=== PATIENT | female | born 1940 | race Caucasian/White ===

== ENCOUNTER 2016-06-19 04:32 | Emergency (ER) | payer MEDICARE, MEDICAID ==
[2016-06-19 06:13] LABS: ABSOLUTE BASOPHILS # (AUTO) 0.1 10^3/uL (0.0-0.2); ABSOLUTE EOSINOPHILS # (AUTO) 0.2 10^3/uL (0.0-0.6); ABSOLUTE LYMPHOCYTES (AUTO) 2.2 10^3/uL (0.5-4.7); ABSOLUTE MONOCYTES (AUTO) 0.8 10^3/uL (0.1-1.4); ABSOLUTE NEUT (AUTO) 6.2 10^3/uL (1.7-8.2); BASOPHILS % (AUTO) 0.7 % (0-2); EOSINOPHILS % (AUTO) 2.4 % (0-6); HEMATOCRIT 34.4 % (36.0-47.0); HEMOGLOBIN 11.1 g/dL (12.0-15.5); HGB HCT DIFFERENCE -1.1; LYMPHOCYTES % (AUTO) 23.2 % (13-45); MEAN CORPUSCULAR HEMOGLOBIN 31.1 pg (27.0-33.4); MEAN CORPUSCULAR HGB CONC 32.4 g/dL (32.0-36.0); MEAN CORPUSCULAR VOLUME 96 fl (80-97); MONOCYTES % (AUTO) 8.1 % (3-13); RED BLOOD COUNT 3.57 10^6/uL (3.72-5.28); SEGMENTED NEUTROPHILS % (AUTO) 65.6 % (42-78); WHITE BLOOD COUNT 9.5 10^3/uL (4.0-10.5)
[2016-06-19 06:21] LABS: PROTHROMBIN TIME 14.5 SEC (11.4-15.4)
[2016-06-19 06:22] LABS: PARTIAL THROMBOPLASTIN TIME 35.4 SEC (23.5-35.8)
[2016-06-19] MEDS ORDERED: LIDOCAINE 2%/EPINEPHRINE INJ 20 ML VIAL INJ ONE (06:59)
--- NOTE | 2016-06-19 07:28 | ER Document Report ---
ED General - General Chief Complaint: Post Surgical Bleeding Stated Complaint: POST SURGICAL PROBLEM TRAVEL OUTSIDE OF THE [place] IN LAST 30 DAYS: No - HPI Patient complains to provider of: gums bleeding post dental extraction Notes: Patient coming in after having 4 teeth removed of her upper gum day prior to arrival. Patient was on Ahlquist and did have her Ahlquist held since Friday. Patient states since that time continues to use. Patient states she was having some bleeding after the surgery. Patient cannot tell me the name of the dentist that performed the dental extraction. Upon entering the room patient does have gauze in her mouth here is this does show some blood. Otherwise airways intact no obvious distress patient's hemoglobin stable. - Related Data Allergies/Adverse Reactions: iodine Allergy (Severe, Verified 03/12/16 09:33) itching, facial swelling, difficulty breathing doxycycline [Doxycycline] Allergy (Verified 03/12/16 09:33) dizzy Iodinated Contrast Media - Oral and [IV Dye, Iodine Containing] Allergy ( Verified 03/12/16 09:33) prednisone [Prednisone] Allergy (Verified 03/12/16 09:33) Sulfa (Sulfonamide Antibiotics) Allergy (Verified 03/12/16 09:33) dizzy amlodipine besylate [From Norvasc] Adverse Reaction (Unknown, Verified 03/12/16 09:33) anxious, jittery feeling Past Medical History - Social History Smoking Status: Former Smoker Chew tobacco use (# tins/day): No Frequency of alcohol use: None Drug Abuse: None Family History: Reviewed & Not Pertinent Patient has suicidal ideation: No Patient has homicidal ideation: No - Past Medical History Cardiac Medical History: Reports: Hx Congestive Heart Failure, Hx DVT, Hx Heart Attack, Hx Hypertension - R/T ESRD, Hx Pulmonary Embolism, Hx Heart Murmur Denies: Hx Coronary Artery Disease Pulmonary Medical History: Reports: Hx Pneumonia Denies: Hx Asthma, Hx Bronchitis, Hx COPD, Hx Tuberculosis Neurological Medical History: Denies: Hx Cerebrovascular Accident, Hx Seizures Renal/ Medical History: Reports: Hx End Stage Renal Disease, Hx Hemodialysis, Hx Kidney Stones. Denies: Hx Peritoneal Dialysis GI Medical History: Reports: Hx Ulcer Musculoskeltal Medical History: Reports Hx Arthritis Psychiatric Medical History: Reports: Hx Depression Past Surgical History: Reports: Hx Abdominal Surgery - gastric bypass, Hx Cardiac Surgery - Pacer, bypass, Hx Cholecystectomy, Hx Gastric Bypass Surgery, Hx Orthopedic Surgery, Hx Tonsillectomy, Hx Tubal Ligation. Denies: Hx Hysterectomy - Immunizations Hx Diphtheria, Pertussis, Tetanus Vaccination: Yes - PT UNSURE WHEN Hx Pneumococcal Vaccination: 01/31/14 Review of Systems - Review of Systems Constitutional: No symptoms reported EENT: Other - Gum bleeding Cardiovascular: No symptoms reported Respiratory: No symptoms reported Gastrointestinal: No symptoms reported Genitourinary: No symptoms reported Female Genitourinary: No symptoms reported Musculoskeletal: No symptoms reported Skin: No symptoms reported Hematologic/Lymphatic: No symptoms reported Neurological/Psychological: No symptoms reported Physical Exam - Vital signs Vitals: Resp 16 06/19/16 04:47 Interpretation: Normal - General General appearance: Appears well, Alert - HEENT Head: Normocephalic, Atraumatic Eyes: Normal Pupils: PERRL Notes: Patient with extractions approximate tooth 3 12 [address] there is no rapid bleeding. Sutures are placed. - Respiratory Respiratory status: No respiratory distress Chest status: Nontender Breath sounds: Normal Chest palpation: Normal - Cardiovascular Rhythm: Regular Heart sounds: Normal auscultation Murmur: No - Abdominal Inspection: Normal Distension: No distension Bowel sounds: Normal Tenderness: Nontender Organomegaly: No organomegaly - Back Back: Normal, Nontender - Extremities General upper extremity: Normal inspection, Nontender, Normal color, Normal ROM , Normal temperature General lower extremity: Normal inspection, Nontender, Normal color, Normal ROM , Normal temperature, Normal weight bearing. No: Giovanni's sign - Neurological Neuro grossly intact: Yes Cognition: Normal Orientation: AAOx4 Milind Coma Scale Eye Opening: Spontaneous Milind Coma Scale Verbal: Oriented Milind Coma Scale Motor: Obeys Commands Milind Coma Scale Total: 15 Speech: Normal Motor strength normal: LUE, RUE, LLE, RLE Sensory: Normal - Psychological Associated symptoms: Normal affect, Normal mood - Skin Skin Temperature: Warm Skin Moisture: Dry Skin Color: Normal Course - Re-evaluation Re-evalutation: 06/19/16 07:27 Lab work shows thymocyte opinion was to be stable for the patient. Patient's hemoglobin is stable. Will attempt to place some Surgicel with lidocaine with epi at the sites will consult with the dentist the performed extractions. 06/19/16 08:26 Lidocaine with epinephrine was instilled in the surgical wounds and packed with Gelfoam. After packing patient was made to bite down on gauze. This did not temporize the bleeding. I did contact the patient's oral surgeon Dr. rodriguez. Discussed with medical receptionist medical assistant who is already notified of the patient are notified the doctor states that their request to have the patient transferred to their office. 06/19/16 14:44 - Vital Signs Vital signs: Temp Pulse Resp BP Pulse Ox 98.3 F 60 18 147/57 H 94 06/19/16 04:54 06/19/16 08:40 06/19/16 08:40 06/19/16 08:40 06/19/16 08:40 - Laboratory Result Diagrams: 06/19/16 05:35 Laboratory results interpreted by me: 06/19/16 05:35 RBC 3.57 L Hgb 11.1 L Hct 34.4 L RDW 15.0 H Plt Count 110 L Discharge - Discharge Clinical Impression: bleeding post dental extraction Condition: Good Disposition: HOME-SNF (ED ONLY) Additional Instructions: Go directly to Dr. Rodriguez's office for further evaluation of your bleeding. Referrals: ASHOK CORTES MD [Primary Care Provider] - Follow up as needed
[2016-06-19 08:41] VITALS: BP 147/57
== END 2016-06-19 09:25 ==
LOC: ER 04:32
DX: K91.840 Postprocedural hemorrhage of a digestive system organ or structure following a digestive system procedure (principal); Y83.6 Removal of other organ (partial) (total) as the cause of abnormal reaction of the patient, or of later complication, without mention of misadventure at the time of the procedure; I25.2 Old myocardial infarction; I12.0 Hypertensive chronic kidney disease with stage 5 chronic kidney disease or end stage renal disease; N18.6 End stage renal disease; Z99.2 Dependence on renal dialysis; Z88.3 Allergy status to other anti-infective agents; Z88.1 Allergy status to other antibiotic agents; Z91.041 Radiographic dye allergy status; Z88.8 Allergy status to other drugs, medicaments and biological substances; Z88.2 Allergy status to sulfonamides; Z87.891 Personal history of nicotine dependence; Z86.718 Personal history of other venous thrombosis and embolism; Z86.711 Personal history of pulmonary embolism; Z98.84 Bariatric surgery status; Z95.0 Presence of cardiac pacemaker
CPT/HCPCS: 99284; 36415; 85025; 85610; 85730; J3490

== ENCOUNTER 2016-07-04 09:22 | Day surgery (SDC) | payer MEDICARE, MEDICAID ==
[~2016-07-04 09:22] MED LIST: CEFAZOLIN 1 GM/D5W RTU 1 GM/50 ML RTUPB IV PRN; CEFAZOLIN SODIUM 1 GM in DEXTROSE 5%-WATER 50 ML IV PRN
[2016-07-04 10:24] LABS: HEMATOCRIT 27.8 % (36.0-47.0); HEMOGLOBIN 8.9 g/dL (12.0-15.5); HGB HCT DIFFERENCE -1.1; MEAN CORPUSCULAR HEMOGLOBIN 31.1 pg (27.0-33.4); MEAN CORPUSCULAR HGB CONC 32.2 g/dL (32.0-36.0); MEAN CORPUSCULAR VOLUME 97 fl (80-97); RED BLOOD COUNT 2.88 10^6/uL (3.72-5.28); RED CELL DISTRIBUTION WIDTH 16.2 % (11.5-14.0); WHITE BLOOD COUNT 10.1 10^3/uL (4.0-10.5)
[2016-07-04 10:26] LABS: ANION GAP 15 (5-19); BLOOD UREA NITROGEN 37 mg/dL (7-20); CALCIUM 8.9 mg/dL (8.4-10.2); CARBON DIOXIDE 27 mmol/L (22-30); CHLORIDE 99 mmol/L (98-107); CREATININE RESULT 5.49 mg/dL (0.52-1.25); GLUCOSE 116 mg/dL (75-110); POTASSIUM 4.4 mmol/L (3.6-5.0); SODIUM 140.6 mmol/L (137-145)
[2016-07-04] MEDS ORDERED: FENTANYL CITRATE INJ/PF 100 MCG/2 ML AMPUL ONE (11:07)
[2016-07-04] MEDS ORDERED: MIDAZOLAM 2 MG/2 ML INJ ONE (11:07)
[2016-07-04] MEDS ORDERED: HEPARIN SOD (PORCINE) 5,000 UNIT/ML 1 ML SYRINGE ONE (11:07)
[2016-07-04] MEDS ORDERED: LIDOCAINE 0.5% INJ-PF (5 MG/ML) 50 ML SDV ONE (11:15)
--- NOTE | 2016-07-04 11:25 | EKG REPORT ---
SEVERITY:- ABNORMAL ECG - ATRIAL-SENSED VENTRICULAR-PACED RHYTHM : Confirmed by: Tennlile Dinh 04-Jul-2016 11:24:56
[2016-07-04 13:47] VITALS: BP 127/61
--- NOTE | 2016-07-15 13:27 | PDOC DISCHARGE SUMMARY ---
Discharge Summary (SDC) - Discharge Final Diagnosis: #1 malfunctioning arteriovenous fistula. #2 end-stage renal disease on hemodialysis. #3 multiple comorbidities. Forms: ASU Anesthesia D/C Instruction, Discharge POC-Surgical Service Referrals: DON HELM MD [ACTIVE STAFF] - Respiratory Treatments at Home: Deep Breathing/Coughing Discharge Activity: Activity As Tolerated, Balance Activity w/Rest, No Lifting Over 10 Pounds, Slowly Increase Activity, Walk Frequently Activities Provided by Home Health Agency: [facility] Adaptive Devices on Discharge: Wheelchair Report the Following to Your Physician Immediately: Shortness of Breath, Nausea , Vomiting, Increase in Pain, Fever over 101 Degrees, Unusual Bleeding, Redness , Swelling, Warmth, Increased Soreness, Drainage-Foul Smelling
--- NOTE | 2016-07-15 13:32 | Brief Operative Note ---
BRIEF OPERATIVE REPORT DATE OF SURGERY: 07/09/16 TIME OF SURGERY: 10:00 PREOPERATIVE DIAGNOSIS: #1 malfunctioning arteriovenous fistula. #2 end-stage renal disease on hemodialysis. #3 multiple comorbidities. POSTOPERATIVE DIAGNOSIS: #1 malfunctioning arteriovenous fistula. #2 end-stage renal disease on hemodialysis. #3 multiple comorbidities. SURGEON: DON HELM 1ST GARDEN IMPLEMENT MECHANIC: none FINDINGS: Upper well-founded left arm cephalic to brachial fistula, quite firm initially suggestive of proximal stenosis. Sure enough there is a tight stenosis at the cephalic to subclavian junction easily about 80% of the adjacent lumen. This was completely resolved by angioplasty. COMPLICATIONS: None ESTIMATED BLOOD LOSS: 5 mL. TISSUE REMOVED OR ALTERED: Not applicable TECHNICAL PROCEDURE: PROCEDURE: After verifying the procedure and having obtained informed consent, the. patient's left arm was prepared with Chlorhexidine and draped out with. sterile linen. Local anesthesia infiltrated. Percutaneous access into. the fistula ,[ antegrade], obtained about [2 cm] from the arteriovenous anastomosis using a. micro puncture needle followed by micro puncture wire and then a. micro puncture catheter. Angiogram demonstrated the aforementioned. findings. Angioplasty was elected. A 0.035 [place] wire was inserted, and. over this, a 7 Macanese short introducer was placed, this was followed by a [8] angioplasty balloon . Angioplasty was. At the subclavian cephalic junction. Inflating up to 18 atmospheres for a minute at a time.]. Completion angiogram demonstrated [satisfactory result]. The instrumentation was now withdrawn e. Dressings applied, procedure concluded. Exposure time: Radiation: Contrast: DICTATING PHYSICIAN: DON HELM M.D. cc: DON HELM M.D. ([id number]). >>
--- NOTE | 2016-07-15 13:33 | Operative Report ---
Operative Report DATE OF SURGERY: 07/09/16 PREOPERATIVE DIAGNOSIS: #1 malfunctioning arteriovenous fistula. #2 end-stage renal disease on hemodialysis. #3 multiple comorbidities. POSTOPERATIVE DIAGNOSIS: #1 malfunctioning arteriovenous fistula. #2 end-stage renal disease on hemodialysis. #3 multiple comorbidities. OPERATION: PROCEDURE: After verifying the procedure and having obtained informed consent, the. patient's left arm was prepared with Chlorhexidine and draped out with. sterile linen. Local anesthesia infiltrated. Percutaneous access into. the fistula ,[ antegrade], obtained about [2 cm] from the arteriovenous anastomosis using a. micro puncture needle followed by micro puncture wire and then a. micro puncture catheter. Angiogram demonstrated the aforementioned. findings. Angioplasty was elected. A 0.035 [place] wire was inserted, and. over this, a 7 Chinese short introducer was placed, this was followed by a [8] angioplasty balloon . Angioplasty was. At the subclavian cephalic junction. Inflating up to 18 atmospheres for a minute at a time.]. Completion angiogram demonstrated [satisfactory result]. The instrumentation was now withdrawn e. Dressings applied, procedure concluded. Exposure time: Radiation: Contrast: DICTATING PHYSICIAN: DON HELM M.D. cc: DON HELM M.D. ([id number]). >> SURGEON: DON HELM 1ST ELL TUTOR: none TISSUE REMOVED OR ALTERED: Not applicable ESTIMATED BLOOD LOSS: 5 mL. INTRAOPERATIVE FINDINGS: Upper well-founded left arm cephalic to brachial fistula, quite firm initially suggestive of proximal stenosis. Sure enough there is a tight stenosis at the cephalic to subclavian junction easily about 80 % of the adjacent lumen. This was completely resolved by angioplasty. PROCEDURE: PROCEDURE: After verifying the procedure and having obtained informed consent, the patient's left arm was prepared with Chlorhexidine and draped out with sterile linen. Local anesthesia infiltrated. Percutaneous access into the fistula ,[ antegrade], obtained about [2 cm] from the arteriovenous anastomosis using a micro puncture needle followed by micro puncture wire and then a micro puncture catheter. Angiogram demonstrated the aforementioned findings. Angioplasty was elected. A 0.035 [place] wire was inserted, and over this, a 7 Chinese short introducer was placed, this was followed by a [8] angioplasty balloon . Angioplasty was At the subclavian to cephalic junction. Inflating up to 18 atmospheres for 2 minutes.]. Completion angiogram demonstrated [satisfactory result]. The instrumentation was now withdrawn e. Dressings applied, procedure concluded. DICTATING PHYSICIAN: DON HELM M.D. cc: DON HELM M.D. ([id number]) >>
== END 2016-07-04 13:52 | disposition home or self-care (01) ==
LOC: CCL 09:22
PROVIDERS: ATTEND Surgery
PROC: 057F3DZ Dilation of Left Cephalic Vein with Intraluminal Device, Percutaneous Approach (ICD-10-PCS; principal; 2016-07-04)
DX: T82.858A Stenosis of other vascular prosthetic devices, implants and grafts, initial encounter (principal); Y83.2 Surgical operation with anastomosis, bypass or graft as the cause of abnormal reaction of the patient, or of later complication, without mention of misadventure at the time of the procedure; Z99.2 Dependence on renal dialysis; I51.9 Heart disease, unspecified; E83.51 Hypocalcemia; E03.9 Hypothyroidism, unspecified; I50.22 Chronic systolic (congestive) heart failure; E87.6 Hypokalemia; I47.2 Ventricular tachycardia; Z86.718 Personal history of other venous thrombosis and embolism; Z79.899 Other long term (current) drug therapy; Z79.82 Long term (current) use of aspirin
CPT/HCPCS: 36415; 85027; 80048; 36902; 71010; 93005; 93010; C1752; C1887; Q9967; C1769; J2250; J1644 ×2; J0690; J3010; J3490

== ENCOUNTER 2016-09-10 09:42 | Day surgery (SDC) | payer MEDICARE, MEDICAID ==
[2016-09-10 10:25] LABS: ABSOLUTE LYMPHOCYTES (AUTO) 1.7 10^3/uL (0.5-4.7); ABSOLUTE MONOCYTES (AUTO) 0.3 10^3/uL (0.1-1.4); BASOPHILS % (AUTO) 0.4 % (0-2); HEMATOCRIT 36.9 % (36.0-47.0); HEMOGLOBIN 11.9 g/dL (12.0-15.5); HGB HCT DIFFERENCE -1.2; LYMPHOCYTES % (AUTO) 15.6 % (13-45); MEAN CORPUSCULAR HEMOGLOBIN 30.7 pg (27.0-33.4); MEAN CORPUSCULAR HGB CONC 32.4 g/dL (32.0-36.0); MEAN CORPUSCULAR VOLUME 95 fl (80-97); MONOCYTES % (AUTO) 2.4 % (3-13); RED BLOOD COUNT 3.88 10^6/uL (3.72-5.28); RED CELL DISTRIBUTION WIDTH 14.8 % (11.5-14.0); SEGMENTED NEUTROPHILS % (AUTO) 81.6 % (42-78); WHITE BLOOD COUNT 11.1 10^3/uL (4.0-10.5)
[2016-09-10 10:44] LABS: ANION GAP 16 (5-19); BLOOD UREA NITROGEN 25 mg/dL (7-20); CALCIUM 9.2 mg/dL (8.4-10.2); CARBON DIOXIDE 25 mmol/L (22-30); CHLORIDE 102 mmol/L (98-107); CREATININE RESULT 6.03 mg/dL (0.52-1.25); GLUCOSE 127 mg/dL (75-110); POTASSIUM 5.2 mmol/L (3.6-5.0); SODIUM 142.8 mmol/L (137-145)
[2016-09-10] MEDS ORDERED: LIDOCAINE 0.5% INJ-PF (5 MG/ML) 50 ML SDV ONE (11:54)
[2016-09-10] MEDS ORDERED: MIDAZOLAM 2 MG/2 ML INJ ONE (11:55)
[2016-09-10] MEDS ORDERED: HEPARIN SOD (PORCINE) 5,000 UNIT/ML 1 ML SYRINGE ONE (11:55)
[2016-09-10] MEDS ORDERED: FENTANYL CITRATE INJ/PF 100 MCG/2 ML AMPUL ONE (11:55)
--- NOTE | 2016-09-10 14:47 | PDOC DISCHARGE SUMMARY ---
Discharge Summary (SDC) - Discharge Final Diagnosis: #1 Malfunctioning arteriovenous fistula, left brachiocephalic. #2 end-stage renal disease on hemodialysis. #3 chronic heart failure. Number for pacemaker defibrillator in place. #5 atrial fibrillation. #6 history of deep venous thrombosis. #7 hypothyroidism. Date of Surgery: 09/10/16 Discharge Date: 09/10/16 Condition: Poor Forms: ASU Anesthesia D/C Instruction, Discharge POC-Surgical Service Treatment or Instructions: #1 discharge patient home after achieving ASU criteria. #2 continue medications per medication reconciliation sheet. Nodes well, prednisone, Pepcid and Benadryl are discontinued from the MAR. These are to be reviewed in the residential and primary physician for appropriate long-term use. Discussed with the residential sales representative printing supplies today #3 follow-up in office by appointment in about 1 month, call for appointment. #4 dressing to be left on until dialysis. #5 continue scheduled hemodialysis. #6 may shower starting in 48 hours. Important to keep dressings clean and dry Referrals: DON HELM MD [ACTIVE STAFF] - Discharge Diet: Other (Comments) - Renal Respiratory Treatments at Home: Deep Breathing/Coughing Discharge Activity: Activity As Tolerated Report the Following to Your Physician Immediately: Shortness of Breath, Unusual Bleeding
--- NOTE | 2016-09-10 14:54 | Operative Report ---
Operative Report DATE OF SURGERY: 09/10/16 PREOPERATIVE DIAGNOSIS: #1 Malfunctioning arteriovenous fistula, left brachiocephalic. #2 end-stage renal disease on hemodialysis. #3 chronic heart failure. #[address] #5 atrial fibrillation. #6 history of deep venous thrombosis. #7 hypothyroidism. POSTOPERATIVE DIAGNOSIS: #1 Malfunctioning arteriovenous fistula, left brachiocephalic. #2 end-stage renal disease on hemodialysis. #3 chronic heart failure. Number for pacemaker defibrillator in place. #5 atrial fibrillation. #6 history of deep venous thrombosis. #7 hypothyroidism. OPERATION: #1 needle access into fistula. #2 angioplasty in arteriovenous fistula. #3 angioplasty in central veins. #4 angiogram and interpretation. SURGEON: DON HUNTER FUELS ENGINEER: none ANESTHESIA: Moderate Sedation TISSUE REMOVED OR ALTERED: Not applicable. COMPLICATIONS: None ESTIMATED BLOOD LOSS: 5 mL. INTRAOPERATIVE FINDINGS: Of an initially very firm fistula suggestive of cephalad stenosis. Stenosis noted at the cephalic vein to axillary vein interface about 70% stenosis. Residual about 5%. In addition a second vein draining into the subclavian vein more medially was initially not visualized. It was reopened and shows no residual stenosis after angioplasty. Apart from that the entire circuit looks good and robust including the superior vena cava into the heart. Despite the presence of defibrillator leads. This patient has a relatively bill fistula as given the presence of the defibrillator seems well indicated for continued surveillance an appropriate intervention. PROCEDURE: PROCEDURE: After verifying the procedure and having obtained informed consent, the patient's left arm was prepared with Chlorhexidine and draped out with sterile linen. Local anesthesia infiltrated. Percutaneous access into the fistula ,[ antegrade], obtained about [2 cm] from the arteriovenous anastomosis using a micro puncture needle followed by micro puncture wire and then a micro puncture catheter. Angiogram demonstrated the aforementioned findings. Angioplasty was elected. A 0.035 [place] wire was inserted, and over this, a 7 [place] short introducer was placed, this was followed by a [90] angioplasty balloon . Angioplasty was Done at the cephalic axillary junction. Handing hand inflating up to an estimated 20 amanda for 1 minute at the time.] Completion angiogram demonstrated improvement. The Glidewire was now inserted into the medial branch into the subclavian vein and dilatation was accomplished under hand injection for an estimated 20 amanda for 1 minute. A 9 mm angioplasty balloon was used. A 10 mm angioplasty balloon was now inserted and hand inflation up to an estimated estimated 12 amanda done both segments.. Completion angiogram demonstrated [satisfactory result]. In addition the fistula was appropriately softer suggesting that the functional cephalad stenosis had been overcome. The instrumentation was now withdrawn over hand pressure for 10 minutes. Dressings applied, procedure concluded. DICTATING PHYSICIAN: DON HELM M.D. cc: DON HELM M.D. ([id number]) >>
[2016-09-10 15:20] VITALS: BP 123/56
== END 2016-09-10 15:21 | disposition home or self-care (01) ==
LOC: CCL 09:42
PROVIDERS: ATTEND Surgery
PROC: 057F3DZ Dilation of Left Cephalic Vein with Intraluminal Device, Percutaneous Approach (ICD-10-PCS; principal; 2016-09-10)
DX: T82.858A Stenosis of other vascular prosthetic devices, implants and grafts, initial encounter (principal); Y83.2 Surgical operation with anastomosis, bypass or graft as the cause of abnormal reaction of the patient, or of later complication, without mention of misadventure at the time of the procedure; N18.6 End stage renal disease; Z99.2 Dependence on renal dialysis; E03.9 Hypothyroidism, unspecified; E83.51 Hypocalcemia; I50.22 Chronic systolic (congestive) heart failure; I48.91 Unspecified atrial fibrillation; Z88.2 Allergy status to sulfonamides; Z88.8 Allergy status to other drugs, medicaments and biological substances; Z79.01 Long term (current) use of anticoagulants; Z79.82 Long term (current) use of aspirin; Z95.810 Presence of automatic (implantable) cardiac defibrillator
CPT/HCPCS: 36415; 85025; 80048; 36907; 36902; C1725; C1752; C1894; Q9967; C1769; J2250; J1644 ×2; J3010; J3490

== ENCOUNTER 2016-09-11 13:59 | Observation (INO) | payer MEDICARE, MEDICAID ==
[2016-09-11] MEDS ORDERED: ASPIRIN 81 MG TABLET, CHEWABLE PO ONE (14:01)
--- NOTE | 2016-09-11 14:33 | ER Document Report ---
ED Cardiac - General Time seen by provider: 16:13 Mode of Arrival: Medic Information source: Patient TRAVEL OUTSIDE OF THE [place] IN LAST 30 DAYS: No - HPI Patient complains to provider of: Chest pain Was the onset of pain: Sudden Is the pain a: New problem Quality of pain: Pressure Chest pain radiation location: Left arm, Left shoulder Similar symptoms previously: No Recently seen / treated by doctor: No <ADOLPH DIAZ - Last Filed: 09/11/16 18:27> <OSIRIS MEDEIROS - Last Filed: 09/11/16 22:03> - General Stated Complaint: CHEST DISCOMFORT Notes: Patient is a 76 year old female presenting to the ED for chest pain. Patient states she was at dialysis when she started having chest pain along with pain in her left arm, left shoulder, and epigastric region. Patient states she had her fistula stretched by Dr. Joya yesterday. Patient has never had any problems with this procedure in the past. Patient states she started having the pain during dialysis. Patient denies any loss of consciousness during dialysis and also denies any pain at the time of the exam. Patient was given ASA and nitroglycerin x2 via EMS. Patient states she is allergic to contrast dye and has some itchiness and swelling associated to the dye. Patient states she has been pre-medicated in the past by Dr. Joya for contrast . (ADOLPH DIAZ ) - Related Data Allergies/Adverse Reactions: iodine Allergy (Severe, Verified 09/10/16 10:41) itching, facial swelling, difficulty breathing doxycycline [Doxycycline] Allergy (Verified 09/10/16 10:41) dizzy Iodinated Contrast Media - Oral and [IV Dye, Iodine Containing] Allergy ( Verified 09/10/16 10:41) prednisone [Prednisone] Allergy (Verified 09/10/16 10:41) Sulfa (Sulfonamide Antibiotics) Allergy (Verified 09/10/16 10:41) dizzy amlodipine besylate [From Norvasc] Adverse Reaction (Unknown, Verified 09/10/16 10:41) anxious, jittery feeling Home Medications: Current Home Medications Acetaminophen [Tylenol 325 mg Tablet] 650 mg PO Q4HP PRN 09/11/16 [History] Acidophilus/Bifido Longum [Lactobacillus Capsule] 1 tab PO BID 09/11/16 [History ] Amiodarone HCl [Cordarone 200 mg Tablet] 200 mg PO DAILY 09/11/16 [History] Apixaban [Eliquis 2.5 mg Tablet] 2.5 mg PO BID 09/11/16 [History] Aspirin [Aspirin EC] 81 mg PO DAILY 09/11/16 [History] Atorvastatin Calcium [Lipitor 40 mg Tablet] 40 mg PO QHS 09/11/16 [History] Cyanocobalamin (Vitamin B-12) [Vitamin B-12 500 mcg Tablet] 500 mcg PO DAILY 05/18 [History] Diphenoxylate HCl/Atropine [Lomotil 2.5-0.025 mg Tablet] 2 tab PO QID 09/11/16 [ History] Eyelid Cleanser Combination #5 [Ocusoft Lid Scrub] 1 applic OU BID 09/11/16 [ History] Famotidine [Pepcid 20 mg Tablet] 20 mg PO Q12 09/11/16 [History] Ferric Citrate [Auryxia] 1 tab PO TID 09/11/16 [History] Hydrocortisone [Cortef 10 mg Tablet] 5 mg PO QHS 09/11/16 [History] Hydrocortisone [Cortef 10 mg Tablet] 10 mg PO QAM 09/11/16 [History] Levothyroxine Sodium [Synthroid 0.15 mg Tablet] 150 mcg PO QAM 09/11/16 [History ] Lidocaine HCl [Aspercreme] 1 applic TOP DAILY 09/11/16 [History] Lidocaine/Prilocaine [Emla Cream] 1 applic TOP MOWEFR 09/11/16 [History] Loperamide HCl [Imodium A-D] 4 mg PO QID 09/11/16 [History] Loratadine [Claritin 10 mg Tablet] 10 mg PO QHS 09/11/16 [History] Magnesium Oxide [Mag-Ox 400 mg Tablet] 1 tab PO BID 09/11/16 [History] Metoprolol Tartrate [Lopressor 25 mg Tablet] 12.5 mg PO BID 09/11/16 [History] Mometasone Furoate [Nasonex] 2 puff NASL DAILY 09/11/16 [History] Olopatadine HCl [Patanol] 1 drop OU QAM 09/11/16 [History] Ondansetron HCl [Zofran 4 mg Tablet] 4 mg PO Q4HP PRN 09/11/16 [History] Oxycodone HCl/Acetaminophen [Percocet 5-325 mg Tablet] 1 tab PO Q6HP PRN [History] Paroxetine HCl [Paxil] 10 mg PO DAILY 09/11/16 [History] Polyvinyl Alcohol [Liquitears] 1 drop OU QID 09/11/16 [History] Sodium Bicarbonate [Sodium Bicarbonate 650 mg Tablet] 650 mg PO BID 09/11/16 [ History] Sodium Fluoride/Potassium Nit [Prevident 5000 Sensitive Paste] 1 applic PO BID 09/11/16 [History] Sodium Polystyrene Sulfonate [Kayexalate 15 gm/60 ml Susp 60 ml] 60 ml PO DAILYP PRN 09/11/16 [History] Past Medical History - General Information source: Patient, [facility] Records - Social History Smoking Status: Unknown if Ever Smoked Family History: None Patient has suicidal ideation: No Patient has homicidal ideation: No - Past Medical History Cardiac Medical History: Reports: Hx Congestive Heart Failure, Hx DVT, Hx Heart Attack, Hx Hypertension - R/T ESRD, Hx Pulmonary Embolism, Hx Heart Murmur Pulmonary Medical History: Reports: Hx Pneumonia Renal/ Medical History: Reports: Hx End Stage Renal Disease, Hx Hemodialysis, Hx Kidney Stones GI Medical History: Reports: Hx Ulcer Musculoskeltal Medical History: Reports Hx Arthritis Psychiatric Medical History: Reports: Hx Depression Past Surgical History: Reports: Hx Abdominal Surgery - gastric bypass, Hx Cardiac Surgery - Pacer, bypass, Hx Cholecystectomy, Hx Gastric Bypass Surgery, Hx Orthopedic Surgery, Hx Tonsillectomy, Hx Tubal Ligation - Immunizations Hx Diphtheria, Pertussis, Tetanus Vaccination: Yes Hx Pneumococcal Vaccination: 01/31/14 <ADOLPH DIAZ - Last Filed: 09/11/16 18:27> Review of Systems - Review of Systems Constitutional: No symptoms reported EENT: No symptoms reported Cardiovascular: See HPI, Chest pain Respiratory: No symptoms reported Gastrointestinal: No symptoms reported Genitourinary: No symptoms reported Female Genitourinary: No symptoms reported Musculoskeletal: See HPI Skin: No symptoms reported Hematologic/Lymphatic: No symptoms reported Neurological/Psychological: No symptoms reported -: Yes All other systems reviewed and negative <ADOLPH DIAZ - Last Filed: 09/11/16 18:27> Physical Exam - Extremities General upper extremity: Other - fistula to the left upper extremity - Skin Skin Color: Ecchymosis - left arm and shoulder <EMILYADOLPH - Last Filed: 09/11/16 18:27> Course - Laboratory Result Diagrams: 09/11/16 14:32 09/11/16 14:32 - Consults Dr. Joya Time consulted: 16:20 Dr. Marie Time consulted: 17:42 <ADOLPH DIAZ - Last Filed: 09/11/16 18:27> - Laboratory Result Diagrams: 09/11/16 14:32 09/11/16 14:32 - Diagnostic Test Radiology reviewed: Image reviewed, Reports reviewed <OSIRIS MEDEIROS - Last Filed: 09/11/16 22:03> - Re-evaluation Re-evalutation: 09/11/16 Patient is 76 field female who comes in with left-sided chest pain and arm pain upper abdominal pain that started after dialysis. Patient feels well this time. Patient is a history of [place]. Discussed with Dr. Joya who does not recommend Doppler. Does recommend CTA of her chest abdomen pelvis although he does not think that this is anything to do with her fistula. Discussed with patient. She'll be premedicated for dye. She has no history of anaphylactic reaction. Given Benadryl. Tolerated CTA. No acute findings related to dissection or PE. Patient will be admitted to the hospital service for further evaluation of her symptoms. Agrees with this plan. Stable time of admission. ( OSIRIS MEDEIROS) - Vital Signs Vital signs: Temp Pulse Resp BP Pulse Ox 97.8 F 61 15 126/55 H 95 09/11/16 14:01 09/11/16 14:01 09/11/16 19:00 09/11/16 18:30 09/11/16 18:30 - Laboratory Laboratory results interpreted by me: 09/11/16 09/11/16 14:32 14:32 Hgb 11.7 L Hct 35.8 L RDW 14.8 H BUN 24 H Creatinine 4.39 H Est GFR ( Amer) 12 L Est GFR (Non-Af Amer) 10 L Calcium 8.3 L Alkaline Phosphatase 237 H - Consults Dr. Joya Reason for consultation: 09/11/16 16:[address] Joya to consult about patient; he recommends to not do a Doppler study but instead do a CTA of the chest with contrast. (ADOLPH DIAZ) Dr. Marie Reason for consultation: 09/11/16 17:[address] Marie in the ED about patient; she will admit the patient for observation. (ADOLPH DIAZ) Critical Care Note - Critical Care Note Total time excluding time spent on procedures (mins): 35 - evaluation and management of chest pain patient, multiple re-evaluations, coordination with specialist, Ruben and of admission, counseling of patient <OSIRIS MEDEIROS - Last Filed: 09/11/16 22:03> Discharge <ADOLPH DIAZ - Last Filed: 09/11/16 18:27> - Discharge Admitting Provider: Rosey Marie Unit Admitted: Telemetry <OSIRIS MEDEIROS - Last Filed: 09/11/16 22:03> - Discharge Clinical Impression: Chest pain Qualifiers: Chest pain type: precordial pain Qualified Code(s): R07.2 - Precordial pain Condition: Stable Disposition: ADMITTED OBSERVATION Scribe Attestation: 09/11/16 22:03 I personally performed the services described in the documentation, reviewed and edited the documentation which was dictated to the scribe in my presence, and it accurately records my words and actions. (OSIRIS MEDEIROS) Scribe Documentation - Scribe Written by Remington:Jonny Diaz 09/11/16 16:45 acting as scribe for :: Norma <ADOLPH DIAZ - Last Filed: 09/11/16 18:27>
[2016-09-11 14:49] LABS: ABSOLUTE EOSINOPHILS # (AUTO) 0.1 10^3/uL (0.0-0.6); ABSOLUTE MONOCYTES (AUTO) 0.4 10^3/uL (0.1-1.4); ABSOLUTE NEUT (AUTO) 6.8 10^3/uL (1.7-8.2); BASOPHILS % (AUTO) 0.3 % (0-2); EOSINOPHILS % (AUTO) 0.6 % (0-6); HEMATOCRIT 35.8 % (36.0-47.0); HEMOGLOBIN 11.7 g/dL (12.0-15.5); HGB HCT DIFFERENCE -0.7; LYMPHOCYTES % (AUTO) 21.7 % (13-45); MEAN CORPUSCULAR HEMOGLOBIN 31.2 pg (27.0-33.4); MEAN CORPUSCULAR HGB CONC 32.6 g/dL (32.0-36.0); MEAN CORPUSCULAR VOLUME 96 fl (80-97); MONOCYTES % (AUTO) 4.8 % (3-13); RED BLOOD COUNT 3.73 10^6/uL (3.72-5.28); RED CELL DISTRIBUTION WIDTH 14.8 % (11.5-14.0); SEGMENTED NEUTROPHILS % (AUTO) 72.6 % (42-78); WHITE BLOOD COUNT 9.3 10^3/uL (4.0-10.5)
[2016-09-11 15:17] LABS: ALANINE AMINOTRANSFERASE 37 U/L (9-52); ALBUMIN 3.8 g/dL (3.5-5.0); ALKALINE PHOSPHATASE 237 U/L (38-126); ANION GAP 14 (5-19); ASPARTATE AMINO TRANSFERASE 27 U/L (14-36); BILIRUBIN,DIRECT 0.4 mg/dL (0.0-0.4); BILIRUBIN,TOTAL 0.6 mg/dL (0.2-1.3); BLOOD UREA NITROGEN 24 mg/dL (7-20); CALCIUM 8.3 mg/dL (8.4-10.2); CARBON DIOXIDE 29 mmol/L (22-30); CHLORIDE 98 mmol/L (98-107); CREATINE KINASE 50 U/L (30-135); CREATININE RESULT 4.39 mg/dL (0.52-1.25); GLUCOSE 82 mg/dL (75-110); POTASSIUM 4.1 mmol/L (3.6-5.0); SODIUM 140.6 mmol/L (137-145); TOTAL PROTEIN 6.4 g/dL (6.3-8.2)
[2016-09-11 15:27] LABS: CREATINE KINASE MB 2.14 ng/mL (<4.55); TROPONIN I 0.029 ng/mL
[2016-09-11] MEDS ORDERED: DIPHENHYDRAMINE HCL 50 MG/ML VIAL IV ONE (16:36)
[2016-09-11] MEDS ORDERED: FAMOTIDINE INJ/PF 20 MG/2 ML SDV IV ONE (16:38)
[2016-09-11] MEDS ORDERED: ONDANSETRON HCL INJ/PF 4 MG/2 ML SDV IV PRN (18:54)
[2016-09-11] MEDS ORDERED: MORPHINE SULFATE 10 MG/ML INJ IV PRN (18:54)
[2016-09-11] MEDS ORDERED: NITROGLYCERIN 0.4 MG/TAB 25 TAB/BOTTLE SL PRN (18:54)
[2016-09-11] MEDS ORDERED: OXYCODONE-ACETAMINOPHEN 5-325 MG TABLET PO PRN (19:03)
[2016-09-11] MEDS ORDERED: INSULIN LISPRO 100 UNIT/ML 3 ML VIAL SUBCUT PRN (19:15)
[2016-09-11] MEDS ORDERED: DEXTROSE 40% GEL 15 GM TUBE PO PRN ×2 (19:15)
[2016-09-11] MEDS ORDERED: GLUCAGON,HUMAN RECOMB 1 MG INJ IM PRN (19:15)
[2016-09-11] MEDS ORDERED: DEXTROSE 50%-WATER 25 GM/50 ML DISP.SYRIN IV PRN ×2 (19:15)
--- NOTE | 2016-09-11 19:24 | PDOC H&P ---
History of Present Illness Admission Date/PCP: 09/11/16 18:45 CAMI MARQUES MD History of Present Illness: VARINDER TORRES is a 76 year old female who presents to the emergency department with complaints of chest pain while on dialysis. Patient reports that she had substernal and epigastric chest pain that felt as though her heaviness/achiness that radiated through to her neck and left arm. Patient denies any associated diaphoresis, nausea, vomiting. Patient denies any associated cough, fevers, chills, sick contacts. She does admit to chronic rhinorrhea secondary to seasonal allergies. Patient reports should similar chest pain after having her fistula manipulated by vascular surgery. CTA of the chest abdomen and pelvis was performed in the emergency department which revealed no acute thrombosis. She is referred to hospital service for evaluation of her chest pain. Past Medical History Cardiac Medical History: Reports: Congestive Heart Failure, DVT, Myocardial Infarction, Hypertension - R/T ESRD, Pulmonary Embolism, Heart Murmur Denies: Coronary Artery Disease Pulmonary Medical History: Reports: Pneumonia Denies: Asthma, Bronchitis, Chronic Obstructive Pulmonary Disease (COPD), Tuberculosis Neurological Medical History: Denies: Seizures Renal/ Medical History: Reports: End Stage Renal Disease Musculoskeltal Medical History: Reports: Arthritis Psychiatric Medical History: Reports: Depression Hematology: Reports: Anemia Past Surgical History Past Surgical History: Reports: Cholecystectomy, Gastric Bypass Surgery, Orthopedic Surgery, Tonsillectomy, Tubal Ligation Denies: Hysterectomy Social History Smoking Status: Former Smoker Frequency of Alcohol Use: None Hx Recreational Drug Use: No Hx Prescription Drug Abuse: No - Advance Directive Resuscitation Status: Full Code Surrogate healthcare decision maker:: Daughter, Eloisa Saenz Family History Family History: CAD, Hypertension Parental Family History Reviewed: Yes Children Family History Reviewed: Yes Sibling(s) Family History Reviewed.: Yes Medication/Allergy Allergies/Adverse Reactions: iodine Allergy (Severe, Verified 09/10/16 10:41) itching, facial swelling, difficulty breathing doxycycline [Doxycycline] Allergy (Verified 09/10/16 10:41) dizzy Iodinated Contrast Media - Oral and [IV Dye, Iodine Containing] Allergy ( Verified 09/10/16 10:41) prednisone [Prednisone] Allergy (Verified 09/10/16 10:41) Sulfa (Sulfonamide Antibiotics) Allergy (Verified 09/10/16 10:41) dizzy amlodipine besylate [From [facility]] Adverse Reaction (Unknown, Verified 09/10/16 10:41) anxious, jittery feeling Review of Systems Constitutional: ABSENT: chills, fever(s), headache(s), weight gain, weight loss Eyes: ABSENT: visual disturbances Ears: ABSENT: hearing changes Cardiovascular: PRESENT: as per HPI, chest pain. ABSENT: dyspnea on exertion, edema, orthropnea, palpitations Respiratory: ABSENT: cough, dyspnea, hemoptysis Gastrointestinal: ABSENT: abdominal pain, constipation, diarrhea, hematemesis, hematochezia, nausea, vomiting Genitourinary: ABSENT: dysuria, hematuria Musculoskeletal: ABSENT: joint swelling Integumentary: ABSENT: rash, wounds Neurological: ABSENT: abnormal gait, abnormal speech, confusion, dizziness, focal weakness, syncope Psychiatric: ABSENT: anxiety, depression, homidical ideation, suicidal ideation Endocrine: ABSENT: cold intolerance, heat intolerance, polydipsia, polyuria Hematologic/Lymphatic: ABSENT: easy bleeding, easy bruising Physical Exam Vital Signs: Temp Pulse Resp BP Pulse Ox 97.8 F 61 14 128/93 H 97 09/11/16 14:01 09/11/16 14:01 09/11/16 14:01 09/11/16 14:01 09/11/16 14:01 General appearance: PRESENT: no acute distress, well-developed, well-nourished Head exam: PRESENT: atraumatic, normocephalic Eye exam: PRESENT: conjunctival injection - Left eye, conjunctiva pink, EOMI, PERRLA, other - Left eye. On drainage. ABSENT: scleral icterus Ear exam: PRESENT: normal external ear exam Mouth exam: PRESENT: moist, tongue midline Neck exam: ABSENT: JVD, lymphadenopathy, thyromegaly, tracheal deviation Respiratory exam: PRESENT: clear to auscultation kannan, symmetrical, unlabored. ABSENT: crackles, rales, rhonchi, tachypnea, wheezes Cardiovascular exam: PRESENT: RRR, systolic murmur. ABSENT: diastolic murmur, rubs Pulses: PRESENT: normal dorsalis pedis pul Vascular exam: PRESENT: normal capillary refill GI/Abdominal exam: PRESENT: normal bowel sounds, soft. ABSENT: distended, firm , guarding, mass, Reeves's sign, organolmegaly, rebound, rigid, tenderness Rectal exam: PRESENT: deferred Extremities exam: PRESENT: full ROM. ABSENT: calf tenderness, clubbing, pedal edema Neurological exam: PRESENT: alert, awake, oriented to person, oriented to place , oriented to time, oriented to situation, CN II-XII grossly intact. ABSENT: motor sensory deficit Psychiatric exam: PRESENT: appropriate affect, normal mood. ABSENT: homicidal ideation, suicidal ideation Skin exam: PRESENT: dry, intact, warm, other - Ecchymosis and edema of her left arm. ABSENT: cyanosis, rash Results Laboratory Results: 09/11/16 18:53 Troponin I Cancelled Impressions: Chest X-Ray 09/11/16 14:01 IMPRESSION: No acute findings Chest/Abdomen CTA 09/11/16 16:21 IMPRESSION: Small right basilar atelectasis; cannot exclude an early right lower lobar pneumonia. Moderate cardiac enlargement. Otherwise no acute or suspicious CTA findings of the chest, abdomen, or pelvis. Abdomen/Pelvis CTA 09/11/16 16:25 IMPRESSION: Small right basilar atelectasis; cannot exclude an early right lower lobar pneumonia. Moderate cardiac enlargement. Otherwise no acute or suspicious CTA findings of the chest, abdomen, or pelvis. Assessment & Plan - Diagnosis (1) Chest pain Qualifiers: Chest pain type: precordial pain Qualified Code(s): R07.2 - Precordial pain Is this a current diagnosis for this admission?: YesPlan: Please patient on observation per chest pain protocol. Patient will receive aspirin, nitroglycerin, metoprolol, and morphine and oxygen. Will consider cartilage consulted for restraints K she in light of her ongoing need for dialysis. Will discuss with both cardiology and nephrology tomorrow. Serial cardiac enzymes. (2) Hypertensive CKD, ESRD on dialysis Is this a current diagnosis for this admission?: YesPlan: Patient normally on dialysis. Will consult Dr. Coleman her rubber tester for dialysis tomorrow in light of receiving dye today. (3) Coronary atherosclerosis Qualifiers: Coronary Disease-Associated Artery/Lesion type: [place] artery [place] vs. transplanted heart: [place] heart Associated angina: with stable angina Qualified Code(s): I25.118 - Atherosclerotic heart disease of [place] coronary artery with other forms of angina pectoris Is this a current diagnosis for this admission?: YesPlan: See above (4) Hypothyroidism Qualifiers: Hypothyroidism type: unspecified Qualified Code(s): E03.9 - Hypothyroidism, unspecified Is this a current diagnosis for this admission?: YesPlan: Continue Synthroid - Time Time Spent: 50 to 70 Minutes Medications reviewed and adjusted accordingly: Yes Anticipated discharge: SNF Within: within 24 hours - Inpatient Certification Based on my medical assessment, after consideration of the patient's comorbidities, presenting symptoms, or acuity I expect that the services needed warrant INPATIENT care.: No I certify that my determination is in accordance with my understanding of Medicare's requirements for reasonable and necessary INPATIENT services [42 CFR 412.3e].: No Post Hospital Care: D/C Superintendent Service Documentation
[2016-09-11] MEDS ORDERED: ERYTHROMYCIN 0.5% OPH OINTMENT 3.5 GM TUBE OS ONE (19:30)
[2016-09-11 19:35] LABS: CREATINE KINASE MB 2.05 ng/mL (<4.55); TROPONIN I 0.026 ng/mL
[2016-09-11] MEDS ORDERED: ATORVASTATIN CALCIUM 20 MG TABLET PO SCH (22:00)
[2016-09-12] MEDS: ERYTHROMYCIN 0.5% OPH OINTMENT 3.5 GM TUBE OS SCH ×3 (00:05→14:05)
[2016-09-12] MEDS: METOPROLOL TARTRATE 25 MG TABLET PO SCH ×2 (00:18→09:58)
[2016-09-12] MEDS: FAMOTIDINE 20 MG TABLET PO SCH ×2 (00:21→09:58)
[2016-09-12] MEDS: FLUTICASONE NASAL SPRAY 50 MCG/SPRY 120 SPRAY/16 GM NASL SCH ×2 (00:23→10:00)
[2016-09-12 01:32] LABS: CREATINE KINASE MB 2.12 ng/mL (<4.55); TROPONIN I 0.027 ng/mL
[2016-09-12 07:42] LABS: ANION GAP 13 (5-19); BLOOD UREA NITROGEN 32 mg/dL (7-20); CARBON DIOXIDE 25 mmol/L (22-30); CHLORIDE 100 mmol/L (98-107); CHOLESTEROL 93.81 mg/dL (0-200); CREATINE KINASE 40 U/L (30-135); Direct HDL 67 mg/dL (>40); GLUCOSE 78 mg/dL (75-110); SODIUM 138.1 mmol/L (137-145); TRIGLYCERIDES 87 mg/dL (<150)
[2016-09-12 07:47] LABS: CREATINE KINASE MB 1.72 ng/mL (<4.55); TROPONIN I 0.043 ng/mL
[2016-09-12] MEDS ORDERED: ACETAMINOPHEN 325 MG TABLET PO PRN (07:53)
[2016-09-12 07:56] LABS: DIRECT LDL < 30 mg/dL (<100)
[2016-09-12] MEDS ORDERED: EYELID CLEANSER COMBINATION OU SCH ×2 (08:00→10:00)
[2016-09-12] MEDS ORDERED: LEVOTHYROXINE SODIUM 0.15 MG TABLET PO SCH (08:00)
[2016-09-12] MEDS ORDERED: FERRIC CITRATE PO SCH ×2 (08:00→10:00)
[2016-09-12] MEDS ORDERED: HYDROCORTISONE 10 MG TABLET PO SCH ×2 (08:00→22:00)
[2016-09-12] MEDS ORDERED: DIPHENOXYLATE HCL/ATROP SULF 2.5-0.025 MG TABLET PO PRN (08:30)
[2016-09-12] MEDS ORDERED: HYDROCORTISONE 10 MG TABLET PO ONE (08:30)
[2016-09-12] MEDS ORDERED: (PENDING PHARMACY ID) (Cyanocobalamin (Vitamin B-12) [Vitamin B-12 500 Mcg Tablet] 500 MCG PO SCH (10:00)
[2016-09-12] MEDS ORDERED: BIFIDO LONGUM PO SCH (10:00)
[2016-09-12] MEDS ORDERED: APIXABAN 2.5 MG TABLET PO SCH (10:00)
[2016-09-12] MEDS ORDERED: DOCUSATE SODIUM 100 MG CAPSULE PO SCH (10:00)
[2016-09-12] MEDS ORDERED: OLOPATADINE HCL 0.1% OPH SOLN 5 ML OU SCH (10:00)
[2016-09-12] MEDS ORDERED: SODIUM BICARBONATE 650 MG TABLET PO SCH (10:00)
[2016-09-12] MEDS ORDERED: MAGNESIUM OXIDE 400 MG TABLET PO SCH ×2 (10:00)
[2016-09-12] MEDS ORDERED: CYANOCOBALAMIN (VITAMIN B-12) 1,000 MCG TABLET PO SCH (10:00)
[2016-09-12] MEDS ORDERED: ACIDOPHILUS PO SCH (10:00)
[2016-09-12] MEDS ORDERED: PAROXETINE HCL 20 MG TABLET PO SCH (10:00)
[2016-09-12] MEDS ORDERED: LACTOBACILLUS ACIDOPHILUS 250 MG TAB PO SCH (10:00)
[2016-09-12] MEDS ORDERED: AMIODARONE HCL 200 MG TABLET PO SCH (10:00)
[2016-09-12] MEDS ORDERED: ASPIRIN 81 MG TABLET, ENT COATED PO SCH (10:00)
[2016-09-12] MEDS: POLYVINYL ALCOHOL 1.4% OPH SOLN 15 ML OU SCH ×2 (10:03→14:01)
--- NOTE | 2016-09-12 15:01 | PDOC DISCHARGE SUMMARY ---
General - Admit/Disc Date/PCP Admission Date/Primary Care Provider: 09/11/16 18:54 CAMI MARQUES MD Discharge Date: 09/12/16 - Discharge Diagnosis (1) Chest pain Is this a current diagnosis for this admission?: Yes (2) Hypertensive CKD, ESRD on dialysis Is this a current diagnosis for this admission?: Yes (3) Coronary atherosclerosis Is this a current diagnosis for this admission?: Yes (4) Hypothyroidism Is this a current diagnosis for this admission?: Yes - Additional Information Resuscitation Status: Full Code Discharge Diet: Cardiac, Other (Comments) - dialysis Discharge Activity: Activity As Tolerated Home Medications: Acetaminophen [Tylenol 325 mg Tablet] 650 mg PO Q4HP PRN 09/11/16 Acidophilus/Bifido Longum [Lactobacillus Capsule] 1 tab PO BID 09/11/16 Amiodarone HCl [Cordarone 200 mg Tablet] 200 mg PO DAILY 09/11/16 Apixaban [Eliquis 2.5 mg Tablet] 2.5 mg PO BID 09/11/16 Aspirin [Aspirin EC] 81 mg PO DAILY 09/11/16 Atorvastatin Calcium [Lipitor 40 mg Tablet] 40 mg PO QHS 09/11/16 Cyanocobalamin (Vitamin B-12) [Vitamin B-12 500 mcg Tablet] 500 mcg PO DAILY 05/18 Diphenoxylate HCl/Atropine [Lomotil 2.5-0.025 mg Tablet] 2 tab PO QID 09/11/16 Eyelid Cleanser Combination #5 [Ocusoft Lid Scrub] 1 applic OU BID 09/11/16 Famotidine [Pepcid 20 mg Tablet] 20 mg PO Q12 09/11/16 Ferric Citrate [Auryxia] 1 tab PO TID 09/11/16 Hydrocortisone [Cortef 10 mg Tablet] 5 mg PO QHS 09/11/16 Hydrocortisone [Cortef 10 mg Tablet] 10 mg PO QAM 09/11/16 Levothyroxine Sodium [Synthroid 0.15 mg Tablet] 150 mcg PO QAM 09/11/16 Lidocaine HCl [Aspercreme] 1 applic TOP DAILY 09/11/16 Lidocaine/Prilocaine [Emla Cream] 1 applic TOP MOWEFR 09/11/16 Loperamide HCl [Imodium A-D] 4 mg PO QID 09/11/16 Loratadine [Claritin 10 mg Tablet] 10 mg PO QHS 09/11/16 Magnesium Oxide [Mag-Ox 400 mg Tablet] 1 tab PO BID 09/11/16 Metoprolol Tartrate [Lopressor 25 mg Tablet] 12.5 mg PO BID 09/11/16 Olopatadine HCl [Patanol] 1 drop OU QAM 09/11/16 Ondansetron HCl [Zofran 4 mg Tablet] 4 mg PO Q4HP PRN 09/11/16 Oxycodone HCl/Acetaminophen [Percocet 5-325 mg Tablet] 1 tab PO Q6HP PRN Paroxetine HCl [Paxil] 10 mg PO DAILY 09/11/16 Polyvinyl Alcohol [Liquitears] 1 drop OU QID 09/11/16 Sodium Bicarbonate [Sodium Bicarbonate 650 mg Tablet] 650 mg PO BID 09/11/16 Sodium Fluoride/Potassium Nit [Prevident 5000 Sensitive Paste] 1 applic PO BID 09/11/16 Sodium Polystyrene Sulfonate [Kayexalate 15 gm/60 ml Susp 60 ml] 60 ml PO DAILYP PRN 09/11/16 Fluticasone Propionate [Flonase Nasal Sprague 50 Mcg/Sprague 16 gm] 2 spray NASL Q12 #0 spray.pump 09/12/16 History of Present Illness History of Present Illness: VARINDER TORRES is a 76 year old female who presents to the emergency department with complaints of chest pain while on dialysis. Patient reports that she had substernal and epigastric chest pain that felt as though her heaviness/achiness that radiated through to her neck and left arm. Patient denies any associated diaphoresis, nausea, vomiting. Patient denies any associated cough, fevers, chills, sick contacts. She does admit to chronic rhinorrhea secondary to seasonal allergies. Patient reports should similar chest pain after having her fistula manipulated by vascular surgery. CTA of the chest abdomen and pelvis was performed in the emergency department which revealed no acute thrombosis. She is referred to hospital service for evaluation of her chest pain. Hospital Course Hospital Course: Patient was observed per chest pain protocol and had negative cardiac enzymes. Patient seen by cardiology and report they will have patient follow up as an outpatient for a stress test. Remainder of stay unremarkable. Patient stable for discharge home. Patient to have dialysis per normal schedule tomorrow. Physical Exam Vital Signs: Temp Pulse Resp BP Pulse Ox 98.1 F 64 18 121/43 L 97 09/12/16 11:31 09/12/16 11:31 09/12/16 05:38 09/12/16 11:31 09/12/16 08:03 Intake & Output 09/11/16 09/12/16 09/13/16 06:59 06:59 06:59 Intake Total 10 Output Total 0 Balance 10 Weight 71.2 kg Exam: General: Awake alert and answers questions appropriately, no acute respiratory distress HEENT: AT/NC, PERRL, EOMI, oropharynx is moist, pink, no scleral icterus, no conjunctival injection Neck: No JVD, trachea midline Chest: CTAB CV: Regular rate and rhythm, normal S1 and S2, no rub or gallop Abdomen: Soft, nontender to palpation, nondistended, active bowel sounds; no rebound, rigidity, or guarding Extremities: No cyanosis, clubbing or edema Neuro: Cranial nerves II through XII are grossly intact without focal deficits Psych: Normal mood and affect Results Laboratory Results: 09/12/16 07:01 09/12/16 07:01 Sodium 138.1 Potassium 5.0 Chloride 100 Carbon Dioxide 25 Anion Gap 13 BUN 32 H Creatinine 5.70 H Est GFR ( Amer) 9 L Est GFR (Non-Af Amer) 7 L Glucose 78 Calcium 8.0 L Triglycerides 87 Cholesterol 93.81 LDL Cholesterol Direct < 30 VLDL Cholesterol 17.0 HDL Cholesterol 67 09/12/16 09/12/16 09/12/16 00:58 07:01 07:01 Creatine Kinase 40 CK-MB (CK-2) 2.12 1.72 Troponin I 0.027 0.043 Impressions: Chest X-Ray 09/11/16 14:01 IMPRESSION: No acute findings Chest/Abdomen CTA 09/11/16 16:21 IMPRESSION: Small right basilar atelectasis; cannot exclude an early right lower lobar pneumonia. Moderate cardiac enlargement. Otherwise no acute or suspicious CTA findings of the chest, abdomen, or pelvis. Abdomen/Pelvis CTA 09/11/16 16:25 IMPRESSION: Small right basilar atelectasis; cannot exclude an early right lower lobar pneumonia. Moderate cardiac enlargement. Otherwise no acute or suspicious CTA findings of the chest, abdomen, or pelvis. Qualifiers PATEINT BEING DISCHARGED WITH ANY OF THE FOLLOWING DIAGNOSIS?: No Plan Time Spent: Greater than 30 Minutes
[2016-09-12 16:55] VITALS: BP 128/72
[2016-09-13] MEDS ORDERED: HYDROCORTISONE 10 MG TABLET PO SCH (08:00)
== END 2016-09-12 17:00 ==
LOC: ER 13:59 → UNDOADMOB 18:45 → EH 18:45 → 5 23:48
PROVIDERS: ADMIT Family Medicine; ATTEND Family Medicine
DX: R07.2 Precordial pain (principal); I12.0 Hypertensive chronic kidney disease with stage 5 chronic kidney disease or end stage renal disease; N18.6 End stage renal disease; Z99.2 Dependence on renal dialysis; I25.118 Atherosclerotic heart disease of native coronary artery with other forms of angina pectoris; J98.11 Atelectasis; E03.9 Hypothyroidism, unspecified; J30.2 Other seasonal allergic rhinitis; R60.9 Edema, unspecified; R58 Hemorrhage, not elsewhere classified; R10.13 Epigastric pain; M79.602 Pain in left arm; M25.512 Pain in left shoulder; I50.9 Heart failure, unspecified; I25.2 Old myocardial infarction; Z79.82 Long term (current) use of aspirin; Z79.02 Long term (current) use of antithrombotics/antiplatelets; Z79.899 Other long term (current) drug therapy; Z87.01 Personal history of pneumonia (recurrent); Z86.711 Personal history of pulmonary embolism; Z95.0 Presence of cardiac pacemaker; Z90.49 Acquired absence of other specified parts of digestive tract; Z98.84 Bariatric surgery status; Z87.891 Personal history of nicotine dependence; Z82.49 Family history of ischemic heart disease and other diseases of the circulatory system; Z86.718 Personal history of other venous thrombosis and embolism; Z91.041 Radiographic dye allergy status
CPT/HCPCS: 99285; 36415 ×2; 82553 ×2; 82962; 82550 ×2; 85025; 80048; 80053; 84484 ×2; 80061; 71010; 71275; 74174; G0378 ×2; A9270 ×13; J3490 ×3; J1200; S0028

== ENCOUNTER → 2016-10-01 | Outpatient (CLI) | payer MEDICARE, MEDICAID | LOC: SP 07:54 | PROVIDERS: ATTEND Specialist | DX: R07.9 Chest pain, unspecified (principal) | CPT/HCPCS: 93306 ==

== ENCOUNTER → 2016-10-22 | Outpatient (CLI) | payer MEDICARE, MEDICAID ==
[~2016-10-22] MED LIST changes: -CEFAZOLIN 1 GM/D5W RTU 1 GM/50 ML RTUPB IV PRN; -CEFAZOLIN SODIUM 1 GM in DEXTROSE 5%-WATER 50 ML IV PRN; +REGADENOSON INJ 0.4 MG/5 ML DISP.SYRIN IV ONE
--- NOTE | 2016-10-25 12:38 | RADIOLOGY REPORT ---
STRESS TEST REPORT PATIENT NAME: VARINDER TORRES ROOM#: DATE OF SERVICE: 10/22/2016 AGE: 76Y ORDER#: [id number] REFERRING MD: FRIDA NICOLE M.D. INDICATION: For assessment of chest pains in patient with a previous history of [place]. PROCEDURE PERFORMED REST/STRESS SINGLE ISOTOPE CARDIOLITE SPECT IMAGING WITH IV LEXISCAN STRESS AND GATED SPECT IMAGING CLINICAL HISTORY This is a 76-year-old female with known coronary artery disease has cardiac risk factors of hypercholesterolemia and hypertension. Current symptomatology includes chest pains. PROCEDURE The patient received IV Lexiscan 0.4 mg infused over 10 seconds. The resting heart rate was 56 bpm and increased to 83 bpm at end infusion. The resting BP was 123/59 and increased to 142/63 at end infusion. Patient had symptoms of pressure in the chest and some shortness of breath. The resting 12 lead EKG showed ventricular pacing nondiagnostic. At end infusion, ventricular paced EKG was seen. Myocardial perfusion imaging was performed at rest 60 minutes following injection of 10.38 mCi Cardiolite. Ten seconds into the IV Lexiscan injection, the patient was injected with 30.2 mCi Cardiolite and flushed. Gated post stress tomographic imaging was performed 60 minutes after stress. FINDINGS The overall quality of the study is poor. The left ventricular cavity is noted to be normal in size on both the rest and stress studies. There is no evidence of abnormal transient ischemic dilatation of the left ventricle. SPECT images showed small severe reversible ischemia in the apical inferior wall and also small moderate reversible ischemia in the basal inferior wall. There was no fixed perfusion defect. Gated SPECT imaging showed reduced motion and contraction of the entire inferior wall. The left ventricular ejection fraction was calculated to be 61%. IMPRESSION: MYOCARDIAL PERFUSION IMAGING IS ABNORMAL. THERE IS A SMALL AREA OF SEVERE REVERSIBLE ISCHEMIA IN THE APICAL INFERIOR WALL AND THERE IS A SMALL AREA OF MODERATE REVERSIBLE ISCHEMIA IN THE BASAL INFERIOR WALL WITH NORMAL LEFT VENTRICULAR SYSTOLIC FUNCTION AND REDUCED MOTION AND CONTRACTION IN THE ENTIRE INFERIOR WALL. NO PRIOR STUDIES FOR COMPARISON. INTERPRETING PHYSICIAN: AARON CHEUNG M.D. /: CHONG TT: [id number] ID: [id number] /: [id number] TD: [id number] JOB: [id number] cc:Jr PICHARDO M.D. > PEEWEED
== END ==
LOC: RAD 06:48
PROVIDERS: ATTEND Specialist
DX: R07.9 Chest pain, unspecified (principal)
CPT/HCPCS: 93017; 78452; A9500; J2785; Q9969

== ENCOUNTER → 2016-12-05 | Outpatient (CLI) | payer MEDICARE, MEDICAID ==
--- NOTE | 2016-12-05 15:22 | RADIOLOGY REPORT (SQ) ---
EXAM DESCRIPTION: U/S RETROPERITON (RENAL/AORTA) COMPLETED DATE/TIME: 12/05/2016 12:50 pm REASON FOR STUDY: HYPERTENSIVE CRISIS, UNSPECIFIED I16.9 HYPERTENSIVE CRISIS, UNSPECIFIED COMPARISON: CT angio abdomen and pelvis 09/11/2016 TECHNIQUE: Dynamic and static grayscale images acquired of the kidneys and bladder and recorded on P ACS. Additional selected color Doppler and spectral images recorded. LIMITATIONS: None. FINDINGS: RIGHT KIDNEY: Very small and diffusely echogenic, 6 cm in greatest length. Dense calcific ation at the medullary pyramids seen on CT 09/11/2016 is not apparent by ultrasound. No gross right h ydronephrosis. LEFT KIDNEY: Very small and diffusely echogenic, 6 cm in length. Dense calcification of the medulla ry pyramids seen on CT 09/11/2016 is not apparent by ultrasound. No gross left hydronephrosis. BLADDER: Not visualized. OTHER FINDINGS: No other significant finding. IMPRESSION: Small echogenic kidneys bilaterally. No gross hydronephrosis TECHNICAL DOCUMENTATION: JOB ID: [id number] [employer]- All Rights Reserved
== END ==
LOC: RAD 09:57
PROVIDERS: ATTEND Internal Medicine Nephrology
DX: I16.9 Hypertensive crisis, unspecified (principal); N27.1 Small kidney, bilateral
CPT/HCPCS: 76770

== ENCOUNTER 2016-12-31 11:14 | Day surgery (SDC) | payer MEDICARE, MEDICAID ==
[2016-12-31 12:15] LABS: HEMATOCRIT 36.3 % (36.0-47.0); HEMOGLOBIN 12.1 g/dL (12.0-15.5); MEAN CORPUSCULAR HEMOGLOBIN 32.8 pg (27.0-33.4); MEAN CORPUSCULAR HGB CONC 33.4 g/dL (32.0-36.0); MEAN CORPUSCULAR VOLUME 98 fl (80-97); RED CELL DISTRIBUTION WIDTH 15.6 % (11.5-14.0); WHITE BLOOD COUNT 8.1 10^3/uL (4.0-10.5)
[2016-12-31 12:32] LABS: ANION GAP 14 (5-19); BLOOD UREA NITROGEN 34 mg/dL (7-20); CALCIUM 9.1 mg/dL (8.4-10.2); CARBON DIOXIDE 25 mmol/L (22-30); CHLORIDE 101 mmol/L (98-107); GLUCOSE 115 mg/dL (75-110); POTASSIUM 5.5 mmol/L (3.6-5.0); SODIUM 140.4 mmol/L (137-145)
[2016-12-31] MEDS ORDERED: MIDAZOLAM 2 MG/2 ML INJ ONE (12:42)
[2016-12-31] MEDS ORDERED: FENTANYL CITRATE INJ/PF 100 MCG/2 ML AMPUL ONE (12:42)
[2016-12-31] MEDS ORDERED: HEPARIN SOD (PORCINE) 5,000 UNIT/ML 1 ML SYRINGE ONE (12:43)
[2016-12-31] MEDS ORDERED: LIDOCAINE 0.5% INJ-PF (5 MG/ML) 50 ML SDV ONE (12:43)
--- NOTE | 2016-12-31 13:54 | PDOC DISCHARGE SUMMARY ---
Discharge Summary (SDC) - Discharge Final Diagnosis: #1 malfunctioning arteriovenous fistula.. 2. End-stage renal disease on hemodialysis. 3. Hypertension. Date of Surgery: 12/31/16 Discharge Date: 12/31/16 Condition: Fair Treatment or Instructions: Discharge home [after recovery per ASU criteria]. Diet , [renal],as tolerated, when fully awake advance as tolerated. Activities within moderation encouraged. Follow up in my office by appointment in about [1 month hemodialysis Call for appointment. Leave wounds [covered], [keep clean and dry, until office visit in 1 week]. .meds per med rec. May shower [in 48 hrs], [try to keep operated area as dry as possible]. Discharge Diet: Other (Comments) - renal Respiratory Treatments at Home: Deep Breathing/Coughing Discharge Activity: Activity As Tolerated Report the Following to Your Physician Immediately: Shortness of Breath, Unusual Bleeding
--- NOTE | 2016-12-31 13:59 | Operative Report ---
Operative Report DATE OF SURGERY: 12/31/16 PREOPERATIVE DIAGNOSIS: 1. Malfunctioning AV fistula left brachiocephalic. 2. End-stage renal disease on hemodialysis. 3. Hypertension. POSTOPERATIVE DIAGNOSIS: 1. Malfunctioning AV fistula left brachiocephalic. Post angioplasty. 2. End-stage renal disease on hemodialysis. 3. Hypertension. OPERATION: 1. Needle access into arteriovenous fistula. 2. Angioplasty in central vein, left subclavian. 3. Angiogram and interpretation. SURGEON: DON HUNTER SOLAR MANAGER: none - None ANESTHESIA: Moderate Sedation TISSUE REMOVED OR ALTERED: . Not applicable. COMPLICATIONS: None ESTIMATED BLOOD LOSS: 2 mL. INTRAOPERATIVE FINDINGS: [place] firm left arm AV fistula. Culprit lesion subclavian, cephalic junction estimated to be 70% stenosis based on the signs of the waist. Waist completely eliminated on completion angiogram and the fistula was appropriately softer postprocedure. PROCEDURE: PROCEDURE: After verifying the procedure and having obtained informed consent, the patient's left arm was prepared with Chlorhexidine and draped out with sterile linen. Local anesthesia infiltrated. Percutaneous access into the fistula ,[ antegrade], obtained about [6 cm] from the arteriovenous anastomosis using a 18-gauge needle. A 0.035 [place] wire was inserted, and over this, a 7 [place] short introducer was placed. Angiogram demonstrated the above findings. This was followed by a 9-mm] angioplasty balloon . Angioplasty was done using a 3 mils syringe for 2 minutes..]. Completion angiogram demonstrated [satisfactory result]. The instrumentation was now withdrawn over and pressure for 5 minutes. Dressings applied, procedure concluded. Exposure time: 2.1 minutes Radiation: 7.9 mcg/cm Contrast: 25 mL of Isovue-300, low osmolality. DICTATING PHYSICIAN: DON HELM M.D. cc: DON HELM M.D. ([id number]) >>
--- NOTE | 2016-12-31 14:35 | RADIOLOGY REPORT (SQ) ---
EXAM DESCRIPTION: FISTULAGRAM W/PLASTY COMPLETED DATE/TIME: 12/31/2016 2:14 pm REASON FOR STUDY: T82.858A N18.6 END STAGE RENAL DISEASE T82.858A STENOSIS OF OTHER VASCULAR PROST H DEV/GRFT, INIT D64.9 ANEMIA, UNSPECIFIED COMPARISON: 09/10/2016. FLUOROSCOPY TIME: 2.1 minutes. 9 images saved to PACS. TECHNIQUE: Intra-operative images acquired during surgical procedure to evaluate progress. NUMBER OF IMAGES: 9 images. LIMITATIONS: None. FINDINGS: Imaging in fluoroscopy during left upper extremity dialysis access evaluation and plasty b y Dr. Joya . Please refer to the operative report for further details. IMPRESSION: INTRA PROCEDURAL IMAGING ABOVE . COMMENT: Quality ID [id number]: Final reports for procedures using fluoroscopy that document radiation exp osure indices, or exposure time and number of fluorographic images (if radiation exposure indices are not available) Please consult full operative report of the attending physician for description of the procedure. TECHNICAL DOCUMENTATION: JOB ID: [id number] [employer]- All Rights Reserved
[2016-12-31 14:43] VITALS: BP 153/66
== END 2016-12-31 14:34 | disposition home or self-care (01) ==
LOC: SC 11:14
PROVIDERS: ATTEND Surgery
PROC: 057F3DZ Dilation of Left Cephalic Vein with Intraluminal Device, Percutaneous Approach (ICD-10-PCS; principal; 2016-12-31)
DX: T82.858A Stenosis of other vascular prosthetic devices, implants and grafts, initial encounter (principal); Y83.2 Surgical operation with anastomosis, bypass or graft as the cause of abnormal reaction of the patient, or of later complication, without mention of misadventure at the time of the procedure; I10 Essential (primary) hypertension; N18.6 End stage renal disease; Z99.2 Dependence on renal dialysis; D64.9 Anemia, unspecified; I48.91 Unspecified atrial fibrillation; E03.9 Hypothyroidism, unspecified; I51.9 Heart disease, unspecified; Z86.718 Personal history of other venous thrombosis and embolism; Z79.82 Long term (current) use of aspirin; Z88.2 Allergy status to sulfonamides; Z88.1 Allergy status to other antibiotic agents; Z88.8 Allergy status to other drugs, medicaments and biological substances
CPT/HCPCS: 36415; 85027; 80048; 36902; C1894; Q9967; C1769; J2250; J1644 ×2; J3010; J3490

== ENCOUNTER 2017-03-18 10:17 | Day surgery (SDC) | payer MEDICARE, MEDICAID ==
[2017-03-18 11:15] LABS: HEMATOCRIT 34.7 % (36.0-47.0); HEMOGLOBIN 11.8 g/dL (12.0-15.5); HGB HCT DIFFERENCE 0.7; MEAN CORPUSCULAR HEMOGLOBIN 32.7 pg (27.0-33.4); MEAN CORPUSCULAR HGB CONC 33.8 g/dL (32.0-36.0); MEAN CORPUSCULAR VOLUME 97 fl (80-97); RED BLOOD COUNT 3.59 10^6/uL (3.72-5.28); WHITE BLOOD COUNT 10.3 10^3/uL (4.0-10.5)
[2017-03-18 11:27] LABS: ANION GAP 17 (5-19); BLOOD UREA NITROGEN 26 mg/dL (7-20); CALCIUM 9.5 mg/dL (8.4-10.2); CARBON DIOXIDE 25 mmol/L (22-30); CHLORIDE 103 mmol/L (98-107); CREATININE RESULT 6.01 mg/dL (0.52-1.25); GLUCOSE 121 mg/dL (75-110); POTASSIUM 4.8 mmol/L (3.6-5.0); SODIUM 144.9 mmol/L (137-145)
[2017-03-18] MEDS ORDERED: FENTANYL CITRATE INJ/PF 100 MCG/2 ML AMPUL ONE (13:39)
[2017-03-18] MEDS ORDERED: MIDAZOLAM 2 MG/2 ML INJ ONE (13:39)
[2017-03-18] MEDS ORDERED: LIDOCAINE 0.5% INJ-PF (5 MG/ML) 50 ML SDV ONE (13:39)
[2017-03-18] MEDS ORDERED: HEPARIN SOD (PORCINE) 5,000 UNIT/ML 1 ML SYRINGE ONE (13:39)
[2017-03-18] MEDS ORDERED: OXYCODONE-ACETAMINOPHEN 5-325 MG TABLET ONE (13:54)
[2017-03-18] MEDS ORDERED: DIAZEPAM 5 MG TABLET ONE (13:54)
--- NOTE | 2017-03-18 14:50 | PDOC DISCHARGE SUMMARY ---
Discharge Summary (SDC) - Discharge Final Diagnosis: #1 malfunctioning arterial venous fistula. 2 end-stage renal disease on hemodialysis. Coronary artery disease. 4. Cardiac defibrillator in place #5 hypertension. Date of Surgery: 03/18/17 Discharge Date: 03/18/17 Condition: Fair Forms: [facility] Discharge Plan Treatment or Instructions: Discharge home [after recovery per ASU criteria]. Diet , [renal],as tolerated, when fully awake advance as tolerated. Activities within moderation encouraged. Follow up in my office by appointment in about 1 month. Call for appointment. Leave wounds [covered], [keep clean and dry, until hemodialysis meds per med rec ]. Meds per med rec May shower [in 48 hrs], [try to keep operated area as dry as possible]. Referrals: DON HELM MD [ACTIVE STAFF] - Discharge Diet: Other (Comments) - Renal Respiratory Treatments at Home: Deep Breathing/Coughing Discharge Activity: Activity As Tolerated Report the Following to Your Physician Immediately: Unusual Bleeding
--- NOTE | 2017-03-18 14:56 | Operative Report ---
Operative Report DATE OF SURGERY: 03/18/17 PREOPERATIVE DIAGNOSIS: #1 malfunctioning arterial venous fistula. 2 end-stage renal disease on hemodialysis. Coronary artery disease. 4. Cardiac defibrillator in place. #5 hypertension. POSTOPERATIVE DIAGNOSIS: #1 malfunctioning arterial venous fistula. Post angioplasty balloon. 2 end-stage renal disease on hemodialysis. Coronary artery disease. 4. Cardiac defibrillator in place. #5 hypertension. OPERATION: 1. Needle access into fistula. 2. Balloon angioplasty arterial venous fistula, cephalic subclavian junction. 3. Balloon angioplasty with drug -eluting balloon. 4. Angiogram and interpretation. SURGEON: DON [place] ADMINISTRATOR: None ANESTHESIA: Moderate Sedation TISSUE REMOVED OR ALTERED: Not applicable. COMPLICATIONS: None none ESTIMATED BLOOD LOSS: 2 mL. INTRAOPERATIVE FINDINGS: Findings of a large circuits with a single area of stenosis about 90% of the adjacent lumen. Situated at the cephalic subclavian junction and short, about 2 mm in length. Addressed with angioplasty of the 9 mm and with a drug-eluting balloon of 9 mm. Residual 10-20% stenosis. The fistula is much appropriately softer postprocedure suggesting improved hemodynamic function. PROCEDURE: PROCEDURE: After verifying the procedure and having obtained informed consent, the patient's left arm was prepared with Chlorhexidine and draped out with sterile linen. Local anesthesia infiltrated. Percutaneous access into the fistula , 8, obtained about [2 cm] from the arteriovenous anastomosis using a micro puncture needle followed by micro puncture wire and then a micro puncture catheter. Angiogram demonstrated the aforementioned findings. Angioplasty was elected. A 0.035 [place] wire was inserted, and over this, a 7 [place] short introducer was placed, this was followed by a [8-mm ] angioplasty balloon . Angioplasty was done at the cephalic subclavian junction using a 3 mils syringe with easy eradication of the waist. Completion angiogram showed improvement. A 9 mm angioplasty balloon, high-pressure was now introduced over the same area and inflation done up to 18 amanda for a full 2 minutes. It was deflated and completion angiogram suggested less than 10% residual stenosis. A drug-eluting balloon 9 mm was now introduced over the area of stenosis according to maintenance trainer's instructions. It was inflated to 11 amanda and inflation sustained, no waist, for a full 3 minutes. Postprocedure angiogram showed about 20% residual stenosis. This was accepted.. Inflating up to 18 atmospheres for a minute at a time.]. The instrumentation was now withdrawn over Pressure for 10 Minutes. Dressings applied, procedure concluded. Exposure time: 2.1 minutes Radiation: 6.95 mg/cm Contrast: 20 mils of Isovue-300, low osmolality. DICTATING PHYSICIAN: DON HELM M.D. cc: DON HELM M.D. ([id number]) >>
[2017-03-18 15:46] VITALS: BP 114/78
--- NOTE | 2017-03-18 15:59 | RADIOLOGY REPORT (SQ) ---
EXAM DESCRIPTION: FISTULAGRAM W/PLASTY COMPLETED DATE/TIME: 03/18/2017 3:35 pm REASON FOR STUDY: T82.858A T82.858A STENOSIS OF OTHER VASCULAR PROSTH DEV/GRFT, INIT COMPARISON: 12/31/2016 FLUOROSCOPY TIME: 2.1 minutes 13 series of images saved to PACS. TECHNIQUE: Intra-operative images acquired during surgical procedure to evaluate progress. NUMBER OF IMAGES: Cine fluoroscopic images. LIMITATIONS: None. FINDINGS: Imaging and fluoroscopy during left upper extremity dialysis access evaluation and plasty by Dr. Joya . Please refer to the operative report for further details. IMPRESSION: INTRA PROCEDURAL IMAGING ABOVE . COMMENT: Quality ID [id number]: Final reports for procedures using fluoroscopy that document radiation exp osure indices, or exposure time and number of fluorographic images (if radiation exposure indices are not available) Please consult full operative report of the attending physician for description of the procedure. TECHNICAL DOCUMENTATION: JOB ID: [id number] [employer]- All Rights Reserved
== END 2017-03-18 15:36 | disposition home or self-care (01) ==
LOC: SC 10:17
PROVIDERS: ATTEND Surgery
DX: T82.858A Stenosis of other vascular prosthetic devices, implants and grafts, initial encounter (principal); I13.2 Hypertensive heart and chronic kidney disease with heart failure and with stage 5 chronic kidney disease, or end stage renal disease; Y83.2 Surgical operation with anastomosis, bypass or graft as the cause of abnormal reaction of the patient, or of later complication, without mention of misadventure at the time of the procedure; N18.6 End stage renal disease; Z99.2 Dependence on renal dialysis; Z88.1 Allergy status to other antibiotic agents; Z88.2 Allergy status to sulfonamides; L98.9 Disorder of the skin and subcutaneous tissue, unspecified; Z95.810 Presence of automatic (implantable) cardiac defibrillator; Z86.718 Personal history of other venous thrombosis and embolism; I50.22 Chronic systolic (congestive) heart failure; I47.2 Ventricular tachycardia; D50.9 Iron deficiency anemia, unspecified; E03.9 Hypothyroidism, unspecified; E87.6 Hypokalemia; E83.51 Hypocalcemia; Z79.899 Other long term (current) drug therapy; Z79.82 Long term (current) use of aspirin
CPT/HCPCS: 36415; 85027; 80048; 36902; C1725; C1887; Q9967; C1769; J2250; J1644 ×2; A9270 ×2; J3010; J3490; 2623

== ENCOUNTER 2017-06-25 17:00 | Emergency (ER) | payer MEDICARE, MEDICAID ==
--- NOTE | 2017-06-25 17:45 | ER Document Report ---
ED Medical Screen (RME) - General Chief Complaint: Vaginal Bleeding Stated Complaint: VAGINAL BLEEDING Time Seen by Provider: 06/25/17 17:40 Mode of Arrival: Wheelchair Information source: Patient Notes: 77 yo dialysis (M-W-F) pt. female that lives at [facility] (due to septic shock) came to ER via EMS due to vaginal bleeding since this morning. Noticed it in her pull up, full of breight red blood. Still has uterus. No rectal bleeding. No diarrhea. No abdominal or pelvic pain. Takes Eliquis. PCP: Dr. Boggs. Blood drawn at [facility] today. DID NOT GO TO DIALYSIS TODAY. Feels weak today, when she stands blood goes into pullup and into the toilet. This has occurred before but not this heavy (since she started Eliquis). TRAVEL OUTSIDE OF THE [place] IN LAST 30 DAYS: No - Related Data Allergies/Adverse Reactions: iodine Allergy (Severe, Verified 06/25/17 17:02) itching, facial swelling, difficulty breathing doxycycline [Doxycycline] Allergy (Verified 06/25/17 17:02) dizzy Iodinated Contrast- Oral and IV Dye [IV Dye, Iodine Containing] Allergy ( Verified 06/25/17 17:02) Sulfa (Sulfonamide Antibiotics) Allergy (Verified 06/25/17 17:02) dizzy amlodipine besylate [From Norvasc] Adverse Reaction (Unknown, Verified 06/25/17 17:02) anxious, jittery feeling Past Medical History - Past Medical History Cardiac Medical History: Reports: Hx Congestive Heart Failure, Hx DVT, Hx Heart Attack, Hx Hypertension - R/T ESRD, Hx Pulmonary Embolism, Hx Heart Murmur Denies: Hx Coronary Artery Disease Pulmonary Medical History: Reports: Hx COPD, Hx Pneumonia - as kid Denies: Hx Asthma, Hx Bronchitis, Hx Tuberculosis Neurological Medical History: Denies: Hx Cerebrovascular Accident, Hx Seizures Renal/ Medical History: Reports: Hx End Stage Renal Disease, Hx Hemodialysis, Hx Kidney Stones. Denies: Hx Peritoneal Dialysis GI Medical History: Reports: Hx Ulcer Musculoskeltal Medical History: Reports Hx Arthritis Psychiatric Medical History: Reports: Hx Depression Past Surgical History: Reports: Hx Abdominal Surgery - gastric bypass, Hx Cardiac Surgery - Pacer, bypass, Hx Cholecystectomy, Hx Gastric Bypass Surgery, Hx Orthopedic Surgery, Hx Tonsillectomy, Hx Tubal Ligation. Denies: Hx Hysterectomy - Immunizations Hx Diphtheria, Pertussis, Tetanus Vaccination: No History of Influenza Vaccine for 03/2017 - 07/2017 Season: Yes Influenza Administration Date for 03/2017 - 07/2017 Season: 03/14/17 Physical Exam - Vital signs Vitals: Temp Pulse Resp BP Pulse Ox 98.7 F 67 17 133/54 H 92 06/25/17 17:10 06/25/17 17:10 06/25/17 17:10 06/25/17 17:10 06/25/17 17:10 Course - Vital Signs Vital signs: Temp Pulse Resp BP Pulse Ox 98.7 F 67 17 133/54 H 92 06/25/17 17:10 06/25/17 17:10 06/25/17 17:10 06/25/17 17:10 06/25/17 17:10
[2017-06-25 19:02] LABS: ABSOLUTE EOSINOPHILS # (AUTO) 0.3 10^3/uL (0.0-0.6); ABSOLUTE LYMPHOCYTES (AUTO) 2.1 10^3/uL (0.5-4.7); ABSOLUTE MONOCYTES (AUTO) 1.1 10^3/uL (0.1-1.4); ABSOLUTE NEUT (AUTO) 4.3 10^3/uL (1.7-8.2); BASOPHILS % (AUTO) 0.4 % (0-2); EOSINOPHILS % (AUTO) 4.3 % (0-6); HEMATOCRIT 37.8 % (36.0-47.0); HEMOGLOBIN 12.2 g/dL (12.0-15.5); LYMPHOCYTES % (AUTO) 27.1 % (13-45); MEAN CORPUSCULAR HEMOGLOBIN 31.9 pg (27.0-33.4); MEAN CORPUSCULAR HGB CONC 32.3 g/dL (32.0-36.0); MEAN CORPUSCULAR VOLUME 99 fl (80-97); MONOCYTES % (AUTO) 13.6 % (3-13); PLATELET COUNT 119 10^3/uL (150-450); RED BLOOD COUNT 3.82 10^6/uL (3.72-5.28); RED CELL DISTRIBUTION WIDTH 15.3 % (11.5-14.0); SEGMENTED NEUTROPHILS % (AUTO) 54.6 % (42-78); TOTAL CELLS COUNTED % (AUTO) 100 %; WHITE BLOOD COUNT 7.8 10^3/uL (4.0-10.5)
[2017-06-25 19:03] LABS: INTERNATIONAL RATION (INR) 1.06; PROTHROMBIN TIME 14.6 SEC (11.4-15.4)
[2017-06-25 19:04] LABS: PARTIAL THROMBOPLASTIN TIME 34.7 SEC (23.5-35.8)
[2017-06-25 19:06] LABS: ALANINE AMINOTRANSFERASE 51 U/L (9-52); ALBUMIN 3.7 g/dL (3.5-5.0); ALKALINE PHOSPHATASE 216 U/L (38-126); ANION GAP 12 (5-19); ASPARTATE AMINO TRANSFERASE 47 U/L (14-36); BILIRUBIN,DIRECT 0.6 mg/dL (0.0-0.4); BILIRUBIN,TOTAL 0.7 mg/dL (0.2-1.3); BLOOD UREA NITROGEN 39 mg/dL (7-20); CALCIUM 9.2 mg/dL (8.4-10.2); CARBON DIOXIDE 23 mmol/L (22-30); CHLORIDE 104 mmol/L (98-107); GLUCOSE 79 mg/dL (75-110); SODIUM 138.5 mmol/L (137-145); TOTAL PROTEIN 6.4 g/dL (6.3-8.2)
[2017-06-25] MEDS ORDERED: SODIUM POLYSTYRENE SULFONATE 15 GM/60 ML PO ONE (20:13)
--- NOTE | 2017-06-25 21:46 | RADIOLOGY REPORT (SQ) ---
EXAM DESCRIPTION: CHEST SINGLE VIEW COMPLETED DATE/TIME: 06/25/2017 9:33 pm REASON FOR STUDY: crackles right base COMPARISON: 09/12/2016 EXAM PARAMETERS: NUMBER OF VIEWS: One view. TECHNIQUE: Single frontal radiographic view of the chest acquired. RADIATION DOSE: NA LIMITATIONS: None. FINDINGS: LUNGS AND PLEURA: No acute opacities, masses or pneumothorax. No pleural effusion. MEDIASTINUM AND HILAR STRUCTURES: Stable. HEART AND VASCULAR STRUCTURES: Stable. BONES: No acute findings. HARDWARE: Right-sided cardiac defibrillator. OTHER: No other significant finding. IMPRESSION: NO ACUTE RADIOGRAPHIC FINDING IN THE CHEST. TECHNICAL DOCUMENTATION: JOB ID: [id number] [id number] 2010 [employer]- All Rights Reserved
--- NOTE | 2017-06-25 22:11 | ER Document Report ---
ED GI/ - General Chief Complaint: Vaginal Bleeding Stated Complaint: VAGINAL BLEEDING Time Seen by Provider: 06/25/17 17:40 Mode of Arrival: Wheelchair Notes: 77-year-old female patient to the emergency department complaining of vaginal bleeding. Denies any pain. Noticed bleeding started yesterday. Patient has been on Eliquis. On dialysis. Has not missed dialysis. States she feels weak but otherwise denies any complaints. Denies any abdominal pain, fever, chills, sweats. TRAVEL OUTSIDE OF THE [place] IN LAST 30 DAYS: No - HPI Patient complains to provider of: Vaginal bleeding Onset: Yesterday Timing/Duration: Gradual Quality of pain: No pain Severity at maximum: Mild Severity in ED: Mild Pain Level: 0 - Related Data Allergies/Adverse Reactions: iodine Allergy (Severe, Verified 06/25/17 17:02) itching, facial swelling, difficulty breathing doxycycline [Doxycycline] Allergy (Verified 06/25/17 17:02) dizzy Iodinated Contrast- Oral and IV Dye [IV Dye, Iodine Containing] Allergy ( Verified 06/25/17 17:02) Sulfa (Sulfonamide Antibiotics) Allergy (Verified 06/25/17 17:02) dizzy amlodipine besylate [From Norvasc] Adverse Reaction (Unknown, Verified 06/25/17 17:02) anxious, jittery feeling Past Medical History - General Information source: Patient - Social History Smoking Status: Never Smoker Chew tobacco use (# tins/day): No Frequency of alcohol use: None Drug Abuse: None Lives with: Alone Family History: CAD, Hypertension Patient has suicidal ideation: No Patient has homicidal ideation: No - Past Medical History Cardiac Medical History: Reports: Hx Congestive Heart Failure, Hx DVT, Hx Heart Attack, Hx Hypertension - R/T ESRD, Hx Pulmonary Embolism, Hx Heart Murmur Denies: Hx Coronary Artery Disease Pulmonary Medical History: Reports: Hx COPD, Hx Pneumonia - as kid Denies: Hx Asthma, Hx Bronchitis, Hx Tuberculosis Neurological Medical History: Denies: Hx Cerebrovascular Accident, Hx Seizures Renal/ Medical History: Reports: Hx End Stage Renal Disease, Hx Hemodialysis, Hx Kidney Stones. Denies: Hx Peritoneal Dialysis GI Medical History: Reports: Hx Ulcer Musculoskeltal Medical History: Reports Hx Arthritis Psychiatric Medical History: Reports: Hx Depression Past Surgical History: Reports: Hx Abdominal Surgery - gastric bypass, Hx Cardiac Surgery - Pacer, bypass, Hx Cholecystectomy, Hx Gastric Bypass Surgery, Hx Orthopedic Surgery, Hx Tonsillectomy, Hx Tubal Ligation. Denies: Hx Hysterectomy - Immunizations Hx Diphtheria, Pertussis, Tetanus Vaccination: No Hx Pneumococcal Vaccination: 01/31/14 Review of Systems - Review of Systems Constitutional: Weakness. denies: Fever, Malaise, Weight gain, Weight loss EENT: No symptoms reported Cardiovascular: No symptoms reported Respiratory: No symptoms reported Gastrointestinal: No symptoms reported Genitourinary: No symptoms reported Female Genitourinary: Vaginal bleeding. denies: Vaginal discharge, Vaginal odor Musculoskeletal: No symptoms reported Skin: No symptoms reported Hematologic/Lymphatic: No symptoms reported Neurological/Psychological: No symptoms reported Physical Exam - Vital signs Vitals: Temp Pulse Resp BP Pulse Ox 98.7 F 67 17 133/54 H 92 06/25/17 17:10 06/25/17 17:10 06/25/17 17:10 06/25/17 17:10 06/25/17 17:10 Interpretation: Normal - General General appearance: Appears well, Alert - HEENT Head: Normocephalic, Atraumatic Eyes: Normal Pupils: PERRL - Respiratory Respiratory status: No respiratory distress Chest status: Nontender Breath sounds: Rales, Other - Crackles noted at the right base Chest palpation: Normal - Cardiovascular Rhythm: Regular Heart sounds: Normal auscultation Murmur: No - Abdominal Inspection: Normal Distension: No distension Bowel sounds: Normal Tenderness: Nontender Organomegaly: No organomegaly - Genitourinary External exam: Normal Speculum exam: Other - Speculum exam performed. There is a small amount of bleeding at the cervix. - Back Back: Normal, Nontender - Extremities General upper extremity: Normal inspection, Nontender, Normal color, Normal ROM , Normal temperature General lower extremity: Normal inspection, Nontender, Normal color, Normal ROM , Normal temperature, Normal weight bearing. No: Giovanni's sign - Neurological Neuro grossly intact: Yes Cognition: Normal Orientation: AAOx4 [place] Coma Scale Eye Opening: Spontaneous Milind Coma Scale Verbal: Oriented Milind Coma Scale Motor: Obeys Commands [place] Coma Scale Total: 15 Speech: Normal Motor strength normal: LUE, RUE, LLE, RLE Sensory: Normal - Psychological Associated symptoms: Normal affect, Normal mood - Skin Skin Temperature: Warm Skin Moisture: Dry Skin Color: Normal Course - Re-evaluation Re-evalutation: 06/25/17 22:10 Is a well-appearing female with history of renal failure. On dialysis. Slightly elevated potassium at 6. Denies any major symptoms. Physical exam reveals some mild vaginal bleeding. Patient has passed a few clots. Will get pelvic ultrasound and consult with RECORDS MANAGEMENT ENGINEER 06/25/17 22:[address] Silva over the phone. She recommended starting her on 20 mg of progesterone daily. More than likely this is due to the fact that she was on Eliquis. That has been stopped. Will get the ultrasound now to expedite the workup. If everything looks okay we will be able to 1 likely discharge her. With regards to the slightly elevated potassium patient is scheduled for dialysis tomorrow. Kayexalate has been given. Patient takes medication at home to help lower that as well. Chest x-ray was unremarkable. EKG unremarkable. 06/25/17 22:33 We will attempt to talk to patient's medical receptionist with regards to the elevated potassium. Did miss dialysis today and is not scheduled until Friday. Patient will likely need to be dialyzed tomorrow. 06/25/17 23:[address] Coleman with nephrology. He will get patient dialyzed tomorrow. Recommends proceeding with the Kayexalate and calcium. Does not recommend insulin and glucose at this time. 06/25/17 23:59 Reviewed the images of the ultrasound. It does appear the patient has some abnormality of the endometrial lining which could represent a fibroid. Will need close follow-up with MANAGING CONSULTANT CLINICAL PROFESSOR for biopsy. This was explained to the patient. No active bleeding at this time. Patient feels fine. Temporizing measures were given for her potassium. As mentioned above case was discussed with the patient's medical receptionist. He will dialyze the patient in less than 12 hours. - Vital Signs Vital signs: Temp Pulse Resp BP Pulse Ox 98.7 F 67 19 158/65 H 95 06/25/17 17:10 06/25/17 17:10 06/25/17 22:01 06/25/17 22:01 06/25/17 22:01 - Laboratory Result Diagrams: 06/25/17 18:22 06/25/17 18:22 Laboratory results interpreted by me: 06/25/17 06/25/17 18:22 18:22 MCV 99 H RDW 15.3 H Plt Count 119 L Monocytes % 13.6 H Potassium 6.0 H* BUN 39 H Creatinine 7.49 H Est GFR ( Amer) 6 L Est GFR (Non-Af Amer) 5 L Direct Bilirubin 0.6 H AST 47 H Alkaline Phosphatase 216 H - EKG Interpretation by Me Additional EKG results interpreted by me: 06/25/17 22:28 This is a paced ventricular rhythm with a rate of 64. No significant ST segment elevation or depression. No significant change from prior. Discharge - Discharge Clinical Impression: Dysfunctional uterine bleeding, Hyperkalemia Disposition: HOME, SELF-CARE Instructions: Dysfunctional Uterine Bleeding ([facility]) Additional Instructions: It is very important that you get follow-up with your MANAGING CONSULTANT CLINICAL PROFESSOR as soon as possible to have this vaginal bleeding further evaluated. At this time the certified ophthalmic medical technician recommend starting you on progesterone. You may start this tomorrow. You may require a endometrial biopsy. Your potassium was slightly elevated. We have consulted with your medical receptionist to will try to schedule you for dialysis sometime in the next 12 hours. Medicines have been given to help lower your potassium. Please expect diarrhea. If you begin to feel worse or have other symptoms it is very important that you return. Referrals: ALEX HAGEN MD [Primary Care Provider] - Follow up in 3-5 days RADHA SILVA MD [ACTIVE STAFF] - 06/26/17 Ava COLEMAN MD [ACTIVE STAFF] - 06/26/17 6:00 am
[2017-06-25] MEDS ORDERED: NORMAL SALINE 500 ML IV ONE (22:33)
[2017-06-25] MEDS ORDERED: CALCIUM GLUCONATE 1000 MG/10 ML INJ IV ONE (23:03)
--- NOTE | 2017-06-26 00:34 | RADIOLOGY REPORT (SQ) ---
EXAM DESCRIPTION: U/S NON-OB PELVIS TV W/O DOP CLINICAL HISTORY: 77 years Female, vaginal bleeding COMPARISON: 12/06/2013 TECHNIQUE: Complete pelvic ultrasound with transabdominal entrance vaginal imaging. FINDINGS: The uterus measures 5.4 x 2.4 x 2.0 cm. 1.5 cm hypoechoic area in the anterior uterine myometrium may represent a burned out fibroid. Dystrophic calcifications noted throughout the uterus and cervix. Endometrial thickness of 0.4 cm. Cervical length of 1.6 cm. The ovaries are not identified. No free pelvic fluid. IMPRESSION: 1. There is a 1.5 cm hypoechoic structure in the anterior myometrium with peripheral calcifications. This may represent a uterine fibroid. 2. Normal endometrial thickness.
[2017-06-26 01:14] VITALS: BP 155/62
--- NOTE | 2017-06-26 11:58 | EKG REPORT ---
SEVERITY:- ABNORMAL ECG - VENTRICULAR-PACED COMPLEXES : Confirmed by: Tennille Dinh 26-Jun-2017 11:58:34
== END 2017-06-26 01:16 | disposition home or self-care (01) ==
LOC: ER 17:00
DX: N93.8 Other specified abnormal uterine and vaginal bleeding (principal); I12.0 Hypertensive chronic kidney disease with stage 5 chronic kidney disease or end stage renal disease; N18.6 End stage renal disease; Z99.2 Dependence on renal dialysis; E87.5 Hyperkalemia; R53.1 Weakness; J44.9 Chronic obstructive pulmonary disease, unspecified; Z79.01 Long term (current) use of anticoagulants; Z88.1 Allergy status to other antibiotic agents; Z91.041 Radiographic dye allergy status; Z88.2 Allergy status to sulfonamides; Z98.84 Bariatric surgery status
CPT/HCPCS: 93005; 36415; 85025; 85610; 85730; 80053; 71045; 76830; 93010; J0610; J7040; 96361; 96365; 99285

== ENCOUNTER → 2017-08-05 | Day surgery (SDC) | payer MEDICARE, MEDICAID ==
[~2017-08-05] MED LIST changes: +DIAZEPAM 5 MG TABLET PO PRN; +FENTANYL CITRATE INJ/PF 100 MCG/2 ML AMPUL ONE; +HEPARIN SOD (PORCINE) 5,000 UNIT/ML 1 ML SYRINGE ONE; +LIDOCAINE 0.5% INJ-PF (5 MG/ML) 50 ML SDV ONE; +MIDAZOLAM 2 MG/2 ML INJ ONE; -REGADENOSON INJ 0.4 MG/5 ML DISP.SYRIN IV ONE
[2017-08-05 09:00] LABS: HEMATOCRIT 35.9 % (36.0-47.0); HEMOGLOBIN 11.9 g/dL (12.0-15.5); MEAN CORPUSCULAR HEMOGLOBIN 32.3 pg (27.0-33.4); MEAN CORPUSCULAR VOLUME 98 fl (80-97); PLATELET COUNT 128 10^3/uL (150-450); RED BLOOD COUNT 3.67 10^6/uL (3.72-5.28); RED CELL DISTRIBUTION WIDTH 14.9 % (11.5-14.0); WHITE BLOOD COUNT 8.2 10^3/uL (4.0-10.5)
[2017-08-05 09:14] LABS: ANION GAP 17 (5-19); BLOOD UREA NITROGEN 31 mg/dL (7-20); CALCIUM 9.3 mg/dL (8.4-10.2); CARBON DIOXIDE 24 mmol/L (22-30); CHLORIDE 100 mmol/L (98-107); GLUCOSE 125 mg/dL (75-110); POTASSIUM 4.1 mmol/L (3.6-5.0)
--- NOTE | 2017-08-05 13:29 | PDOC DISCHARGE SUMMARY ---
General - Admit/Disc Date/PCP Admission Date/Primary Care Provider: CAMI MARQUES MD Discharge Date: 08/05/17 - Additional Information Home Medications: Amiodarone HCl [Cordarone 200 mg Tablet] 200 mg PO DAILY 09/11/16 Apixaban [Eliquis 2.5 mg Tablet] 2.5 mg PO BID 09/11/16 Aspirin [Aspirin EC] 81 mg PO DAILY 09/11/16 Atorvastatin Calcium [Lipitor 40 mg Tablet] 40 mg PO QHS 09/11/16 Cyanocobalamin (Vitamin B-12) [Vitamin B-12 500 mcg Tablet] 500 mcg PO DAILY 05/18 Eyelid Cleanser Combination 5 [Ocusoft Lid Scrub] 1 applic OU BID 09/11/16 Famotidine [Pepcid 20 mg Tablet] 20 mg PO Q12 09/11/16 Ferric Citrate [Auryxia] 1 tab PO TID 09/11/16 Hydrocortisone [Cortef 10 mg Tablet] 5 mg PO QHS 09/11/16 Hydrocortisone [Cortef 10 mg Tablet] 10 mg PO QAM 09/11/16 Levothyroxine Sodium [Synthroid 0.15 mg Tablet] 150 mcg PO QAM 09/11/16 Loperamide HCl [Imodium A-D] 4 mg PO QID 09/11/16 Loratadine [Claritin 10 mg Tablet] 10 mg PO QHS 09/11/16 Magnesium Oxide [Mag-Ox 400 mg Tablet] 1 tab PO BID 09/11/16 Metoprolol Tartrate [Lopressor 25 mg Tablet] 12.5 mg PO BID 09/11/16 Olopatadine HCl [Patanol] 1 drop OU QAM 09/11/16 Paroxetine HCl [Paxil] 10 mg PO DAILY 09/11/16 Sodium Bicarbonate [Sodium Bicarbonate 650 mg Tablet] 650 mg PO BID 09/11/16 Diphenoxylate HCl/Atrop Sulf [Lomotil 2.5 mg Tablet] 1 tab PO QID 12/30/16 Fluticasone Propionate [Flonase Nasal [place] 50 Mcg/[place] 16 gm] 2 sprays NASL Q12 12/30/16 L. Rhamnosus GG/Inulin [Culturelle Capsule] 1 each PO DAILY 12/30/16 Diphenhydramine HCl [Benadryl 50 mg Capsule] 1 cap PO ASDIR PRN 12/31/16 Famotidine [Pepcid 20 mg Tablet] 1 tab PO PRN PRN 12/31/16 Chlorhexidine Gluconate [Peridex 0.12% Oral Rinse 60 ml] 1 dose PO BID 03/17/17 Diphenoxylate HCl/Atrop Sulf [Lomotil 2.5 mg Tablet] 2 tab PO QID 03/17/17 Hydrocodone/Acetaminophen [[place] 5-325 mg Tablet] 1 tab PO Q6HP PRN 03/17/17 Isosorbide Mononitrate [Imdur 30 mg Tablet.er] 30 mg PO DAILY 03/17/17 Olopatadine HCl [Pataday] 1 drop OP ASDIR 03/17/17 Ondansetron [Zofran Odt 4 mg Tablet] 1 - 2 tab PO Q4HP PRN 03/17/17 Polyvinyl Alcohol [Liquid Tears] 1 drop OP QID 03/17/17 Progesterone,Micronized [Prometrium 100 mg Capsule] 100 mg PO DAILY 3 Days #3 capsule 06/26/17 Prednisone 60 mg PO 08/05/17 History of Present Illness History of Present Illness: VARINDER TORRES is a 77 year old female Physical Exam Vital Signs: Temp Pulse Resp BP Pulse Ox 98.3 F 67 16 132/72 H 97 08/05/17 08:56 08/05/17 08:56 08/05/17 08:56 08/05/17 08:56 08/05/17 08:56 Intake & Output 08/04/17 08/05/17 08/06/17 06:59 06:59 06:59 Weight 69.4 kg 69.4 kg Additional comments: Constitutional: Well-developed well-nourished lady. No apparent acute distress. Eyes: Mucous membranes pink and moist, pupils equal and reactive to light. Conjunctiva normal. Cornea normal. Wears spectacles ENT: Hearing grossly normal. External pinna normal to inspection. Teeth intact. Tongue normal to inspection. Respiratory: Normal respiratory effort. Psychiatric: Judgment, memory, insight seem normal. Mood is pleasant and appropriate. Extremities: Upper extremities show normal range of movement. Pulses present noted to the radial arteries. Capillary refill normal. No cyanosis noted. No muscle wasting noted. Left arm brachiocephalic fistula initially firm no quite appropriately softer after intervention. Results Laboratory Results: 08/05/17 08:46 08/05/17 08:46 08/05/17 08/05/17 08:46 08:46 WBC 8.2 RBC 3.67 L Hgb 11.9 L Hct 35.9 L MCV 98 H MCH 32.3 MCHC 33.0 RDW 14.9 H Plt Count 128 L Sodium 141.0 Potassium 4.1 Chloride 100 Carbon Dioxide 24 Anion Gap 17 BUN 31 H Creatinine 6.70 H Est GFR ( Amer) 7 L Est GFR (Non-Af Amer) 6 L Glucose 125 H Calcium 9.3 Qualifiers - * PATEINT BEING DISCHARGED WITH ANY OF THE FOLLOWING DIAGNOSIS?: No VTE patient discharged on overlapping Therapy?: No Plan Discharge Plan: Discharge patient home.
--- NOTE | 2017-08-05 13:35 | Operative Report ---
Operative Report DATE OF SURGERY: 08/05/17 PREOPERATIVE DIAGNOSIS: 1. Malfunctioning AV fistula left brachiocephalic. 2. End-stage renal disease on hemodialysis. 3. Chronic anticoagulation. 4. Hypertension. POSTOPERATIVE DIAGNOSIS: 1. Malfunctioning AV fistula left brachiocephalic. 2. End-stage renal disease on hemodialysis. 3. Chronic anticoagulation. OPERATION: 1. Needle access into fistula. 2. Central angioplasty at the subclavian junction. 3. Angioplasty with drug-eluting stent at the subclavian junction. 4. Angiogram and interpretation. SURGEON: DON HUNTER CERTIFIED BREASTFEEDING EDUCATOR: None ANESTHESIA: Moderate Sedation TISSUE REMOVED OR ALTERED: Not applicable. COMPLICATIONS: None. ESTIMATED BLOOD LOSS: 2 mL. INTRAOPERATIVE FINDINGS: Of a well founded somewhat hyper pulsatile AV fistula left arm, brachiocephalic. Angiogram demonstrated a tight stenosis about 90% of the adjacent lumen of the subclavian cephalic junction. This was corrected with a residual about 20% stenosis. Much improved function. This fistula has done well for the last 5 months since use of a drug-eluting balloon. A larger balloon possibly 10 mm may be indicated at the next intervention, hopefully that at least 5-6 months. If not more. She will be followed closely closely for this bill fistula. PROCEDURE: PROCEDURE: After verifying the procedure and having obtained informed consent, the patient's left arm was prepared with Chlorhexidine and draped out with sterile linen. Local anesthesia infiltrated. Percutaneous access into the fistula ,[ antegrade], obtained about [8 cm] from the arteriovenous anastomosis using a 18-gauge needle. A 0.035 Moose wire was inserted, and over this, a 7 [place]une[place] short introducer was placed, this was followed by a [9-mm ] angioplasty balloon . Angioplasty was Done at the cephalic subclavian junction . Inflating up to 60 atmospheres for a minute at a time.]. With residual stenosis was redilated with a 9 mm balloon. This showed a much improved situation with about 20% residual stenosis. A drug-eluting balloon was now deployed across this area 9 mm and inflated for 3 minutes. Completion angiogram demonstrated [acceptable result]. The instrumentation was now withdrawn over hand-held pressure for 10 minutes. Dressings applied, procedure concluded. Exposure time: 0.1 minutes Radiation: 6.74 mL avila Contrast: 5 mm of Isovue-300, low osmolality. DICTATING PHYSICIAN: DON HELM M.D. cc: DON HELM M.D. ([id number]) >>
[2017-08-05 14:18] VITALS: BP 165/91
--- NOTE | 2017-08-05 15:44 | RADIOLOGY REPORT (SQ) ---
EXAM DESCRIPTION: FISTULAGRAM W/PLASTY; ANGIOPLASTY BRACHIOCEPHALIC COMPLETED DATE/TIME: 08/05/2017 3:23 pm; 08/05/2017 3:13 pm REASON FOR STUDY: T82.858A T82.858A STENOSIS OF OTHER VASCULAR PROSTH DEV/GRFT, INIT COMPARISON: None. FLUOROSCOPY TIME: 2.1 minutes Multiple fluoroscopic images saved to PACS. TECHNIQUE: Intra-operative images acquired during surgical procedure to evaluate progress. NUMBER OF IMAGES: Cine fluoroscopic images. LIMITATIONS: None. FINDINGS: Selected images from arteriography and angioplasty left upper extremity. IMPRESSION: IMAGE(S) OBTAINED DURING PROCEDURE. COMMENT: Quality ID 145: Final reports for procedures using fluoroscopy that document radiation exp osure indices, or exposure time and number of fluorographic images (if radiation exposure indices are not available) Please consult full operative report of the attending physician for description of the procedure. TECHNICAL DOCUMENTATION: JOB ID: [id number] [employer]- All Rights Reserved Reading location - IP/workstation name: [email or web address]
--- NOTE | 2017-08-05 15:44 | RADIOLOGY REPORT (SQ) ---
EXAM DESCRIPTION: FISTULAGRAM W/PLASTY; ANGIOPLASTY BRACHIOCEPHALIC COMPLETED DATE/TIME: 08/05/2017 3:23 pm; 08/05/2017 3:13 pm REASON FOR STUDY: T82.858A T82.858A STENOSIS OF OTHER VASCULAR PROSTH DEV/GRFT, INIT COMPARISON: None. FLUOROSCOPY TIME: 2.1 minutes Multiple fluoroscopic images saved to PACS. TECHNIQUE: Intra-operative images acquired during surgical procedure to evaluate progress. NUMBER OF IMAGES: Cine fluoroscopic images. LIMITATIONS: None. FINDINGS: Selected images from arteriography and angioplasty left upper extremity. IMPRESSION: IMAGE(S) OBTAINED DURING PROCEDURE. COMMENT: Quality ID 145: Final reports for procedures using fluoroscopy that document radiation exp osure indices, or exposure time and number of fluorographic images (if radiation exposure indices are not available) Please consult full operative report of the attending physician for description of the procedure. TECHNICAL DOCUMENTATION: JOB ID: [id number] [employer]- All Rights Reserved Reading location - IP/workstation name: [email or web address]
== END ==
LOC: CCL 08:12
PROVIDERS: ATTEND Surgery
PROC: 057F3DZ Dilation of Left Cephalic Vein with Intraluminal Device, Percutaneous Approach (ICD-10-PCS; principal; 2017-08-05)
DX: T82.858A Stenosis of other vascular prosthetic devices, implants and grafts, initial encounter (principal); Y83.2 Surgical operation with anastomosis, bypass or graft as the cause of abnormal reaction of the patient, or of later complication, without mention of misadventure at the time of the procedure; I12.0 Hypertensive chronic kidney disease with stage 5 chronic kidney disease or end stage renal disease; N18.6 End stage renal disease; Z99.2 Dependence on renal dialysis; I50.22 Chronic systolic (congestive) heart failure; E87.6 Hypokalemia; E83.51 Hypocalcemia; D50.9 Iron deficiency anemia, unspecified; I48.91 Unspecified atrial fibrillation; E03.9 Hypothyroidism, unspecified; Z79.899 Other long term (current) drug therapy; Z79.82 Long term (current) use of aspirin; Z88.2 Allergy status to sulfonamides; Z88.8 Allergy status to other drugs, medicaments and biological substances; Z86.718 Personal history of other venous thrombosis and embolism; Z95.810 Presence of automatic (implantable) cardiac defibrillator; Z79.01 Long term (current) use of anticoagulants
CPT/HCPCS: 36415; 85027; 80048; 36907; 36902; C1752; Q9967; C1769; J1644 ×2; A9270; J3490; J2250; J3010

== ENCOUNTER 2017-10-07 23:12 | Emergency (ER) | payer MEDICARE, MEDICAID ==
--- NOTE | 2017-10-07 23:26 | ER Document Report ---
ED Fall - General Mode of Arrival: Medic Information source: Patient TRAVEL OUTSIDE OF THE [place] IN LAST 30 DAYS: No <RENÉE KELLEY - Last Filed: 10/07/17 23:57> <DONRICO - Last Filed: 10/08/17 01:04> - General Stated Complaint: FALL/HEAD INJURY Time Seen by Provider: 10/07/17 23:17 Notes: 77 y.o female presents to the ED via EMS s/p fall and injury to the head. She states that she was bending over, reaching for a towel on the floor when she fell. Pt also has several injuries with hematomas to her bilateral upper extremities. Pt is on Eliquis for a hx of blood clots. Pt is on dialysis, She receives treatment on Mondays, Wednesdays and Fridays. Pt's last treatment was Friday10/06/17. (RENÉE KELLEY) - Related data Allergies/Adverse Reactions: iodine Allergy (Severe, Verified 06/25/17 17:02) itching, facial swelling, difficulty breathing doxycycline [Doxycycline] Allergy (Verified 06/25/17 17:02) dizzy Iodinated Contrast- Oral and IV Dye [IV Dye, Iodine Containing] Allergy ( Verified 06/25/17 17:02) Sulfa (Sulfonamide Antibiotics) Allergy (Verified 06/25/17 17:02) dizzy amlodipine besylate [From Norvasc] Adverse Reaction (Unknown, Verified 06/25/17 17:02) anxious, jittery feeling Past Medical History - General Information source: Patient - Social History Smoking Status: Unknown if Ever Smoked Chew tobacco use (# tins/day): No Frequency of alcohol use: None Drug Abuse: None Lives with: Long Term Family History: CAD, Hypertension - Past Medical History Cardiac Medical History: Reports: Hx Congestive Heart Failure, Hx DVT, Hx Heart Attack, Hx Hypertension - R/T ESRD, Hx Pulmonary Embolism, Hx Heart Murmur Pulmonary Medical History: Reports: Hx COPD, Hx Pneumonia - as kid Renal/ Medical History: Reports: Hx End Stage Renal Disease, Hx Hemodialysis, Hx Kidney Stones. Denies: Hx Peritoneal Dialysis GI Medical History: Reports: Hx Ulcer Musculoskeltal Medical History: Reports Hx Arthritis Psychiatric Medical History: Reports: Hx Depression Past Surgical History: Reports: Hx Abdominal Surgery - gastric bypass, Hx Cardiac Surgery - Pacer, bypass, Hx Cholecystectomy, Hx Gastric Bypass Surgery, Hx Orthopedic Surgery, Hx Tonsillectomy, Hx Tubal Ligation. Denies: Hx Hysterectomy - Immunizations Hx Diphtheria, Pertussis, Tetanus Vaccination: No Hx Pneumococcal Vaccination: 01/31/14 <RENÉE KELLEY - Last Filed: 10/07/17 23:57> Review of Systems - Review of Systems Constitutional: No symptoms reported EENT: No symptoms reported Cardiovascular: No symptoms reported Respiratory: No symptoms reported Gastrointestinal: No symptoms reported Genitourinary: No symptoms reported Female Genitourinary: No symptoms reported Musculoskeletal: See HPI, Other - injury to bilateral upper extremities Skin: See HPI, Other - Hematomas to bilateral upper extremities and head. Hematologic/Lymphatic: No symptoms reported Neurological/Psychological: See HPI, Other - Fall with hit to head while on Eliquis -: Yes All other systems reviewed and negative <RENÉE KELLEY - Last Filed: 10/07/17 23:57> Physical Exam <RENÉE KELLEY - Last Filed: 10/07/17 23:57> <RICO OCHOA - Last Filed: 10/08/17 01:04> - Vital signs Vitals: Temp Pulse Resp BP Pulse Ox 98.0 F 65 18 165/61 H 95 10/07/17 23:31 10/07/17 23:31 10/07/17 23:31 10/07/17 23:31 10/07/17 23:31 - Notes Notes: Physical Exam: General: Alert, appears well. HEENT: Hematoma and swelling LT upper occipital scalp. PERRL. Extraocular movements intact. Oropharynx clear. Neck: Supple. Non-tender. Respiratory: No respiratory distress. Clear and equal breath sounds bilaterally. Cardiovascular: Regular rate and rhythm. Grade 3 holosystolic murmur. Abdominal: Normal Inspection. Non-tender. No distension. Normal Bowel Sounds. Back: Non-tender. No deformity or step off. Extremities: RT lateral upper arm with large hematoma. LT ulnar proximal forearm with small hematoma. Fistula graft for dialysis to LT arm. Lower extremities: Normal inspection. No edema. Normal ROM. Neurological: Normal cognition. AAOx4. Normal speech. (RENÉE KELLEY) Course - Diagnostic Test Radiology reviewed: Image reviewed - Right knee x-ray shows prosthesis intact with no sign of fracture or loosening., Reports reviewed - CT scans of the head and neck do not show acute findings. <RICO OCHOA - Last Filed: 10/08/17 01:04> - Vital Signs Vital signs: Temp Pulse Resp BP Pulse Ox 98.0 F 65 18 165/61 H 95 10/07/17 23:31 10/07/17 23:31 10/07/17 23:31 10/07/17 23:31 10/07/17 23:31 Discharge <RENÉE KELLEY - Last Filed: 10/07/17 23:57> <RICO OCHOA - Last Filed: 10/08/17 01:04> - Discharge Clinical Impression: Dialysis patient Fall Qualifiers: Encounter type: initial encounter Qualified Code(s): W19.XXXA - Unspecified fall, initial encounter Contusion of occipital region of scalp Qualifiers: Encounter type: initial encounter Qualified Code(s): S00.03XA - Contusion of scalp, initial encounter Traumatic hematoma of right upper arm Qualifiers: Encounter type: initial encounter Qualified Code(s): S40.021A - Contusion of right upper arm, initial encounter Contusion of left forearm Qualifiers: Encounter type: initial encounter Qualified Code(s): S50.12XA - Contusion of left forearm, initial encounter Contusion of right knee Qualifiers: Encounter type: initial encounter Qualified Code(s): S80.01XA - Contusion of right knee, initial encounter Condition: Stable Disposition: HOME, SELF-CARE Additional Instructions: Your scans, x-rays, and physical exam show only contusions and hematomas without any significant injuries. Use ice packs on the hematomas to reduce swelling. Follow-up with your doctor tomorrow after dialysis to recheck the bruising. RETURN TO THE EMERGENCY ROOM IF ANY NEW OR WORSENING SYMPTOMS. Scribe Attestation: 10/08/17 01:04 I personally performed the services described in the documentation, reviewed and edited the documentation which was dictated to the scribe in my presence, and it accurately records my words and actions. (RICO OCHOA) Scribe Documentation - Scribe Written by Remington:: Remington Khan 10/07/17 [id number] acting as scribe for :: Don <RENÉE KELLEY - Last Filed: 10/07/17 23:57>
[2017-10-07 23:34] VITALS: BP 165/61
--- NOTE | 2017-10-08 00:29 | RADIOLOGY REPORT (SQ) ---
EXAM DESCRIPTION: CT head without contrast CLINICAL HISTORY: 77 years Female, Fall, hit head, on Eliquis COMPARISON: 01.16.12 TECHNIQUE: No contrast. Coronal and sagittal reformat. This exam was performed according to our departmental dose-optimization program, which includes automated exposure control, adjustment of the mA and/or kV according to patient size and/or use of iterative reconstruction technique. FINDINGS: No hemorrhage or infarct. No mass, mass effect, or midline shift. Atherosclerosis, mild white matter microangiopathy, likely 0.6 cm left frontal meningioma not definitively characterized. Brain and extra-axial structures appear otherwise intact. IMPRESSION: No acute findings.
--- NOTE | 2017-10-08 00:52 | RADIOLOGY REPORT (SQ) ---
EXAM DESCRIPTION: CT cervical spine without contrast CLINICAL HISTORY: 77 years Female, Fall, hit head COMPARISON: None. TECHNIQUE: No contrast. Coronal and sagittal reformat. This exam was performed according to our departmental dose-optimization program, which includes automated exposure control, adjustment of the mA and/or kV according to patient size and/or use of iterative reconstruction technique. FINDINGS: Moderate disc desiccation between the C4 and C7 levels, moderate dextroconvexity, and mild spondylosis. Right cardiac stimulator leads, atherosclerosis, and no evidence of fracture. Unenhanced nuchal soft tissues, inferior cranium, and upper thorax appear otherwise grossly intact. Impression: No acute findings.
--- NOTE | 2017-10-08 01:09 | RADIOLOGY REPORT (SQ) ---
EXAM DESCRIPTION: CR, right knee four views CLINICAL HISTORY: 77 years Female, Fell on knee, pain and swelling COMPARISON: None. Findings: Right total knee arthroplasty, bone demineralization, atherosclerosis.. Bones, joints, and soft tissues of the right knee appear otherwise intact. No effusion. IMPRESSION: No acute findings.
== END 2017-10-08 03:00 | disposition home or self-care (01) ==
LOC: ER 23:12
DX: S00.03XA Contusion of scalp, initial encounter (principal); S40.021A Contusion of right upper arm, initial encounter; S50.12XA Contusion of left forearm, initial encounter; S80.01XA Contusion of right knee, initial encounter; W18.30XA Fall on same level, unspecified, initial encounter; I50.9 Heart failure, unspecified; I13.2 Hypertensive heart and chronic kidney disease with heart failure and with stage 5 chronic kidney disease, or end stage renal disease; N18.6 End stage renal disease; J44.9 Chronic obstructive pulmonary disease, unspecified; I25.2 Old myocardial infarction; Z79.02 Long term (current) use of antithrombotics/antiplatelets; Z86.718 Personal history of other venous thrombosis and embolism; Z99.2 Dependence on renal dialysis; Z88.2 Allergy status to sulfonamides; Z87.442 Personal history of urinary calculi; Z98.84 Bariatric surgery status; Z95.0 Presence of cardiac pacemaker; Z90.49 Acquired absence of other specified parts of digestive tract
CPT/HCPCS: 70450; 72125; 99284

== ENCOUNTER 2017-11-17 10:14 | Emergency (ER) | payer MEDICARE, MEDICAID ==
--- NOTE | 2017-11-17 11:51 | ER Document Report ---
ED General - General Chief Complaint: Arm Pain Stated Complaint: NECK/ARM PAIN Mode of Arrival: Medic Information source: Patient TRAVEL OUTSIDE OF THE [place] IN LAST 30 DAYS: No - HPI Notes: 77-year-old female with a significant past medical history who takes Eliquis presents to the ED with complaints of neck pain that started last night. She was seen in the ED 5 weeks ago after falling and hitting her head, scans of her head, neck were negative for any acute fracture or dislocation or stroke. Patient states the right side of her neck hurts the most. Patient states she was laying in bed all day watching TV, she noticed the pain last night when she did get up. Patient states she mostly laid in one position majority of the day. Denies any trauma. Denies any difficulty swallowing, trismus or drooling. Patient does have a hematoma to her right upper arm when she fell, hematoma has been there for the last 5 weeks is slowly getting better. Denies fevers, chills, chest pain,palpitations, shortness of breath, dyspnea, nausea , vomiting, diarrhea, abdominal pain, hematuria,blurred vision, double vision, loss of vision, speech changes, LH, dizziness, syncope, headaches, wheezing, ST , URI, weakness, bowel or bladder dysfunction, saddle anesthesia, numbness or tingling in bilateral upper or lower extremities equally, muscle paralysis, weakness in bilateral upper or lower extremities equally or rash. Denies IV drug use. - Related Data Allergies/Adverse Reactions: iodine Allergy (Severe, Verified 11/17/17 10:18) itching, facial swelling, difficulty breathing doxycycline [Doxycycline] Allergy (Verified 11/17/17 10:18) dizzy Iodinated Contrast- Oral and IV Dye [IV Dye, Iodine Containing] Allergy ( Verified 11/17/17 10:18) Sulfa (Sulfonamide Antibiotics) Allergy (Verified 11/17/17 10:18) dizzy amlodipine besylate [From Norvasc] Adverse Reaction (Unknown, Verified 11/17/17 10:18) anxious, jittery feeling Past Medical History - General Information source: Patient - Social History Smoking Status: Never Smoker Frequency of alcohol use: None Drug Abuse: None Family History: CAD, Hypertension Patient has suicidal ideation: No Patient has homicidal ideation: No - Past Medical History Cardiac Medical History: Reports: Hx Congestive Heart Failure, Hx DVT, Hx Heart Attack, Hx Hypertension - R/T ESRD, Hx Pulmonary Embolism, Hx Heart Murmur Denies: Hx Coronary Artery Disease Pulmonary Medical History: Reports: Hx COPD, Hx Pneumonia - as kid Denies: Hx Asthma, Hx Bronchitis, Hx Tuberculosis Neurological Medical History: Denies: Hx Cerebrovascular Accident, Hx Seizures Renal/ Medical History: Reports: Hx End Stage Renal Disease, Hx Hemodialysis, Hx Kidney Stones. Denies: Hx Peritoneal Dialysis GI Medical History: Reports: Hx Ulcer Musculoskeltal Medical History: Reports Hx Arthritis Psychiatric Medical History: Reports: Hx Depression Past Surgical History: Reports: Hx Abdominal Surgery - gastric bypass, Hx Cardiac Surgery - Pacer, bypass, Hx Cholecystectomy, Hx Gastric Bypass Surgery, Hx Orthopedic Surgery, Hx Tonsillectomy, Hx Tubal Ligation. Denies: Hx Hysterectomy - Immunizations Hx Diphtheria, Pertussis, Tetanus Vaccination: No Hx Pneumococcal Vaccination: 01/31/14 Review of Systems - Review of Systems Constitutional: No symptoms reported EENT: No symptoms reported Cardiovascular: No symptoms reported Respiratory: No symptoms reported Gastrointestinal: No symptoms reported Genitourinary: No symptoms reported Female Genitourinary: No symptoms reported Musculoskeletal: See HPI Skin: No symptoms reported Hematologic/Lymphatic: No symptoms reported Neurological/Psychological: No symptoms reported Physical Exam - Vital signs Vitals: Temp Pulse Resp BP Pulse Ox 98.0 F 72 18 151/80 H 96 11/17/17 10:25 11/17/17 10:25 11/17/17 10:25 11/17/17 10:25 11/17/17 10:25 - Notes Notes: PHYSICAL EXAMINATION: GENERAL:chronically ill, well-nourished and in no acute distress. HEAD: Atraumatic, normocephalic. EYES: Pupils equal round and reactive to light, extraocular movements intact, sclera anicteric, conjunctiva are normal. ENT: nares patent, oropharynx clear without exudates. Moist mucous membranes. NECK: Normal range of motion, supple without lymphadenopathy. full APROM of cervical spine, no cervical spinal tenderness on palpation, noted right sternoclastoid muscle tenderness on palpation, able to pinpoint muscular pain. Negative spurlings test. Shanker Out + 2 bilaterally and equally. Dtr +2 bilaterally and equally in BUE. Perrla, full eomi. Face symmetrical. No rashes observed. Point tenderness to right paraspinal muscles near C6. No lymphadenopathy. Full APROM with shoulders. TM intact bilaterally. No meningismus. No noted lymphadenopathy. LUNGS: Breath sounds clear to auscultation bilaterally and equal. No wheezes rales or rhonchi. HEART: Regular rate and rhythm without murmurs ABDOMEN: Soft, nontender, normoactive bowel sounds. No guarding, no rebound. No masses appreciated. EXTREMITIES: Normal range of motion, no pitting or edema. No cyanosis. NEUROLOGICAL: No focal neurological deficits. Moves all extremities spontaneously and on command. PSYCH: Normal mood, normal affect. SKIN: Warm, Dry, normal turgor, no rashes or lesions noted. Course - Re-evaluation Re-evalutation: 11/17/17 19:22 77-year-old who is afebrile, vitals stable and in no distress female who presents to the ED with complaints of neck pain after laying around in bed yesterday. Patient was seen in the ED 5 weeks ago for cervical neck pain and head trauma after falling forward while being on blood thinners. CT negative head and CT negative spine for acute fracture dislocation or stroke. Patient was concerned and Reglan a hairline fracture there. Discussed the patient will order cervical spine x-rays to rule out a compression fracture. Discussed the patient this is likely due to a muscle spasm from laying in bed all day yesterday watching TV patient denies any trauma since she was here for her fall 5 weeks ago, however he can action fracture may be missed, cervical spine xrays negative for any acute fractures. Low suspicion for central cord syndrome, epidural mass lesion, severe spinal stenosis, arterial dissection, meningitis, acute coronary syndrome, retropharyngeal abscess, thus I consider this discharge disposition reasonable. I have reevaluated this patient multiple times and no significant life threatening changes are noted. The patient and I have discussed the diagnosis and risks, and we agree with discharging home to follow-up on an outpatient basis with the understanding that symptoms and presentations can change. We also discussed returning to the Emergency Department immediately if new or worsening symptoms occur. We have discussed the symptoms which are most concerning (e.g., saddle anesthesia, urinary or bowel incontinence or retention, changing or worsening pain) that necessitate immediate return. - Vital Signs Vital signs: Temp Pulse Resp BP Pulse Ox 99.1 F 62 18 147/98 H 93 11/17/17 17:00 11/17/17 17:00 11/17/17 10:25 11/17/17 17:00 11/17/17 17:00 Discharge - Discharge Clinical Impression: Acute neck pain, Muscle spasm Condition: Poor Disposition: HOME, SELF-CARE Instructions: Muscle Relaxers ([facility]), Muscle Strain ([facility]), Neck Injury ( Cervical Strain) ([facility]) Prescriptions: Cyclobenzaprine HCl [Flexeril 5 mg Tablet] 5 mg PO TID PRN #10 tablet PRN Reason: Referrals: DALIA DENNY MD [Primary Care Provider] - Follow up tomorrow THAO ARREAGA DO [ACTIVE STAFF] - Follow up in 3-5 days
[2017-11-17] MEDS ORDERED: HYDROCODONE/ACETAMINOPHEN 5-325 MG TABLET PO ONE (12:24)
--- NOTE | 2017-11-17 13:14 | RADIOLOGY REPORT (SQ) ---
EXAM DESCRIPTION: CERV SP 4 OR 5 VIEWS COMPLETED DATE/TIME: 11/17/2017 12:42 pm REASON FOR STUDY: neck pain that started last night COMPARISON: 10/05/2017 NUMBER OF VIEWS: Five views including obliques. TECHNIQUE: AP, lateral, obliques and odontoid radiographic images acquired of the cervical spine. LIMITATIONS: Cervicothoracic junction obscured by shoulders. FINDINGS: MINERALIZATION: Normal. SEGMENTATION: Normal. ALIGNMENT: Normal. VERTEBRAE: Maintained height. No fracture or worrisome bone lesion. DISCS: Multilevel disc space narrowing with osteophytes. POSTERIOR ELEMENTS: Pedicles and facets are intact. No posterior arch defects. Facet arthropathy is present. FORAMINA: Narrowed at the levels of maximal disc and facet disease. HARDWARE: None in the spine. PARASPINAL SOFT TISSUES: Normal. OTHER: No other significant finding. IMPRESSION: SPONDYLOSIS WITHOUT BONE LESION OR FRACTURE. TECHNICAL DOCUMENTATION: JOB ID: [id number] [employer]- All Rights Reserved Reading location - IP/workstation name: [email or web address]
[2017-11-17 17:09] VITALS: BP 147/98
== END 2017-11-17 17:09 | disposition home or self-care (01) ==
LOC: ER 10:14
DX: M54.2 Cervicalgia (principal); M62.838 Other muscle spasm; S40.021D Contusion of right upper arm, subsequent encounter; W19.XXXD Unspecified fall, subsequent encounter; J44.9 Chronic obstructive pulmonary disease, unspecified; I10 Essential (primary) hypertension; I25.2 Old myocardial infarction; Z79.01 Long term (current) use of anticoagulants; Z88.1 Allergy status to other antibiotic agents; Z88.2 Allergy status to sulfonamides; Z98.84 Bariatric surgery status
CPT/HCPCS: 99284; 72050; A9270

== ENCOUNTER 2017-11-18 11:29 | Inpatient (IN) | payer MEDICARE, MEDICAID ==
[2017-11-18] MEDS ORDERED: DEXTROSE 50%-WATER 25 GM/50 ML DISP.SYRIN IV ONE ×2 (12:00→12:32)
--- NOTE | 2017-11-18 12:42 | ER Document Report ---
ED General - General Chief Complaint: General Weakness Stated Complaint: WEAKNESS Time Seen by Provider: 11/18/17 12:26 Mode of Arrival: Stretcher Information source: Patient, Transfer Record Notes: This is a pleasant 77-year-old female with a complicated medical history including COPD, CHF, end-stage renal disease who was sent in from [facility] because of "sick, weak, low blood sugar". Patient was noted to have a fingerstick of 51 on EMS arrival and was treated with oral sugar which increased her sugar to 111. In the emergency room her Accu-Chek was 61 and she was given D50. The patient was noted to have some hypoxia on EMS arrival (in the 80s). The patient denies any significant shortness of breath. She was supposed to be dialyzed yesterday. TRAVEL OUTSIDE OF THE [place] IN LAST 30 DAYS: No - HPI Onset: Last week Onset/Duration: Gradual Quality of pain: No pain Severity: None Pain Level: Denies Associated symptoms: Nausea. denies: Chest pain, Fever, Shortness of breath Exacerbated by: Denies Relieved by: Denies Similar symptoms previously: Yes Recently seen / treated by doctor: Yes - Related Data Allergies/Adverse Reactions: iodine Allergy (Severe, Verified 11/17/17 10:18) itching, facial swelling, difficulty breathing doxycycline [Doxycycline] Allergy (Verified 11/17/17 10:18) dizzy Iodinated Contrast- Oral and IV Dye [IV Dye, Iodine Containing] Allergy ( Verified 11/17/17 10:18) Sulfa (Sulfonamide Antibiotics) Allergy (Verified 11/17/17 10:18) dizzy amlodipine besylate [From Norvasc] Adverse Reaction (Unknown, Verified 11/17/17 10:18) anxious, jittery feeling Past Medical History - General Information source: Patient - Social History Smoking Status: Former Smoker Cigarette use (# per day): No Chew tobacco use (# tins/day): No Frequency of alcohol use: None Drug Abuse: None Lives with: [facility] Family History: CAD, Hypertension Patient has suicidal ideation: No Patient has homicidal ideation: No - Past Medical History Cardiac Medical History: Reports: Hx Congestive Heart Failure, Hx DVT, Hx Heart Attack, Hx Hypertension - R/T ESRD, Hx Pulmonary Embolism, Hx Heart Murmur Denies: Hx Coronary Artery Disease Pulmonary Medical History: Reports: Hx COPD, Hx Pneumonia - as kid Denies: Hx Asthma, Hx Bronchitis, Hx Tuberculosis Neurological Medical History: Denies: Hx Cerebrovascular Accident, Hx Seizures Renal/ Medical History: Reports: Hx End Stage Renal Disease, Hx Hemodialysis, Hx Kidney Stones. Denies: Hx Peritoneal Dialysis GI Medical History: Reports: Hx Ulcer Musculoskeltal Medical History: Reports Hx Arthritis Psychiatric Medical History: Reports: Hx Depression Past Surgical History: Reports: Hx Abdominal Surgery - gastric bypass, Hx Cardiac Surgery - Pacer, bypass, Hx Cholecystectomy, Hx Gastric Bypass Surgery, Hx Orthopedic Surgery, Hx Tonsillectomy, Hx Tubal Ligation. Denies: Hx Hysterectomy - Immunizations Hx Diphtheria, Pertussis, Tetanus Vaccination: No Hx Pneumococcal Vaccination: 01/31/14 Review of Systems - Review of Systems Constitutional: denies: Chills, Fever EENT: No symptoms reported Cardiovascular: See HPI Respiratory: See HPI Gastrointestinal: See HPI Genitourinary: No symptoms reported Female Genitourinary: No symptoms reported Musculoskeletal: No symptoms reported Skin: No symptoms reported Hematologic/Lymphatic: No symptoms reported Neurological/Psychological: No symptoms reported Physical Exam - Vital signs Vitals: Pulse Ox 92 11/18/17 11:30 Notes: Physical exam: GENERAL: This is a frail 77-year-old female, she is alert and oriented and conversant. She does not appear to be in any acute distress. Her blood pressure is currently 105/39 with an O2 sat of 94% on 2 L, pulse of 73 and respiratory rate of 20. HEAD: Atraumatic, normocephalic. She denies any headache. EYES: Pupils equal round and reactive to light, extraocular movements intact, sclera anicteric, conjunctiva are normal. ENT: TMs normal, nares patent, oropharynx clear without exudates. Moist mucous membranes. NECK: Normal range of motion, supple without obvious mass or JVD. LUNGS: Crackles bilaterally HEART: Regular rate and rhythm without murmurs, rubs or gallops. ABDOMEN: Soft, normoactive bowel sounds. No tenderness to palpation. No guarding, no rebound. No masses appreciated. EXTREMITIES: Normal range of motion, no pitting or edema. No clubbing or cyanosis. NEUROLOGICAL: Cranial nerves II through XII grossly intact. Normal speech, moving all extremities. PSYCH: Normal mood, normal affect. SKIN: She does have a hematoma over the right deltoid which she said she got from a fall 5 weeks ago. She is on Coumadin. Course - Re-evaluation Re-evalutation: 11/18/17 18:02 This is a 77-year-old female with a history of COPD, CHF, end-stage renal disease (on hemodialysis) who presents to the emergency room with not feeling well, having missed dialysis. She did have transient hypoglycemia which corrected fairly quickly. She was noticed to have dropping O2 sats and pulmonary edema on chest x-ray. She was here in the emergency room yesterday for evaluation. Given all the above, we are bringing her into the hospital for dialysis and continued observation. - Vital Signs Vital signs: Temp Pulse Resp BP Pulse Ox 98.5 F 72 14 108/65 98 11/18/17 11:34 11/18/17 11:34 11/18/17 17:32 11/18/17 17:33 11/18/17 17:33 - Laboratory Result Diagrams: 11/18/17 12:54 11/18/17 12:54 Laboratory results interpreted by me: 11/18/17 11/18/17 11/18/17 11:45 12:48 12:54 WBC 12.0 H RDW 16.3 H Seg Neutrophils % 82.4 H Lymphocytes % 7.6 L Absolute Neutrophils 9.9 H PT Chloride BUN Creatinine Est GFR ( Amer) Est GFR (Non-Af Amer) Glucose POC Glucose 60 L 119 H Calcium Direct Bilirubin Alkaline Phosphatase Creatine Kinase CK-MB (CK-2) Total Protein Albumin 11/18/17 11/18/17 11/18/17 12:54 12:54 12:54 WBC RDW Seg Neutrophils % Lymphocytes % Absolute Neutrophils PT 37.7 H Chloride 97 L BUN 52 H Creatinine 8.58 H Est GFR ( Amer) 5 L Est GFR (Non-Af Amer) 5 L Glucose 127 H POC Glucose Calcium 7.8 L Direct Bilirubin 0.9 H Alkaline Phosphatase 145 H Creatine Kinase 171 H CK-MB (CK-2) 7.60 H Total Protein 5.2 L Albumin 2.8 L - Diagnostic Test Radiology reviewed: Image reviewed, Reports reviewed - Consistent with pulmonary edema - EKG Interpretation by Me Rhythm: Other - Paced rhythm with 100% capture Critical Care Note - Critical Care Note Total time excluding time spent on procedures (mins): 50 Discharge - Discharge Clinical Impression: CHF, fluid overload Condition: Stable Disposition: ADMITTED OBSERVATION Admitting Provider: Hospitalist Unit Admitted: NARA Talamantes
[2017-11-18 13:06] LABS: ABSOLUTE EOSINOPHILS # (AUTO) 0.1 10^3/uL (0.0-0.6); ABSOLUTE LYMPHOCYTES (AUTO) 0.9 10^3/uL (0.5-4.7); ABSOLUTE NEUT (AUTO) 9.9 10^3/uL (1.7-8.2); BASOPHILS % (AUTO) 0.4 % (0-2); HEMATOCRIT 38.5 % (36.0-47.0); HEMOGLOBIN 12.4 g/dL (12.0-15.5); LYMPHOCYTES % (AUTO) 7.6 % (13-45); MEAN CORPUSCULAR HEMOGLOBIN 30.1 pg (27.0-33.4); MEAN CORPUSCULAR HGB CONC 32.3 g/dL (32.0-36.0); MEAN CORPUSCULAR VOLUME 93 fl (80-97); MONOCYTES % (AUTO) 8.6 % (3-13); PLATELET COUNT 165 10^3/uL (150-450); RED BLOOD COUNT 4.13 10^6/uL (3.72-5.28); RED CELL DISTRIBUTION WIDTH 16.3 % (11.5-14.0); SEGMENTED NEUTROPHILS % (AUTO) 82.4 % (42-78); TOTAL CELLS COUNTED % (AUTO) 100 %
[2017-11-18] MEDS ORDERED: IPRATROPIUM/ALBUTEROL 0.5-2.5 MG/3 ML AMPUL NEB ONE ×2 (13:06→15:55)
[2017-11-18 13:12] LABS: INTERNATIONAL RATION (INR) 3.62; PROTHROMBIN TIME 37.7 SEC (11.4-15.4)
[2017-11-18 13:35] LABS: ALANINE AMINOTRANSFERASE 21 U/L (9-52); ALBUMIN 2.8 g/dL (3.5-5.0); ALKALINE PHOSPHATASE 145 U/L (38-126); ANION GAP 15 (5-19); ASPARTATE AMINO TRANSFERASE 30 U/L (14-36); BILIRUBIN,DIRECT 0.9 mg/dL (0.0-0.4); BILIRUBIN,TOTAL 1.1 mg/dL (0.2-1.3); BLOOD UREA NITROGEN 52 mg/dL (7-20); CALCIUM 7.8 mg/dL (8.4-10.2); CARBON DIOXIDE 25 mmol/L (22-30); CHLORIDE 97 mmol/L (98-107); CREATINE KINASE 171 U/L (30-135); GLUCOSE 127 mg/dL (75-110); POTASSIUM 4.2 mmol/L (3.6-5.0); SODIUM 137.4 mmol/L (137-145); TOTAL PROTEIN 5.2 g/dL (6.3-8.2)
[2017-11-18 13:46] LABS: CREATINE KINASE MB 7.6 ng/mL (<4.55)
--- NOTE | 2017-11-18 13:47 | RADIOLOGY REPORT (SQ) ---
EXAM DESCRIPTION: CHEST SINGLE VIEW COMPLETED DATE/TIME: 11/18/2017 1:11 pm REASON FOR STUDY: sob COMPARISON: 06/25/2017, 07/15/[address] chest 06/30/2012 EXAM PARAMETERS: NUMBER OF VIEWS: One view. TECHNIQUE: Single frontal radiographic view of the chest acquired. RADIATION DOSE: NA LIMITATIONS: None. FINDINGS: LUNGS AND PLEURA: Patchy bilateral airspace disease, edema versus pneumonia. No pleural effusions. No pneumothorax. Chronic elevation right hemidiaphragm MEDIASTINUM AND HILAR STRUCTURES: No masses. Contour normal. HEART AND VASCULAR STRUCTURES: Stable cardiomegaly and right-sided dual lead pacemaker BONES: No acute findings. HARDWARE: None in the chest. OTHER: No other significant finding. IMPRESSION: Patchy bilateral airspace disease worrisome for pulmonary edema TECHNICAL DOCUMENTATION: JOB ID: [id number] [employer]- All Rights Reserved Reading location - IP/workstation name: [email or web address]
[2017-11-18 13:48] LABS: TROPONIN I 0.97 ng/mL
[2017-11-18] MEDS ORDERED: DEXTROSE 40% GEL 15 GM TUBE PO PRN ×2 (15:59)
[2017-11-18] MEDS ORDERED: DEXTROSE 50%-WATER 25 GM/50 ML DISP.SYRIN IV PRN ×2 (15:59)
[2017-11-18] MEDS ORDERED: GLUCAGON,HUMAN RECOMB 1 MG INJ IM PRN (15:59)
[2017-11-18] MEDS ORDERED: PROMETHAZINE HCL INJ 25 MG/1 ML VIAL IV PRN (16:13)
[2017-11-18] MEDS ORDERED: MAG HYDROX/AL HYDROX/SIMETH SUSP 30 ML UDCUP PO PRN (16:13)
[2017-11-18] MEDS ORDERED: ALBUTEROL SULFATE 0.083% NEB 2.5 MG/3 ML AMPUL NEB PRN (16:13)
[2017-11-18] MEDS ORDERED: ACETAMINOPHEN 325 MG TABLET PO PRN (16:13)
[2017-11-18] MEDS ORDERED: ONDANSETRON 4 MG TAB.RAPDIS PO PRN (16:13)
[2017-11-18] MEDS: IPRATROPIUM/ALBUTEROL 0.5-2.5 MG/3 ML AMPUL NEB SCH (17:29)
--- NOTE | 2017-11-18 20:14 | PDOC H&P ---
History of Present Illness Admission Date/PCP: 11/18/17 15:51 DALIA DENNY MD Patient complains of: Generalized weakness History of Present Illness: VARINDER TORRES is a 77 year old female with past medical history significant for COPD, CHF, end-stage renal disease on M, W, F dialysis, hypothyroidism, hypertension, and CAD who was sent to the emergency department today with complaint of weakness and low blood sugar. Fingerstick by EMS found glucose of 51 which was treated with oral sugar. Repeat Accu-Chek 61, she is provided D50. EMS also found the patient was hypoxic with a room air saturation in the 80s. Of note, the patient did miss her dialysis appointment yesterday secondary to not feeling well. Evaluation in the emergency department revealed a ventricular paced rhythm, pulmonary edema on chest x-ray, mild leukocytosis (WBCs 12), normal potassium, and elevated creatinine and BUN from baseline (8.58 and 52 respectively). The patient's transient hypoglycemia was corrected with oral glucose and D50 and has remained acceptable since that time. The emergency department provider made arrangements with Dr. Coleman for hemodialysis today. She is referred to the hospitalist service for observational admission for fluid volume overload, hypoxia, pulmonary edema related to missed dialysis appointment. Past Medical History Cardiac Medical History: Reports: Congestive Heart Failure, Coronary Artery Disease, DVT, Myocardial Infarction, Hypertension, Pulmonary Embolism, Heart Murmur Pulmonary Medical History: Reports: Chronic Obstructive Pulmonary Disease (COPD) , Pneumonia Denies: Asthma, Bronchitis, Tuberculosis EENT Medical History: Reports: None Neurological Medical History: Denies: Seizures Endocrine Medical History: Reports: None Renal/ Medical History: Reports: End Stage Renal Disease - On dialysis Malignancy Medical History: Reports: None GI Medical History: Reports: Gastroesophageal Reflux Disease Musculoskeltal Medical History: Reports: Arthritis Psychiatric Medical History: Reports: Depression Hematology: Reports: Anemia Infectious Medical History: Reports: None Past Surgical History Past Surgical History: Reports: Cholecystectomy, Gastric Bypass Surgery, Orthopedic Surgery, Tonsillectomy, Tubal Ligation Denies: Hysterectomy Social History Information Source: Patient, Emergency Med Personnel, Outside Facility Records Lives with: Detention Smoking Status: Former Smoker Frequency of Alcohol Use: None Hx Recreational Drug Use: No Drugs: None Hx Prescription Drug Abuse: No - Advance Directive Resuscitation Status: Do Not Resuscitate Surrogate healthcare decision maker:: Patient is unable to specify at this time Family History Family History: CAD, Hypertension Family History: Family history limited secondary to patient's altered mental status Parental Family History Reviewed: No Children Family History Reviewed: No Sibling(s) Family History Reviewed.: No Medication/Allergy Home Medications: Acetaminophen [Tylenol 325 mg Tablet] 650 mg PO Q4HP PRN 11/18/17 Amiodarone HCl [Cordarone 200 mg Tablet] 200 mg PO DAILY 11/18/17 Apixaban [Eliquis 2.5 mg Tablet] 2.5 mg PO BID 11/18/17 Aspirin [Aspirin 81 mg Chewable Tablet] 81 mg PO DAILY 11/18/17 Atorvastatin Calcium [Lipitor 40 mg Tablet] 40 mg PO QHS 11/18/17 Chlorhexidine Gluconate [Peridex 0.12% Oral Rinse 473 ml] 15 ml MM BID 11/18/17 Cyanocobalamin (Vitamin B-12) [Vitamin B-12] 500 mcg PO DAILY 11/18/17 Diphenoxylate HCl/Atrop Sulf [Lomotil 2.5 mg Tablet] 5 mg PO ACHS 11/18/17 Eyelid Cleanser Combination 5 [Ocusoft Lid Scrub] 1 each TP BID 11/18/17 Famotidine [Pepcid 20 mg Tablet] 20 mg PO Q12 11/18/17 Ferric Citrate [Auryxia] 210 mg PO TID 11/18/17 Fluticasone Propionate [Flonase Nasal [place] 50 Mcg/[place] 16 gm] 1 spray NASL Q12 11/18/17 Hydrocortisone [Cortef 10 Mg Tablet] 5 mg PO QHS 11/18/17 Hydrocortisone [Cortef 10 Mg Tablet] 10 mg PO DAILY 11/18/17 Isosorbide Mononitrate [Imdur 30 mg Tablet.er] 30 mg PO DAILY 11/18/17 L. Rhamnosus GG/Inulin [Culturelle Probiotics Capsule] 1 cap PO DAILY 11/18/17 Levothyroxine Sodium [Synthroid 0.15 mg Tablet] 0.15 mg PO Q6AM 11/18/17 Loperamide HCl [Imodium A-D] 4 mg PO QID 11/18/17 Loratadine [Claritin 10 mg Tablet] 10 mg PO QHS 11/18/17 Magnesium Oxide [Mag-Ox 400 mg Tablet] 400 mg PO BID 11/18/17 Metoprolol Tartrate [Lopressor 25 mg Tablet] 12.5 mg PO Q12 11/18/17 Nitroglycerin [Nitrostat 0.4 mg (1/150 Gr) Tabs 25/Bottle] 1 tab SL Q5MP PRN Olopatadine HCl [Pataday] 1 drop OU DAILY@0900 11/18/17 Oxycodone HCl/Acetaminophen [Percocet 5-325 mg Tablet] 1 tab PO Q6HP PRN Paroxetine HCl [Paxil] 10 mg PO DAILY 11/18/17 Polyvinyl Alcohol [Liquitears] 1 drop OU QID 11/18/17 Sodium Bicarbonate [Sodium Bicarbonate 650 mg Tablet] 650 mg PO BID 11/18/17 Allergies/Adverse Reactions: iodine Allergy (Severe, Verified 11/17/17 10:18) itching, facial swelling, difficulty breathing doxycycline [Doxycycline] Allergy (Verified 11/17/17 10:18) dizzy Iodinated Contrast- Oral and IV Dye [IV Dye, Iodine Containing] Allergy ( Verified 11/17/17 10:18) Sulfa (Sulfonamide Antibiotics) Allergy (Verified 11/17/17 10:18) dizzy amlodipine besylate [From Norvasc] Adverse Reaction (Unknown, Verified 11/17/17 10:18) anxious, jittery feeling Review of Systems ROS unobtainable: Due to mental status, Other Constitutional: PRESENT: fatigue, weakness. ABSENT: chills, fever(s), headache( s), weight gain, weight loss Eyes: ABSENT: visual disturbances Ears: ABSENT: hearing changes Cardiovascular: PRESENT: orthropnea. ABSENT: chest pain, dyspnea on exertion, edema, palpitations Respiratory: PRESENT: dyspnea. ABSENT: cough, hemoptysis Gastrointestinal: ABSENT: abdominal pain, constipation, diarrhea, hematemesis, hematochezia, nausea, vomiting Genitourinary: ABSENT: dysuria, hematuria Musculoskeletal: ABSENT: joint swelling Integumentary: ABSENT: rash, wounds Neurological: PRESENT: weakness. ABSENT: abnormal gait, abnormal speech, confusion, dizziness, focal weakness, syncope Psychiatric: ABSENT: anxiety, depression, homidical ideation, suicidal ideation Endocrine: ABSENT: cold intolerance, heat intolerance, polydipsia, polyuria Hematologic/Lymphatic: ABSENT: easy bleeding, easy bruising Physical Exam Vital Signs: Temp Pulse Resp BP Pulse Ox 98.5 F 70 16 111/93 H 95 11/18/17 11:34 11/18/17 17:29 11/18/17 19:31 11/18/17 19:31 11/18/17 19:31 General appearance: PRESENT: mild distress, well-developed, well-nourished, other - Overweight Head exam: PRESENT: atraumatic, normocephalic Eye exam: PRESENT: conjunctival injection - Bilateral conjunctival injection with purulent drainage, conjunctiva pink, EOMI, PERRLA. ABSENT: scleral icterus Mouth exam: PRESENT: moist, tongue midline Neck exam: ABSENT: carotid bruit, JVD, lymphadenopathy, thyromegaly Respiratory exam: PRESENT: decreased breath sounds - Throughout, prolonged expiratory phas, rhonchi - Course, tachypnea, other - Oxygen saturations mid 60s on 2 L per nasal cannula, improved to mid 70s on simple mask 6 L/min, acceptable on BiPAP. ABSENT: rales Cardiovascular exam: PRESENT: RRR. ABSENT: diastolic murmur, rubs, systolic murmur Pulses: PRESENT: normal dorsalis pedis pul Vascular exam: PRESENT: normal capillary refill GI/Abdominal exam: PRESENT: normal bowel sounds, soft. ABSENT: distended, guarding, mass, organolmegaly, rebound, tenderness Rectal exam: PRESENT: deferred Extremities exam: ABSENT: calf tenderness, clubbing, pedal edema Neurological exam: PRESENT: alert, awake, oriented to person, oriented to place , oriented to time, oriented to situation, CN II-XII grossly intact, other - Patient is A&O 4, however, with intermittent garbled speech and word salad. This resolved rapidly with use of BiPAP.. ABSENT: motor sensory deficit Psychiatric exam: PRESENT: appropriate affect, normal mood. ABSENT: homicidal ideation, suicidal ideation Skin exam: PRESENT: dry, intact, warm. ABSENT: cyanosis, rash Results Laboratory Results: 11/18/17 16:41 Lactic Acid 1.3 Impressions: Chest X-Ray 11/18/17 12:39 IMPRESSION: Patchy bilateral airspace disease worrisome for pulmonary edema Assessment & Plan - Diagnosis (1) Pulmonary edema Qualifiers: Chronicity: acute Qualified Code(s): J81.0 - Acute pulmonary edema Is this a current diagnosis for this admission?: Yes Plan: Patient reported to the emergency department with complaint of generalized weakness. She did miss dialysis appointment yesterday secondary to not feeling well. Upon entering the room, the patient was noted to be confused with garbled speech. Oxygen saturation was found to be mid 60s on 2 L via nasal cannula. This improved slightly with simple mask at 6 L/min. Patient placed on BiPAP and now maintaining oxygen saturations greater than 94% with rapid resolution of altered mental status. Pulmonary edema is likely secondary to missed dialysis appointment. Chest x-ray reveals pulmonary edema. The patient is admitted to [facility] on continuous cardiac telemetry. She is placed on supplemental oxygen and BiPAP as needed to maintain oxygen saturations greater than 80%. Nephrology is at bedside; will provide emergent dialysis this afternoon and follow-up for additional dialysis tomorrow. Scheduled and as needed nebulizer treatments are available. We will repeat chest x-ray in morning. The patient makes minimal urine; will hold on attempts to diurese at this time. Should pulmonary edema not improve with dialysis, consider updating echocardiogram. No indication for steroids or antibiotics at this time. (2) Altered mental status Is this a current diagnosis for this admission?: Yes Plan: Secondary to profound hypoxia. The patient's mental status rapidly improved following placement of BiPAP. No evidence of focal deficits. Lactic acid 1.3 Total bili 1.1 Low suspicion for infectious process, for completeness did obtain blood cultures. We will reevaluate chest x-ray in the morning to assess for underlying pneumonia. Patient makes minimal urine output, if she does void will check UA. Low suspicion for TIA/CVA; however, if she continues to exhibit confusion we will need to obtain a head CT. We will trend her fever and CBC. (3) Acute respiratory failure with hypoxia Is this a current diagnosis for this admission?: Yes Plan: Secondary to acute pulmonary edema. Will assess ABG. remaining plan as above. (4) Hypoglycemia Is this a current diagnosis for this admission?: Yes Plan: Unclear etiology; EMS reported glucose of 51 treated with oral glucose. Repeat Accu-Chek 60 in the emergency department. This was again treated with oral glucose and D50. Has been acceptable since. . The patient is not prescribed anti-hyperglycemics. We will rule out infectious processes as above. We will monitor Accu-Cheks every [address] hours[address] Hypoglycemia protocol in place. If the patient continues to have hypoglycemic episodes, will need to obtain abdominal CT to evaluate for pancreatic mass/insulinoma. (5) Hypothyroidism Qualifiers: Hypothyroidism type: unspecified Qualified Code(s): E03.9 - Hypothyroidism , unspecified Is this a current diagnosis for this admission?: Yes (6) ESRD (end stage renal disease) on dialysis Is this a current diagnosis for this admission?: Yes Plan: Dr. Coleman was contacted by emergency department provider; will provide emergent dialysis while still in the ED this afternoon. Appreciate their assistance in managing this patient. - Time Time Spent: Greater than 70 Minutes Medications reviewed and adjusted accordingly: Yes Anticipated discharge: SN[facility] - Director [employer] Resident
--- NOTE | 2017-11-18 21:37 | PDOC CONSULTATION ---
Consultation Consult Date: 11/18/17 Consult reason:: ESRD and CHF History of Present Illness Admission Date/PCP: 11/18/17 15:51 DALIA DENNY MD History of Present Illness: VARINDER TORRES is a 77 year old female who has history of CHF and ESRD. She had not been to dialysis since 11/14. She missed friday's dialysis due to being in the ER for weakness. She was scheduled for dialysis this morning but missed due to ride issues. At that time she decided that she would just wait until Friday. She comes into the ER today with SOB and confusion. She was found to have a blood sugar in the 50s that required receiving to two amps of D50. At the time of seeing her in the ER she was extremely hypoxic and was not able to form full sentences. A chest x-ray showed bilateral pulmonary edema. At the time of examination she did not show any signs of focal deficits. She was transferred to the room in the ER that was set up for dialysis. While awaiting dialysis she was placed on bypap and was no longer hypoxic. She also became less confused and was able to form full sentences. She denied chest pain, fevers or chills. She also denied n/v/d/c. Patient seen on on dialysis. She is undergoing dialysis without any issues. Orders were reviewed with the treating dialysis nurse. Vital signs are stable. Labs and medications were reviewed with patient and nurse. Past Medical History Cardiac Medical History: Reports: Coronary Artery Disease, DVT, Heart Murmur, Myocardial Infarction, Pulmonary Embolism Pulmonary Medical History: Reports: Chronic Obstructive Pulmonary Disease (COPD) , Pneumonia Denies: Asthma, Bronchitis, Tuberculosis EENT Medical History: Reports: None Neurological Medical History: Denies: Seizures Endocrine Medical History: Reports: None Renal/ Medical History: Reports: End Stage Renal Disease - On dialysis Malignancy Medical History: Reports: None GI Medical History: Reports: Gastroesophageal Reflux Disease Musculoskeltal Medical History: Reports: Arthritis Psychiatric Medical History: Reports: Depression Infectious Medical History: Reports: None Past Surgical History Past Surgical History: Reports: Cholecystectomy, Gastric Bypass Surgery, Orthopedic Surgery, Tonsillectomy, Tubal Ligation Denies: Hysterectomy Social History Lives with: Jail Smoking Status: Former Smoker Frequency of Alcohol Use: None Hx Recreational Drug Use: No Drugs: None Hx Prescription Drug Abuse: No - Advance Directive Resuscitation Status: Do Not Resuscitate Family History Parental Family History Reviewed: No Children Family History Reviewed: NA Sibling(s) Family History Reviewed.: NA Medication/Allergy Home Medications: Acetaminophen [Tylenol 325 mg Tablet] 650 mg PO Q4HP PRN 11/18/17 Amiodarone HCl [Cordarone 200 mg Tablet] 200 mg PO DAILY 11/18/17 Apixaban [Eliquis 2.5 mg Tablet] 2.5 mg PO BID 11/18/17 Aspirin [Aspirin 81 mg Chewable Tablet] 81 mg PO DAILY 11/18/17 Atorvastatin Calcium [Lipitor 40 mg Tablet] 40 mg PO QHS 11/18/17 Chlorhexidine Gluconate [Peridex 0.12% Oral Rinse 473 ml] 15 ml MM BID 11/18/17 Cyanocobalamin (Vitamin B-12) [Vitamin B-12] 500 mcg PO DAILY 11/18/17 Diphenoxylate HCl/Atrop Sulf [Lomotil 2.5 mg Tablet] 5 mg PO ACHS 11/18/17 Eyelid Cleanser Combination 5 [Ocusoft Lid Scrub] 1 each TP BID 11/18/17 Famotidine [Pepcid 20 mg Tablet] 20 mg PO Q12 11/18/17 Ferric Citrate [Auryxia] 210 mg PO TID 11/18/17 Fluticasone Propionate [Flonase Nasal [place] 50 Mcg/[place] 16 gm] 1 spray NASL Q12 11/18/17 Hydrocortisone [Cortef 10 Mg Tablet] 5 mg PO QHS 11/18/17 Hydrocortisone [Cortef 10 Mg Tablet] 10 mg PO DAILY 11/18/17 Isosorbide Mononitrate [Imdur 30 mg Tablet.er] 30 mg PO DAILY 11/18/17 L. Rhamnosus GG/Inulin [Culturelle Probiotics Capsule] 1 cap PO DAILY 11/18/17 Levothyroxine Sodium [Synthroid 0.15 mg Tablet] 0.15 mg PO Q6AM 11/18/17 Loperamide HCl [Imodium A-D] 4 mg PO QID 11/18/17 Loratadine [Claritin 10 mg Tablet] 10 mg PO QHS 11/18/17 Magnesium Oxide [Mag-Ox 400 mg Tablet] 400 mg PO BID 11/18/17 Metoprolol Tartrate [Lopressor 25 mg Tablet] 12.5 mg PO Q12 11/18/17 Nitroglycerin [Nitrostat 0.4 mg (1/150 Gr) Tabs 25/Bottle] 1 tab SL Q5MP PRN Olopatadine HCl [Pataday] 1 drop OU DAILY@0900 11/18/17 Oxycodone HCl/Acetaminophen [Percocet 5-325 mg Tablet] 1 tab PO Q6HP PRN Paroxetine HCl [Paxil] 10 mg PO DAILY 11/18/17 Polyvinyl Alcohol [Liquitears] 1 drop OU QID 11/18/17 Sodium Bicarbonate [Sodium Bicarbonate 650 mg Tablet] 650 mg PO BID 11/18/17 Allergies/Adverse Reactions: iodine Allergy (Severe, Verified 11/17/17 10:18) itching, facial swelling, difficulty breathing doxycycline [Doxycycline] Allergy (Verified 11/17/17 10:18) dizzy Iodinated Contrast- Oral and IV Dye [IV Dye, Iodine Containing] Allergy ( Verified 11/17/17 10:18) Sulfa (Sulfonamide Antibiotics) Allergy (Verified 11/17/17 10:18) dizzy amlodipine besylate [From Norvasc] Adverse Reaction (Unknown, Verified 11/17/17 10:18) anxious, jittery feeling Review of Systems Constitutional: PRESENT: fatigue, weakness. ABSENT: anorexia, chills, fever(s) Eyes: ABSENT: visual disturbances Nose, Mouth, and Throat: ABSENT: headache(s) Cardiovascular: PRESENT: dyspnea on exertion, edema, orthropnea. ABSENT: chest pain, palpitations Respiratory: PRESENT: cough, dyspnea, sputum Gastrointestinal: ABSENT: abdominal pain, constipation, diarrhea, nausea, vomiting Genitourinary: ABSENT: difficulty urinating, dysuria Musculoskeletal: ABSENT: joint swelling, muscle weakness Neurological: PRESENT: abnormal speech, weakness. ABSENT: abnormal movements, confusion, dizziness, focal weakness Hematologic/Lymphatic: PRESENT: easy bleeding, easy bruising Physical Exam Vital Signs: Temp Pulse Resp BP Pulse Ox 98.5 F 70 16 111/93 H 95 11/18/17 11:34 11/18/17 17:29 11/18/17 19:31 11/18/17 19:31 11/18/17 19:31 General appearance: PRESENT: disheveled, obese, severe distress, well-developed , well-nourished Mouth exam: PRESENT: moist, neck supple Neck exam: PRESENT: full ROM, JVD. ABSENT: tracheal deviation Respiratory exam: PRESENT: accessory muscle use, crackles, rales. ABSENT: clear to auscultation kannan Cardiovascular exam: PRESENT: RRR, +S1, +S2 GI/Abdominal exam: PRESENT: soft. ABSENT: ascites, distended, firm, guarding, tenderness Extremities exam: ABSENT: pedal edema, tenderness, +1 edema, +2 edema Musculoskeletal exam: ABSENT: normal inspection, tenderness Neurological exam: PRESENT: alert, oriented to person, oriented to place, oriented to time, oriented to situation, aphasic Psychiatric exam: PRESENT: appropriate affect, normal mood Skin exam: PRESENT: cyanosis, dry, intact, other - -cold. ABSENT: warm Results Laboratory Results: 11/18/17 16:41 Lactic Acid 1.3 Impressions: Chest X-Ray 11/18/17 12:39 IMPRESSION: Patchy bilateral airspace disease worrisome for pulmonary edema Assessment & Plan - Diagnosis (1) Acute respiratory failure with hypoxia Is this a current diagnosis for this admission?: Yes Plan: currently needing bypap, will remove fluid today on dialysis and more early tomorrow morning. Removing 3L today. Recommend fluid restriction. (2) Altered mental status Is this a current diagnosis for this admission?: Yes Plan: improved after oxygenation with Bypap. (3) ESRD (end stage renal disease) on dialysis Is this a current diagnosis for this admission?: Yes Plan: Patient seen on dialysis. She is undergoing dialysis without any issues. Vital signs are stable. Plan to remove at least 3 L of fluid. Orders were reviewed and discussed with the treating dialysis nurse. Will plan for more dialysis tomorrow. (4) Pulmonary edema Qualifiers: Chronicity: acute Qualified Code(s): J81.0 - Acute pulmonary edema Is this a current diagnosis for this admission?: Yes Plan: removing fluid during dialysis today and tomorrow (5) Hypothyroidism Qualifiers: Hypothyroidism type: unspecified Qualified Code(s): E03.9 - Hypothyroidism , unspecified Is this a current diagnosis for this admission?: Yes (6) Benign essential hypertension Plan: currently controlled (7) Hypoglycemia Is this a current diagnosis for this admission?: Yes Plan: needs further work up and abdominal CT
--- NOTE | 2017-11-18 22:46 | EKG REPORT ---
SEVERITY:- ABNORMAL ECG - ATRIAL-SENSED VENTRICULAR-PACED RHYTHM : Confirmed by: Tennille Dinh 18-Nov-2017 22:45:27
[2017-11-18] MEDS: FAMOTIDINE 20 MG TABLET PO SCH (23:26)
[2017-11-18] MEDS: HEPARIN SOD (PORCINE) 5,000 UNIT/ML 1 ML SYRINGE SUBCUT SCH (23:27)
[2017-11-19] MEDS: IPRATROPIUM/ALBUTEROL 0.5-2.5 MG/3 ML AMPUL NEB SCH ×2 (00:28→07:59)
[2017-11-19] MEDS: HEPARIN SOD (PORCINE) 5,000 UNIT/ML 1 ML SYRINGE SUBCUT SCH (05:28)
[2017-11-19 06:08] LABS: HEMATOCRIT 35.6 % (36.0-47.0); HEMOGLOBIN 11.8 g/dL (12.0-15.5); MEAN CORPUSCULAR HEMOGLOBIN 30.3 pg (27.0-33.4); MEAN CORPUSCULAR VOLUME 92 fl (80-97); PLATELET COUNT 172 10^3/uL (150-450); RED BLOOD COUNT 3.88 10^6/uL (3.72-5.28); RED CELL DISTRIBUTION WIDTH 16.4 % (11.5-14.0); WHITE BLOOD COUNT 10.8 10^3/uL (4.0-10.5)
[2017-11-19 06:32] LABS: ANION GAP 14 (5-19); BLOOD UREA NITROGEN 35 mg/dL (7-20); CALCIUM 8.3 mg/dL (8.4-10.2); CARBON DIOXIDE 30 mmol/L (22-30); CHLORIDE 96 mmol/L (98-107); GLUCOSE 78 mg/dL (75-110); POTASSIUM 3.3 mmol/L (3.6-5.0); SODIUM 140.4 mmol/L (137-145)
[2017-11-19 06:58] LABS: ARTERIAL BLOOD BASE EXCESS 5.5 mmol/L; ARTERIAL BLOOD H2CO3 1.36 mmol/L (1.05-1.35); ARTERIAL BLOOD HCO3 30.4 mmol/L (20-26); ARTERIAL BLOOD O2 SATURATION 96.5 % (94-98); ARTERIAL BLOOD PCO2 45.3 mmHg (35-45); ARTERIAL BLOOD PH 7.44 (7.35-7.45); ARTERIAL BLOOD PO2 82.7 mmHg (80-100); ARTERIAL BLOOD TOTAL CO2 31.7 mmol/L (21-25)
[2017-11-19 06:59] LABS: ARTERIAL BLOOD FIO2 3.5L
--- NOTE | 2017-11-19 11:43 | RADIOLOGY REPORT (SQ) ---
EXAM DESCRIPTION: CHEST SINGLE VIEW COMPLETED DATE/TIME: 11/19/2017 9:03 am REASON FOR STUDY: dyspneqa, pulmonary edema COMPARISON: 11/18/2017 EXAM PARAMETERS: NUMBER OF VIEWS: One view. TECHNIQUE: Single frontal radiographic view of the chest acquired. RADIATION DOSE: NA LIMITATIONS: None. FINDINGS: LUNGS AND PLEURA: The previously described patchy bilateral airspace disease appears minim ally improved with decreasing confluence. Residual changes are identified. MEDIASTINUM AND HILAR STRUCTURES: No masses. Contour normal. HEART AND VASCULAR STRUCTURES: Cardiac silhouette remains enlarged and is unchanged in configuration. BONES: No acute findings. HARDWARE: AICD device is unchanged in position. OTHER: Some elevation of the right hemidiaphragm is again seen. IMPRESSION: Interval improvement as noted above. TECHNICAL DOCUMENTATION: JOB ID: [id number] [employer]- All Rights Reserved Reading location - IP/workstation name: [email or web address]
[2017-11-19] MEDS: DOCUSATE SODIUM 100 MG CAPSULE PO SCH (11:59)
[2017-11-19] MEDS: FAMOTIDINE 20 MG TABLET PO SCH ×2 (11:59→21:43)
[2017-11-19 12:36] LABS: ARTERIAL BLOOD BASE EXCESS 6.5 mmol/L; ARTERIAL BLOOD FIO2 3.5L; ARTERIAL BLOOD HCO3 31.5 mmol/L (20-26); ARTERIAL BLOOD O2 SATURATION 97.4 % (94-98); ARTERIAL BLOOD PCO2 46.5 mmHg (35-45); ARTERIAL BLOOD PH 7.45 (7.35-7.45); ARTERIAL BLOOD PO2 94.4 mmHg (80-100); ARTERIAL BLOOD TOTAL CO2 32.9 mmol/L (21-25)
--- NOTE | 2017-11-19 13:06 | RADIOLOGY REPORT (SQ) ---
EXAM DESCRIPTION: CT HEAD WITHOUT COMPLETED DATE/TIME: 11/19/2017 12:07 pm REASON FOR STUDY: AMS, agitation R41.82 ALTERED MENTAL STATUS, UNSPECIFIED I50.9 HEART FAILURE, UN SPECIFIED J81.0 ACUTE PULMONARY EDEMA COMPARISON: 10/07/2017 TECHNIQUE: Axial images acquired through the brain without intravenous contrast. Images reviewed wi th bone, brain and subdural windows. Additional sagittal and coronal reconstructions were generated. Images stored on PACS. All CT scanners at this facility use dose modulation, iterative reconstruction, and/or weight based d osing when appropriate to reduce radiation dose to as low as reasonably achievable (ALARA). [facility]: Dose Right [facility]: CareDose [facility]: Dose Right [facility]: Teradose 4D [facility]: [employer] RADIATION DOSE: CT Rad equipment meets quality standard of care and radiation dose reduction techniq ues were employed. CTDIvol: 48.6 mGy. DLP: 904 mGy-cm. mGy. LIMITATIONS: None. FINDINGS: VENTRICLES: Prominent. CEREBRUM: No masses. No hemorrhage. No midline shift. Areas of low density in the white matter mos t likely due to chronic micro-vascular ischemic change. The previously described small possible 6 mm left frontal meningioma is again identified. No evidence for acute infarction. CEREBELLUM: No masses. No hemorrhage. No alteration of density. No evidence for acute infarction. EXTRAAXIAL SPACES: Mild age-related involutional change. No fluid collections. No masses. ORBITS AND GLOBE: No intra- or extraconal masses. Normal contour of globe without masses. CALVARIUM: No fracture. PARANASAL SINUSES: Air-fluid levels are identified in the left sphenoid sinus and a couple of the eth moid air cells. SOFT TISSUES: No mass or hematoma. OTHER: No other significant finding. IMPRESSION: MILD CHRONIC CHANGES OF ATROPHY AND MICROVASCULAR ISCHEMIA. NO ACUTE PROCESS. Other fi ndings as noted above EVIDENCE OF ACUTE STROKE: NO. TECHNICAL DOCUMENTATION: JOB ID: [id number] Quality ID # [id number]: Final reports with documentation of one or more dose reduction techniques (e.g., Au tomated exposure control, adjustment of the mA and/or kV according to patient size, use of iterative reconstruction technique) 2010 [employer] All Rights Reserved Reading location - IP/workstation name: [email or web address]
--- NOTE | 2017-11-19 13:35 | RADIOLOGY REPORT (SQ) ---
EXAM DESCRIPTION: CT ABD/PELVIS NO ORAL OR IV COMPLETED DATE/TIME: 11/19/2017 12:07 pm REASON FOR STUDY: Eval for Insulinoma R41.82 ALTERED MENTAL STATUS, UNSPECIFIED I50.9 HEART FAILUR E, UNSPECIFIED J81.0 ACUTE PULMONARY EDEMA COMPARISON: CT ANGIO OF ABDOMEN AND PELVIS 09/11/2016 CT ABDOMEN PELVIS 12/12/2013, 08/17/2013 TECHNIQUE: CT scan of the abdomen and pelvis performed without intravenous or oral contrast. Images reviewed with lung, soft tissue, and bone windows. Reconstructed coronal and sagittal MPR images revi ewed. All images stored on PACS. All CT scanners at this facility use dose modulation, iterative reconstruction, and/or weight based d osing when appropriate to reduce radiation dose to as low as reasonably achievable (ALARA). [facility]: Dose Right [facility]: CareDose [facility]: Dose Right [facility]: Teradose 4D [facility]: Smart Evermind RADIATION DOSE: CT Rad equipment meets quality standard of care and radiation dose reduction techniq ues were employed. CTDIvol: 10.0 mGy. DLP: 561 mGy-cm.mGy. LIMITATIONS: No IV contrast FINDINGS: LOWER CHEST: Moderate cardiomegaly. Pacemaker. Bilateral lower lobe airspace disease is present likely atelectasis. Pneumonia could not be excluded. NON-CONTRASTED LIVER, SPLEEN, ADRENALS: Evaluation limited by lack of IV contrast. No identified sign ificant masses. PANCREAS: No masses. No peripancreatic inflammatory changes. GALLBLADDER: Surgically absent. KIDNEYS AND URETERS: Both north fork kidneys are 6 cm in size with marked cortical thinning. There are m ultiple 1 to 2 cm stones in both kidneys, 830 Hounsfield units in density. No ureteral stones. No r enal cysts or gross renal masses. AORTA AND RETROPERITONEUM: No aneurysm. No retroperitoneal masses or adenopathy. IVC filter. There is asymmetric enlargement of the left iliacus muscle, with increased density worrisome for intramuscu lar hematoma. Fluid fluid levels are present on axial image 55 through 57, and measures 6 x 6 x 4 cm in size. BOWEL AND PERITONEAL CAVITY: No obvious masses or inflammatory changes. No free fluid. Surgical clip s along the right colon post partial right colectomy. APPENDIX: Surgically absent PELVIS, BLADDER, AND ABDOMINAL WALL:No ventral hernia. Left upper quadrant 2 cm hematoma with a air bubble axial image 34, question Lovenox injections. Normal size female pelvic organs. No free pelvi c fluid. Urinary bladder unremarkable BONES: No significant findings. OTHER: Results discussed with Gill Luther IMPRESSION: Small iliacus muscle retroperitoneal hemorrhage Small left anterior abdominal wall hematoma at Lovenox injection site Small nonfunctioning heavily calcified kidneys bilaterally Non contrasted images of the pancreas are unremarkable COMMENT: Quality ID # [id number]: Final reports with documentation of one or more dose reduction techniques (e.g., Automated exposure control, adjustment of the mA and/or kV according to patient size, use of iterative reconstruction technique) TECHNICAL DOCUMENTATION: JOB ID: [id number] [employer]- All Rights Reserved Reading location - IP/workstation name: [email or web address]
[2017-11-19] MEDS ORDERED: DILTIAZEM HCL/D5W 125 MG/125 ML RTUINJ IV PRN (14:00)
[2017-11-19] MEDS ORDERED: NORMAL SALINE 250 ML IV PRN (14:06)
[2017-11-19] MEDS ORDERED: POTASSI CL 20 MEQ/50 ML RIDER 20 MEQ/50 ML RTUPB IV ONE (14:09)
[2017-11-19 14:24] LABS: TROPONIN I 1.54 ng/mL
[2017-11-19] MEDS: POLYVINYL ALCOHOL 1.4% OPH SOLN 15 ML OU SCH ×3 (14:57→21:48)
[2017-11-19 14:59] LABS: HEMATOCRIT 35.5 % (36.0-47.0); HEMOGLOBIN 11.8 g/dL (12.0-15.5); MEAN CORPUSCULAR HEMOGLOBIN 30.3 pg (27.0-33.4); MEAN CORPUSCULAR HGB CONC 33.1 g/dL (32.0-36.0); MEAN CORPUSCULAR VOLUME 91 fl (80-97); PLATELET COUNT 177 10^3/uL (150-450); RED BLOOD COUNT 3.88 10^6/uL (3.72-5.28); WHITE BLOOD COUNT 10.1 10^3/uL (4.0-10.5)
[2017-11-19] MEDS ORDERED: POTASSIUM CHLORIDE 20 MEQ/15 ML UDCUP PO ONE (15:00)
[2017-11-19] MEDS ORDERED: PHYTONADIONE 5 MG TABLET PO ONE (15:00)
[2017-11-19] MEDS ORDERED: DEXTROSE 5%-NORMAL SALINE 1,000 ML IV PRN (15:25)
[2017-11-19 15:29] LABS: INTERNATIONAL RATION (INR) 2.87; PROTHROMBIN TIME 31.4 SEC (11.4-15.4)
[2017-11-19 15:31] LABS: PARTIAL THROMBOPLASTIN TIME 108.4 SEC (23.5-35.8)
--- NOTE | 2017-11-19 16:55 | PDOC CONSULTATION ---
Consultation Consult Date: 11/19/17 History of Present Illness Admission Date/PCP: 11/18/17 16:13 VANDANA MARQUES MD Patient complains of: Retroperitoneal hematoma History of Present Illness: VARINDER TORRES is a 77 year old female seen at the request of the hospitalist service. The patient has multiple medical problems, and was found to have a retroperitoneal hematoma, likely spontaneous. Patient has an elevated INR. Currently, she is on BiPAP and confused. A review of systems cannot be obtained from the patient due to her current mental status. All history was obtained from the chart and family members. Past Medical History Cardiac Medical History: Reports: Congestive Heart Failure, Coronary Artery Disease, DVT, Myocardial Infarction, Hypertension, Pulmonary Embolism, Heart Murmur Pulmonary Medical History: Reports: Chronic Obstructive Pulmonary Disease (COPD) , Pneumonia Denies: Asthma, Bronchitis, Tuberculosis EENT Medical History: Reports: None Neurological Medical History: Denies: Seizures Endocrine Medical History: Reports: None Renal/ Medical History: Reports: End Stage Renal Disease - On dialysis Malignancy Medical History: Reports: None GI Medical History: Reports: Gastroesophageal Reflux Disease Musculoskeltal Medical History: Reports: Arthritis Psychiatric Medical History: Reports: Depression Hematology: Reports: Anemia Infectious Medical History: Reports: None Past Surgical History Past Surgical History: Reports: Cholecystectomy, Gastric Bypass Surgery, Orthopedic Surgery, Tonsillectomy, Tubal Ligation Denies: Hysterectomy Social History Lives with: Custodial Smoking Status: Former Smoker Frequency of Alcohol Use: None Hx Recreational Drug Use: No Drugs: None Hx Prescription Drug Abuse: No - Advance Directive Resuscitation Status: Do Not Resuscitate Family History Family History: CAD, Hypertension Parental Family History Reviewed: Yes Children Family History Reviewed: Yes Sibling(s) Family History Reviewed.: Yes Medication/Allergy Home Medications: Acetaminophen [Tylenol 325 mg Tablet] 650 mg PO Q4HP PRN 11/18/17 Amiodarone HCl [Cordarone 200 mg Tablet] 200 mg PO DAILY 11/18/17 Apixaban [Eliquis 2.5 mg Tablet] 2.5 mg PO BID 11/18/17 Aspirin [Aspirin 81 mg Chewable Tablet] 81 mg PO DAILY 11/18/17 Atorvastatin Calcium [Lipitor 40 mg Tablet] 40 mg PO QHS 11/18/17 Chlorhexidine Gluconate [Peridex 0.12% Oral Rinse 473 ml] 15 ml MM BID 11/18/17 Cyanocobalamin (Vitamin B-12) [Vitamin B-12] 500 mcg PO DAILY 11/18/17 Diphenoxylate HCl/Atrop Sulf [Lomotil 2.5 mg Tablet] 5 mg PO ACHS 11/18/17 Eyelid Cleanser Combination 5 [Ocusoft Lid Scrub] 1 each TP BID 11/18/17 Famotidine [Pepcid 20 mg Tablet] 20 mg PO Q12 11/18/17 Ferric Citrate [Auryxia] 210 mg PO TID 11/18/17 Fluticasone Propionate [Flonase Nasal Sharon 50 Mcg/Sharon 16 gm] 1 spray NASL Q12 11/18/17 Hydrocortisone [Cortef 10 Mg Tablet] 5 mg PO QHS 11/18/17 Hydrocortisone [Cortef 10 Mg Tablet] 10 mg PO DAILY 11/18/17 Isosorbide Mononitrate [Imdur 30 mg Tablet.er] 30 mg PO DAILY 11/18/17 L. Rhamnosus GG/Inulin [Culturelle Probiotics Capsule] 1 cap PO DAILY 11/18/17 Levothyroxine Sodium [Synthroid 0.15 mg Tablet] 0.15 mg PO Q6AM 11/18/17 Loperamide HCl [Imodium A-D] 4 mg PO QID 11/18/17 Loratadine [Claritin 10 mg Tablet] 10 mg PO QHS 11/18/17 Magnesium Oxide [Mag-Ox 400 mg Tablet] 400 mg PO BID 11/18/17 Metoprolol Tartrate [Lopressor 25 mg Tablet] 12.5 mg PO Q12 11/18/17 Nitroglycerin [Nitrostat 0.4 mg (1/150 Gr) Tabs 25/Bottle] 1 tab SL Q5MP PRN Olopatadine HCl [Pataday] 1 drop OU DAILY@0900 11/18/17 Oxycodone HCl/Acetaminophen [Percocet 5-325 mg Tablet] 1 tab PO Q6HP PRN Paroxetine HCl [Paxil] 10 mg PO DAILY 11/18/17 Polyvinyl Alcohol [Liquitears] 1 drop OU QID 11/18/17 Sodium Bicarbonate [Sodium Bicarbonate 650 mg Tablet] 650 mg PO BID 11/18/17 Allergies/Adverse Reactions: iodine Allergy (Severe, Verified 11/17/17 10:18) itching, facial swelling, difficulty breathing doxycycline [Doxycycline] Allergy (Verified 11/17/17 10:18) dizzy Iodinated Contrast- Oral and IV Dye [IV Dye, Iodine Containing] Allergy ( Verified 11/17/17 10:18) Sulfa (Sulfonamide Antibiotics) Allergy (Verified 11/17/17 10:18) dizzy amlodipine besylate [From Norvas] Adverse Reaction (Unknown, Verified 11/17/17 10:18) anxious, jittery feeling Review of Systems ROS unobtainable: Due to mental status Physical Exam Vital Signs: Temp Pulse Resp BP Pulse Ox 99.2 F 87 20 142/69 H 100 11/19/17 16:09 11/19/17 16:09 11/19/17 16:09 11/19/17 16:09 11/19/17 16:09 Intake & Output 11/18/17 11/19/17 11/20/17 06:59 06:59 06:59 Intake Total 155 Output Total 0 Balance 155 Weight 69.8 kg General appearance: PRESENT: severe distress - Respiratory Head exam: PRESENT: atraumatic, normocephalic Eye exam: PRESENT: EOMI. ABSENT: scleral icterus Mouth exam: PRESENT: moist, neck supple Neck exam: ABSENT: tenderness, thyromegaly, tracheal deviation Respiratory exam: PRESENT: accessory muscle use, crackles, rales, rhonchi, tachypnea. ABSENT: unlabored Cardiovascular exam: PRESENT: tachycardia - Mild Pulses: PRESENT: normal radial pulses Vascular exam: PRESENT: pallor GI/Abdominal exam: PRESENT: soft. ABSENT: distended, tenderness Rectal exam: PRESENT: deferred Extremities exam: PRESENT: pedal edema Musculoskeletal exam: ABSENT: tenderness Neurological exam: PRESENT: altered. ABSENT: oriented to person, oriented to place, oriented to time, oriented to situation Psychiatric exam: PRESENT: agitated, anxious Skin exam: ABSENT: cyanosis, erythema, jaundice Results Laboratory Results: 11/19/17 14:45 11/19/17 05:27 11/18/17 11/19/17 11/19/17 16:41 05:27 05:27 WBC 10.8 H RBC 3.88 Hgb 11.8 L Hct 35.6 L MCV 92 MCH 30.3 MCHC 33.0 RDW 16.4 H Plt Count 172 Carbonic Acid HCO3/H2CO3 Ratio ABG pH ABG pCO2 ABG pO2 ABG HCO3 ABG O2 Saturation ABG Base Excess FiO2 Sodium 140.4 Potassium 3.3 L Chloride 96 L Carbon Dioxide 30 Anion Gap 14 BUN 35 H Creatinine 6.21 H Est GFR ( Amer) 8 L Est GFR (Non-Af Amer) 7 L Glucose 78 C-Peptide Lactic Acid 1.3 Calcium 8.3 L Blood Type 11/19/17 11/19/17 11/19/17 06:35 11:35 13:20 WBC RBC Hgb Hct MCV MCH MCHC RDW Plt Count Carbonic Acid 1.36 H 1.40 H HCO3/H2CO3 Ratio 22:1 22:1 ABG pH 7.44 7.45 ABG pCO2 45.3 H 46.5 H ABG pO2 82.7 94.4 ABG HCO3 30.4 H 31.5 H ABG O2 Saturation 96.5 97.4 ABG Base Excess 5.5 6.5 FiO2 3.5L 3.5L Sodium Potassium Chloride Carbon Dioxide Anion Gap BUN Creatinine Est GFR ( Amer) Est GFR (Non-Af Amer) Glucose C-Peptide 2.89 Lactic Acid Calcium Blood Type 11/19/17 11/19/17 14:45 14:45 WBC 10.1 RBC 3.88 Hgb 11.8 L Hct 35.5 L MCV 91 MCH 30.3 MCHC 33.1 RDW 16.0 H Plt Count 177 Carbonic Acid HCO3/H2CO3 Ratio ABG pH ABG pCO2 ABG pO2 ABG HCO3 ABG O2 Saturation ABG Base Excess FiO2 Sodium Potassium Chloride Carbon Dioxide Anion Gap BUN Creatinine Est GFR ( Amer) Est GFR (Non-Af Amer) Glucose C-Peptide Lactic Acid Calcium Blood Type O POSITIVE 11/19/17 13:20 Troponin I 1.540 NT-Pro-B Natriuret Pep 89232 H Impressions: Abdomen/Pelvis CT 11/19/17 00:00 IMPRESSION: Small iliacus muscle retroperitoneal hemorrhage Small left anterior abdominal wall hematoma at Lovenox injection site Small nonfunctioning heavily calcified kidneys bilaterally Non contrasted images of the pancreas are unremarkable Head CT 11/19/17 00:00 IMPRESSION: MILD CHRONIC CHANGES OF ATROPHY AND MICROVASCULAR ISCHEMIA. NO ACUTE PROCESS. Other findings as noted above EVIDENCE OF ACUTE STROKE: NO. Chest X-Ray 11/19/17 06:00 IMPRESSION: Interval improvement as noted above. Assessment & Plan - Diagnosis (1) Retroperitoneal hematoma Is this a current diagnosis for this admission?: Yes - Plan Summary Plan Summary: This is a 77-year-old female with multiple medical problems, respiratory failure , and a newly diagnosed retroperitoneal hematoma. Her INR is approximately 3. Her hematoma is likely spontaneous. In light of this, I have recommended immediate reversal of her anticoagulation. NovoSeven is the most efficacious reversal agent available. I recommend against surgical intervention. Opening the retroperitoneum and disturbing the hematoma could lead to further bleeding and potentially . Supportive therapy with anticoagulant reversal is the standard of care in this situation. I will see the patient again on an as- needed basis. Please renotify with any questions or concerns.
[2017-11-19] MEDS: SODIUM BICARBONATE 650 MG TABLET PO SCH (17:08)
[2017-11-19] MEDS: METHYLPREDNISOLONE INJ 40 MG/1 ML SDV IV SCH (17:08)
[2017-11-19] MEDS: MAGNESIUM OXIDE 400 MG TABLET PO SCH (17:15)
--- NOTE | 2017-11-19 17:29 | PDOC PROGRESS REPORT ---
Subjective Progress Note for:: 11/19/17 Reason For Visit: This is a 77 yo Lady with ESRD on HD, Hypothyroidism , Atrial fibrillation on Amiodarone and h/o Gastric Bypass for Obesity was admitted with spontaneous hypoglycemia with symptoms and respiratory failure.She had missed her dialysis on the previous day.She admits to a cough with minimal expectoration without fever or chills, hemoptysis. She is currently undergoing Dialysis without any issues.She is c/o some pain of her right arm without any swelling or rashes. No abdominal pains.She denies any headaches, history to indicate seizures. She wants to know why her sugars are low.She is not a diabetic.She is a prison resident.On review of notes from the hospital he said I do not see any labs were done to the working up of hypoglycemia when she was in the ER.She was put on BiPAP and her hypoxia got corrected. She was then scheduled for dialysis yesterday and did well to that. Currently undergoing Dialysis without any issues.Labs and medications were reviewed with patient and treating nursing assistants teacher. Physical Exam Vital Signs: Temp Pulse Resp BP Pulse Ox 98.9 F 78 23 H 112/39 L 97 11/19/17 07:53 11/19/17 08:00 11/19/17 08:10 11/19/17 07:53 11/19/17 08:10 Intake & Output 11/18/17 11/19/17 11/20/17 06:59 06:59 06:59 Intake Total 155 Output Total 0 Balance 155 Weight 69.8 kg General appearance: PRESENT: no acute distress Respiratory exam: PRESENT: clear to auscultation kannan. ABSENT: crackles, rhonchi Cardiovascular exam: PRESENT: RRR, +S1, +S2 GI/Abdominal exam: PRESENT: soft. ABSENT: ascites, distended, firm, guarding, organomegaly, tenderness Extremities exam: ABSENT: pedal edema Neurological exam: PRESENT: awake, oriented to person, oriented to place Psychiatric exam: PRESENT: anxious Skin exam: ABSENT: erythema, mottled, rash, vesicles Results Laboratory Results: 11/19/17 05:27 11/19/17 05:27 11/18/17 11/19/17 11/19/17 16:41 05:27 05:27 WBC 10.8 H RBC 3.88 Hgb 11.8 L Hct 35.6 L MCV 92 MCH 30.3 MCHC 33.0 RDW 16.4 H Plt Count 172 Carbonic Acid HCO3/H2CO3 Ratio ABG pH ABG pCO2 ABG pO2 ABG HCO3 ABG O2 Saturation ABG Base Excess FiO2 Sodium 140.4 Potassium 3.3 L Chloride 96 L Carbon Dioxide 30 Anion Gap 14 BUN 35 H Creatinine 6.21 H Est GFR ( Amer) 8 L Est GFR (Non-Af Amer) 7 L Glucose 78 Lactic Acid 1.3 Calcium 8.3 L 11/19/17 06:35 WBC RBC Hgb Hct MCV MCH MCHC RDW Plt Count Carbonic Acid 1.36 H HCO3/H2CO3 Ratio 22:1 ABG pH 7.44 ABG pCO2 45.3 H ABG pO2 82.7 ABG HCO3 30.4 H ABG O2 Saturation 96.5 ABG Base Excess 5.5 FiO2 3.5L Sodium Potassium Chloride Carbon Dioxide Anion Gap BUN Creatinine Est GFR ( Amer) Est GFR (Non-Af Amer) Glucose Lactic Acid Calcium Impressions: Chest X-Ray 11/19/17 06:00 IMPRESSION: Interval improvement as noted above. Assessment & Plan - Diagnosis (1) Hypoglycemia Is this a current diagnosis for this admission?: Yes Plan: This obviously needs to be worked up.One needs to work her up for fasting versus postprandial hypoglycemia.Looks more likely fasting. Would order insulin levels, C-peptide, proinsulin, beta hydroxybutyrate, and sulfonylurea levels. Following that I would order a CT scan to look for pancreatic lesion for insulinoma as well as in the possibility for liver cirrhosis. Rare cause could be hypoglycemia from amiodarone and she is also had gastric bypass surgery which therefore might bring in the possibility of dumping syndrome. Discussed this with BRANCH EXAMINER/Hospitalist. (2) Acute respiratory failure with hypoxia Is this a current diagnosis for this admission?: Yes Plan: Differentials includes congestive heart failure, pneumonitis from amiodarone. (3) ESRD (end stage renal disease) on dialysis Is this a current diagnosis for this admission?: Yes Plan: Patient seen on dialysis. Is being supervised to ensure safe and smooth procedure.Vital signs are stable. Orders were reviewed with the treating dialysis nurse. Plan to remove between 2 and 3 L as tolerated. (4) Pulmonary edema Qualifiers: Chronicity: acute Qualified Code(s): J81.0 - Acute pulmonary edema Is this a current diagnosis for this admission?: Yes Plan: Mild. Should respond to dialysis. Monitor. (5) Hypothyroidism Qualifiers: Hypothyroidism type: unspecified Qualified Code(s): E03.9 - Hypothyroidism , unspecified Is this a current diagnosis for this admission?: Yes Plan: On replacements. (6) Left arm pain Plan: As per hospitalist.
--- NOTE | 2017-11-19 18:36 | XCELERA REPORT ---
[address] [address] Transthoracic Echocardiogram Report Name: VARINDER TORRES Age: 77 yrs Gender: Female : 1940 Patient Status: Inpatient Patient Location: [address] [place] [address] Study Date: 11/19/2017 02:23 PM Procedure: A complete two-dimensional transthoracic echocardiogram was performed (2D, M-mode, spectral and color flow Doppler). The study was technically difficult with many images being suboptimal in quality. Reason For Study: tachycardia, hypoxa Ordering Physician: RONIT SAEED Performed By: Blanca Dorado Interpretation Summary The study was technically difficult with many images being suboptimal in quality. The left ventricular ejection fraction is preserved. LV diastolic function could not be adequately assessed. There is mild concentric left ventricular hypertrophy. The left ventricle is grossly normal size. Not all wall segments were well visualized. Wall motion cannot be accurately commented on. The right ventricular systolic function is normal. The left atrium is moderately dilated. The right atrium is normal in size There is a mild amount of mitral regurgitation There is no mitral valve stenosis. No aortic regurgitation is present. There is no aortic valve stenosis There is a trace or physiologic amount of tricuspid regurgitation Tricuspid regurgitation jet envelope not well defined to measure RV systolic pressure accurately. The aortic root is not well visualized but is probably normal size. The inferior vena cava was not visualized There is no pericardial effusion. MMode/2D Measurements & Calculations RVDd: 2.7 cm LVIDd: 6.3 cm FS: 39.8 % LVOT diam: 2.0 cm IVSd: 0.93 cm LVIDs: 3.8 cm EDV(Teich): 197.6 ml LVOT area: 3.1 cm2 LVPWd: 1.3 cm ESV(Teich): 60.6 ml EF(Teich): 69.4 % Doppler Measurements & Calculations MV E max mimi: MV dec slope: Ao V2 max: LV V1 max P.1 cm/sec 388.9 cm/sec2 184.9 cm/sec 3.6 mmHg MV A max mimi: MV dec time: Ao max PG: LV V1 max: 87.8 cm/sec 0.24 sec 13.9 mmHg 95.3 cm/sec MV E/A: 1.1 Ao V2 mean: 159.2 cm/sec Ao mean P.2 mmHg Ao V2 VTI: 35.9 cm GATO(V,D): 1.6 cm2 TR max mimi: 186.1 cm/sec TR max P.8 mmHg Left Ventricle The left ventricle is grossly normal size. There is mild concentric left ventricular hypertrophy. The left ventricular ejection fraction is preserved. Consider additional methods to assess LVEF such as MUGA scan, CTA heart, cardiac MRI, CLEMENCIA, etc. if clinically indicated. LV diastolic function could not be adequately assessed. Wall motion cannot be accurately commented on, but no definite regional wall motion abnormalities noted. Not all wall segments were well visualized. Right Ventricle The right ventricle is grossly normal size. There is normal right ventricular wall thickness. The right ventricular systolic function is normal. Atria The right atrium is normal in size. The left atrium is moderately dilated. Mitral Valve The mitral valve is grossly normal. There is no mitral valve stenosis. There is a mild amount of mitral regurgitation. Aortic Valve The aortic valve opens well. There is no aortic valve stenosis. No aortic regurgitation is present. Tricuspid Valve The tricuspid valve is not well visualized secondary to technical limitations. There is no tricuspid stenosis. There is a trace or physiologic amount of tricuspid regurgitation. Tricuspid regurgitation jet envelope not well defined to measure RV systolic pressure accurately. Pulmonic Valve The pulmonic valve is not well visualized. Great Vessels The aortic root is not well visualized but is probably normal size. The inferior vena cava was not visualized. Effusions There is no pericardial effusion. : RONIT SAEED > Tennille Dinh
[2017-11-19 19:30] LABS: HEMATOCRIT 34.7 % (36.0-47.0); HEMOGLOBIN 11.3 g/dL (12.0-15.5); MEAN CORPUSCULAR HGB CONC 32.7 g/dL (32.0-36.0); MEAN CORPUSCULAR VOLUME 92 fl (80-97); PLATELET COUNT 165 10^3/uL (150-450); RED BLOOD COUNT 3.78 10^6/uL (3.72-5.28); RED CELL DISTRIBUTION WIDTH 16.2 % (11.5-14.0); WHITE BLOOD COUNT 8.6 10^3/uL (4.0-10.5)
--- NOTE | 2017-11-19 19:31 | PDOC CONSULTATION ---
Consultation Consult Date: 11/19/17 Attending physician:: EUNICE LANE Consult reason:: Respiratory distress, atrial fibrillation with rapid ventricular response History of Present Illness Admission Date/PCP: 11/18/17 16:13 VANDANA MARQUES MD Patient complains of: Shortness of breath History of Present Illness: VARINDER TORRES is a 77 year old female who has history of CHF and ESRD. She had not been to dialysis since 11/14. She missed friday's dialysis due to being in the ER for weakness. She was scheduled for dialysis this morning but missed due to ride issues. At that time she decided that she would just wait until Friday. She comes into the ER today with SOB and confusion. She was found to have a blood sugar in the 50s that required receiving to two amps of D50. At the time of seeing her in the ER she was extremely hypoxic and was not able to form full sentences. A chest x-ray showed bilateral pulmonary edema. At the time of examination she did not show any signs of focal deficits. She was transferred to the room in the ER that was set up for dialysis. While awaiting dialysis she was placed on bypap and was no longer hypoxic. She also became less confused and was able to form full sentences. She denied chest pain, fevers or chills. She also denied n/v/d/c. This history obtained by nephrology PA was reviewed. Patient unable to confirm this because patient is in respiratory distress. I was called urgently to see the patient by the hospitalist. Patient was noted to be in severe respiratory distress and also at the same time was noted to have significant fluctuation in her heart rate. Heart rate went up to as much as 150-160 range and then will drop down to 100. However the tachycardia did not last for long. Patient was placed on nonrebreather mask and she was noted to be severely hypoxemic. It was felt that patient would need close cardiac monitoring and also respiratory status monitoring and also hemodynamic monitoring therefore I recommended that the patient be transferred to the unit. Patient was seen before she was transferred to the unit. Past Medical History Cardiac Medical History: Reports: Congestive Heart Failure, Coronary Artery Disease, DVT, Myocardial Infarction, Hypertension, Pulmonary Embolism, Heart Murmur Pulmonary Medical History: Reports: Chronic Obstructive Pulmonary Disease (COPD) , Pneumonia Denies: Asthma, Bronchitis, Tuberculosis EENT Medical History: Reports: None Neurological Medical History: Denies: Seizures Endocrine Medical History: Reports: None Renal/ Medical History: Reports: End Stage Renal Disease - On dialysis Malignancy Medical History: Reports: None GI Medical History: Reports: Gastroesophageal Reflux Disease Musculoskeltal Medical History: Reports: Arthritis Psychiatric Medical History: Reports: Depression Hematology: Reports: Anemia Infectious Medical History: Reports: None Past Surgical History Past Surgical History: Reports: Cholecystectomy, Gastric Bypass Surgery, Orthopedic Surgery, Tonsillectomy, Tubal Ligation Denies: Hysterectomy Social History Information Source: Patient Lives with: Longterm Smoking Status: Former Smoker Frequency of Alcohol Use: None Hx Recreational Drug Use: No Drugs: None Hx Prescription Drug Abuse: No - Advance Directive Resuscitation Status: Do Not Resuscitate Surrogate healthcare decision maker:: Patient's daughter is the surrogate decision-maker Family History Family History: CAD, Hypertension Parental Family History Reviewed: Yes Children Family History Reviewed: Yes Sibling(s) Family History Reviewed.: Yes Medication/Allergy Home Medications: Acetaminophen [Tylenol 325 mg Tablet] 650 mg PO Q4HP PRN 11/18/17 Amiodarone HCl [Cordarone 200 mg Tablet] 200 mg PO DAILY 11/18/17 Apixaban [Eliquis 2.5 mg Tablet] 2.5 mg PO BID 11/18/17 Aspirin [Aspirin 81 mg Chewable Tablet] 81 mg PO DAILY 11/18/17 Atorvastatin Calcium [Lipitor 40 mg Tablet] 40 mg PO QHS 11/18/17 Chlorhexidine Gluconate [Peridex 0.12% Oral Rinse 473 ml] 15 ml MM BID 11/18/17 Cyanocobalamin (Vitamin B-12) [Vitamin B-12] 500 mcg PO DAILY 11/18/17 Diphenoxylate HCl/Atrop Sulf [Lomotil 2.5 mg Tablet] 5 mg PO ACHS 11/18/17 Eyelid Cleanser Combination 5 [Ocusoft Lid Scrub] 1 each TP BID 11/18/17 Famotidine [Pepcid 20 mg Tablet] 20 mg PO Q12 11/18/17 Ferric Citrate [Auryxia] 210 mg PO TID 11/18/17 Fluticasone Propionate [Flonase Nasal Fertile 50 Mcg/Fertile 16 gm] 1 spray NASL Q12 11/18/17 Hydrocortisone [Cortef 10 Mg Tablet] 5 mg PO QHS 11/18/17 Hydrocortisone [Cortef 10 Mg Tablet] 10 mg PO DAILY 11/18/17 Isosorbide Mononitrate [Imdur 30 mg Tablet.er] 30 mg PO DAILY 11/18/17 L. Rhamnosus GG/Inulin [Culturelle Probiotics Capsule] 1 cap PO DAILY 11/18/17 Levothyroxine Sodium [Synthroid 0.15 mg Tablet] 0.15 mg PO Q6AM 11/18/17 Loperamide HCl [Imodium A-D] 4 mg PO QID 11/18/17 Loratadine [Claritin 10 mg Tablet] 10 mg PO QHS 11/18/17 Magnesium Oxide [Mag-Ox 400 mg Tablet] 400 mg PO BID 11/18/17 Metoprolol Tartrate [Lopressor 25 mg Tablet] 12.5 mg PO Q12 11/18/17 Nitroglycerin [Nitrostat 0.4 mg (1/150 Gr) Tabs 25/Bottle] 1 tab SL Q5MP PRN Olopatadine HCl [Pataday] 1 drop OU DAILY@0900 11/18/17 Oxycodone HCl/Acetaminophen [Percocet 5-325 mg Tablet] 1 tab PO Q6HP PRN Paroxetine HCl [Paxil] 10 mg PO DAILY 11/18/17 Polyvinyl Alcohol [Liquitears] 1 drop OU QID 11/18/17 Sodium Bicarbonate [Sodium Bicarbonate 650 mg Tablet] 650 mg PO BID 11/18/17 Allergies/Adverse Reactions: iodine Allergy (Severe, Verified 11/17/17 10:18) itching, facial swelling, difficulty breathing doxycycline [Doxycycline] Allergy (Verified 11/17/17 10:18) dizzy Iodinated Contrast- Oral and IV Dye [IV Dye, Iodine Containing] Allergy ( Verified 11/17/17 10:18) Sulfa (Sulfonamide Antibiotics) Allergy (Verified 11/17/17 10:18) dizzy amlodipine besylate [From Norvasc] Adverse Reaction (Unknown, Verified 11/17/17 10:18) anxious, jittery feeling Review of Systems ROS unobtainable: Due to mental status, Other - Also severe respiratory distress and severe hypoxemia. Physical Exam Vital Signs: Temp Pulse Resp BP Pulse Ox 99.2 F 87 17 125/57 L 100 11/19/17 16:09 11/19/17 16:09 11/19/17 18:27 11/19/17 18:27 11/19/17 18:27 Intake & Output 11/18/17 11/19/17 11/20/17 06:59 06:59 06:59 Intake Total 155 122 Output Total 0 1000 Balance 155 -878 Weight 69.8 kg 68.6 kg Exam: GENERAL: well-nourished and in acute respiratory distress. Alert and oriented could not be checked. HEAD: Atraumatic, normocephalic. EYES: Pupils equal round and reactive to light, extraocular movements intact, sclera anicteric, conjunctiva are normal. ENT: TMs normal, nares patent, oropharynx clear without exudates. Moist mucous membranes. No oral ulcerations or bleeding gums noted NECK: supple without lymphadenopathy. Trachea is central. No cervical or axillary lymphadenopathy noted. Carotids are 2+, JVD could not be adequately assessed but felt to be mildly distended LUNGS: Respiration seems nonlabored, no significant accessory muscle action noted. Bibasilar fine crackles and bilateral mild scattered wheezing noted. Right basal dullness noted. CHEST: Palpation of the chest wall shows no significant chest wall tenderness. 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 ABDOMEN: Soft, no significant tenderness appreciated, normoactive bowel sounds. No guarding, no rebound. No rigidity noted . No masses appreciated. EXTREMITIES: Pedal pulses are 1-2+, no calf tenderness noted. No clubbing or cyanosis. 1+ pedal edema noted NEUROLOGICAL: Focused neurological exam showed no significant neurologic deficit. A full neurological exam could not be performed. PSYCH: Patient cannot participate. SKIN: No significant ecchymosis, skin is noted to be warm. MUSCULOSKELETAL EXAM: No significant acute joint swelling noted. Results Laboratory Results: 11/19/17 14:45 11/19/17 05:27 11/19/17 11/19/17 11/19/17 05:27 05:27 06:35 WBC 10.8 H RBC 3.88 Hgb 11.8 L Hct 35.6 L MCV 92 MCH 30.3 MCHC 33.0 RDW 16.4 H Plt Count 172 Carbonic Acid 1.36 H HCO3/H2CO3 Ratio 22:1 ABG pH 7.44 ABG pCO2 45.3 H ABG pO2 82.7 ABG HCO3 30.4 H ABG O2 Saturation 96.5 ABG Base Excess 5.5 FiO2 3.5L Sodium 140.4 Potassium 3.3 L Chloride 96 L Carbon Dioxide 30 Anion Gap 14 BUN 35 H Creatinine 6.21 H Est GFR ( Amer) 8 L Est GFR (Non-Af Amer) 7 L Glucose 78 C-Peptide Calcium 8.3 L Magnesium Blood Type 11/19/17 11/19/17 11/19/17 11:35 13:20 13:20 WBC RBC Hgb Hct MCV MCH MCHC RDW Plt Count Carbonic Acid 1.40 H HCO3/H2CO3 Ratio 22:1 ABG pH 7.45 ABG pCO2 46.5 H ABG pO2 94.4 ABG HCO3 31.5 H ABG O2 Saturation 97.4 ABG Base Excess 6.5 FiO2 3.5L Sodium Potassium Chloride Carbon Dioxide Anion Gap BUN Creatinine Est GFR ( Amer) Est GFR (Non-Af Amer) Glucose C-Peptide 2.89 Calcium Magnesium 2.0 Blood Type 11/19/17 11/19/17 14:45 14:45 WBC 10.1 RBC 3.88 Hgb 11.8 L Hct 35.5 L MCV 91 MCH 30.3 MCHC 33.1 RDW 16.0 H Plt Count 177 Carbonic Acid HCO3/H2CO3 Ratio ABG pH ABG pCO2 ABG pO2 ABG HCO3 ABG O2 Saturation ABG Base Excess FiO2 Sodium Potassium Chloride Carbon Dioxide Anion Gap BUN Creatinine Est GFR ( Amer) Est GFR (Non-Af Amer) Glucose C-Peptide Calcium Magnesium Blood Type O POSITIVE 11/19/17 13:20 Troponin I 1.540 NT-Pro-B Natriuret Pep 89187 H EKG Comments: Atrial fibrillation with left bundle branch block and mostly ventricular paced beats Impressions: Abdomen/Pelvis CT 11/19/17 00:00 IMPRESSION: Small iliacus muscle retroperitoneal hemorrhage Small left anterior abdominal wall hematoma at Lovenox injection site Small nonfunctioning heavily calcified kidneys bilaterally Non contrasted images of the pancreas are unremarkable Head CT 11/19/17 00:00 IMPRESSION: MILD CHRONIC CHANGES OF ATROPHY AND MICROVASCULAR ISCHEMIA. NO ACUTE PROCESS. Other findings as noted above EVIDENCE OF ACUTE STROKE: NO. Chest X-Ray 06/20/18 06:00 IMPRESSION: Interval improvement as noted above. Assessment & Plan - Notes Notes: Acute pulmonary edema: Most likely related to volume overload from missing dialysis. Today's decompensation could be related to atrial fibrillation with RVR, possible cardiac ischemic event, precipitated by possible acute blood loss due to retroperitoneal hematoma. At this point patient severely hypoxemic. Continue positive ear pressure bilevel therapy. May consider pulmonary consultation to help with this. Currently blood pressure in the low side but once improved may consider low-dose nitroglycerin drip. Consider removal fluid on dialysis as well. Atrial fibrillation with rapid ventricular response: At this point would recommend Cardizem if needed for heart rate control. However overall patient's heart rate trends were not noted to be that high. Currently anticoagulation is on hold. Acute retroperitoneal hematoma: Agree with blood transfusion and attempts to reverse coagulation disorder. May consider hematology help if needed. End-stage renal disease on dialysis: Patient noted to be noncompliant. Patient will benefit from improving compliance on dialysis. Coronary artery disease: EKGs has been uninterpretable. Patient not noted to have any chest pain. Recommend long-acting nitrates. Currently antiplatelet, other anticoagulation contraindicated. Troponin I elevation: Noted to have mild elevation of troponin I probably related to CHF in the setting of end-stage renal disease. Could be also related to supply demand mismatch from severe hypoxemia, hypoglycemia, transient hypotension, atrial fibrillation with rapid ventricular response etc. Treatment options are noted to be somewhat limited in this lady at this point. We will continue to follow patient. Stat 2D echo was ordered. It showed relatively well-preserved LVEF. Study was somewhat technically difficult. - Time Time Spent: 50 to 70 Minutes - CODE STATUS : was discussed, patient remains DO NOT RESUSCITATE. Surrogate decision-maker unchanged. Multiple medical problems were addressed. More than 50% of the time spent coordinating care, discussing management plans with involved caregivers. Management plans discussed with involved personnels. Medical decision making was of moderate to high complexity, patient's has multiple comorbidities. Medications reviewed and adjusted accordingly: Yes
--- NOTE | 2017-11-19 20:06 | PDOC PROGRESS REPORT ---
Subjective Progress Note for:: 11/19/17 Subjective:: The patient is a 77-year-old female with a complicated past medical history significant for COPD, CHF, end-stage renal disease on dialysis, hypertension, coronary artery disease, dual-chamber pacemaker, chronically anticoagulated secondary to underlying atrial fibrillation, hypothyroidism, adrenal gland insufficiency, previous episodes of pulmonary emboli, and depression who was admitted on 11/18/17 for generalized weakness, fluid volume overload, hypoxia, and pulmonary edema related to missed dialysis appointment. Patient is seen on rounds while in the dialysis unit. I received a phone call from the nurse earlier this morning reporting that the patient was alert and oriented with stable vital signs on BiPAP and was transitioned to nasal cannula at 3.5 L for dialysis. Nurse reports that the patient's signs remained stable, however the patient became acutely agitated and kicking at staff. Glucose was checked; 80, and remaining vital signs were reassuring. At the bedside, the patient appears to be in no acute distress, however, is noted to be fatigued and somnolent. She frequently fell asleep mid sentence. She is alert oriented 4 but makes random and hot statements similar to what was noted while in the emergency department last night. The patient's condition deteriorated throughout the day with her requiring near continuous BiPAP to maintain oxygen saturations, frequent confusion, episodes of tachycardia with a heart rate in the 140s, and decreased alertness. The patient's daughter, Rosi Saenz, was met at the patient's bedside and was updated on the patient's condition, progress, plan, and involvement of consulting physicians. The patient's daughter does confirm DNR status, however , reports that she would wish her mother to be intubated or undergo any recommended surgical procedures. Based upon the patient's comorbid conditions, declining status, and clear indication from family members that they would wish for aggressive measures to be pursued, the patient was transferred to the ICU. Dr. Fierro was updated throughout the day and participated in developing the plan of care. Reason For Visit: UREMA,ESRD, HYPOTENSION,PULMONARY EDEMA,HYPOZIA Physical Exam Vital Signs: Temp Pulse Resp BP Pulse Ox 99.2 F 87 17 125/57 L 100 11/19/17 16:09 11/19/17 16:09 11/19/17 18:27 11/19/17 18:27 11/19/17 18:27 Intake & Output 11/18/17 11/19/17 11/20/17 06:59 06:59 06:59 Intake Total 155 122 Output Total 0 1000 Balance 155 -878 Weight 69.8 kg 68.6 kg General appearance: PRESENT: hard of hearing, mild distress, well-developed, well-nourished Head exam: PRESENT: atraumatic, normocephalic Eye exam: PRESENT: conjunctival injection - Bilaterally, EOMI, PERRLA. ABSENT: scleral icterus Ear exam: PRESENT: normal external ear exam Mouth exam: PRESENT: moist, tongue midline Teeth exam: PRESENT: poor dentation Neck exam: ABSENT: carotid bruit, JVD, lymphadenopathy, thyromegaly Respiratory exam: PRESENT: crackles, decreased breath sounds - Throughout, prolonged expiratory phas, rhonchi, symmetrical, tachypnea, other - BiPAP. ABSENT: rales, wheezes Cardiovascular exam: PRESENT: irregular rhythm, RRR, tachycardia. ABSENT: diastolic murmur, rubs, systolic murmur Pulses: PRESENT: normal dorsalis pedis pul Vascular exam: PRESENT: normal capillary refill GI/Abdominal exam: PRESENT: normal bowel sounds, soft. ABSENT: distended, guarding, mass, organolmegaly, rebound, tenderness Rectal exam: PRESENT: deferred Extremities exam: PRESENT: full ROM, tenderness - Right upper extremity, left lower extremity, other - Large, baseball sized, hematoma to right lateral upper arm secondary to fall several weeks ago. ABSENT: calf tenderness, clubbing, pedal edema Neurological exam: PRESENT: alert, awake, oriented to person, oriented to place , oriented to time, oriented to situation, CN II-XII grossly intact, other - Intermittently somnolent, confused, and agitated.. ABSENT: motor sensory deficit Psychiatric exam: PRESENT: agitated - Intermittent, appropriate affect, normal mood. ABSENT: homicidal ideation, suicidal ideation Skin exam: PRESENT: dry, intact, warm. ABSENT: cyanosis, rash Results Laboratory Results: 11/19/17 14:45 11/19/17 05:27 11/19/17 11/19/17 11/19/17 05:27 05:27 06:35 WBC 10.8 H RBC 3.88 Hgb 11.8 L Hct 35.6 L MCV 92 MCH 30.3 MCHC 33.0 RDW 16.4 H Plt Count 172 Carbonic Acid 1.36 H HCO3/H2CO3 Ratio 22:1 ABG pH 7.44 ABG pCO2 45.3 H ABG pO2 82.7 ABG HCO3 30.4 H ABG O2 Saturation 96.5 ABG Base Excess 5.5 FiO2 3.5L Sodium 140.4 Potassium 3.3 L Chloride 96 L Carbon Dioxide 30 Anion Gap 14 BUN 35 H Creatinine 6.21 H Est GFR ( Amer) 8 L Est GFR (Non-Af Amer) 7 L Glucose 78 C-Peptide Calcium 8.3 L Magnesium Blood Type 11/19/17 11/19/17 11/19/17 11:35 13:20 13:20 WBC RBC Hgb Hct MCV MCH MCHC RDW Plt Count Carbonic Acid 1.40 H HCO3/H2CO3 Ratio 22:1 ABG pH 7.45 ABG pCO2 46.5 H ABG pO2 94.4 ABG HCO3 31.5 H ABG O2 Saturation 97.4 ABG Base Excess 6.5 FiO2 3.5L Sodium Potassium Chloride Carbon Dioxide Anion Gap BUN Creatinine Est GFR ( Amer) Est GFR (Non-Af Amer) Glucose C-Peptide 2.89 Calcium Magnesium 2.0 Blood Type 11/19/17 11/19/17 14:45 14:45 WBC 10.1 RBC 3.88 Hgb 11.8 L Hct 35.5 L MCV 91 MCH 30.3 MCHC 33.1 RDW 16.0 H Plt Count 177 Carbonic Acid HCO3/H2CO3 Ratio ABG pH ABG pCO2 ABG pO2 ABG HCO3 ABG O2 Saturation ABG Base Excess FiO2 Sodium Potassium Chloride Carbon Dioxide Anion Gap BUN Creatinine Est GFR ( Amer) Est GFR (Non-Af Amer) Glucose C-Peptide Calcium Magnesium Blood Type O POSITIVE 11/19/17 13:20 Troponin I 1.540 NT-Pro-B Natriuret Pep 07224 H Impressions: Abdomen/Pelvis CT 11/19/17 00:00 IMPRESSION: Small iliacus muscle retroperitoneal hemorrhage Small left anterior abdominal wall hematoma at Lovenox injection site Small nonfunctioning heavily calcified kidneys bilaterally Non contrasted images of the pancreas are unremarkable Head CT 11/19/17 00:00 IMPRESSION: MILD CHRONIC CHANGES OF ATROPHY AND MICROVASCULAR ISCHEMIA. NO ACUTE PROCESS. Other findings as noted above EVIDENCE OF ACUTE STROKE: NO. Chest X-Ray 11/19/17 06:00 IMPRESSION: Interval improvement as noted above. Assessment & Plan - Diagnosis (1) Pulmonary edema Qualifiers: Chronicity: acute Qualified Code(s): J81.0 - Acute pulmonary edema Is this a current diagnosis for this admission?: Yes Plan: Minimal change today. Pulmonary edema is likely multifactorial secondary to end -stage renal disease on dialysis; missed dialysis appointment, and CHF exacerbation Slight improvement in aeration noted on repeat chest x-ray today. Echocardiogram revealed preserved ejection fraction. The patient is upgraded to ICU today. She is provided supplemental oxygen to maintain oxygen saturations greater than 88%. BiPAP as needed; patient has required near continuous BiPAP use. Scheduled and as needed nebulizer treatments are available. Nephrology was consulted; were able to dialyze 1.6 L yesterday afternoon and an additional 1 L this morning. Cardiology was consulted; appreciate their evaluation regarding CHF and assistance in managing this patient. Pulmonology has been consulted; appreciate their evaluation for underlying pulmonary diseases that may be contributing to her overall acute respiratory failure. The patient makes minimal urine; attempts to diuresis will likely be futile No indication for steroids or antibiotics at this time. (2) Altered mental status Is this a current diagnosis for this admission?: Yes Plan: Intermittent; leading differential diagnosis is still intermittent profound hypoxia. The patient's mental status rapidly improves following placement of BiPAP; wean BiPAP has to be removed for patient movement/care, she rapidly becomes confused. No evidence of focal deficits. Lactic acid 1.3 Total bili 1.1 Low suspicion for infectious process, for completeness did obtain blood cultures which are negative at 24 hours. Patient remains afebrile and leukocytosis has resolved. Patient makes minimal urine output, if she does void will check UA. Head CT demonstrates chronic microvascular changes; negative for acute processes. We will trend her fever and CBC to monitor for infectious process. Continue to aggressively intervene regarding acute respiratory failure. We will reevaluate LFTs and obtain ammonia level. Review of outpatient MAR does not reveal chronic benzodiazepine or opiate use which may be contributing; low-dose oxycodone is available as needed for pain. Monitor closely for worsening sedation. (3) Acute respiratory failure with hypoxia Is this a current diagnosis for this admission?: Yes Plan: Secondary to acute pulmonary edema related to missed dialysis appointment, CHF exacerbation, and underlying COPD. The patient is not home O2 dependent. ABGs revealed mild metabolic alkalosis, likely related to dialysis. The patient has been transferred to the ICU. The patient's daughter clearly stated that she would wish for her mother to be intubated if necessary. Have initiated stress steroids. Remaining plan as above. (4) Hypoglycemia Is this a current diagnosis for this admission?: Yes Plan: Unclear etiology; EMS reported glucose of 51 treated with oral glucose. Repeat Accu-Chek 60 in the emergency department. This was again treated with oral glucose and D50. Has been acceptable since. The patient is not prescribed anti-hyperglycemics. I spoke with her primary nurse and primary today who confirms that the patient does not receive any diabetic medications. I did approach the possibility of accidental medication administration; which the patient's nurse adamantly denies. She reports that at baseline the patient knows the name and dosing of all medications and certainly would question any insulin administration. CT of the abdomen was negative for pancreatic masses, insulinomas. Did incidentally reveal a small retroperitoneal bleed. We will rule out infectious processes as above. We will monitor Accu-Cheks every [address] hours. Hypoglycemia protocol in place. Proinsulin and Beta-Hydroxybutyrate are pending. C-peptide 2.89, Insulin 1.49. Once laboratory results are available, may consider contacting [facility] endocrinology for consultation. The patient's nurse her primary reports that she was provided 1 dose of Levaquin Friday evening (rare occurrence of profound and occasionally fatal hypoglycemia in nondiabetic patients has been reported; discussed this with pharmacy who advised to avoid further fluoroquinolones but could not recommend any additional workup to evaluate this is a potential cause). (5) Hypothyroidism Qualifiers: Hypothyroidism type: unspecified Qualified Code(s): E03.9 - Hypothyroidism , unspecified Is this a current diagnosis for this admission?: Yes Plan: Will obtain thyroid panel. Continue home dose Synthroid. (6) ESRD (end stage renal disease) on dialysis Is this a current diagnosis for this admission?: Yes Plan: The patient was dialyzed yesterday afternoon and again this morning; have removed 2.[address] Coleman has been consulted; appreciate his critical assistance. (7) Adrenal insufficiency Is this a current diagnosis for this admission?: Yes Plan: The patient is chronically on hydrocortisone 10 mg every morning and 5 mg nightly. While critically ill are providing stress dosed steroids; initiated IV Solu- Medrol 20 mg twice daily today. (8) CHF (congestive heart failure) Qualifiers: Heart failure type: diastolic Heart failure chronicity: acute on chronic Qualified Code(s): I50.33 - Acute on chronic diastolic (congestive) heart failure Is this a current diagnosis for this admission?: Yes Plan: Patient with acute on chronic diastolic heart failure evidenced by pulmonary edema, tachycardia, elevated proBNP >63k. Echocardiogram revealed preserved LVEF. Patient makes minimal urine; have not attempted diuretics at this time. Nephrology has been consulted; continuing to dialyze to remove fluid. Cardiology has been consulted; appreciate Dr. Dinh's evaluation, recommendations, and assistance in managing this complex patient. (9) Elevated troponin Is this a current diagnosis for this admission?: Yes Plan: Likely demand ischemia secondary to CHF exacerbation in the setting of missed dialysis appointment and atrial fibrillation with RVR asked by a regular paced rhythm (patient is known to have underlying atrial fibrillation; heart rate has intermittently increased to 140-150). Patient denies chest pain. Troponins are trending up 0.9--> 1.5 Cardiology has been consulted; appreciate their evaluation recommendations. Unfortunately, the patient is not a candidate for anticoagulation or antiplatelets at this time related to elevated INR and retroperitoneal bleed. (10) Coagulopathy Is this a current diagnosis for this admission?: Yes Plan: Unclear cause; verified with patient's primary nurse at [place] that she has been off of Coumadin for greater than 1 year and off of Lovenox for nearly 9 months. Approximately 9-10 months ago, the patient was transitioned to Eliquis due to developing hematomas with Lovenox therapy. Liver enzymes are somewhat elevated, however, total bili is normal and they are certainly not elevated enough to account for an INR of 3.62. Patient is confirmed to be on Eliquis 2.5 mg twice daily. Discussed with Dr. Garnica (surgeon) and pharmacy options for reversal. Unfortunately, our facility does not carry reversal agents for DOACs. Aspirin and heparin are discontinued. Oral Vit K provided. Patient type and cross; to transfuse 2 units of fresh frozen plasma. We will continue to monitor PT/INR and PTT. Consider hematology consultation. (11) Retroperitoneal bleed Is this a current diagnosis for this admission?: Yes Plan: The patient complains of left upper leg pain. Her pain is worse with movement. Of note, she reports that she fell approximately 3-4 weeks ago and sustained a large hematoma to her right upper arm that remains tender to touch ( approximately the size of a baseball). She is anticoagulated on Eliquis 2.5 mg twice daily. Laboratory evaluation reveals coagulopathic with INR of 3.62, PT 37.7, PTT 108.4. As part of the evaluation for hypoglycemia, a CT of the abdomen and pelvis was obtained. Received critical report from Dr. Carrasco; patient found to have a left iliacus retroperitoneal hemorrhage measuring 6 x 6 x 4 cm. Surgery was consulted; discussed the patient's condition with Dr. Garnica. Dr. Garnica recommended aggressive reversal of anticoagulation. Unfortunately, NovoSeven is unavailable at our facility; she is being provided oral vitamin K and fresh frozen plasma. Dr. Garnica advises against operative interventions at this time. She is transferred to the ICU for closer observation. We will monitor serial CBCs. Will transfuse as necessary for hemoglobin less than 8. Repeat PT/INR and PTT in the morning.
[2017-11-19] MEDS ORDERED: METOPROLOL TARTRATE PF/INJ 5 MG/5 ML SDV IV PRN (21:07)
[2017-11-19] MEDS: OXYCODONE HCL IR 5 MG TABLET PO PRN (21:43)
[2017-11-19] MEDS: ATORVASTATIN CALCIUM 40 MG TABLET PO SCH (21:43)
[2017-11-19] MEDS: METOPROLOL TARTRATE 25 MG TABLET PO SCH (21:43)
[2017-11-19] MEDS: FLUTICASONE NASAL SPRAY 50 MCG/SPRY 120 SPRAY/16 GM NASL SCH (21:47)
[2017-11-19] MEDS ORDERED: HYDROCORTISONE 10 MG TABLET PO SCH (22:00)
--- NOTE | 2017-11-19 22:21 | EKG REPORT ---
SEVERITY:- ABNORMAL ECG - ATRIAL-SENSED VENTRICULAR-PACED RHYTHM : Confirmed by: Tennille Dinh 19-Nov-2017 22:20:36
--- NOTE | 2017-11-19 22:23 | EKG REPORT ---
SEVERITY:- ABNORMAL ECG - VENTRICULAR-PACED COMPLEXES A FIB WITH LBBB : Confirmed by: Tennille Dinh 19-Nov-2017 22:22:20
[2017-11-20 01:36] LABS: HEMATOCRIT 33.1 % (36.0-47.0); HEMOGLOBIN 10.8 g/dL (12.0-15.5); MEAN CORPUSCULAR HEMOGLOBIN 29.8 pg (27.0-33.4); MEAN CORPUSCULAR HGB CONC 32.8 g/dL (32.0-36.0); MEAN CORPUSCULAR VOLUME 91 fl (80-97); PLATELET COUNT 143 10^3/uL (150-450); RED BLOOD COUNT 3.64 10^6/uL (3.72-5.28); RED CELL DISTRIBUTION WIDTH 16.2 % (11.5-14.0); WHITE BLOOD COUNT 5.6 10^3/uL (4.0-10.5)
[2017-11-20] MEDS ORDERED: OXYCODONE-ACETAMINOPHEN 5-325 MG TABLET ONE (01:48)
[2017-11-20] MEDS ORDERED: OXYCODONE-ACETAMINOPHEN 5-325 MG TABLET PO ONE (02:00)
[2017-11-20] MEDS ORDERED: MORPHINE SULFATE 10 MG/ML INJ IV ONE (03:00)
[2017-11-20] MEDS ORDERED: MORPHINE SULFATE 10 MG/ML INJ ONE (03:50)
[2017-11-20 04:45] LABS: APPEARANCE,URINE TURBID; BILIRUBIN,URINE NEGATIVE (NEGATIVE); COLOR,URINE AMBER; GLUCOSE, URINE 150 mg/dL (NEGATIVE); KETONES,URINE NEGATIVE (NEGATIVE); LEUKOCYTE ESTERASE,URINE LARGE (NEGATIVE); NITRITE,URINE NEGATIVE (NEGATIVE); PROTEIN,URINE 100 mg/dL (NEGATIVE); URINE SPECIFIC GRAVITY 1.009; UROBILINOGEN,URINE NEGATIVE mg/dL (<2.0)
[2017-11-20] MEDS: LEVOTHYROXINE SODIUM 0.15 MG TABLET PO SCH (05:13)
[2017-11-20 07:53] LABS: INTERNATIONAL RATION (INR) 1.47; PROTHROMBIN TIME 18.5 SEC (11.4-15.4)
[2017-11-20 07:55] LABS: PARTIAL THROMBOPLASTIN TIME 68.1 SEC (23.5-35.8)
[2017-11-20 08:09] LABS: ALANINE AMINOTRANSFERASE 30 U/L (9-52); ALKALINE PHOSPHATASE 219 U/L (38-126); ASPARTATE AMINO TRANSFERASE 59 U/L (14-36); BILIRUBIN,DIRECT 0.9 mg/dL (0.0-0.4); BILIRUBIN,TOTAL 1.1 mg/dL (0.2-1.3); TOTAL PROTEIN 5.5 g/dL (6.3-8.2)
[2017-11-20 08:25] LABS: FREE T4 (FREE THYROXINE) 2.49 ng/dL (0.78-2.19)
[2017-11-20 08:29] LABS: HEMATOCRIT 32.1 % (36.0-47.0); HEMOGLOBIN 10.6 g/dL (12.0-15.5); MEAN CORPUSCULAR HEMOGLOBIN 30.2 pg (27.0-33.4); MEAN CORPUSCULAR VOLUME 92 fl (80-97); PLATELET COUNT 151 10^3/uL (150-450); RED CELL DISTRIBUTION WIDTH 16.4 % (11.5-14.0); WHITE BLOOD COUNT 5.9 10^3/uL (4.0-10.5)
[2017-11-20 08:34] LABS: ANION GAP 12 (5-19); BLOOD UREA NITROGEN 27 mg/dL (7-20); CALCIUM 8.8 mg/dL (8.4-10.2); CARBON DIOXIDE 34 mmol/L (22-30); CHLORIDE 96 mmol/L (98-107); GLUCOSE 137 mg/dL (75-110); POTASSIUM 3.7 mmol/L (3.6-5.0); SODIUM 141.9 mmol/L (137-145)
[2017-11-20 08:39] LABS: THYROID STIMULATING HORMONE 5.75 uIU/mL (0.47-4.68)
[2017-11-20 09:08] LABS: ARTERIAL BLOOD BASE EXCESS 8.4 mmol/L; ARTERIAL BLOOD H2CO3 1.52 mmol/L (1.05-1.35); ARTERIAL BLOOD HCO3 33.7 mmol/L (20-26); ARTERIAL BLOOD O2 SATURATION 94.9 % (94-98); ARTERIAL BLOOD PCO2 50.4 mmHg (35-45); ARTERIAL BLOOD PH 7.44 (7.35-7.45); ARTERIAL BLOOD PO2 72.5 mmHg (80-100); ARTERIAL BLOOD TOTAL CO2 35.2 mmol/L (21-25)
[2017-11-20 09:09] LABS: ARTERIAL BLOOD FIO2 25%
[2017-11-20] MEDS: OXYCODONE HCL IR 5 MG TABLET PO PRN (09:18)
[2017-11-20] MEDS: DOCUSATE SODIUM 100 MG CAPSULE PO SCH (09:20)
[2017-11-20] MEDS: FAMOTIDINE 20 MG TABLET PO SCH ×2 (09:20→22:36)
--- NOTE | 2017-11-20 09:37 | EKG REPORT ---
SEVERITY:- ABNORMAL ECG - ATRIAL-SENSED VENTRICULAR-PACED RHYTHM : Confirmed by: Tennille Dinh 20-Nov-2017 09:36:00
[2017-11-20] MEDS: FLUTICASONE NASAL SPRAY 50 MCG/SPRY 120 SPRAY/16 GM NASL SCH ×2 (09:55→22:35)
[2017-11-20] MEDS: PAROXETINE HCL 20 MG TABLET PO SCH (09:56)
[2017-11-20] MEDS: MAGNESIUM OXIDE 400 MG TABLET PO SCH ×2 (09:56→17:35)
[2017-11-20] MEDS: POLYVINYL ALCOHOL 1.4% OPH SOLN 15 ML OU SCH ×4 (09:58→22:35)
[2017-11-20] MEDS: SODIUM BICARBONATE 650 MG TABLET PO SCH ×2 (09:58→17:34)
[2017-11-20] MEDS: METHYLPREDNISOLONE INJ 40 MG/1 ML SDV IV SCH ×2 (09:59→17:36)
[2017-11-20] MEDS: METOPROLOL TARTRATE 25 MG TABLET PO SCH ×2 (09:59→22:30)
[2017-11-20] MEDS ORDERED: HYDROCORTISONE 10 MG TABLET PO SCH (10:00)
[2017-11-20] MEDS ORDERED: (PENDING PHARMACY ID) (Paroxetine Hcl [Paxil] 10 MG) PO SCH (10:00)
[2017-11-20] MEDS ORDERED: ASPIRIN 81 MG TABLET, CHEWABLE PO SCH (10:00)
[2017-11-20] MEDS: ISOSORBIDE MONONITRATE 30 MG TAB.ER.24H PO SCH (10:01)
--- NOTE | 2017-11-20 10:08 | PDOC PROGRESS REPORT ---
Subjective Progress Note for:: 11/20/17 Subjective:: Patient remains on bypap, when pulled off her oxygen saturations start to go down. She also becomes altered and aggitated. Yesterday during dialysis she became agitated and dialysis had to be ended early. She was transfered to the ICU. A CT of her head and abdomen was done. She was found to have a retroperitoneal bleed. CT of the HD was normal. Her INR was reversed to stop the bleeding. This morning she is remaining SOB and she has some leg pain on her left leg. She denies chest pain, fevers or chills. 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 Reason For Visit: UREMA,ESRD, HYPOTENSION,PULMONARY EDEMA,HYPOZIA Physical Exam Vital Signs: Temp Pulse Resp BP Pulse Ox 97.0 F 70 21 H 165/81 H 100 11/20/17 07:49 11/20/17 08:00 11/20/17 07:50 11/20/17 07:49 11/20/17 07:50 Intake & Output 11/19/17 11/20/17 11/21/17 06:59 06:59 06:59 Intake Total 155 1074 Output Total 0 1030 Balance 155 44 Weight 69.8 kg 68.6 kg General appearance: PRESENT: disheveled, mild distress, well-developed, well- nourished Eye exam: PRESENT: other Mouth exam: PRESENT: moist, neck supple Neck exam: PRESENT: full ROM, JVD Respiratory exam: PRESENT: accessory muscle use, crackles, rales. ABSENT: clear to auscultation kannan Cardiovascular exam: PRESENT: RRR, +S1, +S2 GI/Abdominal exam: PRESENT: soft. ABSENT: ascites, distended, firm, guarding, organomegaly, tenderness Extremities exam: PRESENT: pedal edema, tenderness. ABSENT: calf tenderness, + 1 edema, +2 edema Musculoskeletal exam: PRESENT: tenderness. ABSENT: deformity, dislocation, normal inspection Neurological exam: PRESENT: alert, awake, oriented to person, oriented to place , oriented to time, oriented to situation Psychiatric exam: PRESENT: agitated, anxious Skin exam: PRESENT: dry, intact, warm. ABSENT: cyanosis Results Laboratory Results: 11/20/17 07:34 11/20/17 07:34 11/19/17 11/19/1718 11:35 13:20 13:20 WBC RBC Hgb Hct MCV MCH MCHC RDW Plt Count Carbonic Acid 1.40 H HCO3/H2CO3 Ratio 22:1 ABG pH 7.45 ABG pCO2 46.5 H ABG pO2 94.4 ABG HCO3 31.5 H ABG O2 Saturation 97.4 ABG Base Excess 6.5 FiO2 3.5L Sodium Potassium Chloride Carbon Dioxide Anion Gap BUN Creatinine Est GFR ( Amer) Est GFR (Non-Af Amer) Glucose C-Peptide 2.89 Calcium Magnesium 2.0 Total Bilirubin AST ALT Alkaline Phosphatase Ammonia Total Protein Albumin TSH Free T4 Urine Color Urine Appearance Urine pH Ur Specific [place] Urine Protein Urine Glucose (UA) Urine Ketones Urine Blood Urine Nitrite Ur Leukocyte Esterase Urine WBC (Auto) Urine RBC (Auto) Blood Type 11/19/17 11/19/17 11/19/17 14:45 14:45 19:24 WBC 10.1 8.6 RBC 3.88 3.78 Hgb 11.8 L 11.3 L Hct 35.5 L 34.7 L MCV 91 92 MCH 30.3 30.0 MCHC 33.1 32.7 RDW 16.0 H 16.2 H Plt Count 177 165 Carbonic Acid HCO3/H2CO3 Ratio ABG pH ABG pCO2 ABG pO2 ABG HCO3 ABG O2 Saturation ABG Base Excess FiO2 Sodium Potassium Chloride Carbon Dioxide Anion Gap BUN Creatinine Est GFR ( Amer) Est GFR (Non-Af Amer) Glucose C-Peptide Calcium Magnesium Total Bilirubin AST ALT Alkaline Phosphatase Ammonia Total Protein Albumin TSH Free T4 Urine Color Urine Appearance Urine pH Ur Specific [place] Urine Protein Urine Glucose (UA) Urine Ketones Urine Blood Urine Nitrite Ur Leukocyte Esterase Urine WBC (Auto) Urine RBC (Auto) Blood Type O POSITIVE 11/19/17 11/20/17 11/20/17 22:41 01:26 07:34 WBC 5.6 RBC 3.64 L Hgb 10.8 L Hct 33.1 L MCV 91 MCH 29.8 MCHC 32.8 RDW 16.2 H Plt Count 143 L Carbonic Acid HCO3/H2CO3 Ratio ABG pH ABG pCO2 ABG pO2 ABG HCO3 ABG O2 Saturation ABG Base Excess FiO2 Sodium Potassium Chloride Carbon Dioxide Anion Gap BUN Creatinine Est GFR ( Amer) Est GFR (Non-Af Amer) Glucose C-Peptide Calcium Magnesium Total Bilirubin AST ALT Alkaline Phosphatase Ammonia Total Protein Albumin TSH 5.75 H Free T4 2.49 H Urine Color GUERLINE Urine Appearance TURBID Urine pH 8.0 Ur Specific [place] 1.009 Urine Protein 100 H Urine Glucose (UA) 150 H Urine Ketones NEGATIVE Urine Blood MODERATE H Urine Nitrite NEGATIVE Ur Leukocyte Esterase LARGE H Urine WBC (Auto) >182 Urine RBC (Auto) 24 Blood Type 11/20/17 11/20/17 11/20/17 07:34 07:34 07:34 WBC 5.9 RBC 3.50 L Hgb 10.6 L Hct 32.1 L MCV 92 MCH 30.2 MCHC 33.0 RDW 16.4 H Plt Count 151 Carbonic Acid HCO3/H2CO3 Ratio ABG pH ABG pCO2 ABG pO2 ABG HCO3 ABG O2 Saturation ABG Base Excess FiO2 Sodium Potassium Chloride Carbon Dioxide Anion Gap BUN Creatinine Est GFR ( Amer) Est GFR (Non-Af Amer) Glucose C-Peptide Calcium Magnesium Total Bilirubin 1.1 AST 59 H ALT 30 Alkaline Phosphatase 219 H Ammonia < 8.7 L Total Protein 5.5 L Albumin 3.0 L TSH Free T4 Urine Color Urine Appearance Urine pH Ur Specific [place] Urine Protein Urine Glucose (UA) Urine Ketones Urine Blood Urine Nitrite Ur Leukocyte Esterase Urine WBC (Auto) Urine RBC (Auto) Blood Type 11/20/17 11/20/17 07:34 08:55 WBC RBC Hgb Hct MCV MCH MCHC RDW Plt Count Carbonic Acid 1.52 H HCO3/H2CO3 Ratio 22:1 ABG pH 7.44 ABG pCO2 50.4 H ABG pO2 72.5 L ABG HCO3 33.7 H ABG O2 Saturation 94.9 ABG Base Excess 8.4 FiO2 25% Sodium 141.9 Potassium 3.7 Chloride 96 L Carbon Dioxide 34 H Anion Gap 12 BUN 27 H Creatinine 4.75 H Est GFR ( Amer) 11 L Est GFR (Non-Af Amer) 9 L Glucose 137 H C-Peptide Calcium 8.8 Magnesium Total Bilirubin AST ALT Alkaline Phosphatase Ammonia Total Protein Albumin TSH Free T4 Urine Color Urine Appearance Urine pH Ur Specific [place] Urine Protein Urine Glucose (UA) Urine Ketones Urine Blood Urine Nitrite Ur Leukocyte Esterase Urine WBC (Auto) Urine RBC (Auto) Blood Type 11/19/17 11/19/17 11/20/17 13:20 19:24 01:26 Troponin I 1.540 1.780 1.340 NT-Pro-B Natriuret Pep 67868 H Impressions: Abdomen/Pelvis CT 11/19/17 00:00 IMPRESSION: Small iliacus muscle retroperitoneal hemorrhage Small left anterior abdominal wall hematoma at Lovenox injection site Small nonfunctioning heavily calcified kidneys bilaterally Non contrasted images of the pancreas are unremarkable Head CT 11/19/17 00:00 IMPRESSION: MILD CHRONIC CHANGES OF ATROPHY AND MICROVASCULAR ISCHEMIA. NO ACUTE PROCESS. Other findings as noted above EVIDENCE OF ACUTE STROKE: NO. Chest X-Ray 11/19/17 06:00 IMPRESSION: Interval improvement as noted above. Assessment & Plan - Diagnosis (1) Acute respiratory failure with hypoxia Is this a current diagnosis for this admission?: Yes Plan: will place her on dialysis to try to finish removing all of the excess fluid. Currently is on bypap and now steroids. (2) Altered mental status Is this a current diagnosis for this admission?: Yes Plan: improved, due to hypoxia (3) ESRD (end stage renal disease) on dialysis Is this a current diagnosis for this admission?: Yes Plan: Patient seen on dialysis. Is being supervised to ensure safe and smooth procedure. Vital signs are stable. Orders were reviewed with the treating dialysis nurse. Plan to remove between 2 and 3 L as tolerated. Will also prepare for dialysis tomorrow (4) Pulmonary edema Qualifiers: Chronicity: acute Qualified Code(s): J81.0 - Acute pulmonary edema Is this a current diagnosis for this admission?: Yes Plan: removing more fluid today. Looking to remove enough fluid so that she does not need the bypap (5) Hypothyroidism Qualifiers: Hypothyroidism type: unspecified Qualified Code(s): E03.9 - Hypothyroidism , unspecified Is this a current diagnosis for this admission?: Yes (6) Benign essential hypertension Plan: slightly elevated, will look see what it is after removing a few liters of fluid (7) Hypoglycemia Is this a current diagnosis for this admission?: Yes Plan: Currently being worked up by the hospitalist (8) Retroperitoneal bleed Is this a current diagnosis for this admission?: Yes Plan: being followed by surgery
[2017-11-20] MEDS ORDERED: CEFTRIAXONE 1 GM/D5W RTU 1 GM/50 ML RTUPB IV SCH (11:00)
--- NOTE | 2017-11-20 12:04 | RADIOLOGY REPORT (SQ) ---
EXAM DESCRIPTION: VENOUS UNILATERAL LOWER COMPLETED DATE/TIME: 11/20/2017 11:43 am REASON FOR STUDY: Left leg pain R41.82 ALTERED MENTAL STATUS, UNSPECIFIED I50.9 HEART FAILURE, UNS PECIFIED COMPARISON: 12/08/2013 TECHNIQUE: Dynamic and static avila scale and color images acquired of the left leg venous system. Se lected spectral images acquired with additional compression and augmentation maneuvers. The contralat eral common femoral vein and saphenofemoral junction were also imaged. Images stored on PACS. LIMITATIONS: None. FINDINGS: LEFT COMMON FEMORAL: Normal phasicity, compression and augmentation. No visualized echogenic material on g ray scale. No defects on color images. FEMORAL: Normal compression and augmentation. No visualized echogenic material on avila scale. No defe cts on color images. POPLITEAL: Normal compression, augmentation. No visualized echogenic material on avila scale. No defec ts on color images. CALF VESSELS: Normal compression, augmentation. No visualized echogenic material on avila scale. No de fects on color images. GSV : Normal compression, augmentation. No visualized echogenic material on avila scale. No defects on color images. ANY DEEP VENOUS INSUFFICIENCY: Not evaluated. ANY EVIDENCE OF POPLITEAL CYST: No. OTHER: No other significant finding. RIGHT COMMON FEMORAL VEIN AND SAPHENOFEMORAL JUNCTION: Normal phasicity, compression and augmentation. No visualized echogenic material on avila scale. No de fects on color images. IMPRESSION: NO EVIDENCE OF DVT OR SVT IN THE LEFT LEG. TECHNICAL DOCUMENTATION: JOB ID: [id number] [employer]- All Rights Reserved Reading location - IP/workstation name: [email or web address]
[2017-11-20] MEDS: CEFTRIAXONE SODIUM 1,000 MG in DEXTROSE 5%-WATER 50 ML IV SCH (12:43)
--- NOTE | 2017-11-20 13:16 | PDOC PROGRESS REPORT ---
Subjective Progress Note for:: 11/13/17 Subjective:: Patient seems to be doing better with gradual improvement. Pt is denying any chest arm or neck discomfort. Patient denying any PND, orthopnea. Patient denied any sustained palpitations, dizziness, syncope, near syncope. Patient denying any fever chills. Patient denying any other significant discomfort. Patient is maintaining sinus rhythm with ventricular paced rhythm. Review of systems: Rest review of systems negative. Medications: Medications have been reviewed. Reason For Visit: UREMA,ESRD, HYPOTENSION,PULMONARY EDEMA,HYPOZIA Physical Exam Vital Signs: Temp Pulse Resp BP Pulse Ox 97.6 F 62 13 127/64 H 96 11/20/17 12:00 11/20/17 12:00 11/20/17 12:00 11/20/17 12:00 11/20/17 12:00 Intake & Output 11/19/17 11/20/17 11/21/17 06:59 06:59 06:59 Intake Total 155 1074 Output Total 0 1030 Balance 155 44 Weight 69.8 kg 68.6 kg Exam: GENERAL: well-nourished and in no acute distress. Alert and oriented x 2 HEAD: Atraumatic, normocephalic. EYES: Pupils equal round and reactive to light, extraocular movements intact, sclera anicteric, conjunctiva are normal. ENT: TMs normal, nares patent, oropharynx clear without exudates. Moist mucous membranes. No oral ulcerations or bleeding gums noted NECK: supple without lymphadenopathy. Trachea is central. No cervical or axillary lymphadenopathy noted. Carotids are 2+, JVD WNL LUNGS: Respiration seems nonlabored, no significant accessory muscle action noted. Bibasilar fine crackles and few scattered wheezes rales or rhonchi noted. No significant dullness noted on percussion. CHEST: Palpation of the chest wall shows no significant chest wall tenderness. HEART: [employer], No PSH, 1/6 NORI aortic area, 1/6 bey systolic murmur mitral area, no rubs, no gallops. ABDOMEN: Soft, no significant tenderness appreciated, normoactive bowel sounds. No guarding, no rebound. No rigidity noted . No masses appreciated. EXTREMITIES: Pedal pulses are 1-2+, no calf tenderness noted. No clubbing or cyanosis. 1+ pedal edema noted NEUROLOGICAL: Focused neurological exam showed no significant neurologic deficit. Normal speech, no focal weakness appreciated. PSYCH: Normal mood, normal affect. Judgment and insight not checked today. SKIN: No significant ecchymosis, skin is noted to be warm. MUSCULOSKELETAL EXAM: No significant acute joint swelling noted. Results Laboratory Results: 11/20/17 07:34 11/20/17 07:34 11/19/17 11/19/17 11/19/17 13:20 13:20 14:45 WBC 10.1 RBC 3.88 Hgb 11.8 L Hct 35.5 L MCV 91 MCH 30.3 MCHC 33.1 RDW 16.0 H Plt Count 177 Carbonic Acid HCO3/H2CO3 Ratio ABG pH ABG pCO2 ABG pO2 ABG HCO3 ABG O2 Saturation ABG Base Excess FiO2 Sodium Potassium Chloride Carbon Dioxide Anion Gap BUN Creatinine Est GFR ( Amer) Est GFR (Non-Af Amer) Glucose C-Peptide 2.89 Calcium Magnesium 2.0 Total Bilirubin AST ALT Alkaline Phosphatase Ammonia Total Protein Albumin TSH Free T4 Urine Color Urine Appearance Urine pH Ur Specific [place] Urine Protein Urine Glucose (UA) Urine Ketones Urine Blood Urine Nitrite Ur Leukocyte Esterase Urine WBC (Auto) Urine RBC (Auto) Blood Type 11/19/17 11/19/17 11/19/17 14:45 19:24 22:41 WBC 8.6 RBC 3.78 Hgb 11.3 L Hct 34.7 L MCV 92 MCH 30.0 MCHC 32.7 RDW 16.2 H Plt Count 165 Carbonic Acid HCO3/H2CO3 Ratio ABG pH ABG pCO2 ABG pO2 ABG HCO3 ABG O2 Saturation ABG Base Excess FiO2 Sodium Potassium Chloride Carbon Dioxide Anion Gap BUN Creatinine Est GFR ( Amer) Est GFR (Non-Af Amer) Glucose C-Peptide Calcium Magnesium Total Bilirubin AST ALT Alkaline Phosphatase Ammonia Total Protein Albumin TSH Free T4 Urine Color GUERLINE Urine Appearance TURBID Urine pH 8.0 Ur Specific [place] 1.009 Urine Protein 100 H Urine Glucose (UA) 150 H Urine Ketones NEGATIVE Urine Blood MODERATE H Urine Nitrite NEGATIVE Ur Leukocyte Esterase LARGE H Urine WBC (Auto) >182 Urine RBC (Auto) 24 Blood Type O POSITIVE 11/20/17 11/20/17 11/20/17 01:26 07:34 07:34 WBC 5.6 RBC 3.64 L Hgb 10.8 L Hct 33.1 L MCV 91 MCH 29.8 MCHC 32.8 RDW 16.2 H Plt Count 143 L Carbonic Acid HCO3/H2CO3 Ratio ABG pH ABG pCO2 ABG pO2 ABG HCO3 ABG O2 Saturation ABG Base Excess FiO2 Sodium Potassium Chloride Carbon Dioxide Anion Gap BUN Creatinine Est GFR ( Amer) Est GFR (Non-Af Amer) Glucose C-Peptide Calcium Magnesium Total Bilirubin 1.1 AST 59 H ALT 30 Alkaline Phosphatase 219 H Ammonia Total Protein 5.5 L Albumin 3.0 L TSH 5.75 H Free T4 2.49 H Urine Color Urine Appearance Urine pH Ur Specific [place] Urine Protein Urine Glucose (UA) Urine Ketones Urine Blood Urine Nitrite Ur Leukocyte Esterase Urine WBC (Auto) Urine RBC (Auto) Blood Type 11/20/17 11/20/17 11/20/17 07:34 07:34 07:34 WBC 5.9 RBC 3.50 L Hgb 10.6 L Hct 32.1 L MCV 92 MCH 30.2 MCHC 33.0 RDW 16.4 H Plt Count 151 Carbonic Acid HCO3/H2CO3 Ratio ABG pH ABG pCO2 ABG pO2 ABG HCO3 ABG O2 Saturation ABG Base Excess FiO2 Sodium 141.9 Potassium 3.7 Chloride 96 L Carbon Dioxide 34 H Anion Gap 12 BUN 27 H Creatinine 4.75 H Est GFR ( Amer) 11 L Est GFR (Non-Af Amer) 9 L Glucose 137 H C-Peptide Calcium 8.8 Magnesium Total Bilirubin AST ALT Alkaline Phosphatase Ammonia < 8.7 L Total Protein Albumin TSH Free T4 Urine Color Urine Appearance Urine pH Ur Specific [place] Urine Protein Urine Glucose (UA) Urine Ketones Urine Blood Urine Nitrite Ur Leukocyte Esterase Urine WBC (Auto) Urine RBC (Auto) Blood Type 11/20/17 08:55 WBC RBC Hgb Hct MCV MCH MCHC RDW Plt Count Carbonic Acid 1.52 H HCO3/H2CO3 Ratio 22:1 ABG pH 7.44 ABG pCO2 50.4 H ABG pO2 72.5 L ABG HCO3 33.7 H ABG O2 Saturation 94.9 ABG Base Excess 8.4 FiO2 25% Sodium Potassium Chloride Carbon Dioxide Anion Gap BUN Creatinine Est GFR ( Amer) Est GFR (Non-Af Amer) Glucose C-Peptide Calcium Magnesium Total Bilirubin AST ALT Alkaline Phosphatase Ammonia Total Protein Albumin TSH Free T4 Urine Color Urine Appearance Urine pH Ur Specific [place] Urine Protein Urine Glucose (UA) Urine Ketones Urine Blood Urine Nitrite Ur Leukocyte Esterase Urine WBC (Auto) Urine RBC (Auto) Blood Type 11/19/17 11/19/17 11/20/17 13:20 19:24 01:26 Troponin I 1.540 1.780 1.340 NT-Pro-B Natriuret Pep 44085 H EKG Comments: Sinus rhythm with ventricular paced rhythm Impressions: Abdomen/Pelvis CT 11/19/17 00:00 IMPRESSION: Small iliacus muscle retroperitoneal hemorrhage Small left anterior abdominal wall hematoma at Lovenox injection site Small nonfunctioning heavily calcified kidneys bilaterally Non contrasted images of the pancreas are unremarkable Head CT 11/19/17 00:00 IMPRESSION: MILD CHRONIC CHANGES OF ATROPHY AND MICROVASCULAR ISCHEMIA. NO ACUTE PROCESS. Other findings as noted above EVIDENCE OF ACUTE STROKE: NO. Chest X-Ray 11/19/17 06:00 IMPRESSION: Interval improvement as noted above. Venous Doppler Study 11/20/17 08:00 IMPRESSION: NO EVIDENCE OF DVT OR SVT IN THE LEFT LEG. Assessment & Plan - Diagnosis (1) Acute respiratory failure with hypoxia Is this a current diagnosis for this admission?: Yes (2) CHF (congestive heart failure) Qualifiers: Heart failure type: diastolic Heart failure chronicity: acute on chronic Qualified Code(s): I50.33 - Acute on chronic diastolic (congestive) heart failure Is this a current diagnosis for this admission?: Yes (3) ESRD (end stage renal disease) on dialysis Is this a current diagnosis for this admission?: Yes (4) Elevated troponin Is this a current diagnosis for this admission?: Yes (5) Pulmonary edema Qualifiers: Chronicity: acute Qualified Code(s): J81.0 - Acute pulmonary edema Is this a current diagnosis for this admission?: Yes (6) Retroperitoneal bleed Is this a current diagnosis for this admission?: Yes (7) Hypertensive CKD, ESRD on dialysis Is this a current diagnosis for this admission?: Yes (8) Coronary atherosclerosis Qualifiers: Coronary Disease-Associated Artery/Lesion type: [place] artery [place] vs. transplanted heart: [place] heart Associated angina: with stable angina Qualified Code(s): I25.118 - Atherosclerotic heart disease of [place] coronary artery with other forms of angina pectoris Is this a current diagnosis for this admission?: Yes (9) Paroxysmal atrial fibrillation Is this a current diagnosis for this admission?: Yes - Notes Notes: Acute pulmonary edema: Most likely related to volume overload from missing dialysis. Yesterday's decompensation could be related to atrial fibrillation with RVR, possible cardiac ischemic event, precipitated by possible acute blood loss due to retroperitoneal hematoma. Patient has shown significant improvement. Currently however is still needing oxygen. Have recommended dialysis therapy to remove more fluid as tolerated by blood pressure. Atrial fibrillation with rapid ventricular response: Today patient is in sinus rhythm. Recommend Cardizem and beta blockers for heart rate control. If patient oxygenation improves and pulmonary function evaluation shows no significant abnormalities in diffusion capacity, would recommend to reinstitute amiodarone therapy. Acute retroperitoneal hematoma: Agree with blood transfusion and attempts to reverse coagulation disorder. May consider hematology help if needed. Recommend maintaining hemoglobin above 8 g percent. Currently hemoglobin is stable. End-stage renal disease on dialysis: Patient noted to be noncompliant. Patient will benefit from improving compliance on dialysis. Coronary artery disease: EKGs has been uninterpretable because of paced rhythm and underlying left bundle branch block pattern. Patient not noted to have any chest pain. Recommend long-acting nitrates. Currently antiplatelet, other anticoagulation contraindicated. Troponin I elevation: Noted to have mild elevation of troponin I probably related to CHF in the setting of end-stage renal disease. Could be also related to supply demand mismatch from severe hypoxemia, hypoglycemia, transient hypotension, atrial fibrillation with rapid ventricular response etc. We will continue to follow patient. 2D echo obtained yesterday. It showed relatively well-preserved LVEF. Study was somewhat technically difficult. - Time Time with patient: Greater than 35 minutes - CODE STATUS was discussed, patient remains DNR. Multiple medical problems were addressed. More than 50% of the time spent coordinating care, discussing management plans with involved caregivers. Management plans discussed with involved personnels. Medical decision making was of high complexity, patient's has multiple comorbidities. Medications reviewed and adjusted accordingly: Yes
[2017-11-20 14:29] LABS: HEMATOCRIT 36.4 % (36.0-47.0); HEMOGLOBIN 11.9 g/dL (12.0-15.5); MEAN CORPUSCULAR HGB CONC 32.8 g/dL (32.0-36.0); MEAN CORPUSCULAR VOLUME 91 fl (80-97); PLATELET COUNT 184 10^3/uL (150-450); RED BLOOD COUNT 3.98 10^6/uL (3.72-5.28); RED CELL DISTRIBUTION WIDTH 16.2 % (11.5-14.0); WHITE BLOOD COUNT 8.5 10^3/uL (4.0-10.5)
[2017-11-20] MEDS ORDERED: ERYTHROMYCIN 0.5% OPH OINTMENT 3.5 GM TUBE OU SCH (18:00)
--- NOTE | 2017-11-20 18:04 | PDOC PROGRESS REPORT ---
Subjective Progress Note for:: 11/20/17 Subjective:: The patient is a 77-year-old female with a complicated past medical history significant for COPD, CHF, end-stage renal disease on dialysis, hypertension, coronary artery disease, dual-chamber pacemaker, chronically anticoagulated secondary to underlying atrial fibrillation, hypothyroidism, adrenal gland insufficiency, previous episodes of pulmonary emboli, and depression who was admitted on 11/18/17 for generalized weakness, fluid volume overload, hypoxia, and pulmonary edema related to missed dialysis appointment. Patient is seen on morning rounds. She is found resting in bed comfortably on BiPAP. She is alert, oriented, and clearly conversational today. She does not recall most of yesterday, but does have vague memories of some of the events ( can remember becoming agitated during dialysis, but seems embarrassed and does not understand why she behaves the way she did). She denies headache, dizziness, chest pain, palpitations, abdominal pain, and nausea. She does endorse dyspnea, orthopnea, and left leg pain. Reason For Visit: UREMA,ESRD, HYPOTENSION,PULMONARY EDEMA,HYPOZIA Physical Exam Vital Signs: Temp Pulse Resp BP Pulse Ox 96.1 F L 56 L 17 168/71 H 96 11/20/17 14:00 11/20/17 14:00 11/20/17 17:00 11/20/17 16:37 11/20/17 17:06 Intake & Output 11/19/17 11/20/17 11/21/17 06:59 06:59 06:59 Intake Total 155 1074 Output Total 0 1030 2300 Balance 155 44 -2300 Weight 69.8 kg 68.6 kg 68.6 kg General appearance: PRESENT: no acute distress, hard of hearing, well-developed , well-nourished Head exam: PRESENT: atraumatic, normocephalic Eye exam: PRESENT: conjunctival injection - Purulent drainage bilaterally, conjunctiva pink, EOMI, PERRLA. ABSENT: scleral icterus Mouth exam: PRESENT: moist, tongue midline Neck exam: ABSENT: carotid bruit, JVD, lymphadenopathy, thyromegaly Respiratory exam: PRESENT: crackles, decreased breath sounds, prolonged expiratory phas, rhonchi, tachypnea, other - BiPAP. ABSENT: rales, wheezes Cardiovascular exam: PRESENT: irregular rhythm, +S1, +S2, systolic murmur, tachycardia. ABSENT: diastolic murmur, rubs Pulses: PRESENT: normal dorsalis pedis pul Vascular exam: PRESENT: normal capillary refill GI/Abdominal exam: PRESENT: normal bowel sounds, soft. ABSENT: distended, guarding, mass, organolmegaly, rebound, tenderness Rectal exam: PRESENT: deferred Extremities exam: PRESENT: full ROM. ABSENT: calf tenderness, clubbing, pedal edema Musculoskeletal exam: PRESENT: tenderness - Right upper extremity, left lower extremity, other - Baseball-sized hematoma to her lateral right upper arm Neurological exam: PRESENT: alert, awake, oriented to person, oriented to place , oriented to time, oriented to situation, CN II-XII grossly intact. ABSENT: motor sensory deficit Psychiatric exam: PRESENT: appropriate affect, normal mood. ABSENT: homicidal ideation, suicidal ideation Skin exam: PRESENT: dry, intact, warm. ABSENT: cyanosis, rash Results Laboratory Results: 11/20/17 14:05 11/20/17 07:34 11/19/17 11/19/17 11/19/17 13:20 14:45 19:24 WBC 8.6 RBC 3.78 Hgb 11.3 L Hct 34.7 L MCV 92 MCH 30.0 MCHC 32.7 RDW 16.2 H Plt Count 165 Carbonic Acid HCO3/H2CO3 Ratio ABG pH ABG pCO2 ABG pO2 ABG HCO3 ABG O2 Saturation ABG Base Excess FiO2 Sodium Potassium Chloride Carbon Dioxide Anion Gap BUN Creatinine Est GFR ( Amer) Est GFR (Non-Af Amer) Glucose Calcium Magnesium 2.0 Total Bilirubin AST ALT Alkaline Phosphatase Ammonia Total Protein Albumin TSH Free T4 Urine Color Urine Appearance Urine pH Ur Specific [place] Urine Protein Urine Glucose (UA) Urine Ketones Urine Blood Urine Nitrite Ur Leukocyte Esterase Urine WBC (Auto) Urine RBC (Auto) Blood Type O POSITIVE 11/19/17 11/20/17 11/20/17 22:41 01:26 07:34 WBC 5.6 RBC 3.64 L Hgb 10.8 L Hct 33.1 L MCV 91 MCH 29.8 MCHC 32.8 RDW 16.2 H Plt Count 143 L Carbonic Acid HCO3/H2CO3 Ratio ABG pH ABG pCO2 ABG pO2 ABG HCO3 ABG O2 Saturation ABG Base Excess FiO2 Sodium Potassium Chloride Carbon Dioxide Anion Gap BUN Creatinine Est GFR ( Amer) Est GFR (Non-Af Amer) Glucose Calcium Magnesium Total Bilirubin AST ALT Alkaline Phosphatase Ammonia Total Protein Albumin TSH 5.75 H Free T4 2.49 H Urine Color GUERLINE Urine Appearance TURBID Urine pH 8.0 Ur Specific [place] 1.009 Urine Protein 100 H Urine Glucose (UA) 150 H Urine Ketones NEGATIVE Urine Blood MODERATE H Urine Nitrite NEGATIVE Ur Leukocyte Esterase LARGE H Urine WBC (Auto) >182 Urine RBC (Auto) 24 Blood Type 11/20/17 11/20/17 11/20/17 07:34 07:34 07:34 WBC 5.9 RBC 3.50 L Hgb 10.6 L Hct 32.1 L MCV 92 MCH 30.2 MCHC 33.0 RDW 16.4 H Plt Count 151 Carbonic Acid HCO3/H2CO3 Ratio ABG pH ABG pCO2 ABG pO2 ABG HCO3 ABG O2 Saturation ABG Base Excess FiO2 Sodium Potassium Chloride Carbon Dioxide Anion Gap BUN Creatinine Est GFR ( Amer) Est GFR (Non-Af Amer) Glucose Calcium Magnesium Total Bilirubin 1.1 AST 59 H ALT 30 Alkaline Phosphatase 219 H Ammonia < 8.7 L Total Protein 5.5 L Albumin 3.0 L TSH Free T4 Urine Color Urine Appearance Urine pH Ur Specific [place] Urine Protein Urine Glucose (UA) Urine Ketones Urine Blood Urine Nitrite Ur Leukocyte Esterase Urine WBC (Auto) Urine RBC (Auto) Blood Type 11/20/17 11/20/17 11/20/17 07:34 08:55 14:05 WBC 8.5 RBC 3.98 Hgb 11.9 L Hct 36.4 MCV 91 MCH 30.0 MCHC 32.8 RDW 16.2 H Plt Count 184 Carbonic Acid 1.52 H HCO3/H2CO3 Ratio 22:1 ABG pH 7.44 ABG pCO2 50.4 H ABG pO2 72.5 L ABG HCO3 33.7 H ABG O2 Saturation 94.9 ABG Base Excess 8.4 FiO2 25% Sodium 141.9 Potassium 3.7 Chloride 96 L Carbon Dioxide 34 H Anion Gap 12 BUN 27 H Creatinine 4.75 H Est GFR ( Amer) 11 L Est GFR (Non-Af Amer) 9 L Glucose 137 H Calcium 8.8 Magnesium Total Bilirubin AST ALT Alkaline Phosphatase Ammonia Total Protein Albumin TSH Free T4 Urine Color Urine Appearance Urine pH Ur Specific [place] Urine Protein Urine Glucose (UA) Urine Ketones Urine Blood Urine Nitrite Ur Leukocyte Esterase Urine WBC (Auto) Urine RBC (Auto) Blood Type 11/19/17 11/19/17 11/20/17 13:20 19:24 01:26 Troponin I 1.540 1.780 1.340 NT-Pro-B Natriuret Pep 82784 H Impressions: Abdomen/Pelvis CT 11/19/17 00:00 IMPRESSION: Small iliacus muscle retroperitoneal hemorrhage Small left anterior abdominal wall hematoma at Lovenox injection site Small nonfunctioning heavily calcified kidneys bilaterally Non contrasted images of the pancreas are unremarkable Head CT 11/19/17 00:00 IMPRESSION: MILD CHRONIC CHANGES OF ATROPHY AND MICROVASCULAR ISCHEMIA. NO ACUTE PROCESS. Other findings as noted above EVIDENCE OF ACUTE STROKE: NO. Chest X-Ray 11/19/17 06:00 IMPRESSION: Interval improvement as noted above. Venous Doppler Study 11/20/17 08:00 IMPRESSION: NO EVIDENCE OF DVT OR SVT IN THE LEFT LEG. Assessment & Plan - Diagnosis (1) Pulmonary edema Qualifiers: Chronicity: acute Qualified Code(s): J81.0 - Acute pulmonary edema Is this a current diagnosis for this admission?: Yes Plan: Persistent. Pulmonary edema is likely multifactorial secondary to end-stage renal disease on dialysis; missed dialysis appointment, and CHF exacerbation Slight improvement in aeration noted on repeat chest x-ray yesterday. Echocardiogram revealed preserved ejection fraction. The patient is currently admitted to the ICU. She is provided supplemental oxygen to maintain oxygen saturations greater than 88%. BiPAP as needed; appears patient has tolerated short periods on Nasal Cannula today. Scheduled and as needed nebulizer treatments are available. Nephrology was consulted; plan to dialyze again today. Cardiology was consulted; appreciate their evaluation regarding CHF and assistance in managing this patient. Pulmonology has been consulted; appreciate their evaluation and assistance regarding this complicated patient. The patient makes minimal urine; attempts to diuresis will likely be futile No indication for steroids or antibiotics at this time. (2) Altered mental status Is this a current diagnosis for this admission?: Yes Plan: Improved; leading differential diagnosis is still intermittent profound hypoxia and intermittent hypoglycemia. The patient's mental status rapidly improves following placement of BiPAP; wean BiPAP has to be removed for patient movement/ care, she rapidly becomes confused. No evidence of focal deficits. Lactic acid 1.3 LFTs and ammonia reassuring Head CT demonstrates chronic microvascular changes; negative for acute processes. Urinalysis is positive for UTI. Blood cultures are negative at 48 hours. Urine cultures are pending. We will trend her fever and CBC to monitor infectious process. Continue to aggressively intervene regarding acute respiratory failure. Monitoring glucose closely and correcting as needed. Antibiotics for a urinary tract infection. Fall precautions, supportive care, provide for patient safety (3) Acute respiratory failure with hypoxia Is this a current diagnosis for this admission?: Yes Plan: Slight improvement. Secondary to acute pulmonary edema related to missed dialysis appointment, CHF exacerbation, and underlying COPD. The patient is not home O2 dependent. Initial ABGs revealed mild metabolic alkalosis, likely related to dialysis. Repeat ABG today on BiPAP reveals compensated mixed respiratory acidosis/ metabolic alkalosis with hypoxia The patient has been transferred to the ICU. The patient's daughter clearly stated that she would wish for her mother to be intubated if necessary. Have initiated stress steroids. Pulmonology has been consulted; appreciate their assistance. Remaining plan as above. (4) Hypoglycemia Is this a current diagnosis for this admission?: Yes Plan: Unclear etiology; possibly related to adrenal insufficiency in setting of CHF exacerbation/respiratory failure. CT of the abdomen was negative for pancreatic masses, insulinomas. Did incidentally reveal a small retroperitoneal bleed. C-peptide 2.89, Insulin 1.49. Now on D5 NS at 30 ml/hr. Patient is eating small amounts of food. Glucose as low as 104 today. Stress dose steroids. We will monitor Accu-Cheks every [address] hours. Hypoglycemia protocol in place. Proinsulin and Beta-Hydroxybutyrate are pending. Once laboratory results are available, may consider contacting [facility] endocrinology for consultation. The patient's nurse her primary reports that she was provided 1 dose of Levaquin Friday evening (rare occurrence of profound and occasionally fatal hypoglycemia in nondiabetic patients has been reported; discussed this with pharmacy who advised to avoid further fluoroquinolones but could not recommend any additional workup to evaluate this is a potential cause). (5) Hypothyroidism Qualifiers: Hypothyroidism type: unspecified Qualified Code(s): E03.9 - Hypothyroidism , unspecified Is this a current diagnosis for this admission?: Yes Plan: Subtherapeutic treatment; TSH 5.75 Increase Synthroid to 175 mcg (6) ESRD (end stage renal disease) on dialysis Is this a current diagnosis for this admission?: Yes Plan: Dr. Coleman has been consulted; appreciate his critical assistance. Have removed 4.9 L thus far; plan for additional dialysis tomorrow. (7) Adrenal insufficiency Is this a current diagnosis for this admission?: Yes Plan: The patient is chronically on hydrocortisone 10 mg every morning and 5 mg nightly. Providing stress dosed steroids; continue IV Solu-Medrol 20 mg twice daily today. (8) CHF (congestive heart failure) Qualifiers: Heart failure type: diastolic Heart failure chronicity: acute on chronic Qualified Code(s): I50.33 - Acute on chronic diastolic (congestive) heart failure Is this a current diagnosis for this admission?: Yes Plan: Patient with acute on chronic diastolic heart failure evidenced by pulmonary edema, tachycardia, elevated proBNP >63k. Echocardiogram revealed preserved LVEF. Patient makes minimal urine; have not attempted diuretics at this time. Nephrology has been consulted; continuing to dialyze to remove fluid. Cardiology has been consulted; appreciate Dr. Dinh's evaluation, recommendations, and assistance in managing this complex patient. (9) Elevated troponin Is this a current diagnosis for this admission?: Yes Plan: Likely demand ischemia secondary to CHF exacerbation in the setting of missed dialysis appointment and atrial fibrillation with RVR asked by a regular paced rhythm (patient is known to have underlying atrial fibrillation; heart rate has intermittently increased to 140-150). Patient denies chest pain. Troponins are trending up to 1.78, now down to 1.34. No longer trending. Cardiology has been consulted; appreciate their evaluation recommendations. Medication management per cardiology. (10) Coagulopathy Is this a current diagnosis for this admission?: Yes Plan: Unclear cause; verified with patient's primary nurse at [facility] that she has been off of Coumadin for greater than 1 year and off of Lovenox for nearly 9 months. Approximately 9-10 months ago, the patient was transitioned to Eliquis due to developing hematomas with Lovenox therapy. Liver enzymes are somewhat elevated, however, total bili is normal and they are certainly not elevated enough to account for an INR of 3.62. Patient is confirmed to be on Eliquis 2.5 mg twice daily. PT 18.5, INR 1.47, PTT 68.1 Fibrinogen 608 Febrile degraded products <[address] Garnica (surgeon) and pharmacy options for reversal. Patient received oral vitamin K and 2 units FFP yesterday. Aspirin and heparin are discontinued. Eliquis held. We will continue to monitor PT/INR and PTT. Laboratory evaluation negative for DIC. Consider hematology consultation. (11) Retroperitoneal bleed Is this a current diagnosis for this admission?: Yes Plan: Incidental finding of retroperitoneal bleed on abdominal CT. Of note, she reports that she fell approximately 3-4 weeks ago and sustained a large hematoma to her right upper arm that remains tender to touch ( approximately the size of a baseball). She is anticoagulated on Eliquis 2.5 mg twice daily. Laboratory evaluation reveals coagulopathic with INR of 3.62, PT 37.7, PTT 108.4. Received critical report from Dr. Carrasco; patient found to have a left iliacus retroperitoneal hemorrhage measuring 6 x 6 x 4 cm. Surgery was consulted; discussed the patient's condition with Dr. Garnica. Anticoagulation reversed yesterday; monitoring PT/INR and PTT. Hemoglobin up today 10.6--> following an additional 2.6 L pulled off during dialysis. Laboratory values must be interpreted carefully, decrease noted may have been related to worsening fluid volume status. However, the increase in hemoglobin today may also be artificially inflated secondary to fluid removal. We will continue to trend CBC. We will monitor serial CBCs. Will transfuse as necessary for hemoglobin less than 8. Repeat PT/INR and PTT in the morning. Consider repeat imaging. - Time Time Spent with patient: 15-24 minutes Medications reviewed and adjusted accordingly: Yes
[2017-11-20] MEDS: ATORVASTATIN CALCIUM 40 MG TABLET PO SCH (22:36)
[2017-11-21 04:16] LABS: ABSOLUTE LYMPHOCYTES (AUTO) 0.6 10^3/uL (0.5-4.7); ABSOLUTE MONOCYTES (AUTO) 0.4 10^3/uL (0.1-1.4); BASOPHILS % (AUTO) 0.1 % (0-2); HEMATOCRIT 33.2 % (36.0-47.0); HEMOGLOBIN 10.9 g/dL (12.0-15.5); LYMPHOCYTES % (AUTO) 8.9 % (13-45); MEAN CORPUSCULAR HGB CONC 32.9 g/dL (32.0-36.0); MEAN CORPUSCULAR VOLUME 91 fl (80-97); MONOCYTES % (AUTO) 5.9 % (3-13); PLATELET COUNT 176 10^3/uL (150-450); RED BLOOD COUNT 3.64 10^6/uL (3.72-5.28); RED CELL DISTRIBUTION WIDTH 16.6 % (11.5-14.0); SEGMENTED NEUTROPHILS % (AUTO) 85.1 % (42-78); TOTAL CELLS COUNTED % (AUTO) 100 %; WHITE BLOOD COUNT 7.1 10^3/uL (4.0-10.5)
[2017-11-21 04:22] LABS: INTERNATIONAL RATION (INR) 1.15; PROTHROMBIN TIME 15.3 SEC (11.4-15.4)
[2017-11-21 04:24] LABS: PARTIAL THROMBOPLASTIN TIME 57.6 SEC (23.5-35.8)
[2017-11-21 04:40] LABS: ALANINE AMINOTRANSFERASE 33 U/L (9-52); ALBUMIN 3.1 g/dL (3.5-5.0); ALKALINE PHOSPHATASE 208 U/L (38-126); ANION GAP 14 (5-19); ASPARTATE AMINO TRANSFERASE 52 U/L (14-36); BILIRUBIN,DIRECT 0.6 mg/dL (0.0-0.4); BILIRUBIN,TOTAL 0.6 mg/dL (0.2-1.3); BLOOD UREA NITROGEN 40 mg/dL (7-20); CALCIUM 8.8 mg/dL (8.4-10.2); CARBON DIOXIDE 30 mmol/L (22-30); CHLORIDE 98 mmol/L (98-107); GLUCOSE 135 mg/dL (75-110); POTASSIUM 4.1 mmol/L (3.6-5.0); SODIUM 141.6 mmol/L (137-145); TOTAL PROTEIN 5.8 g/dL (6.3-8.2)
[2017-11-21] MEDS: LEVOTHYROXINE SODIUM 0.15 MG TABLET PO SCH (05:36)
[2017-11-21] MEDS: LEVOTHYROXINE SODIUM 0.025 MG TABLET PO SCH (05:36)
[2017-11-21 06:09] LABS: ARTERIAL BLOOD BASE EXCESS 5.1 mmol/L; ARTERIAL BLOOD FIO2 25%; ARTERIAL BLOOD H2CO3 1.46 mmol/L (1.05-1.35); ARTERIAL BLOOD HCO3 30.5 mmol/L (20-26); ARTERIAL BLOOD O2 SATURATION 95.6 % (94-98); ARTERIAL BLOOD PCO2 48.5 mmHg (35-45); ARTERIAL BLOOD PH 7.42 (7.35-7.45); ARTERIAL BLOOD PO2 77.9 mmHg (80-100)
--- NOTE | 2017-11-21 06:16 | RADIOLOGY REPORT (SQ) ---
EXAM DESCRIPTION: XR CHEST 1 VIEW COMPLETED DATE/TME: 11/21/2017 06:00 CLINICAL HISTORY: 77 years Female, resp failure COMPARISON: 2 days prior. NUMBER OF VIEWS/TECHNIQUE: 1/AP FINDINGS: Prominent interstitium, small patchiness of the right midlung field, moderate right lung volume, normal cardiac silhouette, right cardiac stability with leads. No pneumothorax. No acute bone defect. IMPRESSION: No significant change.
--- NOTE | 2017-11-21 08:20 | EKG REPORT ---
SEVERITY:- ABNORMAL ECG - ATRIAL-SENSED VENTRICULAR-PACED RHYTHM : Confirmed by: Tennille Dinh 21-Nov-2017 08:20:34
[2017-11-21] MEDS: FAMOTIDINE 20 MG TABLET PO SCH ×2 (09:56→21:12)
[2017-11-21] MEDS: ISOSORBIDE MONONITRATE 30 MG TAB.ER.24H PO SCH (09:56)
[2017-11-21] MEDS: MAGNESIUM OXIDE 400 MG TABLET PO SCH ×2 (09:56→17:17)
[2017-11-21] MEDS: SODIUM BICARBONATE 650 MG TABLET PO SCH ×2 (09:57→17:17)
[2017-11-21] MEDS: PAROXETINE HCL 20 MG TABLET PO SCH (09:57)
[2017-11-21] MEDS: METOPROLOL TARTRATE 25 MG TABLET PO SCH ×2 (09:58→21:12)
[2017-11-21] MEDS: FLUTICASONE NASAL SPRAY 50 MCG/SPRY 120 SPRAY/16 GM NASL SCH ×2 (10:01→21:12)
[2017-11-21] MEDS: POLYVINYL ALCOHOL 1.4% OPH SOLN 15 ML OU SCH ×4 (10:02→21:11)
[2017-11-21] MEDS: METHYLPREDNISOLONE INJ 40 MG/1 ML SDV IV SCH ×2 (10:03→17:17)
[2017-11-21] MEDS: DOCUSATE SODIUM 100 MG CAPSULE PO SCH (10:09)
--- NOTE | 2017-11-21 10:57 | PDOC PROGRESS REPORT ---
Subjective Progress Note for:: 11/21/17 Reason For Visit: Patient seen today on hemodialysis. She is much better than when I saw her yesterday. She is awake alert and oriented. She is undergoing dialysis without any issues. Vital signs are stable.She denies any abdominal pains chest pains or shortness of breath. Labs and medications were reviewed with the patient. I note that she has been diagnosed with a large left retroperitoneal hematoma. She is also been begun on stress dose steroids Physical Exam Vital Signs: Temp Pulse Resp BP Pulse Ox 97.7 F 74 13 160/66 H 98 11/21/17 07:54 11/21/17 07:33 11/21/17 10:08 11/21/17 09:53 11/21/17 10:08 Intake & Output 11/20/17 11/21/17 11/22/17 06:59 06:59 06:59 Intake Total 1074 1194 355 Output Total 1030 2330 Balance 44 -1136 355 Weight 68.6 kg 68.5 kg General appearance: PRESENT: no acute distress Respiratory exam: PRESENT: clear to auscultation kannan. ABSENT: crackles, rhonchi Cardiovascular exam: PRESENT: RRR, +S1, +S2 GI/Abdominal exam: PRESENT: soft. ABSENT: ascites, distended, firm, guarding, organomegaly, tenderness Neurological exam: PRESENT: alert, awake, oriented to person, oriented to place Psychiatric exam: ABSENT: anxious Skin exam: ABSENT: cyanosis, erythema Results Laboratory Results: 11/21/17 04:05 11/21/17 04:05 11/20/17 11/21/17 11/21/17 14:05 04:05 04:05 WBC 8.5 7.1 RBC 3.98 3.64 L Hgb 11.9 L 10.9 L Hct 36.4 33.2 L MCV 91 91 MCH 30.0 30.0 MCHC 32.8 32.9 RDW 16.2 H 16.6 H Plt Count 184 176 Seg Neutrophils % 85.1 H Lymphocytes % 8.9 L Monocytes % 5.9 Eosinophils % 0.0 Basophils % 0.1 Absolute Neutrophils 6.0 Absolute Lymphocytes 0.6 Absolute Monocytes 0.4 Absolute Eosinophils 0.0 Absolute Basophils 0.0 Carbonic Acid HCO3/H2CO3 Ratio ABG pH ABG pCO2 ABG pO2 ABG HCO3 ABG O2 Saturation ABG Base Excess FiO2 Sodium 141.6 Potassium 4.1 Chloride 98 Carbon Dioxide 30 Anion Gap 14 BUN 40 H Creatinine 5.47 H Est GFR ( Amer) 9 L Est GFR (Non-Af Amer) 8 L Glucose 135 H Calcium 8.8 Magnesium 2.6 H Total Bilirubin 0.6 AST 52 H ALT 33 Alkaline Phosphatase 208 H Total Protein 5.8 L Albumin 3.1 L 11/21/17 06:00 WBC RBC Hgb Hct MCV MCH MCHC RDW Plt Count Seg Neutrophils % Lymphocytes % Monocytes % Eosinophils % Basophils % Absolute Neutrophils Absolute Lymphocytes Absolute Monocytes Absolute Eosinophils Absolute Basophils Carbonic Acid 1.46 H HCO3/H2CO3 Ratio 20:1 ABG pH 7.42 ABG pCO2 48.5 H ABG pO2 77.9 L ABG HCO3 30.5 H ABG O2 Saturation 95.6 ABG Base Excess 5.1 FiO2 25% Sodium Potassium Chloride Carbon Dioxide Anion Gap BUN Creatinine Est GFR ( Amer) Est GFR (Non-Af Amer) Glucose Calcium Magnesium Total Bilirubin AST ALT Alkaline Phosphatase Total Protein Albumin 11/19/17 22:41 Clean Catch Midstream Urine Culture - Final Mixed Skin. Possible Pathogen 11/19/17 11/19/17 11/20/17 13:20 19:24 01:26 Troponin I 1.540 1.780 1.340 NT-Pro-B Natriuret Pep 50061 H Impressions: Abdomen/Pelvis CT 11/19/17 00:00 IMPRESSION: Small iliacus muscle retroperitoneal hemorrhage Small left anterior abdominal wall hematoma at Lovenox injection site Small nonfunctioning heavily calcified kidneys bilaterally Non contrasted images of the pancreas are unremarkable Head CT 11/19/17 00:00 IMPRESSION: MILD CHRONIC CHANGES OF ATROPHY AND MICROVASCULAR ISCHEMIA. NO ACUTE PROCESS. Other findings as noted above EVIDENCE OF ACUTE STROKE: NO. Venous Doppler Study 11/20/17 08:00 IMPRESSION: NO EVIDENCE OF DVT OR SVT IN THE LEFT LEG. Chest X-Ray 11/21/17 06:00 IMPRESSION: No significant change. Assessment & Plan - Diagnosis (1) Acute respiratory failure with hypoxia Is this a current diagnosis for this admission?: Yes Plan: Improved postdialysis and doing better. (2) ESRD (end stage renal disease) on dialysis Is this a current diagnosis for this admission?: Yes Plan: Patient seen on dialysis. Is being supervised to ensure safe and smooth procedure.Vital signs are stable. Orders were reviewed with the treating dialysis nurse. Plan to remove between 2 and 3 L as tolerated. (3) Pulmonary edema Qualifiers: Chronicity: acute Qualified Code(s): J81.0 - Acute pulmonary edema Is this a current diagnosis for this admission?: Yes Plan: Mild. Has responded to dialysis. Monitor. (4) Hypothyroidism Qualifiers: Hypothyroidism type: unspecified Qualified Code(s): E03.9 - Hypothyroidism , unspecified Is this a current diagnosis for this admission?: Yes Plan: On replacements. (6) Hypoglycemia Is this a current diagnosis for this admission?: Yes Plan: Agree with the hospitalist evaluations that this is more likely from her adrenal insufficiency and lack of stress steroids. (7) Adrenal insufficiency Is this a current diagnosis for this admission?: Yes Plan: Currently blood pressure better after initiation with stress dose steroids. (8) Paroxysmal atrial fibrillation Is this a current diagnosis for this admission?: Yes (9) Retroperitoneal hematoma Is this a current diagnosis for this admission?: Yes Plan: Possibly from the fall in the face of being on Eliquis. Management as per engineer technician and hospitalist.
[2017-11-21] MEDS: CEFTRIAXONE SODIUM 1,000 MG in DEXTROSE 5%-WATER 50 ML IV SCH (11:52)
--- NOTE | 2017-11-21 14:40 | RADIOLOGY REPORT (SQ) ---
EXAM DESCRIPTION: CT ABD/PELVIS NO ORAL OR IV COMPLETED DATE/TIME: 11/21/2017 2:24 pm REASON FOR STUDY: Follow up on retroperitoneal bleed R41.82 ALTERED MENTAL STATUS, UNSPECIFIED I50. 9 HEART FAILURE, UNSPECIFIED COMPARISON: 11/19/2017 TECHNIQUE: CT scan of the abdomen and pelvis performed without intravenous or oral contrast. Images reviewed with lung, soft tissue, and bone windows. Reconstructed coronal and sagittal MPR images revi ewed. All images stored on PACS. All CT scanners at this facility use dose modulation, iterative reconstruction, and/or weight based d osing when appropriate to reduce radiation dose to as low as reasonably achievable (ALARA). [facility]: Dose Right [facility]: CareDose [facility]: Dose Right [facility]: Teradose 4D [facility]: Tykli RADIATION DOSE: CT Rad equipment meets quality standard of care and radiation dose reduction techniq ues were employed. CTDIvol: 8.4 mGy. DLP: 498 mGy-cm.mGy. LIMITATIONS: None. FINDINGS: LOWER CHEST: Mild subsegmental atelectasis. NON-CONTRASTED LIVER, SPLEEN, ADRENALS: Evaluation limited by lack of IV contrast. No identified sign ificant masses. PANCREAS: No masses. No peripancreatic inflammatory changes. GALLBLADDER: Surgically absent. RIGHT KIDNEY AND URETER: Atrophic kidney with cortical thinning. Intrarenal calculi are present. No hydronephrosis. LEFT KIDNEY AND URETER: Atrophic kidney with cortical thinning. Intrarenal calculi. AORTA AND RETROPERITONEUM: Aorta is normal in caliber. Left iliacus hematoma is slightly larger. Co mpare image 69 series 3 of the current study with image 60 of series 2 of the earlier study. BOWEL AND PERITONEAL CAVITY: No obvious masses or inflammatory changes. No free fluid. APPENDIX: Surgically absent. PELVIS, BLADDER, AND ABDOMINAL WALL:No abnormal masses. No free fluid. Bladder normal. BONES: L3-4 and L5-S1 degenerative disc changes. Grade 1 anterolisthesis of L5 on S1. No osseous le sions. OTHER: No other significant finding. IMPRESSION: 1. The left iliacus hematoma is slightly larger. 2. Osseous findings as described. COMMENT: Quality ID # [id number]: Final reports with documentation of one or more dose reduction techniques (e.g., Automated exposure control, adjustment of the mA and/or kV according to patient size, use of iterative reconstruction technique) TECHNICAL DOCUMENTATION: JOB ID: [id number] [employer]- All Rights Reserved Reading location - IP/workstation name: [email or web address]
--- NOTE | 2017-11-21 17:50 | PDOC PROGRESS REPORT ---
Subjective Progress Note for:: 11/21/17 Subjective:: The patient is a 77-year-old female with a complicated past medical history significant for COPD, CHF, end-stage renal disease on dialysis, hypertension, coronary artery disease, dual-chamber pacemaker, chronically anticoagulated secondary to underlying atrial fibrillation, hypothyroidism, adrenal gland insufficiency, previous episodes of pulmonary emboli, and depression who was admitted on 11/18/17 for generalized weakness, fluid volume overload, hypoxia, and pulmonary edema related to missed dialysis appointment. Patient is seen on morning rounds with nursing at bedside. She is visited again slightly before lunch when her daughter is present. At both visits, the patient is found to be resting comfortably on supplemental oxygen via nasal cannula. She is fully conversational and does not appear to have tachypnea or needed pauses for breaths while talking. She reports that she is feeling much better today, smiling, and laughing on occasion. The patient and daughter are updated on her condition, including laboratory and imaging evaluation. They are updated on the various specialty providers involved in her care and my understanding of each is positions and goals for the day. Their primary concern today is conflicting recommendations between nephrology, cardiology, and myself with regard to resuming chronic anticoagulation. This is certainly a very difficult decision for them as her stroke and PE risk are nearly equivalent to her catastrophic bleed risks. Prior to any decisions, will need to verify with nephrology whether or not Eliquis is required to maintain patency of her dialysis access. She denies headache, dizziness, chest pain, palpitations, dyspnea, orthopnea, abdominal pain, and nausea. She reports that her left leg pain has resolved. Reason For Visit: UREMA,ESRD, HYPOTENSION,PULMONARY EDEMA,HYPOZIA Physical Exam Vital Signs: Temp Pulse Resp BP Pulse Ox 97.3 F 69 16 136/61 H 96 11/21/17 16:00 11/21/17 16:00 11/21/17 16:00 11/21/17 16:00 11/21/17 16:00 Intake & Output 11/20/17 11/21/17 11/22/17 06:59 06:59 06:59 Intake Total 1074 1194 355 Output Total 1030 2330 1900 Balance 30 -5325 -3456 Weight 68.6 kg 68.5 kg General appearance: PRESENT: no acute distress, cooperative, well-developed, well-nourished, other - Overweight Head exam: PRESENT: atraumatic, normocephalic Eye exam: PRESENT: conjunctiva pink, EOMI, PERRLA. ABSENT: scleral icterus Ear exam: PRESENT: normal external ear exam Mouth exam: PRESENT: moist, tongue midline Teeth exam: PRESENT: poor dentation Neck exam: ABSENT: carotid bruit, JVD, lymphadenopathy, thyromegaly Respiratory exam: PRESENT: crackles - Bibasilar; significant improvement, prolonged expiratory phas, rhonchi - Occasional, symmetrical, tachypnea, other - Supplemental oxygen by nasal cannula. ABSENT: rales, wheezes Cardiovascular exam: PRESENT: irregular rhythm, +S1, +S2, systolic murmur - Pronounced systolic murmur. ABSENT: diastolic murmur, rubs Pulses: PRESENT: normal dorsalis pedis pul Vascular exam: PRESENT: normal capillary refill GI/Abdominal exam: PRESENT: normal bowel sounds, soft. ABSENT: distended, guarding, mass, organolmegaly, rebound, tenderness Rectal exam: PRESENT: deferred Extremities exam: PRESENT: other - Large hematoma to right upper extremity. ABSENT: calf tenderness, clubbing, pedal edema Neurological exam: PRESENT: alert, awake, oriented to person, oriented to place , oriented to time, oriented to situation, CN II-XII grossly intact. ABSENT: motor sensory deficit Psychiatric exam: PRESENT: appropriate affect, normal mood. ABSENT: homicidal ideation, suicidal ideation Skin exam: PRESENT: dry, intact, warm, other - Scattered ecchymosis. ABSENT: cyanosis, rash Results Laboratory Results: 11/21/17 04:05 11/21/17 04:05 11/21/17 11/21/17 11/21/17 04:05 04:05 06:00 WBC 7.1 RBC 3.64 L Hgb 10.9 L Hct 33.2 L MCV 91 MCH 30.0 MCHC 32.9 RDW 16.6 H Plt Count 176 Seg Neutrophils % 85.1 H Lymphocytes % 8.9 L Monocytes % 5.9 Eosinophils % 0.0 Basophils % 0.1 Absolute Neutrophils 6.0 Absolute Lymphocytes 0.6 Absolute Monocytes 0.4 Absolute Eosinophils 0.0 Absolute Basophils 0.0 Carbonic Acid 1.46 H HCO3/H2CO3 Ratio 20:1 ABG pH 7.42 ABG pCO2 48.5 H ABG pO2 77.9 L ABG HCO3 30.5 H ABG O2 Saturation 95.6 ABG Base Excess 5.1 FiO2 25% Sodium 141.6 Potassium 4.1 Chloride 98 Carbon Dioxide 30 Anion Gap 14 BUN 40 H Creatinine 5.47 H Est GFR ( Amer) 9 L Est GFR (Non-Af Amer) 8 L Glucose 135 H Calcium 8.8 Magnesium 2.6 H Total Bilirubin 0.6 AST 52 H ALT 33 Alkaline Phosphatase 208 H Total Protein 5.8 L Albumin 3.1 L 11/19/17 22:41 Clean Catch Midstream Urine Culture - Final Mixed Skin. Possible Pathogen 11/19/17 11/19/17 11/20/17 13:20 19:24 01:26 Troponin I 1.540 1.780 1.340 NT-Pro-B Natriuret Pep 47974 H Impressions: Head CT 11/19/17 00:00 IMPRESSION: MILD CHRONIC CHANGES OF ATROPHY AND MICROVASCULAR ISCHEMIA. NO ACUTE PROCESS. Other findings as noted above EVIDENCE OF ACUTE STROKE: NO. Venous Doppler Study 11/20/17 08:00 IMPRESSION: NO EVIDENCE OF DVT OR SVT IN THE LEFT LEG. Chest X-Ray 11/21/17 06:00 IMPRESSION: No significant change. Abdomen/Pelvis CT 11/21/17 09:30 IMPRESSION: 1. The left iliacus hematoma is slightly larger. 2. Osseous findings as described. Assessment & Plan - Diagnosis (1) Pulmonary edema Qualifiers: Chronicity: acute Qualified Code(s): J81.0 - Acute pulmonary edema Is this a current diagnosis for this admission?: Yes Plan: Improved. Pulmonary edema is likely multifactorial secondary to end-stage renal disease on dialysis; missed dialysis appointment, and CHF exacerbation Repeat chest x-ray today is reported to be essentially unchanged. Images were personally reviewed; I do note improved aeration especially to the left base. Echocardiogram revealed preserved ejection fraction. Patient is downgraded to IMCU. She is provided supplemental oxygen to maintain oxygen saturations greater than 88%. BiPAP as needed; primarily using BiPAP overnight. Has tolerated nasal cannula during the day well.. As needed nebulizer treatments are available. Nephrology was consulted; plan to dialyze again today. Cardiology was consulted; appreciate their evaluation regarding CHF and assistance in managing this patient. Pulmonology has been consulted; appreciate their evaluation and assistance regarding this complicated patient. The patient makes minimal urine; attempts to diuresis will likely be futile (2) Altered mental status Is this a current diagnosis for this admission?: Yes Plan: Resolved; leading differential diagnosis is still intermittent profound hypoxia and intermittent hypoglycemia. The patient's mental status rapidly improves following placement of BiPAP; wean BiPAP has to be removed for patient movement/ care, she rapidly becomes confused. No evidence of focal deficits. Lactic acid 1.3 LFTs and ammonia reassuring Head CT demonstrates chronic microvascular changes; negative for acute processes. Urinalysis is positive for UTI. Blood cultures are negative at 72 hours. Urine cultures show likely contaminant. We will trend her fever and CBC to monitor infectious process. Continue to aggressively intervene regarding acute respiratory failure. Monitoring glucose closely and correcting as needed. Antibiotics for a urinary tract infection. Fall precautions, supportive care, provide for patient safety (3) Acute respiratory failure with hypoxia Is this a current diagnosis for this admission?: Yes Plan: Significant improvement following dialysis yesterday. Secondary to acute pulmonary edema related to missed dialysis appointment, CHF exacerbation, and underlying COPD. The patient is not home O2 dependent. Initial ABGs revealed mild metabolic alkalosis, likely related to dialysis. Repeat ABG BiPAP reveals compensated mixed respiratory acidosis/metabolic alkalosis with hypoxia. ABG this morning shows improvement; CO2 is trending down, bicarb trending down, PO2 77.9 The patient's daughter clearly stated that she would wish for her mother to be intubated if necessary. Have initiated stress steroids. Pulmonology has been consulted; appreciate their assistance. Remaining plan as above. (4) Hypoglycemia Is this a current diagnosis for this admission?: Yes Plan: Likely related to adrenal insufficiency in setting of CHF exacerbation/ respiratory failure; has improved following initiation of stress dose steroids. CT of the abdomen was negative for pancreatic masses, insulinomas. Did incidentally reveal a small retroperitoneal bleed. C-peptide 2.89, Insulin 1.49. D5NS discontinued today; will continue to monitor Accu-Cheks every 6 hours 24 hours. If patient is able to demonstrate stable blood sugars, we will discontinue Accu-Cheks tomorrow. Stress dose steroids. Proinsulin and Beta-Hydroxybutyrate are pending. Once laboratory results are available, may consider contacting [facility] endocrinology for consultation. The patient's nurse her primary reports that she was provided 1 dose of Levaquin Friday evening (rare occurrence of profound and occasionally fatal hypoglycemia in nondiabetic patients has been reported; discussed this with pharmacy who advised to avoid further fluoroquinolones but could not recommend any additional workup to evaluate this is a potential cause). (5) Hypothyroidism Qualifiers: Hypothyroidism type: unspecified Qualified Code(s): E03.9 - Hypothyroidism , unspecified Is this a current diagnosis for this admission?: Yes Plan: Subtherapeutic treatment; TSH 5.75 Increase Synthroid to 175 mcg (6) ESRD (end stage renal disease) on dialysis Is this a current diagnosis for this admission?: Yes Plan: Dr. Coleman has been consulted; appreciate his critical assistance. Have removed 4.9 L thus far; patient was receiving dialysis during assessment today. Dialysis nurse tells me that her goal is an additional 3-4 L today. (7) Adrenal insufficiency Is this a current diagnosis for this admission?: Yes Plan: The patient is chronically on hydrocortisone 10 mg every morning and 5 mg nightly. Providing stress dosed steroids; continue IV Solu-Medrol 20 mg twice daily today. (8) CHF (congestive heart failure) Qualifiers: Heart failure type: diastolic Heart failure chronicity: acute on chronic Qualified Code(s): I50.33 - Acute on chronic diastolic (congestive) heart failure Is this a current diagnosis for this admission?: Yes Plan: Patient with acute on chronic diastolic heart failure evidenced by pulmonary edema, tachycardia, elevated proBNP >63k. Echocardiogram revealed preserved LVEF. Patient makes minimal urine; have not attempted diuretics at this time. Nephrology has been consulted; continuing to dialyze to remove fluid. Cardiology has been consulted; appreciate Dr. Dinh's evaluation, recommendations, and assistance in managing this complex patient. (9) Elevated troponin Is this a current diagnosis for this admission?: Yes Plan: Likely demand ischemia secondary to CHF exacerbation in the setting of missed dialysis appointment and atrial fibrillation with RVR asked by a regular paced rhythm (patient is known to have underlying atrial fibrillation; heart rate has intermittently increased to 140-150). Patient denies chest pain. Troponins are trending up to 1.78, now down to 1.34. No longer trending. Cardiology has been consulted; appreciate their evaluation recommendations. Medication management per cardiology. (10) Coagulopathy Is this a current diagnosis for this admission?: Yes Plan: Most likely related to Eliquis. Liver enzymes are somewhat elevated, however, total bili is normal and they are certainly not elevated enough to account for an INR of 3.62. Patient is confirmed to be on Eliquis 2.5 mg twice daily. PT 15.2, INR 1.15, PTT 57.6 Fibrinogen 608 Febrile degraded products <[address] Garnica (surgeon) and pharmacy options for reversal. Patient initially treated with oral vitamin K and 2 units FFP. Aspirin and heparin are discontinued. Eliquis held. We will continue to monitor PT/INR and PTT. Laboratory evaluation negative for DIC. Spoke with the patient and daughter today regarding conflicting recommendations for chronic anticoagulation in patient with chronic A. fib, history of DVT and PE, and hemorrhagic episode. They are understandably confused and concerned. I spoke to Dr. Warner for additional advice; elevated INR was likely related to Eliquis and is expected on DOAC therapy. He recommended verifying with nephrology their concern for continuing anticoagulation to maintain patency of dialysis access. If nephrology feels that anticoagulation is necessary, recommend withholding 1 month and following up with hematology once initiated to monitor effect. Formal consultation placed so that family can meet with Dr. Warner or Dr. Martínez to discuss their concerns and establish rapport for follow- up. His time today in discussing the patient's case is very much appreciated. (11) Retroperitoneal bleed Is this a current diagnosis for this admission?: Yes Plan: Incidental finding of retroperitoneal bleed on abdominal CT. Of note, she reports that she fell approximately 3-4 weeks ago and sustained a large hematoma to her right upper arm that remains tender to touch ( approximately the size of a baseball). She is anticoagulated on Eliquis 2.5 mg twice daily. Laboratory evaluation reveals coagulopathic with INR of 3.62, PT 37.7, PTT 108.4. Received critical report from Dr. Carrasco; patient found to have a left iliacus retroperitoneal hemorrhage measuring 6 x 6 x 4 cm. Repeat abdominal/pelvic CT today demonstrates slight enlargement of the retroperitoneal hematoma; specific measurements not provided. Surgery was consulted; discussed the patient's condition with Dr. Garnica. Anticoagulation reversed; monitoring PT/INR and PTT. Hemoglobin waxing and waning depending on draw time related to dialysis; Hgb appears to be relatively stable. Laboratory values must be interpreted carefully, decrease noted may have been related to worsening fluid volume status. However, the increase in hemoglobin today may also be artificially inflated secondary to fluid removal. We will monitor serial CBCs. Will transfuse as necessary for hemoglobin less than 8. - Time Time Spent with patient: 35 or more minutes Medications reviewed and adjusted accordingly: Yes
--- NOTE | 2017-11-21 20:50 | PROGRESS NOTE E ---
Progress Note NAME: VARINDER TORRES : 1940 AGE: 77Y DATE: 11/21/2017 ROOM: 322 SUBJECTIVE: The patient denies any chest pain or discomfort. There is no PND, orthopnea. There is no arrhythmia seen on the monitor. The patient has no leg edema. There is no shortness of breath. She has improved a lot. She denies any palpitations. The monitor shows atrial and ventricular paced rhythm. OBJECTIVE: GENERAL: On examination the patient is mildly obese. She is well-groomed. She is in no acute distress. VITAL SIGNS: She is afebrile with a temperature of 97.7 degrees Fahrenheit, pulse is 62 beats per minute, blood pressure is 116/76, respirations are 16 per minute, O2 saturations are 95% on 2 liters nasal cannula. HEENT: Head is atraumatic, normocephalic. Eyes: Pupils are equal, round and regular, reactive to light and accommodation. Extraocular movements are normal. There is no conjunctival pallor. There is no scleral icterus. ENT is negative. NECK: Supple. There is no JVD. There is no lymphadenopathy. There is no goiter. Carotids are equal. There is no bruit. Trachea is central. LUNGS: Clear to auscultation and percussion. HEART: S1, S2 is heard. There is no S3 gallop. There is no S4 gallop. There is a systolic murmur in the left sternal border and the apex. There is no rub. ABDOMEN: Soft, nontender. There is no hepatosplenomegaly. Bowel sounds are well heard. There are no tender areas or masses. EXTREMITIES: Femorals are diminished. There are no femoral bruits. Leg pulses are diminished. There is no pedal edema. There is no DVT or cellulitis. There is no calf tenderness. CENTRAL NERVOUS SYSTEM: The patient is conscious, awake, alert and oriented x3 with no focal deficits. PSYCHIATRIC: The patient's judgment and insight are intact. Her affect is normal. DIAGNOSTIC STUDIES: The patient's EKG one this morning shows atrial sensed ventricular paced rhythm. The patient's abdominal and pelvic CT done today shows left iliac crest hematoma is slightly larger, see the findings as described in the body of the report. See the report. Her sodium is 141.6, potassium 4.1, chloride is 98, CO2 is 30. The patient's BUN is 40, creatinine 5.47, GFR is reduced to 8 mL which is end-stage renal disease and glucose is 135. The patient's magnesium is 2.6, calcium is 8.8. Liver function show AST elevated 52, alk-phos is elevated at 208. Albumin is low at 3.1, total protein is low at 5.8. The patient's ProTime is 13.3, INR is 1.15, and her PTT is 57.6. The patient's ABG showed pH of 4.42, pCO2 is slightly elevated at 48.5, pO2 is low at 77.9, and her O2 sats are 95.6% on 2 liters FiO2, that is 25% FiO2. The patient's white count is 7100, hemoglobin is 10.9, hematocrit is 33.2, her platelet count is 176,000. IMPRESSION: 1. ACUTE RESPIRATORY FAILURE WITH HYPOXIA AND HYPERCAPNIA. Seems to have improved. 2. CONGESTIVE HEART FAILURE. At present clinically stable. 3. END-STAGE RENAL DISEASE ON DIALYSIS. At present the patient is having dialysis and tolerating it well. 4. ELEVATED TROPONIN I, MULTIFACTORIAL. MOST LIKELY SECONDARY TO PATIENT'S CONGESTIVE HEART FAILURE AND THE PATIENT'S END-STAGE RENAL DISEASE. NO DEFINITE EVIDENCE OF NON-ST ELEVATION [place]. 5. RETROPERITONEAL BLEED. Eliquis has been held. 6. HYPERTENSION WITH CHRONIC KIDNEY DISEASE. Blood pressure is still not optimal control. 7. CORONARY ARTERIOSCLEROSIS. The patient has no anginal symptoms. 8. ATRIAL FIBRILLATION. 9. AICD PLACEMENT. No firing of the AICD. 10. HYPOTHYROIDISM. Note the patient is on replacement thyroid. Continue the same. 11. ABNORMAL LIVER FUNCTION TESTS. RECOMMENDATIONS: The patient's medications have been reviewed. We will continue the patient on current dialysis, continue the patient on atorvastatin, continue the patient on antibiotics and hypoglycemic precautions, continue the patient on levothyroxine, and continue the patient on metoprolol. Increase metoprolol to 25 mg p.o. q.12 hours and continue her Pepcid. Note, medical decision making even though it is of moderate complexity her medications have been increased in the form of Lopressor to 25 mg p.o. q. day. Would recommended hydralazine to control the blood pressure if the blood pressure is not well-controlled. Note, that the patient is on amiodarone, I have to ascertain whether the patient's amiodarone is being continued for the possible atrial fibrillation. CODE STATUS: Note that the patient is a DNR. Her daughter is the surrogate healthcare decision maker. Discussed with the daughter. Discussed with the attending physician taking care of the patient. We will follow with you. TIME SPENT: Note 40 minutes spent on this patient with more than 50% of the time spent in direct patient care. DICTATING PHYSICIAN: FRIDA NICOLE M.D. [id number] PHY#: [id number] 2020 ID: [id number] JOB#: [id number] ACCT: [id number] cc: > MTDD
[2017-11-21] MEDS: ATORVASTATIN CALCIUM 40 MG TABLET PO SCH (21:12)
[2017-11-22] MEDS ORDERED: HYDRALAZINE HCL INJ/PF 20 MG/1 ML SDV IV PRN (03:58)
[2017-11-22 04:36] LABS: ABSOLUTE LYMPHOCYTES (AUTO) 0.7 10^3/uL (0.5-4.7); ABSOLUTE MONOCYTES (AUTO) 0.5 10^3/uL (0.1-1.4); ABSOLUTE NEUT (AUTO) 6.3 10^3/uL (1.7-8.2); HEMATOCRIT 33.9 % (36.0-47.0); LYMPHOCYTES % (AUTO) 9.3 % (13-45); MEAN CORPUSCULAR HGB CONC 32.5 g/dL (32.0-36.0); MEAN CORPUSCULAR VOLUME 92 fl (80-97); MONOCYTES % (AUTO) 6.8 % (3-13); PLATELET COUNT 174 10^3/uL (150-450); RED BLOOD COUNT 3.67 10^6/uL (3.72-5.28); RED CELL DISTRIBUTION WIDTH 16.7 % (11.5-14.0); SEGMENTED NEUTROPHILS % (AUTO) 83.9 % (42-78); TOTAL CELLS COUNTED % (AUTO) 100 %; WHITE BLOOD COUNT 7.5 10^3/uL (4.0-10.5)
[2017-11-22 05:00] LABS: ANION GAP 11 (5-19); BLOOD UREA NITROGEN 30 mg/dL (7-20); CARBON DIOXIDE 34 mmol/L (22-30); CHLORIDE 98 mmol/L (98-107); GLUCOSE 138 mg/dL (75-110); POTASSIUM 4.1 mmol/L (3.6-5.0); SODIUM 142.7 mmol/L (137-145)
[2017-11-22] MEDS: LEVOTHYROXINE SODIUM 0.025 MG TABLET PO SCH (05:41)
[2017-11-22] MEDS: LEVOTHYROXINE SODIUM 0.15 MG TABLET PO SCH (05:42)
[2017-11-22] MEDS: METHYLPREDNISOLONE INJ 40 MG/1 ML SDV IV SCH (09:18)
[2017-11-22] MEDS: SODIUM BICARBONATE 650 MG TABLET PO SCH ×2 (09:20→17:20)
[2017-11-22] MEDS: FAMOTIDINE 20 MG TABLET PO SCH ×2 (09:20→21:30)
[2017-11-22] MEDS: ISOSORBIDE MONONITRATE 30 MG TAB.ER.24H PO SCH (09:20)
[2017-11-22] MEDS: METOPROLOL TARTRATE 25 MG TABLET PO SCH ×2 (09:20→21:07)
[2017-11-22] MEDS: PAROXETINE HCL 20 MG TABLET PO SCH (09:20)
[2017-11-22] MEDS: POLYVINYL ALCOHOL 1.4% OPH SOLN 15 ML OU SCH ×4 (09:21→21:08)
[2017-11-22] MEDS: MAGNESIUM OXIDE 400 MG TABLET PO SCH (09:22)
[2017-11-22] MEDS: DOCUSATE SODIUM 100 MG CAPSULE PO SCH (09:22)
[2017-11-22] MEDS: FLUTICASONE NASAL SPRAY 50 MCG/SPRY 120 SPRAY/16 GM NASL SCH ×2 (09:22→21:09)
--- NOTE | 2017-11-22 09:37 | RADIOLOGY REPORT (SQ) ---
EXAM DESCRIPTION: CHEST SINGLE VIEW COMPLETED DATE/TIME: 11/22/2017 9:02 am REASON FOR STUDY: volume overload COMPARISON: 11/21/2017. FINDINGS: Single-view chest AP portable upright at approximately [address] hours[address] Pacer remains in place. Low lung volumes. Suspect mild basilar subsegmental atelectasis. No pneumothorax or new infiltrate. Stable cardiomediastinal silhouette. IMPRESSION: Stable chest. TECHNICAL DOCUMENTATION: JOB ID: [id number] Reading location - IP/workstation name: [email or web address]
[2017-11-22 10:22] LABS: ARTERIAL BLOOD BASE EXCESS 5.7 mmol/L; ARTERIAL BLOOD H2CO3 1.05 mmol/L (1.05-1.35); ARTERIAL BLOOD HCO3 28.5 mmol/L (20-26); ARTERIAL BLOOD O2 SATURATION 97.1 % (94-98); ARTERIAL BLOOD PH 7.53 (7.35-7.45); ARTERIAL BLOOD PO2 82.3 mmHg (80-100); ARTERIAL BLOOD TOTAL CO2 29.6 mmol/L (21-25)
[2017-11-22 10:23] LABS: ARTERIAL BLOOD FIO2 1.5L
[2017-11-22 11:59] LABS: PROINSULIN 5.6 pmol/L (0.0-10.0)
[2017-11-22] MEDS ORDERED: PHENOL/SODIUM PHENOLATE 100 SPRAY/177 ML BOTTLE PO PRN (12:07)
--- NOTE | 2017-11-22 12:28 | PDOC CONSULTATION ---
Consultation Consult Date: 11/22/17 Attending physician:: SAULO WHEELER Consult reason:: Recurrent PE and recent bleed History of Present Illness Admission Date/PCP: 11/18/17 16:13 VANDANA MARQUES MD Patient complains of: Hematoma History of Present Illness: VARINDER TORRES is a 77 year old female with known history of multiple medical problems including end-stage renal disease on chronic dialysis, was on Eliquis 2.5 mg twice daily, has history of recurrent PE 2 on chronic anticoagulation. Upon presentation she was hypotensive, was intubated for a period of time, was septic for a period of time, INR was elevated on admission and imaging indicated a large left retroperitoneal hematoma patient received FFP to reverse anticoagulation. Eliquis was stopped. Of note she also did of fall to the right side and developed a hematoma prior to admission involving the right upper arm. She also tells me she remembers a few weeks prior to have vaginal bleeding and Eliquis was held for a period of time for that as well. She did have lower extremity Dopplers upon admission and there were negative for any DVT currently. She is very weak now, getting a bit stronger, does reside at [facility], but does appear she needs to have aggressive rehab to get back where she was before. Apparently dialysis is running very well without any problems so we noted that the Eliquis was not needed for this issue. Past Medical History Cardiac Medical History: Reports: Congestive Heart Failure, Coronary Artery Disease, DVT, Myocardial Infarction, Hypertension, Pulmonary Embolism, Heart Murmur Pulmonary Medical History: Reports: Chronic Obstructive Pulmonary Disease (COPD) , Pneumonia Denies: Asthma, Bronchitis, Tuberculosis EENT Medical History: Reports: None Neurological Medical History: Denies: Seizures Endocrine Medical History: Reports: None Renal/ Medical History: Reports: End Stage Renal Disease - On dialysis Malignancy Medical History: Reports: None GI Medical History: Reports: Gastroesophageal Reflux Disease Musculoskeltal Medical History: Reports: Arthritis Psychiatric Medical History: Reports: Depression Hematology: Reports: Anemia Infectious Medical History: Reports: None Past Surgical History Past Surgical History: Reports: Cholecystectomy, Gastric Bypass Surgery, Orthopedic Surgery, Tonsillectomy, Tubal Ligation Denies: Hysterectomy Social History Information Source: Patient Lives with: [facility] Smoking Status: Former Smoker Frequency of Alcohol Use: None Hx Recreational Drug Use: No Drugs: None Hx Prescription Drug Abuse: No - Advance Directive Resuscitation Status: Do Not Resuscitate Family History Family History: CAD, Hypertension Parental Family History Reviewed: Yes Children Family History Reviewed: Yes Sibling(s) Family History Reviewed.: Yes Medication/Allergy Home Medications: Acetaminophen [Tylenol 325 mg Tablet] 650 mg PO Q4HP PRN 11/18/17 Amiodarone HCl [Cordarone 200 mg Tablet] 200 mg PO DAILY 11/18/17 Apixaban [Eliquis 2.5 mg Tablet] 2.5 mg PO BID 11/18/17 Aspirin [Aspirin 81 mg Chewable Tablet] 81 mg PO DAILY 11/18/17 Atorvastatin Calcium [Lipitor 40 mg Tablet] 40 mg PO QHS 11/18/17 Chlorhexidine Gluconate [Peridex 0.12% Oral Rinse 473 ml] 15 ml MM BID 11/18/17 Cyanocobalamin (Vitamin B-12) [Vitamin B-12] 500 mcg PO DAILY 11/18/17 Diphenoxylate HCl/Atrop Sulf [Lomotil 2.5 mg Tablet] 5 mg PO ACHS 11/18/17 Eyelid Cleanser Combination 5 [Ocusoft Lid Scrub] 1 each TP BID 11/18/17 Famotidine [Pepcid 20 mg Tablet] 20 mg PO Q12 11/18/17 Ferric Citrate [Auryxia] 210 mg PO TID 11/18/17 Fluticasone Propionate [Flonase Nasal [place] 50 Mcg/[place] 16 gm] 1 spray NASL Q12 11/18/17 Hydrocortisone [Cortef 10 Mg Tablet] 5 mg PO QHS 11/18/17 Hydrocortisone [Cortef 10 Mg Tablet] 10 mg PO DAILY 11/18/17 Isosorbide Mononitrate [Imdur 30 mg Tablet.er] 30 mg PO DAILY 11/18/17 L. Rhamnosus GG/Inulin [Culturelle Probiotics Capsule] 1 cap PO DAILY 11/18/17 Levothyroxine Sodium [Synthroid 0.15 mg Tablet] 0.15 mg PO Q6AM 11/18/17 Loperamide HCl [Imodium A-D] 4 mg PO QID 11/18/17 Loratadine [Claritin 10 mg Tablet] 10 mg PO QHS 11/18/17 Magnesium Oxide [Mag-Ox 400 mg Tablet] 400 mg PO BID 11/18/17 Metoprolol Tartrate [Lopressor 25 mg Tablet] 12.5 mg PO Q12 11/18/17 Nitroglycerin [Nitrostat 0.4 mg (1/150 Gr) Tabs 25/Bottle] 1 tab SL Q5MP PRN Olopatadine HCl [Pataday] 1 drop OU DAILY@0900 11/18/17 Oxycodone HCl/Acetaminophen [Percocet 5-325 mg Tablet] 1 tab PO Q6HP PRN Paroxetine HCl [Paxil] 10 mg PO DAILY 11/18/17 Polyvinyl Alcohol [Liquitears] 1 drop OU QID 11/18/17 Sodium Bicarbonate [Sodium Bicarbonate 650 mg Tablet] 650 mg PO BID 11/18/17 Allergies/Adverse Reactions: iodine Allergy (Severe, Verified 11/17/17 10:18) itching, facial swelling, difficulty breathing doxycycline [Doxycycline] Allergy (Verified 11/17/17 10:18) dizzy Iodinated Contrast- Oral and IV Dye [IV Dye, Iodine Containing] Allergy ( Verified 11/17/17 10:18) Sulfa (Sulfonamide Antibiotics) Allergy (Verified 11/17/17 10:18) dizzy amlodipine besylate [From Norvasc] Adverse Reaction (Unknown, Verified 11/17/17 10:18) anxious, jittery feeling Review of Systems Constitutional: ABSENT: chills, fever(s), headache(s), weight gain, weight loss Eyes: ABSENT: visual disturbances Ears: ABSENT: hearing changes Cardiovascular: ABSENT: chest pain, dyspnea on exertion, edema, orthropnea, palpitations Respiratory: ABSENT: cough, hemoptysis Gastrointestinal: ABSENT: abdominal pain, constipation, diarrhea, hematemesis, hematochezia, nausea, vomiting Genitourinary: ABSENT: dysuria, hematuria Musculoskeletal: ABSENT: joint swelling Integumentary: ABSENT: rash, wounds Neurological: ABSENT: abnormal gait, abnormal speech, confusion, dizziness, focal weakness, syncope Psychiatric: ABSENT: anxiety, depression, homidical ideation, suicidal ideation Endocrine: ABSENT: cold intolerance, heat intolerance, polydipsia, polyuria Hematologic/Lymphatic: ABSENT: easy bleeding, easy bruising Physical Exam Vital Signs: Temp Pulse Resp BP Pulse Ox 97.8 F 67 12 151/73 H 98 11/22/17 07:18 11/22/17 07:18 11/22/17 07:18 11/22/17 07:18 11/22/17 07:18 Intake & Output 11/21/17 11/22/17 11/23/17 06:59 06:59 06:59 Intake Total 1194 800 Output Total 2330 1900 Balance -1136 -1100 Weight 68.5 kg 65.5 kg General appearance: PRESENT: no acute distress, well-developed, well-nourished Head exam: PRESENT: atraumatic, normocephalic Eye exam: PRESENT: conjunctiva pink, EOMI, PERRLA. ABSENT: scleral icterus Ear exam: PRESENT: normal external ear exam Mouth exam: PRESENT: moist, tongue midline Neck exam: ABSENT: carotid bruit, JVD, lymphadenopathy, thyromegaly Respiratory exam: PRESENT: clear to auscultation kannan. ABSENT: rales, rhonchi, wheezes Cardiovascular exam: PRESENT: RRR. ABSENT: diastolic murmur, rubs, systolic murmur Pulses: PRESENT: normal dorsalis pedis pul Vascular exam: PRESENT: normal capillary refill GI/Abdominal exam: PRESENT: normal bowel sounds, soft. ABSENT: distended, guarding, mass, organolmegaly, rebound, tenderness Rectal exam: PRESENT: deferred Extremities exam: PRESENT: full ROM. ABSENT: calf tenderness, clubbing, pedal edema Neurological exam: PRESENT: alert, awake, oriented to person, oriented to place , oriented to time, oriented to situation, CN II-XII grossly intact. ABSENT: motor sensory deficit Psychiatric exam: PRESENT: appropriate affect, normal mood. ABSENT: homicidal ideation, suicidal ideation Skin exam: PRESENT: dry, intact, warm. ABSENT: cyanosis, rash Results Laboratory Results: 11/22/17 04:14 11/22/17 04:14 11/22/17 11/22/17 11/22/17 04:14 04:14 10:05 WBC 7.5 RBC 3.67 L Hgb 11.0 L Hct 33.9 L MCV 92 MCH 30.0 MCHC 32.5 RDW 16.7 H Plt Count 174 Seg Neutrophils % 83.9 H Lymphocytes % 9.3 L Monocytes % 6.8 Eosinophils % 0.0 Basophils % 0.0 Absolute Neutrophils 6.3 Absolute Lymphocytes 0.7 Absolute Monocytes 0.5 Absolute Eosinophils 0.0 Absolute Basophils 0.0 Carbonic Acid 1.05 HCO3/H2CO3 Ratio 27:1 ABG pH 7.53 H ABG pCO2 35.0 ABG pO2 82.3 ABG HCO3 28.5 H ABG O2 Saturation 97.1 ABG Base Excess 5.7 FiO2 1.5L Sodium 142.7 Potassium 4.1 Chloride 98 Carbon Dioxide 34 H Anion Gap 11 BUN 30 H Creatinine 3.59 H Est GFR ( Amer) 15 L Est GFR (Non-Af Amer) 12 L Glucose 138 H Calcium 9.0 Magnesium 2.6 H 11/19/17 22:41 Clean Catch Midstream Urine Culture - Final Mixed Skin. Possible Pathogen 11/19/17 11/19/17 11/20/17 13:20 19:24 01:26 Troponin I 1.540 1.780 1.340 NT-Pro-B Natriuret Pep 92719 H 11/22/17 04:14 Troponin I NT-Pro-B Natriuret Pep [id number] H Impressions: Head CT 11/19/17 00:00 IMPRESSION: MILD CHRONIC CHANGES OF ATROPHY AND MICROVASCULAR ISCHEMIA. NO ACUTE PROCESS. Other findings as noted above EVIDENCE OF ACUTE STROKE: NO. Venous Doppler Study 11/20/17 08:00 IMPRESSION: NO EVIDENCE OF DVT OR SVT IN THE LEFT LEG. Abdomen/Pelvis CT 11/21/17 09:30 IMPRESSION: 1. The left iliacus hematoma is slightly larger. 2. Osseous findings as described. Chest X-Ray 11/22/17 06:00 IMPRESSION: Stable chest. Status: Image reviewed by me Assessment & Plan - Diagnosis (1) Other pulmonary embolism without acute cor pulmonale Qualifiers: Chronicity: chronic Qualified Code(s): I27.82 - Chronic pulmonary embolism Is this a current diagnosis for this admission?: Yes Plan: History of chronic PE, because she has recurrent PE she would theoretically require lifelong anticoagulation, but given her recent hematoma and increased size of hematoma on CT imaging done yesterday, I think the risk of bleeding outweighs the benefit of preventing a recurrent thrombotic event. At this point I would hold any anticoagulation for at least a month to ensure that bleeding further does not occur, within 2-3 months of discharge would recommend CT abdomen pelvis without contrast to ensure the hematoma stable. Thereafter we could consider restarting anticoagulation based upon patient and family desires. - Time Time Spent: Greater than 70 Minutes - Inpatient Certification Based on my medical assessment, after consideration of the patient's comorbidities, presenting symptoms, or acuity I expect that the services needed warrant INPATIENT care.: Yes I certify that my determination is in accordance with my understanding of Medicare's requirements for reasonable and necessary INPATIENT services [42 CFR 412.3e].: Yes Medical Necessity: Risk of Complication if Not Cared For in Hospital
--- NOTE | 2017-11-22 14:47 | PDOC PROGRESS REPORT ---
Subjective Progress Note for:: 11/22/17 Subjective:: The patient is a 77-year-old female with a complicated past medical history significant for COPD, CHF, end-stage renal disease on dialysis, hypertension, coronary artery disease, dual-chamber pacemaker, chronically anticoagulated secondary to underlying atrial fibrillation, hypothyroidism, adrenal gland insufficiency, previous episodes of pulmonary emboli, and depression who was admitted on 11/18/17 for generalized weakness, fluid volume overload, hypoxia, and pulmonary edema related to missed dialysis appointment. Patient is seen on morning rounds; unfortunately, her family members are not present at this time. She is found resting in bed comfortably on nasal cannula at 1.5 L/min. Her ABG this morning demonstrated compensated metabolic alkalosis which is expected given her aggressive dialysis this week. She reports that she is feeling much better today; noted an increase in her appetite. She denies chest pain, palpitations, dyspnea, orthopnea, abdominal pain. Her left lower leg pain has resolved. Overall she is feeling much better and is pleased by her recovery. She does note, that she is more weak than normal. At baseline, the patient is ambulatory with walker. She is hopeful to be discharged to home later today or tomorrow. Reason For Visit: UREMA,ESRD, HYPOTENSION,PULMONARY EDEMA,HYPOZIA Physical Exam Vital Signs: Temp Pulse Resp BP Pulse Ox 97.7 F 61 16 163/69 H 99 11/22/17 11:55 11/22/17 11:55 11/22/17 11:55 11/22/17 11:55 11/22/17 11:55 Intake & Output 11/21/17 11/22/17 11/23/17 06:59 06:59 06:59 Intake Total 1194 800 118 Output Total 2330 1900 Balance -1136 -1100 118 Weight 68.5 kg 65.5 kg General appearance: PRESENT: no acute distress, cooperative, well-developed, well-nourished Head exam: PRESENT: atraumatic, normocephalic Eye exam: PRESENT: conjunctiva pink, EOMI, PERRLA. ABSENT: scleral icterus Ear exam: PRESENT: normal external ear exam Mouth exam: PRESENT: moist, tongue midline Neck exam: ABSENT: carotid bruit, JVD, lymphadenopathy, thyromegaly Respiratory exam: PRESENT: clear to auscultation kannan, prolonged expiratory phas , symmetrical, unlabored, other - Supplmental oxygen via NC. ABSENT: rales, rhonchi, wheezes Cardiovascular exam: PRESENT: irregular rhythm, +S1, +S2, systolic murmur. ABSENT: diastolic murmur, rubs Pulses: PRESENT: normal dorsalis pedis pul Vascular exam: PRESENT: normal capillary refill GI/Abdominal exam: PRESENT: normal bowel sounds, soft. ABSENT: distended, guarding, mass, organolmegaly, rebound, tenderness Rectal exam: PRESENT: deferred Extremities exam: PRESENT: full ROM. ABSENT: calf tenderness, clubbing, pedal edema Neurological exam: PRESENT: alert, awake, oriented to person, oriented to place , oriented to time, oriented to situation, CN II-XII grossly intact. ABSENT: motor sensory deficit Psychiatric exam: PRESENT: appropriate affect, normal mood. ABSENT: homicidal ideation, suicidal ideation Skin exam: PRESENT: dry, intact, warm. ABSENT: cyanosis, rash Results Laboratory Results: 11/22/17 04:14 11/22/17 04:14 11/22/17 11/22/17 11/22/17 04:14 04:14 10:05 WBC 7.5 RBC 3.67 L Hgb 11.0 L Hct 33.9 L MCV 92 MCH 30.0 MCHC 32.5 RDW 16.7 H Plt Count 174 Seg Neutrophils % 83.9 H Lymphocytes % 9.3 L Monocytes % 6.8 Eosinophils % 0.0 Basophils % 0.0 Absolute Neutrophils 6.3 Absolute Lymphocytes 0.7 Absolute Monocytes 0.5 Absolute Eosinophils 0.0 Absolute Basophils 0.0 Carbonic Acid 1.05 HCO3/H2CO3 Ratio 27:1 ABG pH 7.53 H ABG pCO2 35.0 ABG pO2 82.3 ABG HCO3 28.5 H ABG O2 Saturation 97.1 ABG Base Excess 5.7 FiO2 1.5L Sodium 142.7 Potassium 4.1 Chloride 98 Carbon Dioxide 34 H Anion Gap 11 BUN 30 H Creatinine 3.59 H Est GFR ( Amer) 15 L Est GFR (Non-Af Amer) 12 L Glucose 138 H Calcium 9.0 Magnesium 2.6 H 11/19/17 11/19/17 11/20/17 13:20 19:24 01:26 Troponin I 1.540 1.780 1.340 NT-Pro-B Natriuret Pep [id number] H 11/22/17 04:14 Troponin I NT-Pro-B Natriuret Pep [id number] H Impressions: Head CT 11/19/17 00:00 IMPRESSION: MILD CHRONIC CHANGES OF ATROPHY AND MICROVASCULAR ISCHEMIA. NO ACUTE PROCESS. Other findings as noted above EVIDENCE OF ACUTE STROKE: NO. Venous Doppler Study 11/20/17 08:00 IMPRESSION: NO EVIDENCE OF DVT OR SVT IN THE LEFT LEG. Abdomen/Pelvis CT 11/21/17 09:30 IMPRESSION: 1. The left iliacus hematoma is slightly larger. 2. Osseous findings as described. Chest X-Ray 11/22/17 06:00 IMPRESSION: Stable chest. Assessment & Plan - Diagnosis (1) Pulmonary edema Qualifiers: Chronicity: acute Qualified Code(s): J81.0 - Acute pulmonary edema Is this a current diagnosis for this admission?: Yes Plan: Continues to improve. Pulmonary edema is likely multifactorial secondary to end -stage renal disease on dialysis; missed dialysis appointment, and CHF exacerbation Repeat chest x-ray today demonstrates low lung volumes and bilateral subsegmental atelectasis. Images were personally reviewed; it appears that there is continued improvement in aeration. ABG this morning demonstrated complete metabolic alkalosis which is appropriate given the patient's aggressive diuresis this week. Hypercapnia has resolved. Echocardiogram revealed preserved ejection fraction. Admitted to [facility] on continuous cardiac telemetry. She is provided supplemental oxygen to maintain oxygen saturations greater than 88%. Oxygen weaning going well. BiPAP as needed. As needed nebulizer treatments are available. Nephrology was consulted; appreciate their assistance. Cardiology was consulted; appreciate their assistance.. Pulmonology has been consulted; appreciate their assistance. The patient makes minimal urine; attempts to diuresis will likely be futile (2) Altered mental status Is this a current diagnosis for this admission?: Yes Plan: Resolved; secondary to profound hypoxia and intermittent hypoglycemia. Lactic acid 1.3 LFTs and ammonia reassuring Head CT demonstrates chronic microvascular changes; negative for acute processes. Urinalysis is positive for UTI; however cultures demonstrated normal jennifer. Blood cultures are negative at 72 hours. We will trend her fever and CBC to monitor infectious process. Support respiratory needs. Glucose is stabilized. No indications for antibiotics. Fall precautions, supportive care, provide for patient safety (3) Acute respiratory failure with hypoxia Is this a current diagnosis for this admission?: Yes Plan: Significant improvement following dialysis. Secondary to acute pulmonary edema related to missed dialysis appointment, CHF exacerbation, and underlying COPD. The patient is not home O2 dependent. ABG today demonstrates metabolic alkalosis; hypercapnia and hypoxia have resolved. The patient's daughter clearly stated that she would wish for her mother to be intubated if necessary. Continue stress steroids. Pulmonology has been consulted; appreciate their assistance. Remaining plan as above. (4) Hypoglycemia Is this a current diagnosis for this admission?: Yes Plan: Likely related to adrenal insufficiency in setting of CHF exacerbation/ respiratory failure; has improved following initiation of stress dose steroids. CT of the abdomen was negative for pancreatic masses, insulinomas. Did incidentally reveal a small retroperitoneal bleed. C-peptide 2.89, Insulin 1.49. D5NS discontinued yesterday; no hypoglycemic events. Patient is now tolerating a regular diet. Continue stress dose steroids; transitioned to po prednisone today. Will plan on discharging the patient on a steroid taper to a higher baseline dose. (Previously on hydrocortisone 10 mg every morning and 5 mg every afternoon ). Proinsulin and Beta-Hydroxybutyrate are pending. Once laboratory results are available, may consider contacting [facility] endocrinology for consultation. (5) Hypothyroidism Qualifiers: Hypothyroidism type: unspecified Qualified Code(s): E03.9 - Hypothyroidism , unspecified Is this a current diagnosis for this admission?: Yes Plan: Subtherapeutic treatment; TSH 5.75 Increase Synthroid to 175 mcg (6) ESRD (end stage renal disease) on dialysis Is this a current diagnosis for this admission?: Yes Plan: Dr. Coleman has been consulted; appreciate his critical assistance. Have removed 5.2 L thus far. Patient's weight is down 6.3 kg (7) Adrenal insufficiency Is this a current diagnosis for this admission?: Yes Plan: The patient is chronically on hydrocortisone 10 mg every morning and 5 mg nightly. Providing stress dosed steroids; continue IV Solu-Medrol 20 mg twice daily today. (8) CHF (congestive heart failure) Qualifiers: Heart failure type: diastolic Heart failure chronicity: acute on chronic Qualified Code(s): I50.33 - Acute on chronic diastolic (congestive) heart failure Is this a current diagnosis for this admission?: Yes Plan: Patient with acute on chronic diastolic heart failure evidenced by pulmonary edema, tachycardia, elevated proBNP >63k. Echocardiogram revealed preserved LVEF. Repeat pro BNP minimally improved; >60k Chest x-rays show improved aeration and lung sounds are now clear. Maintaining oxygen saturations on minimal supplemental oxygen without tachypnea or dyspnea. Patient makes minimal urine; have not attempted diuretics at this time. Nephrology has been consulted; continuing to dialyze to remove fluid. Cardiology has been consulted; appreciate recommendations and assistance in managing this complex patient. (9) Elevated troponin Is this a current diagnosis for this admission?: Yes Plan: Likely demand ischemia secondary to CHF exacerbation in the setting of missed dialysis appointment and atrial fibrillation with RVR asked by a regular paced rhythm (patient is known to have underlying atrial fibrillation; heart rate has intermittently increased to 140-150). Patient denies chest pain. Troponins are trending up to 1.78, now down to 1.34. No longer trending. Cardiology has been consulted; appreciate their evaluation recommendations. Medication management per cardiology. (10) Coagulopathy Is this a current diagnosis for this admission?: Yes Plan: Most likely related to Eliquis. Liver enzymes are somewhat elevated, however, total bili is normal and they are certainly not elevated enough to account for an INR of 3.62. Patient is confirmed to be on Eliquis 2.5 mg twice daily. PT 15.2, INR 1.15, PTT 57.6 Fibrinogen 608 Febrile degraded products <10 Laboratory evaluation negative for DIC. Discussed with Dr. Garnica (surgeon) and pharmacy options for reversal. Patient initially treated with oral vitamin K and 2 units FFP. Aspirin and heparin are discontinued. Eliquis held. I spoke with the dialysis nurse, no reports of difficulty with fistula, need for declotting ore replacing sites. 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 Hematology has been consulted; appreciate Dr. Warner's assistance. Recommendations are to hold chronic anticoagulation for 1 month. Patient to follow-up and Dr. Warner's office in approximately 1 month to assess readiness for resuming Eliquis. Repeat abdominal CT in 2-3 months to evaluate retroperitoneal hematoma. (11) Retroperitoneal bleed Is this a current diagnosis for this admission?: Yes Plan: Incidental finding of retroperitoneal bleed on abdominal CT. Of note, she reports that she fell approximately 3-4 weeks ago and sustained a large hematoma to her right upper arm that remains tender to touch ( approximately the size of a baseball). She is anticoagulated on Eliquis 2.5 mg twice daily. Laboratory evaluation reveals coagulopathic with INR of 3.62, PT 37.7, PTT 108.4. Received critical report from Dr. Carrasco; patient found to have a left iliacus retroperitoneal hemorrhage measuring 6 x 6 x 4 cm. Repeat abdominal/pelvic CT today demonstrates slight enlargement of the retroperitoneal hematoma; specific measurements not provided. Surgery was consulted; discussed the patient's condition with Dr. Garnica. Anticoagulation reversed; monitoring PT/INR and PTT. Hemoglobin waxing and waning depending on draw time related to dialysis; Hgb appears to be relatively stable. Hold anticoagulation 1 month. Patient will follow-up with Dr. Warner at that time to assess readiness to resume therapy. Repeat CT abdomen and pelvis in 2-3 months to assess retroperitoneal hematoma. (12) Generalized weakness Is this a current diagnosis for this admission?: Yes Plan: PT/OT consultation. Fall precautions (13) Hypertension Is this a current diagnosis for this admission?: Yes Plan: Patient currently on isosorbide 30 mg daily, metoprolol 25 mg twice daily Cardiology is consulted; appreciate their assistance. Medication management per cardiology. - Time Time Spent with patient: 15-24 minutes Anticipated discharge: SNF Within: within 24 hours
[2017-11-22] MEDS: PREDNISONE 20 MG TABLET PO SCH (17:20)
[2017-11-22] MEDS: SODIUM CHLORIDE NASAL SPRAY 44 ML NASL SCH ×2 (17:21→21:08)
--- NOTE | 2017-11-22 20:45 | PROGRESS NOTE E ---
Progress Note NAME: VARINDER TORRES : 1940 AGE: 77Y DATE: 11/22/2017 ROOM: 322 SUBJECTIVE: The patient denies any chest pain or discomfort. There is no PND or orthopnea. There are no TIA or CVA symptoms. The patient denies any abdominal pain. There is no leg edema. There are no anginal symptoms. The patient remains in what seems to be atrial sensed ventricular tracking versus V-paced rhythm with underlying atrial fibrillation, it is not clear. There is no TIA or CVA. There is no shortness of breath. There is no PND or orthopnea. OBJECTIVE: GENERAL: On examination, the patient is mildly obese. She is well-groomed. She is in no acute distress. VITAL SIGNS: She is afebrile, with a temperature of 97.7 degrees Fahrenheit. Pulse is 61 beats per minute. Blood pressure is 163/69, respirations are 16 per minute. O2 sats are 99% on 2 liters nasal cannula. HEENT: Head is atraumatic, normocephalic. Eyes: Pupils are equal, round, regular, reactive to light and accommodation. Extraocular movements are normal. There is no conjunctival pallor. There is no scleral icterus. ENT is negative. NECK: Supple. There is no JVD. There is no lymphadenopathy. There is no goiter. Carotids are equal. There is no bruit. Trachea is central. LUNGS: Clear to auscultation and percussion. There is no chest wall tenderness. HEART: S1, S2 are heard. There is no S3 gallop. There is no S4 gallop. There is a systolic murmur at the left sternal border, at the apex. There is no rub. ABDOMEN: Soft, nontender. There is no hepatosplenomegaly. Bowel sounds are well-heard. There are no tender areas or masses. EXTREMITIES: Femorals are diminished. There are no femoral bruits. Leg pulses are diminished. There is no pedal edema. There is no DVT or cellulitis. There is no calf tenderness. OUTER DIAMETER GRINDER TOOL: The patient is conscious, awake, alert, oriented x3, with no focal deficit. PSYCHIATRIC: Patient's judgment and insight are intact. Her affect is normal. LABORATORY DATA: The patient's sodium is 122.7, potassium is 4.1, chloride is 98, CO2 is 34. The patient's BUN is 30, creatinine is 3.51. GFR is 12, which is end-stage renal disease. Glucose is 138. The patient's calcium is 9.0, magnesium is 2.6. Her NT-proBNP is 60,600. The patient's ABGs show a pH of 7.53, pCO2 is 35, pO2 is 82.3. O2 sats are 97% on 1.5 liters nasal cannula. The patient's white count is 7500, hemoglobin is 11, hematocrit is 33.9, platelet count is 174,000. IMPRESSION: 1. ACUTE RESPIRATORY FAILURE WITH HYPOXIA AND HYPERCAPNIA. This is resolved now the patient's pCO2 and pO2 are normal. 2. CONGESTIVE HEART FAILURE, AT PRESENT CLINICALLY STABLE. 3. END-STAGE RENAL DISEASE ON DIALYSIS. 4. ELEVATED TROPONIN I, MULTIFACTORIAL, MOST LIKELY SECONDARY TO THE PATIENT'S CONGESTIVE HEART FAILURE AND THE PATIENT'S END-STAGE RENAL DISEASE. No definite evidence of non-ST elevation [place]. 5. RETROPERITONEAL BLEED. Eliquis has been held. 6. HYPERTENSION, WITH CHRONIC KIDNEY DISEASE. Blood pressure is still not optimally controlled. Will add hydralazine. 7. CORONARY ARTERY DISEASE. The patient has no anginal symptoms. 8. ATRIAL FIBRILLATION, QUESTION PAROXYSMAL. 9. AICD PLACEMENT. No firing of AICD. 10. HYPOTHYROIDISM. Note the patient is on replacement thyroid. Would continue the same. Would check the patient's EKG in the a.m. As mentioned earlier, will increase the patient's hydralazine to 25 mg p.o. q.8 hours or t.i.d., and altogether, repeat EKG to see if the patient's underlying rhythm is atrial fibrillation or if it is A-sensed V-paced rhythm. Note, 40 minutes spent on this patient, with more than 50% of the time spent on direct patient care. The patient's medications have been reviewed and adjusted. Discussed with the attending physician and other caregiving providers on this case. Will follow with you. DICTATING PHYSICIAN: FRIDA NICOLE M.D. [id number] PHY#: [id number] ID: [id number] JOB#: [id number] ACCT: [id number] cc: > MTDD
[2017-11-22] MEDS: ATORVASTATIN CALCIUM 40 MG TABLET PO SCH (21:07)
[2017-11-22] MEDS: HYDRALAZINE HCL 25 MG TABLET PO SCH (21:08)
[2017-11-23 04:52] LABS: HEMATOCRIT 32.4 % (36.0-47.0); HEMOGLOBIN 10.6 g/dL (12.0-15.5); MEAN CORPUSCULAR HEMOGLOBIN 29.9 pg (27.0-33.4); MEAN CORPUSCULAR HGB CONC 32.8 g/dL (32.0-36.0); MEAN CORPUSCULAR VOLUME 91 fl (80-97); PLATELET COUNT 166 10^3/uL (150-450); RED BLOOD COUNT 3.56 10^6/uL (3.72-5.28); RED CELL DISTRIBUTION WIDTH 15.8 % (11.5-14.0); WHITE BLOOD COUNT 8.3 10^3/uL (4.0-10.5)
[2017-11-23 05:13] LABS: ALANINE AMINOTRANSFERASE 29 U/L (9-52); ALKALINE PHOSPHATASE 190 U/L (38-126); ANION GAP 13 (5-19); ASPARTATE AMINO TRANSFERASE 36 U/L (14-36); BILIRUBIN,DIRECT 0.6 mg/dL (0.0-0.4); BILIRUBIN,TOTAL 0.6 mg/dL (0.2-1.3); BLOOD UREA NITROGEN 50 mg/dL (7-20); CALCIUM 8.8 mg/dL (8.4-10.2); CARBON DIOXIDE 30 mmol/L (22-30); CHLORIDE 98 mmol/L (98-107); GLUCOSE 146 mg/dL (75-110); POTASSIUM 3.7 mmol/L (3.6-5.0); SODIUM 141.1 mmol/L (137-145); TOTAL PROTEIN 5.7 g/dL (6.3-8.2)
[2017-11-23] MEDS: LEVOTHYROXINE SODIUM 0.025 MG TABLET PO SCH (05:20)
[2017-11-23] MEDS: HYDRALAZINE HCL 25 MG TABLET PO SCH ×2 (05:20→14:30)
[2017-11-23] MEDS: LEVOTHYROXINE SODIUM 0.15 MG TABLET PO SCH (05:20)
[2017-11-23 07:04] LABS: BETA HYDROXYBUTYRATE 3.8 mg/dL (.)
[2017-11-23] MEDS: SODIUM CHLORIDE NASAL SPRAY 44 ML NASL SCH ×4 (07:30→21:09)
--- NOTE | 2017-11-23 09:56 | EKG REPORT ---
SEVERITY:- ABNORMAL ECG - ATRIAL-SENSED VENTRICULAR-PACED RHYTHM : Confirmed by: Tennille Dinh 23-Nov-2017 09:55:49
[2017-11-23] MEDS ORDERED: MAGNESIUM OXIDE 400 MG TABLET PO SCH (10:00)
[2017-11-23] MEDS: METOPROLOL TARTRATE 25 MG TABLET PO SCH ×2 (11:47→21:08)
[2017-11-23] MEDS: SODIUM BICARBONATE 650 MG TABLET PO SCH ×2 (11:47→18:43)
[2017-11-23] MEDS: FAMOTIDINE 20 MG TABLET PO SCH ×2 (11:48→21:08)
[2017-11-23] MEDS: PAROXETINE HCL 20 MG TABLET PO SCH (11:50)
[2017-11-23] MEDS: PREDNISONE 20 MG TABLET PO SCH (11:50)
[2017-11-23] MEDS: ISOSORBIDE MONONITRATE 30 MG TAB.ER.24H PO SCH (11:50)
[2017-11-23] MEDS: FLUTICASONE NASAL SPRAY 50 MCG/SPRY 120 SPRAY/16 GM NASL SCH ×2 (11:51→21:09)
[2017-11-23] MEDS: POLYVINYL ALCOHOL 1.4% OPH SOLN 15 ML OU SCH ×4 (11:51→21:07)
[2017-11-23] MEDS: DOCUSATE SODIUM 100 MG CAPSULE PO SCH (11:51)
--- NOTE | 2017-11-23 16:07 | PDOC PROGRESS REPORT ---
Subjective Progress Note for:: 11/23/17 Subjective:: The patient is a 77-year-old female with a complicated past medical history significant for COPD, CHF, end-stage renal disease on dialysis, hypertension, coronary artery disease, dual-chamber pacemaker, chronically anticoagulated secondary to underlying atrial fibrillation, hypothyroidism, adrenal gland insufficiency, previous episodes of pulmonary emboli, and depression who was admitted on 11/18/17 for generalized weakness, fluid volume overload, hypoxia, and pulmonary edema related to missed dialysis appointment. Patient is seen on morning rounds. She is found resting in bed comfortably on room air. She reports that, overall, she is feeling much better today; noted an increase in her appetite. She denies fatigue, headache, palpitations, dyspnea, orthopnea, abdominal pain. However she reports a brief episode of vague chest pain associated with shortness of breath that lasted for approximately 10-20 seconds and resolved spontaneously earlier this morning. She had no further episodes of chest pain by the time I saw her. Discharge held until cardiology clearance was obtained; nursing contacted me this afternoon to state that cardiology would like to monitor her overnight. Reason For Visit: UREMA,ESRD, HYPOTENSION,PULMONARY EDEMA,HYPOZIA Physical Exam Vital Signs: Temp Pulse Resp BP Pulse Ox 97.7 F 59 L 12 149/50 H 100 11/23/17 15:18 11/23/17 15:18 11/23/17 15:18 11/23/17 15:18 11/23/17 15:18 Intake & Output 11/22/17 11/23/17 11/24/17 06:59 06:59 06:59 Intake Total 800 738 355 Output Total 1900 0 0 Balance -1100 738 355 Weight 65.5 kg 65.2 kg General appearance: PRESENT: no acute distress, cooperative - Pleasant cooperative, well-developed, well-nourished, other - Overweight Head exam: PRESENT: atraumatic, normocephalic Eye exam: PRESENT: conjunctiva pink, EOMI, PERRLA. ABSENT: scleral icterus Mouth exam: PRESENT: moist, tongue midline Teeth exam: PRESENT: poor dentation Neck exam: ABSENT: carotid bruit, JVD, lymphadenopathy, thyromegaly Respiratory exam: PRESENT: crackles - Right base, symmetrical, unlabored. ABSENT: rales, rhonchi, wheezes Cardiovascular exam: PRESENT: irregular rhythm, +S1, +S2, systolic murmur. ABSENT: diastolic murmur, rubs Pulses: PRESENT: normal dorsalis pedis pul Vascular exam: PRESENT: normal capillary refill GI/Abdominal exam: PRESENT: normal bowel sounds, soft. ABSENT: distended, guarding, mass, organolmegaly, rebound, tenderness Rectal exam: PRESENT: deferred Extremities exam: PRESENT: full ROM, other - Large hematoma right upper arm. ABSENT: calf tenderness, clubbing, pedal edema Neurological exam: PRESENT: alert, awake, oriented to person, oriented to place , oriented to time, oriented to situation, CN II-XII grossly intact. ABSENT: motor sensory deficit Psychiatric exam: PRESENT: appropriate affect, normal mood. ABSENT: homicidal ideation, suicidal ideation Skin exam: PRESENT: dry, intact, warm, other - Scattered ecchymosis. ABSENT: cyanosis, rash Results Laboratory Results: 11/23/17 04:23 11/23/17 04:23 11/23/17 11/23/17 04:23 04:23 WBC 8.3 RBC 3.56 L Hgb 10.6 L Hct 32.4 L MCV 91 MCH 29.9 MCHC 32.8 RDW 15.8 H Plt Count 166 Sodium 141.1 Potassium 3.7 Chloride 98 Carbon Dioxide 30 Anion Gap 13 BUN 50 H Creatinine 5.13 H Est GFR ( Amer) 10 L Est GFR (Non-Af Amer) 8 L Glucose 146 H Calcium 8.8 Magnesium 2.6 H Total Bilirubin 0.6 AST 36 ALT 29 Alkaline Phosphatase 190 H Total Protein 5.7 L Albumin 3.0 L 11/19/17 11/19/17 11/20/17 13:20 19:24 01:26 Troponin I 1.540 1.780 1.340 NT-Pro-B Natriuret Pep [id number] H 11/22/17 04:14 Troponin I NT-Pro-B Natriuret Pep 55413 H Impressions: Head CT 11/19/17 00:00 IMPRESSION: MILD CHRONIC CHANGES OF ATROPHY AND MICROVASCULAR ISCHEMIA. NO ACUTE PROCESS. Other findings as noted above EVIDENCE OF ACUTE STROKE: NO. Venous Doppler Study 11/20/17 08:00 IMPRESSION: NO EVIDENCE OF DVT OR SVT IN THE LEFT LEG. Abdomen/Pelvis CT 11/21/17 09:30 IMPRESSION: 1. The left iliacus hematoma is slightly larger. 2. Osseous findings as described. Chest X-Ray 11/22/17 06:00 IMPRESSION: Stable chest. Assessment & Plan - Diagnosis (1) Pulmonary edema Qualifiers: Chronicity: acute Qualified Code(s): J81.0 - Acute pulmonary edema Is this a current diagnosis for this admission?: Yes Plan: Improved; slight right basilar crackles noted today. Pulmonary edema is likely multifactorial secondary to end-stage renal disease on dialysis; missed dialysis appointment, and CHF exacerbation Repeat chest x-ray today demonstrates low lung volumes and bilateral subsegmental atelectasis. Images were personally reviewed; it appears that there is continued improvement in aeration. ABG this morning demonstrated complete metabolic alkalosis which is appropriate given the patient's aggressive diuresis this week. Hypercapnia has resolved. Echocardiogram revealed preserved ejection fraction. Admitted to [facility] on continuous cardiac telemetry. She is provided supplemental oxygen to maintain oxygen saturations greater than 88%. Oxygen weaning going well. BiPAP as needed. As needed nebulizer treatments are available. Nephrology was consulted; appreciate their assistance. Anticipate discharge tomorrow. Nursing asked to ensure dialysis arrangements are made prior to discharge. Cardiology was consulted; appreciate their assistance.. Pulmonology has been consulted; appreciate their assistance. The patient makes minimal urine; attempts to diuresis will likely be futile (2) Altered mental status Is this a current diagnosis for this admission?: Yes Plan: Resolved; secondary to profound hypoxia and intermittent hypoglycemia. Lactic acid 1.3 LFTs and ammonia reassuring Head CT demonstrates chronic microvascular changes; negative for acute processes. Urinalysis is positive for UTI; however cultures demonstrated normal jennifer. Blood cultures are negative at 4 days. Support respiratory needs. Glucose is stabilized. No indications for antibiotics. Fall precautions, supportive care, provide for patient safety (3) Acute respiratory failure with hypoxia Is this a current diagnosis for this admission?: Yes Plan: Significant improvement following dialysis. Secondary to acute pulmonary edema related to missed dialysis appointment, CHF exacerbation, and underlying COPD. The patient is not home O2 dependent. ABG demonstrates metabolic alkalosis; hypercapnia and hypoxia have resolved. The patient's daughter clearly stated that she would wish for her mother to be intubated if necessary. The patient later confirms this. Pulmonology has been consulted; appreciate their assistance. Remaining plan as above. (4) Hypoglycemia Is this a current diagnosis for this admission?: Yes Plan: Likely related to adrenal insufficiency in setting of CHF exacerbation/ respiratory failure; has improved following initiation of stress dose steroids. CT of the abdomen was negative for pancreatic masses, insulinomas. Did incidentally reveal a small retroperitoneal bleed. C-peptide 2.89, Insulin 1.49, Proinsulin 5.6, Beta-Hydroxybutyrate 3.8; normal panel D5NS discontinued; no hypoglycemic events. Patient is now tolerating a regular diet. Continue stress dose steroids; decreased prednisone today. (Now providing 10 mg twice daily which is equivalent to 40 mg hydrocortisone twice daily). Will plan on discharging the patient on a steroid taper to a higher baseline dose. (Previously on hydrocortisone 10 mg every morning and 5 mg every afternoon ). (5) Hypothyroidism Qualifiers: Hypothyroidism type: unspecified Qualified Code(s): E03.9 - Hypothyroidism , unspecified Is this a current diagnosis for this admission?: Yes Plan: Subtherapeutic treatment; TSH 5.75 Increase Synthroid to 175 mcg (6) ESRD (end stage renal disease) on dialysis Is this a current diagnosis for this admission?: Yes Plan: Dr. Coleman has been consulted; appreciate his critical assistance. Have removed 5.2 L thus far. Patient's weight is down 6.6 kg (7) Adrenal insufficiency Is this a current diagnosis for this admission?: Yes Plan: The patient is chronically on hydrocortisone 10 mg every morning and 5 mg nightly. Providing stress dosed steroids; weaned to prednisone 10 mg twice daily ( equivalent to 40 mg hydrocortisone twice daily). We will plan on continuing to taper steroids to a slightly higher basal dose to reduce risk of adrenal insufficiency crisis in the future. (8) CHF (congestive heart failure) Qualifiers: Heart failure type: diastolic Heart failure chronicity: acute on chronic Qualified Code(s): I50.33 - Acute on chronic diastolic (congestive) heart failure Is this a current diagnosis for this admission?: Yes Plan: Patient with acute on chronic diastolic heart failure evidenced by pulmonary edema, tachycardia, elevated proBNP >63k. Echocardiogram revealed preserved LVEF. Repeat pro BNP minimally improved; >60k Chest x-rays show improved aeration and lung sounds are now clear. Maintaining oxygen saturations on minimal supplemental oxygen without tachypnea or dyspnea. Patient makes minimal urine; have not attempted diuretics at this time. Nephrology has been consulted; continuing to dialyze to remove fluid. Cardiology has been consulted; appreciate recommendations and assistance in managing this complex patient. (9) Elevated troponin Is this a current diagnosis for this admission?: Yes Plan: Improved; likely demand ischemia secondary to CHF exacerbation in the setting of missed dialysis appointment and atrial fibrillation with RVR asked by a regular paced rhythm (patient is known to have underlying atrial fibrillation; heart rate has intermittently increased to 140-150). Patient denies chest pain. Troponins are trending up to 1.78, now down to 1.34. No longer trending. Cardiology has been consulted; appreciate their evaluation recommendations. Medication management per cardiology. (10) Coagulopathy Is this a current diagnosis for this admission?: Yes Plan: Most likely related to Eliquis. Liver enzymes are somewhat elevated, however, total bili is normal and they are certainly not elevated enough to account for an INR of 3.62. Patient is confirmed to be on Eliquis 2.5 mg twice daily. PT 15.2, INR 1.15, PTT 57.6 Platelets stable, Fibrinogen 608, Febrile degraded products <10, Laboratory evaluation negative for DIC. Discussed with Dr. Garnica (surgeon) and pharmacy options for reversal. Patient initially treated with oral vitamin K and 2 units FFP. Aspirin and heparin are discontinued. Eliquis held. I spoke with the dialysis nurse, no reports of difficulty with fistula, need for declotting ore replacing sites. 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 Hematology has been consulted; appreciate Dr. Warner's assistance. Recommendations are to hold chronic anticoagulation for 1 month. Patient to follow-up and Dr. Warner's office in approximately 1 month to assess readiness for resuming Eliquis. Repeat abdominal CT in 2-3 months to evaluate retroperitoneal hematoma. (11) Retroperitoneal bleed Is this a current diagnosis for this admission?: Yes Plan: Incidental finding of retroperitoneal bleed on abdominal CT. Of note, she reports that she fell approximately 3-4 weeks ago and sustained a large hematoma to her right upper arm that remains tender to touch ( approximately the size of a baseball). She is anticoagulated on Eliquis 2.5 mg twice daily. Laboratory evaluation reveals coagulopathic with INR of 3.62, PT 37.7, PTT 108.4. Received critical report from Dr. Carrasco; patient found to have a left iliacus retroperitoneal hemorrhage measuring 6 x 6 x 4 cm. Repeat abdominal/pelvic CT today demonstrates slight enlargement of the retroperitoneal hematoma; specific measurements not provided. Surgery was consulted; discussed the patient's condition with Dr. Garnica. Anticoagulation reversed; monitoring PT/INR and PTT. Hemoglobin waxing and waning depending on draw time related to dialysis; Hgb appears to be relatively stable. Hold anticoagulation 1 month. Patient will follow-up with Dr. Warner at that time to assess readiness to resume therapy. Repeat CT abdomen and pelvis in 2-3 months to assess retroperitoneal hematoma. (12) Generalized weakness Is this a current diagnosis for this admission?: Yes Plan: PT/OT consultation. Fall precautions (13) Hypertension Is this a current diagnosis for this admission?: Yes Plan: Patient currently on isosorbide 30 mg daily, metoprolol 25 mg twice daily Cardiology is consulted; appreciate their assistance. Medication management per cardiology. (14) Atypical chest pain Is this a current diagnosis for this admission?: Yes Plan: The patient reported a brief episode of generalized, sharp, nonradiating chest pain associated with dyspnea lasting approximately 20 seconds to resolve spontaneously and has not recurred. Cardiology is consulted; primary plan per cards. - Time Time Spent with patient: 15-24 minutes Anticipated discharge: SNF - [facility]: within 24 hours - When cleared by cardiology and dialysis arrangements are made.
[2017-11-23] MEDS ORDERED: PREDNISONE 10 MG TABLET PO SCH (18:00)
[2017-11-23] MEDS: ATORVASTATIN CALCIUM 40 MG TABLET PO SCH (21:07)
--- NOTE | 2017-11-23 21:40 | PROGRESS NOTE E ---
Progress Note NAME: VARINDER TORRES : 1940 AGE: 77Y DATE: 11/23/2017 ROOM: 322 SUBJECTIVE: The patient denies any chest pain or discomfort, but states that there is a fluttering sensation in his chest. He had a heart rate with a ventricular-paced rhythm with underlying atrial fibrillation. The rate is not fast. There is no PND or orthopnea. There is no abdominal pain. There are no TIA or CVA symptoms. There is no leg edema. There are no anginal symptoms. The patient's EKG at present shows that the patient's underlying rhythm is atrial fibrillation, with ventricular pacing. The patient denies any shortness of breath. There are no TIA or CVA symptoms. OBJECTIVE: GENERAL: On examination, the patient is mildly obese. She is well-groomed. She is in no acute distress. VITAL SIGNS: She is afebrile, with a temperature of 97.3 degrees Fahrenheit, pulse of 60 beats per minute, blood pressure 152/67, respirations of 16 per minute, O2 sats of 97% on room air. HEENT: Head is atraumatic, normocephalic. Eyes: Pupils are equal, round and regular, reactive to light and accommodation. Extraocular movements are normal. There is no conjunctival pallor. There is no scleral icterus. ENT is negative. NECK: Supple. There is no JVD. There is no lymphadenopathy. There is no goiter. Carotids are equal. There is no bruit. Trachea is central. LUNGS: Clear to auscultation and percussion. CHEST: There is no chest wall tenderness. HEART: S1, S2 are heard. There is no S3 gallop. There is no S4 gallop. There is a systolic murmur at the left sternal border, at the apex. There is no rub. ABDOMEN: Soft, nontender. There is no hepatosplenomegaly. Bowel sounds are well-heard. There are no tender areas or masses. EXTREMITIES: Femorals are diminished. There are no femoral bruits. Leg pulses are diminished. There is no pedal edema. There is no DVT or cellulitis. There is no calf tenderness. CENTRAL NERVOUS SYSTEM: The patient is conscious, awake, alert, oriented x3, with no focal deficits. PSYCHIATRIC: The patient's judgment and insight are intact. Her affect is normal. DIAGNOSTICS: The patient's EKG shows underlying rhythm is atrial fibrillation with a ventricular-paced rhythm. The patient's white count is 8300, hemoglobin is 10.6, hematocrit is 32.4, platelet count is 166,000. The patient's sodium is 141.1, potassium is 3.7, chloride is 98, CO2 is 30. The patient's BUN is 50, creatinine is 5.13. GFR is reduced at 8 mL/min. Blood sugar is 146. Magnesium is 2.6. Her calcium is 8.8. Her total bilirubin is normal at 0.6. Her direct bilirubin is elevated at 0.6. Her alk phos is slightly elevated at 190. The rest of her liver function tests are normal. Her albumin is 3.0 and her total protein is 3.7. IMPRESSION: 1. ACUTE RESPIRATORY FAILURE WITH HYPOXEMIA AND HYPERCAPNIA. This has resolved. Now the patient's pCO2 and pO2 are normal. The patient does not appear to be in respiratory failure at present. 2. CONGESTIVE HEART FAILURE, PRESENTLY STABLE, COMPENSATED. 3. END-STAGE RENAL DISEASE, ON DIALYSIS. 4. ELEVATED TROPONIN I, MULTI-FACTORIAL, MOST LIKELY SECONDARY TO THE PATIENT'S CONGESTIVE HEART FAILURE AND THE PATIENT'S END-STAGE RENAL DISEASE. No evidence of non-ST elevation [place]. 5. RETROPERITONEAL BLEED. Patient is off Eliquis. No further signs of bleed continuing or increasing. 6. HYPERTENSION, WITH CHRONIC KIDNEY DISEASE. Blood pressure still not optimally controlled. Will increase the patient's hydralazine to 25 mg p.o. q.6 hours. 7. CORONARY ARTERY DISEASE. Patient has no anginal symptoms. 8. ATRIAL FIBRILLATION, PROBABLY CHRONIC. 9. AICD PLACEMENT. No firing of AICD. 10. HYPOTHYROIDISM. Patient is on replacement thyroid. PLAN: As mentioned earlier, the patient's medications have been reviewed. Will increase the patient's hydralazine to 25 mg p.o. q.6 hours. Continue her other medications. There are definite contraindications for the patient to be on chronic anticoagulation therapy. Note, 40 minutes spent on this patient, with more than 50% of the time spent on direct patient care. Discussed with the attending physician and other caregiving providers on the case. Medical decision-making was of moderate complexity, but medications have been adjusted. Cardiac status is stable.Will sign off and as per patient's wishes will follow in office. . Note that the patient is a DNR. Her daughter is her surrogate healthcare decision-maker, unchanged. DICTATING PHYSICIAN: FRIDA NICOLE M.D. [id number] PHY#: [id number] ID: [id number] JOB#: [id number] ACCT: [id number] cc: > MTDD
[2017-11-24] MEDS ORDERED: EPOETIN ALFA INJ 20000 UNIT/1 ML VIAL (RENAL) IV PRN (05:00)
[2017-11-24] MEDS ORDERED: HYDRALAZINE HCL 25 MG TABLET PO SCH (06:00)
[2017-11-24 06:41] LABS: HEMATOCRIT 32.5 % (36.0-47.0); HEMOGLOBIN 10.6 g/dL (12.0-15.5); MEAN CORPUSCULAR HEMOGLOBIN 29.9 pg (27.0-33.4); MEAN CORPUSCULAR HGB CONC 32.7 g/dL (32.0-36.0); MEAN CORPUSCULAR VOLUME 92 fl (80-97); PLATELET COUNT 149 10^3/uL (150-450); RED BLOOD COUNT 3.56 10^6/uL (3.72-5.28); RED CELL DISTRIBUTION WIDTH 16.4 % (11.5-14.0); WHITE BLOOD COUNT 8.8 10^3/uL (4.0-10.5)
[2017-11-24 07:02] LABS: ANION GAP 14 (5-19); BLOOD UREA NITROGEN 64 mg/dL (7-20); CALCIUM 8.3 mg/dL (8.4-10.2); CARBON DIOXIDE 29 mmol/L (22-30); CHLORIDE 95 mmol/L (98-107); GLUCOSE 118 mg/dL (75-110); POTASSIUM 4.1 mmol/L (3.6-5.0); SODIUM 137.5 mmol/L (137-145)
[2017-11-24] MEDS: LEVOTHYROXINE SODIUM 0.025 MG TABLET PO SCH (07:38)
--- NOTE | 2017-11-24 07:38 | PDOC PROGRESS REPORT ---
Subjective Progress Note for:: 11/24/17 Subjective:: No acute events overnight Reason For Visit: UREMA,ESRD, HYPOTENSION,PULMONARY EDEMA,HYPOZIA Physical Exam Vital Signs: Temp Pulse Resp BP Pulse Ox 97.2 F 64 18 194/75 H 100 11/24/17 03:38 11/24/17 03:38 11/24/17 03:38 11/24/17 03:38 11/24/17 03:38 Intake & Output 11/23/17 11/24/17 11/25/17 06:59 06:59 06:59 Intake Total 738 1054 Output Total 0 120 Balance 738 934 Weight 65.2 kg General appearance: PRESENT: no acute distress, well-developed, well-nourished Head exam: PRESENT: atraumatic, normocephalic Eye exam: PRESENT: conjunctiva pink, EOMI, PERRLA. ABSENT: scleral icterus Ear exam: PRESENT: normal external ear exam Mouth exam: PRESENT: moist, tongue midline Neck exam: ABSENT: carotid bruit, JVD, lymphadenopathy, thyromegaly Respiratory exam: PRESENT: clear to auscultation kannan. ABSENT: rales, rhonchi, wheezes Cardiovascular exam: PRESENT: RRR. ABSENT: diastolic murmur, rubs, systolic murmur Pulses: PRESENT: normal dorsalis pedis pul Vascular exam: PRESENT: normal capillary refill GI/Abdominal exam: PRESENT: normal bowel sounds, soft. ABSENT: distended, guarding, mass, organolmegaly, rebound, tenderness Rectal exam: PRESENT: deferred Extremities exam: PRESENT: full ROM. ABSENT: calf tenderness, clubbing, pedal edema Neurological exam: PRESENT: alert, awake, oriented to person, oriented to place , oriented to time, oriented to situation, CN II-XII grossly intact. ABSENT: motor sensory deficit Psychiatric exam: PRESENT: appropriate affect, normal mood. ABSENT: homicidal ideation, suicidal ideation Skin exam: PRESENT: dry, intact, warm. ABSENT: cyanosis, rash Results Laboratory Results: 11/24/17 05:38 11/24/17 05:38 11/24/17 11/24/17 05:38 05:38 WBC 8.8 RBC 3.56 L Hgb 10.6 L Hct 32.5 L MCV 92 MCH 29.9 MCHC 32.7 RDW 16.4 H Plt Count 149 L Sodium 137.5 Potassium 4.1 Chloride 95 L Carbon Dioxide 29 Anion Gap 14 BUN 64 H Creatinine 6.28 H Est GFR ( Amer) 8 L Est GFR (Non-Af Amer) 6 L Glucose 118 H Calcium 8.3 L 11/18/17 17:00 Blood Blood Culture - Final NO GROWTH IN 5 DAYS 11/18/17 16:41 Blood Blood Culture - Final NO GROWTH IN 5 DAYS 11/19/17 11/19/17 11/20/17 13:20 19:24 01:26 Troponin I 1.540 1.780 1.340 NT-Pro-B Natriuret Pep [id number] H 11/22/17 04:14 Troponin I NT-Pro-B Natriuret Pep [id number] H Impressions: Head CT 11/19/17 00:00 IMPRESSION: MILD CHRONIC CHANGES OF ATROPHY AND MICROVASCULAR ISCHEMIA. NO ACUTE PROCESS. Other findings as noted above EVIDENCE OF ACUTE STROKE: NO. Venous Doppler Study 11/20/17 08:00 IMPRESSION: NO EVIDENCE OF DVT OR SVT IN THE LEFT LEG. Abdomen/Pelvis CT 11/21/17 09:30 IMPRESSION: 1. The left iliacus hematoma is slightly larger. 2. Osseous findings as described. Chest X-Ray 11/22/17 06:00 IMPRESSION: Stable chest. Assessment & Plan - Diagnosis (1) Other pulmonary embolism without acute cor pulmonale Qualifiers: Chronicity: chronic Qualified Code(s): I27.82 - Chronic pulmonary embolism Is this a current diagnosis for this admission?: Yes Plan: As noted previously, plan for continued hold of eliquis after d/c, f/u in office 4-6 wk post d/c and will decide at that time when to restart if ever. Will follow peripherally while admitted. - Time Time Spent with patient: 15-24 minutes
[2017-11-24] MEDS: SODIUM CHLORIDE NASAL SPRAY 44 ML NASL SCH (07:39)
[2017-11-24] MEDS: LEVOTHYROXINE SODIUM 0.15 MG TABLET PO SCH (07:39)
[2017-11-24 10:49] VITALS: BP 136/61
--- NOTE | 2017-11-24 12:58 | PDOC DISCHARGE SUMMARY ---
General - Admit/Disc Date/PCP Admission Date/Primary Care Provider: 11/18/17 16:13 VANDANA MARQUES MD Discharge Date: 11/24/17 - Discharge Diagnosis (1) Adrenal insufficiency Is this a current diagnosis for this admission?: Yes (2) Atypical chest pain Is this a current diagnosis for this admission?: Yes (3) ESRD (end stage renal disease) on dialysis Is this a current diagnosis for this admission?: Yes (4) Generalized weakness Is this a current diagnosis for this admission?: Yes (5) Hypoglycemia Is this a current diagnosis for this admission?: Yes (6) Pulmonary edema Is this a current diagnosis for this admission?: Yes (7) Retroperitoneal bleed Is this a current diagnosis for this admission?: Yes - Additional Information Resuscitation Status: Do Not Resuscitate Discharge Diet: Cardiac Discharge Activity: Activity As Tolerated, Balance Activity w/Rest, Weigh Daily Prescriptions: Hydrocortisone 10 mg PO DAILY #16 tablet Levothyroxine Sodium 175 mcg PO Q6AM #30 tablet Home Medications: Acetaminophen [Tylenol 325 mg Tablet] 650 mg PO Q4HP PRN 11/18/17 Amiodarone HCl [Cordarone 200 mg Tablet] 200 mg PO DAILY 11/18/17 Atorvastatin Calcium [Lipitor 40 mg Tablet] 40 mg PO QHS 11/18/17 Chlorhexidine Gluconate [Peridex 0.12% Oral Rinse 473 ml] 15 ml MM BID 11/18/17 Cyanocobalamin (Vitamin B-12) [Vitamin B-12] 500 mcg PO DAILY 11/18/17 Diphenoxylate HCl/Atrop Sulf [Lomotil 2.5 mg Tablet] 5 mg PO ACHS 11/18/17 Eyelid Cleanser Combination 5 [Ocusoft Lid Scrub] 1 each TP BID 11/18/17 Famotidine [Pepcid 20 mg Tablet] 20 mg PO Q12 11/18/17 Ferric Citrate [Auryxia] 210 mg PO TID 11/18/17 Fluticasone Propionate [Flonase Nasal [place] 50 Mcg/[place] 16 gm] 1 spray NASL Q12 11/18/17 Hydrocortisone [Cortef 10 mg Tablet] 5 mg PO QHS 11/18/17 Hydrocortisone [Cortef 10 mg Tablet] 10 mg PO DAILY 11/18/17 Isosorbide Mononitrate [Imdur 30 mg Tablet.er] 30 mg PO DAILY 11/18/17 L. Rhamnosus GG/Inulin [Culturelle Probiotics Capsule] 1 cap PO DAILY 11/18/17 Loperamide HCl [Imodium A-D] 4 mg PO QID 11/18/17 Loratadine [Claritin 10 mg Tablet] 10 mg PO QHS 11/18/17 Magnesium Oxide [Mag-Ox 400 mg Tablet] 400 mg PO BID 11/18/17 Metoprolol Tartrate [Lopressor 25 mg Tablet] 12.5 mg PO Q12 11/18/17 Nitroglycerin [Nitrostat 0.4 mg (1/150 Gr) Tabs 25/Bottle] 1 tab SL Q5MP PRN Olopatadine HCl [Pataday] 1 drop OU DAILY@0900 11/18/17 Oxycodone HCl/Acetaminophen [Percocet 5-325 mg Tablet] 1 tab PO Q6HP PRN Paroxetine HCl [Paxil] 10 mg PO DAILY 11/18/17 Polyvinyl Alcohol [Liquitears] 1 drop OU QID 11/18/17 Sodium Bicarbonate [Sodium Bicarbonate 650 mg Tablet] 650 mg PO BID 11/18/17 Acetaminophen [Tylenol 325 mg Tablet] 650 mg PO Q4HP PRN tablet 11/24/17 Hydralazine HCl [Apresoline 25 mg Tablet] 25 mg PO Q6 tablet 11/24/17 Hydrocortisone 10 mg PO DAILY #16 tablet 11/24/17 Levothyroxine Sodium 175 mcg PO Q6AM #30 tablet 11/24/17 Phenol/Sodium Phenolate [Chloraseptic Sore Throat [place] 177 ml] 2 spray PO PRN PRN bottle 11/24/17 History of Present Illness History of Present Illness: VARINDER TORRES is a 77 year old female with past medical history significant for COPD, CHF, end-stage renal disease on M, W, F dialysis, hypothyroidism, hypertension, and CAD who was sent to the emergency department today with complaint of weakness and low blood sugar. Fingerstick by EMS found glucose of 51 which was treated with oral sugar. Repeat Accu-Chek 61, she is provided D50. EMS also found the patient was hypoxic with a room air saturation in the 80s. Of note, the patient did miss her dialysis appointment yesterday secondary to not feeling well. Evaluation in the emergency department revealed a ventricular paced rhythm, pulmonary edema on chest x-ray, mild leukocytosis (WBCs 12), normal potassium, and elevated creatinine and BUN from baseline (8.58 and 52 respectively). The patient's transient hypoglycemia was corrected with oral glucose and D50 and has remained acceptable since that time. The emergency department provider made arrangements with Dr. Coleman for hemodialysis today. She is referred to the hospitalist service for observational admission for fluid volume overload, hypoxia, pulmonary edema related to missed dialysis appointment. Hospital Course Hospital Course: The patient is a 77-year-old female with a complicated past medical history significant for COPD, CHF, end-stage renal disease on dialysis, hypertension, coronary artery disease, dual-chamber pacemaker, chronically anticoagulated secondary to underlying atrial fibrillation, hypothyroidism, adrenal gland insufficiency, previous episodes of pulmonary emboli, and depression who was admitted on 11/18/17 for generalized weakness, fluid volume overload, hypoxia, and pulmonary edema related to missed dialysis appointment. Pulmonary edema is likely multifactorial secondary to end-stage renal disease on dialysis; missed dialysis appointment, and CHF exacerbation. She was initially on BIPAP, initial ABG demonstrating hypoxemic and hypercapnic respiratory acidosis. ECHO revealed acute on chronic diastolic heart failure but preserved LVEF. Elevated proBNP >63k. Her initial troponin was elevated ( 1.78), but cardiology believed this was likely demand ischemia secondary to CHF exacerbation in the setting of missed dialysis appointment and atrial fibrillation with RVR asked by a regular paced rhythm (patient is known to have underlying atrial fibrillation). Repeat pro BNP minimally improved ( >60k) following dialysis and treatment with diuretics. Cardiology consulted, no new recommendations. Able to wean off supplemental oxygen following dialysis and diuresis. Additionally, her follow up CXR (following HD and diuresis) shows low lung volumes and bilateral subsegmental atelectasis. An incidental finding from the Abdominal CT was a left iliacus retroperitoneal hemorrhage measuring 6 x 6 x 4 cm. The patient was on anticoagulation - Eliquis 2.5 mg twice daily. Surgery was consulted; discussed the patient's condition with Dr. Garnica. Anticoagulation reversed with FFP and vitamin K. Of note, she reports that she fell approximately 3-4 weeks ago and sustained a large hematoma to her right upper arm that remained tender to touch (approximately the size of a baseball). Hematology was consulted. Dr. Warner's recommended to hold chronic anticoagulation for 1 month until the patient is able to follow- up with Dr. Warner's at an outpatient. Additionally, plan to repeat abdominal CT in 2-3 months to evaluate retroperitoneal hematoma. During her hospital stay, the patient was also noted to be HYPOglycemic, which is likely related to adrenal insufficiency in setting of CHF exacerbation/ respiratory failure. CT of the abdomen was negative for pancreatic masses, insulinomas. Did incidentally reveal a small retroperitoneal bleed (discussed above). C-peptide 2.89, Insulin 1.49, Proinsulin 5.6, Beta-Hydroxybutyrate 3.8; normal panel. HYPOglycemia improved following initiation of stress dose steroids. Eventually able to wean stress dose steroids down to 10mg prednisone twice daily which is equivalent to 40 mg hydrocortisone twice daily. Upon discharge, the patient was placed on a steroid taper to her baseline hydrocortisone dose. (Previously on hydrocortisone 10 mg every morning and 5 mg every afternoon). No major changes made to her medication regimen. The patient was instructed to attend every dialysis session and not to miss any future sessions, otherwise she would likely end up back in the hospital. The only new medications for the patient were the steroid taper, increased hydralazine frequency, and a higher dose of Synthroid (increased to 175mcg daily for TSH 5.75). Physical Exam Vital Signs: Temp Pulse Resp BP Pulse Ox 97.9 F 56 L 18 136/61 H 96 11/24/17 10:42 11/24/17 10:42 11/24/17 10:42 11/24/17 10:42 11/24/17 10:42 Intake & Output 11/23/17 11/24/17 11/25/17 06:59 06:59 06:59 Intake Total 738 1054 Output Total 0 120 Balance 738 934 Weight 65.2 kg Results Laboratory Results: 11/24/17 05:38 11/24/17 05:38 11/24/17 11/24/17 05:38 05:38 WBC 8.8 RBC 3.56 L Hgb 10.6 L Hct 32.5 L MCV 92 MCH 29.9 MCHC 32.7 RDW 16.4 H Plt Count 149 L Sodium 137.5 Potassium 4.1 Chloride 95 L Carbon Dioxide 29 Anion Gap 14 BUN 64 H Creatinine 6.28 H Est GFR ( Amer) 8 L Est GFR (Non-Af Amer) 6 L Glucose 118 H Calcium 8.3 L 06/19/18 17:00 Blood Blood Culture - Final NO GROWTH IN 5 DAYS 11/18/17 16:41 Blood Blood Culture - Final NO GROWTH IN 5 DAYS 11/19/17 11/19/17 11/20/17 13:20 19:24 01:26 Troponin I 1.540 1.780 1.340 NT-Pro-B Natriuret Pep [id number] H 11/22/17 04:14 Troponin I NT-Pro-B Natriuret Pep [id number] H Impressions: Head CT 11/19/17 00:00 IMPRESSION: MILD CHRONIC CHANGES OF ATROPHY AND MICROVASCULAR ISCHEMIA. NO ACUTE PROCESS. Other findings as noted above EVIDENCE OF ACUTE STROKE: NO. Venous Doppler Study 11/20/17 08:00 IMPRESSION: NO EVIDENCE OF DVT OR SVT IN THE LEFT LEG. Abdomen/Pelvis CT 11/21/17 09:30 IMPRESSION: 1. The left iliacus hematoma is slightly larger. 2. Osseous findings as described. Chest X-Ray 11/22/17 06:00 IMPRESSION: Stable chest. Qualifiers - * PATIENT BEING DISCHARGED WITH ANY OF THE FOLLOWING DIAGNOSIS: Heart Failure HF Pt being discharged on ACEI for LVEF less than 40%?: No Reason(s) for not prescribing ACEI:: Not indicated - LVEF is greater than 40% HF Pt being discharged on ARBS for LVEF less than 40%?: No Reason(s) for not prescribing ARBS:: Not indicated - LVEF is greater than 40% HF Pt with Afib discharged with Warfarin?: No Reason(s) for not prescribing Warfarin:: Not indicated - Risk for bleeding. Current dx of retroperitoneal hematoma - see discharge summary for further details. HF Pt discharged on evidence-based Beta Ovidio:: Yes
--- NOTE | 2017-11-24 13:01 | PDOC TRANSFER SUMMARY ---
General Admission Date/PCP: 11/18/17 16:13 VANDANA MARQUES MD Admission Date: 11/18/17 Transfer Date: 11/24/17 Resuscitation Status: Do Not Resuscitate - Transfer Diagnosis (1) Adrenal insufficiency Is this a current diagnosis for this admission?: Yes (2) Atypical chest pain Is this a current diagnosis for this admission?: Yes (3) ESRD (end stage renal disease) on dialysis Is this a current diagnosis for this admission?: Yes (4) Generalized weakness Is this a current diagnosis for this admission?: Yes (5) Hypoglycemia Is this a current diagnosis for this admission?: Yes (6) Pulmonary edema Is this a current diagnosis for this admission?: Yes (7) Retroperitoneal bleed Is this a current diagnosis for this admission?: Yes - Transfer Medications Home Medications: Acetaminophen [Tylenol 325 mg Tablet] 650 mg PO Q4HP PRN 11/18/17 Amiodarone HCl [Cordarone 200 mg Tablet] 200 mg PO DAILY 11/18/17 Atorvastatin Calcium [Lipitor 40 mg Tablet] 40 mg PO QHS 11/18/17 Chlorhexidine Gluconate [Peridex 0.12% Oral Rinse 473 ml] 15 ml MM BID 11/18/17 Cyanocobalamin (Vitamin B-12) [Vitamin B-12] 500 mcg PO DAILY 11/18/17 Diphenoxylate HCl/Atrop Sulf [Lomotil 2.5 mg Tablet] 5 mg PO ACHS 11/18/17 Eyelid Cleanser Combination 5 [Ocusoft Lid Scrub] 1 each TP BID 11/18/17 Famotidine [Pepcid 20 mg Tablet] 20 mg PO Q12 11/18/17 Ferric Citrate [Auryxia] 210 mg PO TID 11/18/17 Fluticasone Propionate [Flonase Nasal [place] 50 Mcg/[place] 16 gm] 1 spray NASL Q12 11/18/17 Hydrocortisone [Cortef 10 mg Tablet] 5 mg PO QHS 11/18/17 Hydrocortisone [Cortef 10 mg Tablet] 10 mg PO DAILY 11/18/17 Isosorbide Mononitrate [Imdur 30 mg Tablet.er] 30 mg PO DAILY 11/18/17 L. Rhamnosus GG/Inulin [Culturelle Probiotics Capsule] 1 cap PO DAILY 11/18/17 Loperamide HCl [Imodium A-D] 4 mg PO QID 11/18/17 Loratadine [Claritin 10 mg Tablet] 10 mg PO QHS 11/18/17 Magnesium Oxide [Mag-Ox 400 mg Tablet] 400 mg PO BID 11/18/17 Metoprolol Tartrate [Lopressor 25 mg Tablet] 12.5 mg PO Q12 11/18/17 Nitroglycerin [Nitrostat 0.4 mg (1/150 Gr) Tabs 25/Bottle] 1 tab SL Q5MP PRN Olopatadine HCl [Pataday] 1 drop OU DAILY@0900 11/18/17 Oxycodone HCl/Acetaminophen [Percocet 5-325 mg Tablet] 1 tab PO Q6HP PRN Paroxetine HCl [Paxil] 10 mg PO DAILY 11/18/17 Polyvinyl Alcohol [Liquitears] 1 drop OU QID 11/18/17 Sodium Bicarbonate [Sodium Bicarbonate 650 mg Tablet] 650 mg PO BID 11/18/17 - Allergies Allergies/Adverse Reactions: iodine Allergy (Severe, Verified 11/17/17 10:18) itching, facial swelling, difficulty breathing doxycycline [Doxycycline] Allergy (Verified 11/17/17 10:18) dizzy Iodinated Contrast- Oral and IV Dye [IV Dye, Iodine Containing] Allergy ( Verified 11/17/17 10:18) Sulfa (Sulfonamide Antibiotics) Allergy (Verified 11/17/17 10:18) dizzy amlodipine besylate [From Norvasc] Adverse Reaction (Unknown, Verified 11/17/17 10:18) anxious, jittery feeling - Diet/Activity Discharge Diet: Cardiac Hospital Course Hospital Course: History of Present Illness: VARINDER TORRES is a 77 year old female with past medical history significant for COPD, CHF, end-stage renal disease on M, W, F dialysis, hypothyroidism, hypertension, and CAD who was sent to the emergency department today with complaint of weakness and low blood sugar. Fingerstick by EMS found glucose of 51 which was treated with oral sugar. Repeat Accu-Chek 61, she is provided D50. EMS also found the patient was hypoxic with a room air saturation in the 80s. Of note, the patient did miss her dialysis appointment yesterday secondary to not feeling well. Evaluation in the emergency department revealed a ventricular paced rhythm, pulmonary edema on chest x-ray, mild leukocytosis (WBCs 12), normal potassium, and elevated creatinine and BUN from baseline (8.58 and 52 respectively). The patient's transient hypoglycemia was corrected with oral glucose and D50 and has remained acceptable since that time. The emergency department provider made arrangements with Dr. Coleman for hemodialysis today. She is referred to the hospitalist service for observational admission for fluid volume overload, hypoxia, pulmonary edema related to missed dialysis appointment. Hospital Course Hospital Course: The patient is a 77-year-old female with a complicated past medical history significant for COPD, CHF, end-stage renal disease on dialysis, hypertension, coronary artery disease, dual-chamber pacemaker, chronically anticoagulated secondary to underlying atrial fibrillation, hypothyroidism, adrenal gland insufficiency, previous episodes of pulmonary emboli, and depression who was admitted on 11/18/17 for generalized weakness, fluid volume overload, hypoxia, and pulmonary edema related to missed dialysis appointment. Pulmonary edema is likely multifactorial secondary to end-stage renal disease on dialysis; missed dialysis appointment, and CHF exacerbation. She was initially on BIPAP, initial ABG demonstrating hypoxemic and hypercapnic respiratory acidosis. ECHO revealed acute on chronic diastolic heart failure but preserved LVEF. Elevated proBNP >63k. Her initial troponin was elevated ( 1.78), but cardiology believed this was likely demand ischemia secondary to CHF exacerbation in the setting of missed dialysis appointment and atrial fibrillation with RVR asked by a regular paced rhythm (patient is known to have underlying atrial fibrillation). Repeat pro BNP minimally improved ( >60k) following dialysis and treatment with diuretics. Cardiology consulted, no new recommendations. Able to wean off supplemental oxygen following dialysis and diuresis. Additionally, her follow up CXR (following HD and diuresis) shows low lung volumes and bilateral subsegmental atelectasis. An incidental finding from the Abdominal CT was a left iliacus retroperitoneal hemorrhage measuring 6 x 6 x 4 cm. The patient was on anticoagulation - Eliquis 2.5 mg twice daily. Surgery was consulted; discussed the patient's condition with Dr. Garnica. Anticoagulation reversed with FFP and vitamin K. Of note, she reports that she fell approximately 3-4 weeks ago and sustained a large hematoma to her right upper arm that remained tender to touch (approximately the size of a baseball). Hematology was consulted. Dr. Corley recommended to hold chronic anticoagulation for 1 month until the patient is able to follow- up with Dr. Jayaram's at an outpatient. Additionally, plan to repeat abdominal CT in 2-3 months to evaluate retroperitoneal hematoma. During her hospital stay, the patient was also noted to be HYPOglycemic, which is likely related to adrenal insufficiency in setting of CHF exacerbation/ respiratory failure. CT of the abdomen was negative for pancreatic masses, insulinomas. Did incidentally reveal a small retroperitoneal bleed (discussed above). C-peptide 2.89, Insulin 1.49, Proinsulin 5.6, Beta-Hydroxybutyrate 3.8; normal panel. HYPOglycemia improved following initiation of stress dose steroids. Eventually able to wean stress dose steroids down to 10mg prednisone twice daily which is equivalent to 40 mg hydrocortisone twice daily. Upon discharge, the patient was placed on a steroid taper to her baseline hydrocortisone dose. (Previously on hydrocortisone 10 mg every morning and 5 mg every afternoon). No major changes made to her medication regimen. The patient was instructed to attend every dialysis session and not to miss any future sessions, otherwise she would likely end up back in the hospital. The only new medications for the patient were the steroid taper, increased hydralazine frequency, and a higher dose of Synthroid (increased to 175mcg daily for TSH 5.75). Physical Exam Vital Signs: Temp Pulse Resp BP Pulse Ox 97.9 F 56 L 18 136/61 H 96 11/24/17 10:42 11/24/17 10:42 11/24/17 10:42 11/24/17 10:42 11/24/17 10:42 Intake & Output 11/23/17 11/24/17 11/25/17 06:59 06:59 06:59 Intake Total 738 1054 Output Total 0 120 Balance 738 934 Weight 65.2 kg Results Laboratory Results: 11/24/17 05:38 11/24/17 05:38 11/24/17 11/24/17 05:38 05:38 WBC 8.8 RBC 3.56 L Hgb 10.6 L Hct 32.5 L MCV 92 MCH 29.9 MCHC 32.7 RDW 16.4 H Plt Count 149 L Sodium 137.5 Potassium 4.1 Chloride 95 L Carbon Dioxide 29 Anion Gap 14 BUN 64 H Creatinine 6.28 H Est GFR ( Amer) 8 L Est GFR (Non-Af Amer) 6 L Glucose 118 H Calcium 8.3 L 11/18/17 17:00 Blood Blood Culture - Final NO GROWTH IN 5 DAYS 11/18/17 16:41 Blood Blood Culture - Final NO GROWTH IN 5 DAYS 11/19/17 11/19/17 11/20/17 13:20 19:24 01:26 Troponin I 1.540 1.780 1.340 NT-Pro-B Natriuret Pep [id number] H 11/22/17 04:14 Troponin I NT-Pro-B Natriuret Pep [id number] H Impressions: Head CT 11/19/17 00:00 IMPRESSION: MILD CHRONIC CHANGES OF ATROPHY AND MICROVASCULAR ISCHEMIA. NO ACUTE PROCESS. Other findings as noted above EVIDENCE OF ACUTE STROKE: NO. Venous Doppler Study 11/20/17 08:00 IMPRESSION: NO EVIDENCE OF DVT OR SVT IN THE LEFT LEG. Abdomen/Pelvis CT 11/21/17 09:30 IMPRESSION: 1. The left iliacus hematoma is slightly larger. 2. Osseous findings as described. Chest X-Ray 11/22/17 06:00 IMPRESSION: Stable chest.
== END 2017-11-24 11:10 | disposition other institution (70) | DRG 291 ==
LOC: ER 11:29 → EH 15:51 → OBSVTOIN 16:13 → 3S 20:12 → ICU 11-19 15:53 → 3W 11-21 17:07
PROVIDERS: ADMIT Internal Medicine; ATTEND Internal Medicine
PROC: 5A1D70Z Performance of Urinary Filtration, Intermittent, Less than 6 Hours Per Day (ICD-10-PCS; principal; 2017-11-18)
PROC: 3E0F73Z Introduction of Anti-inflammatory into Respiratory Tract, Via Natural or Artificial Opening (ICD-10-PCS; 2017-11-18)
PROC: 5A09457 Assistance with Respiratory Ventilation, 24-96 Consecutive Hours, Continuous Positive Airway Pressure (ICD-10-PCS; 2017-11-18)
PROC: 5A1D70Z Performance of Urinary Filtration, Intermittent, Less than 6 Hours Per Day (ICD-10-PCS; 2017-11-19)
PROC: 30233K1 Transfusion of Nonautologous Frozen Plasma into Peripheral Vein, Percutaneous Approach (ICD-10-PCS; 2017-11-19)
PROC: 5A1D70Z Performance of Urinary Filtration, Intermittent, Less than 6 Hours Per Day (ICD-10-PCS; 2017-11-20)
PROC: 5A1D70Z Performance of Urinary Filtration, Intermittent, Less than 6 Hours Per Day (ICD-10-PCS; 2017-11-21)
DX: I13.2 Hypertensive heart and chronic kidney disease with heart failure and with stage 5 chronic kidney disease, or end stage renal disease (principal); N18.6 End stage renal disease; I50.33 Acute on chronic diastolic (congestive) heart failure; J81.0 Acute pulmonary edema; J96.21 Acute and chronic respiratory failure with hypoxia; J96.22 Acute and chronic respiratory failure with hypercapnia; E27.40 Unspecified adrenocortical insufficiency; I27.82 Chronic pulmonary embolism; N39.0 Urinary tract infection, site not specified; Z66 Do not resuscitate; R07.89 Other chest pain; R53.1 Weakness; E16.2 Hypoglycemia, unspecified; R58 Hemorrhage, not elsewhere classified; J44.9 Chronic obstructive pulmonary disease, unspecified; E03.9 Hypothyroidism, unspecified; I25.118 Atherosclerotic heart disease of native coronary artery with other forms of angina pectoris; I48.0 Paroxysmal atrial fibrillation; F32.9 Major depressive disorder, single episode, unspecified; K21.9 Gastro-esophageal reflux disease without esophagitis; M19.90 Unspecified osteoarthritis, unspecified site; D63.1 Anemia in chronic kidney disease; I44.7 Left bundle-branch block, unspecified; I25.2 Old myocardial infarction; Z79.899 Other long term (current) drug therapy; Z99.2 Dependence on renal dialysis; Z95.0 Presence of cardiac pacemaker; Z79.82 Long term (current) use of aspirin; Z79.01 Long term (current) use of anticoagulants; Z88.2 Allergy status to sulfonamides; Z88.8 Allergy status to other drugs, medicaments and biological substances; Z88.3 Allergy status to other anti-infective agents; Z91.041 Radiographic dye allergy status; Z90.49 Acquired absence of other specified parts of digestive tract; Z98.84 Bariatric surgery status; Z87.891 Personal history of nicotine dependence; Z78.1 Physical restraint status; Z91.15 Patient's noncompliance with renal dialysis; Z86.718 Personal history of other venous thrombosis and embolism; Z95.810 Presence of automatic (implantable) cardiac defibrillator; Z82.49 Family history of ischemic heart disease and other diseases of the circulatory system
CPT/HCPCS: 36415; 36430; 36600; 70450; 71045; 72050; 74176; 80048; 80053; 80076; 81001; 82010; 82140; 82550; 82553; 82803; 82962; 83525; 83605; 83735; 83880; 84206; 84439; 84443; 84484; 84681; 85025; 85027; 85362; 85384; 85610; 85730; 86900; 86901; 87040; 87086; 93005; 93010; 93306; 93971; 94640; 94660; 96374; 99284; 99291; G0257; J0360; J0696; J1644; J2270; J2920; J3490; J7512; J7620; P9017

== ENCOUNTER → 2017-12-11 | Outpatient (CLI) | payer MEDICARE, MEDICAID ==
--- NOTE | 2017-12-11 13:02 | RADIOLOGY REPORT (SQ) ---
EXAM DESCRIPTION: CT ABD/PELVIS NO ORAL OR IV COMPLETED DATE/TIME: 12/11/2017 12:30 pm REASON FOR STUDY: (RETROPERITONEAL) HEMMORRHAGE, NEC (R58) R58 HEMORRHAGE, NOT ELSEWHERE CLASSIFIED COMPARISON: CT abdomen pelvis 11/21/2017, 11/19/2017, 08/17/2013 TECHNIQUE: CT scan of the abdomen and pelvis performed without intravenous or oral contrast. Images reviewed with lung, soft tissue, and bone windows. Reconstructed coronal and sagittal MPR images revi ewed. All images stored on PACS. All CT scanners at this facility use dose modulation, iterative reconstruction, and/or weight based d osing when appropriate to reduce radiation dose to as low as reasonably achievable (ALARA). [facility]: Dose Right [facility]: CareDose [facility]: Dose Right [facility]: Teradose 4D [facility]: [employer] RADIATION DOSE: CT Rad equipment meets quality standard of care and radiation dose reduction techniq ues were employed. CTDIvol: 6.3 mGy. DLP: 342 mGy-cm.mGy. LIMITATIONS: None. FINDINGS: A left retroperitoneal hematoma persists along the dorsal aspect of the left iliacus muscl e, on today's study measuring 5 cm AP x 3 cm transverse by 8 cm craniocaudad (was 8 cm AP x 4.4 cm tr ansverse x 11 cm craniocaudad on 11/21/2017). LOWER CHEST: No significant findings. No nodules or infiltrates. Coronary artery calcifications. Pa cemaker. Mild cardiomegaly NON-CONTRASTED LIVER, SPLEEN, ADRENALS: Evaluation limited by lack of IV contrast. No identified sign ificant masses. PANCREAS: No masses. No peripancreatic inflammatory changes. GALLBLADDER: Surgically absent KIDNEYS AND URETERS: Tiny bilateral kidneys with extensive medullary nephrocalcinosis/ stone formatio n bilaterally. No hydronephrosis. No ureteral calculi. AORTA AND RETROPERITONEUM: No aneurysm. No retroperitoneal masses or adenopathy. IVC filter. BOWEL AND PERITONEAL CAVITY: No obvious masses or inflammatory changes. No free fluid. Surgical clip s along the right colon. APPENDIX: Normal. PELVIS, BLADDER, AND ABDOMINAL WALL:No abnormal masses. No free fluid. Bladder normal. Small postmen opausal female pelvic organs. BONES: No significant findings. OTHER: Small subcutaneous nodule left upper quadrant anterior abdominal wall fat could be related to Lovenox injection IMPRESSION: Decrease in size of left retroperitoneal hemorrhage compared to 11/21/2017 COMMENT: Quality ID # [id number]: Final reports with documentation of one or more dose reduction techniques (e.g., Automated exposure control, adjustment of the mA and/or kV according to patient size, use of iterative reconstruction technique) TECHNICAL DOCUMENTATION: JOB ID: [id number] [employer]- All Rights Reserved Reading location - IP/workstation name: [facility]
== END ==
LOC: RAD 12:09
PROVIDERS: ATTEND Physician Assistant Medical
DX: R58 Hemorrhage, not elsewhere classified (principal)
CPT/HCPCS: 74176

== ENCOUNTER 2017-12-30 05:55 | Day surgery (SDC) | payer MEDICARE, MEDICAID ==
[~2017-12-30 05:55] MED LIST changes: -FENTANYL CITRATE INJ/PF 100 MCG/2 ML AMPUL ONE; -HEPARIN SOD (PORCINE) 5,000 UNIT/ML 1 ML SYRINGE ONE; -LIDOCAINE 0.5% INJ-PF (5 MG/ML) 50 ML SDV ONE; -MIDAZOLAM 2 MG/2 ML INJ ONE; +OXYCODONE-ACETAMINOPHEN 5-325 MG TABLET PO PRN
[2017-12-30 06:37] LABS: HEMATOCRIT 41.7 % (36.0-47.0); HEMOGLOBIN 13.5 g/dL (12.0-15.5); MEAN CORPUSCULAR HEMOGLOBIN 29.6 pg (27.0-33.4); MEAN CORPUSCULAR HGB CONC 32.3 g/dL (32.0-36.0); MEAN CORPUSCULAR VOLUME 92 fl (80-97); PLATELET COUNT 140 10^3/uL (150-450); RED BLOOD COUNT 4.55 10^6/uL (3.72-5.28); RED CELL DISTRIBUTION WIDTH 17.1 % (11.5-14.0); WHITE BLOOD COUNT 9.7 10^3/uL (4.0-10.5)
[2017-12-30 06:56] LABS: ANION GAP 16 (5-19); BLOOD UREA NITROGEN 26 mg/dL (7-20); CALCIUM 9.1 mg/dL (8.4-10.2); CARBON DIOXIDE 28 mmol/L (22-30); CHLORIDE 99 mmol/L (98-107); GLUCOSE 133 mg/dL (75-110)
[2017-12-30] MEDS ORDERED: LIDOCAINE 0.5% INJ-PF (5 MG/ML) 50 ML SDV ONE (07:19)
[2017-12-30] MEDS ORDERED: MIDAZOLAM 2 MG/2 ML INJ ONE (07:23)
[2017-12-30] MEDS ORDERED: FENTANYL CITRATE INJ/PF 100 MCG/2 ML AMPUL ONE (07:24)
[2017-12-30] MEDS ORDERED: HEPARIN SOD (PORCINE) 5,000 UNIT/ML 1 ML SYRINGE ONE (07:24)
--- NOTE | 2017-12-30 08:51 | RADIOLOGY REPORT (SQ) ---
EXAM DESCRIPTION: FISTULAGRAM W/PLASTY; ANGIOPLASTY BRACHIOCEPHALIC COMPLETED DATE/TIME: 12/30/2017 8:42 am REASON FOR STUDY: T82.858A T82.858A STENOSIS OF OTHER VASCULAR PROSTH DEV/GRFT, INIT COMPARISON: 08/05/2017. FLUOROSCOPY TIME: 0.8 minutes. 56 images saved to PACS. TECHNIQUE: Intra-operative images acquired during surgical procedure to evaluate progress. NUMBER OF IMAGES: 56 images. LIMITATIONS: None. FINDINGS: Imaging in fluoroscopy during left upper extremity dialysis access evaluation and plasty b y Dr. Joya . Please refer to the operative report for further details. IMPRESSION: INTRA PROCEDURAL IMAGING ABOVE . COMMENT: Quality ID 145: Final reports for procedures using fluoroscopy that document radiation exp osure indices, or exposure time and number of fluorographic images (if radiation exposure indices are not available) Please consult full operative report of the attending physician for description of the procedure. TECHNICAL DOCUMENTATION: JOB ID: [id number] [employer]- All Rights Reserved Reading location - IP/workstation name: [facility]
--- NOTE | 2017-12-30 08:51 | RADIOLOGY REPORT (SQ) ---
EXAM DESCRIPTION: FISTULAGRAM W/PLASTY; ANGIOPLASTY BRACHIOCEPHALIC COMPLETED DATE/TIME: 12/30/2017 8:42 am REASON FOR STUDY: T82.858A T82.858A STENOSIS OF OTHER VASCULAR PROSTH DEV/GRFT, INIT COMPARISON: 08/05/2017. FLUOROSCOPY TIME: 0.8 minutes. 56 images saved to PACS. TECHNIQUE: Intra-operative images acquired during surgical procedure to evaluate progress. NUMBER OF IMAGES: 56 images. LIMITATIONS: None. FINDINGS: Imaging in fluoroscopy during left upper extremity dialysis access evaluation and plasty b y Dr. Joya . Please refer to the operative report for further details. IMPRESSION: INTRA PROCEDURAL IMAGING ABOVE . COMMENT: Quality ID 145: Final reports for procedures using fluoroscopy that document radiation exp osure indices, or exposure time and number of fluorographic images (if radiation exposure indices are not available) Please consult full operative report of the attending physician for description of the procedure. TECHNICAL DOCUMENTATION: JOB ID: [id number] [employer]- All Rights Reserved Reading location - IP/workstation name: [facility]
--- NOTE | 2017-12-30 08:59 | PDOC H&P ---
General Chief Complaint: The patient is admitted for fistula angiogram. Malfunction has been noted on dialysis. - Current Medications/Allergies Home Medications: Amiodarone HCl [Cordarone 200 mg Tablet] 200 mg PO DAILY 11/18/17 Atorvastatin Calcium [Lipitor 40 mg Tablet] 40 mg PO QHS 11/18/17 Chlorhexidine Gluconate [Peridex 0.12% Oral Rinse 473 ml] 15 ml MM BID 11/18/17 Cyanocobalamin (Vitamin B-12) [Vitamin B-12] 500 mcg PO DAILY 11/18/17 Diphenoxylate HCl/Atrop Sulf [Lomotil 2.5 mg Tablet] 5 mg PO ACHS 11/18/17 Eyelid Cleanser Combination 5 [Ocusoft Lid Scrub] 1 each TP BID 11/18/17 Famotidine [Pepcid 20 mg Tablet] 20 mg PO Q12 11/18/17 Ferric Citrate [Auryxia] 210 mg PO TID 11/18/17 Fluticasone Propionate [Flonase Nasal Gattman 50 Mcg/Gattman 16 gm] 1 spray NASL Q12 11/18/17 Hydrocortisone [Cortef 10 mg Tablet] 5 mg PO QHS 11/18/17 Hydrocortisone [Cortef 10 mg Tablet] 10 mg PO DAILY 11/18/17 Isosorbide Mononitrate [Imdur 30 mg Tablet.er] 30 mg PO DAILY 11/18/17 L. Rhamnosus GG/Inulin [Culturelle Probiotics Capsule] 1 cap PO DAILY 11/18/17 Loperamide HCl [Imodium A-D] 4 mg PO QID 11/18/17 Loratadine [Claritin 10 mg Tablet] 10 mg PO QHS 11/18/17 Metoprolol Tartrate [Lopressor 25 mg Tablet] 12.5 mg PO Q12 11/18/17 Nitroglycerin [Nitrostat 0.4 mg (1/150 Gr) Tabs 25/Bottle] 1 tab SL Q5MP PRN Olopatadine HCl [Pataday] 1 drop OU DAILY@0900 11/18/17 Paroxetine HCl [Paxil] 10 mg PO DAILY 11/18/17 Polyvinyl Alcohol [Liquitears] 1 drop OU QID 11/18/17 Sodium Bicarbonate [Sodium Bicarbonate 650 mg Tablet] 650 mg PO BID 11/18/17 Diphenhydramine HCl [Benadryl] 50 mg PO PRN PRN 12/30/17 Prednisone 60 mg PO PRN PRN 12/30/17 Allergies/Adverse Reactions: iodine Allergy (Severe, Verified 11/17/17 10:18) itching, facial swelling, difficulty breathing doxycycline [Doxycycline] Allergy (Verified 11/17/17 10:18) dizzy Iodinated Contrast- Oral and IV Dye [IV Dye, Iodine Containing] Allergy ( Verified 11/17/17 10:18) Sulfa (Sulfonamide Antibiotics) Allergy (Verified 11/17/17 10:18) dizzy amlodipine besylate [From Norvasc] Adverse Reaction (Unknown, Verified 11/17/17 10:18) anxious, jittery feeling Past Medical History Cardiac Medical History: Reports: Congestive Heart Failure, Coronary Artery Disease, DVT, Myocardial Infarction, Hypertension, Pulmonary Embolism, Heart Murmur Pulmonary Medical History: Reports: Chronic Obstructive Pulmonary Disease (COPD) , Pneumonia Denies: Asthma, Bronchitis, Tuberculosis Neurological Medical History: Denies: Seizures Renal/ Medical History: Reports: End Stage Renal Disease - On dialysis GI Medical History: Reports: Gastroesophageal Reflux Disease Musculoskeltal Medical History: Reports: Arthritis Psychiatric Medical History: Reports: Depression Hematology: Reports: Anemia - HX OF Past Surgical History Past Surgical History: Reports: Cholecystectomy, Gastric Bypass Surgery, Orthopedic Surgery, Tonsillectomy, Tubal Ligation Denies: Hysterectomy Family History Family History: CAD, Hypertension Parental Family History Reviewed: No Children Family History Reviewed: No Sibling(s) Family History Reviewed.: No Social History Smoking Status: Never Smoker Frequency of Alcohol Use: None Hx Recreational Drug Use: No Drugs: None Hx Prescription Drug Abuse: No Physical Exam Vital Signs: Temp Pulse Resp BP Pulse Ox 97.3 F 67 16 157/65 H 97 12/30/17 06:32 12/30/17 06:32 12/30/17 06:32 12/30/17 06:32 12/30/17 06:32 Intake & Output 12/29/17 12/30/17 12/31/17 06:59 06:59 06:59 Weight 67.132 kg Additional comments: Constitutional: Well-developed well-nourished lady. No apparent acute distress. Eyes: Mucous membranes pink and moist, pupils equal and reactive to light. Conjunctiva normal. Cornea normal. Wears spectacles ENT: Hearing grossly normal. External pinna normal to inspection. Teeth mostly intact. Tongue normal to inspection. Cardiac: Heart sounds 1 and 2 normal, no murmurs. Chest: Right-sided defibrillator pacemaker in place. Respiratory breath sounds are present bilaterally, normal. Normal respiratory effort. Psychiatric: Judgment, memory, insight seem normal. Mood is pleasant and appropriate. Extremities: Upper extremities show normal range of movement. Pulses present noted to the radial arteries. Capillary refill normal. No cyanosis noted. Some muscle wasting noted. Left-sided brachiocephalic fistula, very dilated and in parts ectatic and aneurysmal. Firm to palpation suggesting cephalad stenosis. Impression/Plan Plan: The patient is admitted for fistula angiogram and possible angioplasty. The risks, benefits, expected outcome and alternatives are familiar to her. She wishes to proceed.
--- NOTE | 2017-12-30 09:01 | Discharge Summary ---
Discharge Summary (SDC) - Discharge Final Diagnosis: #1 malfunctioning AV fistula left brachiocephalic. 2. End-stage renal disease on hemodialysis 3. Chronic thrombocytopenia. 4. Defibrillator defibrillator pacemaker in place. 5. Pranav's disease. 6. Hypertension. Treatment or Instructions: Discharge home [after recovery per ASU criteria]. Diet , [renal],as tolerated, when fully awake advance as tolerated. Activities within moderation encouraged. Follow up in my office by appointment in about [1 month. Call for appointment. Leave wounds [covered], [keep clean and dry, until hemodialysis. Hold of on school/work [until evaluation in office]. Meds per med rec. May shower [in 48 hrs], [try to keep operated area as dry as possible]. Referrals: DALIA DENNY MD [Primary Care Provider] - Discharge Diet: Other (Comments) - Renal. Respiratory Treatments at Home: Deep Breathing/Coughing Discharge Activity: Activity As Tolerated Report the Following to Your Physician Immediately: Shortness of Breath, Unusual Bleeding
[2017-12-30 09:44] VITALS: BP 138/91
--- NOTE | 2017-12-30 16:26 | Operative Report ---
Operative Report DATE OF SURGERY: 12/30/17 PREOPERATIVE DIAGNOSIS: 1. Malfunctioning arteriovenous fistula left arm brachiocephalic. 2. End-stage renal disease on hemodialysis. 3. Bourbon's disease. 4. 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 5. Multiple comorbidities. POSTOPERATIVE DIAGNOSIS: 1. Malfunctioning arteriovenous fistula left arm brachiocephalic. 2. End-stage renal disease on hemodialysis. 3. Bourbon's disease. 4. 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 5. Multiple comorbidities. OPERATION: 1. Needle access into the fistula. 2. Balloon angioplasty. 3. Drug-eluting balloon angioplasty. 4. Angiogram and interpretation. SURGEON: DON HUNTER ENGINEERING SYSTEMS ANALYST: None. ANESTHESIA: Moderate Sedation TISSUE REMOVED OR ALTERED: Not applicable. COMPLICATIONS: None. ESTIMATED BLOOD LOSS: 2 mL. INTRAOPERATIVE FINDINGS: Ovary hyper pulsatile, ectatic and aneurysmal, well founded left arm brachiocephalic fistula. Angiographic findings consistent with a tight stenosis about 80% of the adjacent lumen at this cephalic to subclavian junction. This was eliminated by angioplasty with a 10 mm balloon with a perhaps 5% residual stenosis. The previously noted firmness in the fistula was resolved. PROCEDURE: PROCEDURE: After verifying the procedure and having obtained informed consent, the patient's left arm was prepared with Chlorhexidine and draped out with sterile linen. Local anesthesia infiltrated. Percutaneous access into the fistula ,[ antegrade], obtained about [6 cm] from the arteriovenous anastomosis using a micro puncture needle followed by micro puncture wire and then a micro puncture catheter. . A 0.035 [place] wire was inserted, and over this, a 7 Swedish short introducer was placed, this was followed by a [8-mm ] angioplasty balloon . Angioplasty was done at the culprit region. Inflating up to 14 atmospheres for 3 minutes at a time.]. Completion angiogram demonstrated [satisfactory result]. With this bill fistula is decided to proceed to try to sustain function for some time. A 10 mm angioplasty balloon was now inserted and again inflated up to 14 amanda. Sustained for 3 minutes. Following this a drug-eluting balloon was inserted and placed over the culprit area and inflated up to 11 amanda, sustained for 4 minutes. On deflation a completion angiogram was done. The instrumentation was now withdrawn over Hand pressure for 10 minutes. Dressings applied, procedure concluded. DICTATING PHYSICIAN: DON HELM M.D. cc: DON HELM M.D. ([id number]) >>
== END 2017-12-30 09:40 | disposition home or self-care (01) ==
LOC: CCL 05:55
PROVIDERS: ATTEND Surgery
DX: T82.858A Stenosis of other vascular prosthetic devices, implants and grafts, initial encounter (principal); Y83.2 Surgical operation with anastomosis, bypass or graft as the cause of abnormal reaction of the patient, or of later complication, without mention of misadventure at the time of the procedure; I25.10 Atherosclerotic heart disease of native coronary artery without angina pectoris; I13.2 Hypertensive heart and chronic kidney disease with heart failure and with stage 5 chronic kidney disease, or end stage renal disease; N18.6 End stage renal disease; I50.9 Heart failure, unspecified; Z99.2 Dependence on renal dialysis; E27.1 Primary adrenocortical insufficiency; D69.6 Thrombocytopenia, unspecified; Z95.810 Presence of automatic (implantable) cardiac defibrillator; I25.2 Old myocardial infarction; Z86.718 Personal history of other venous thrombosis and embolism; Z86.711 Personal history of pulmonary embolism; R01.1 Cardiac murmur, unspecified; J44.9 Chronic obstructive pulmonary disease, unspecified; M19.90 Unspecified osteoarthritis, unspecified site; Z88.2 Allergy status to sulfonamides; Z88.1 Allergy status to other antibiotic agents; Z79.899 Other long term (current) drug therapy
CPT/HCPCS: 36415; 85027; 80048; 36907; 36902; C1725 ×2; C2623; C1752; C1894; Q9967; J2250; J1644 ×2; A9270 ×2; J3010; J3490

== ENCOUNTER 2018-01-29 08:34 | Day surgery (SDC) | payer MEDICARE, MEDICAID ==
[2018-01-29 09:20] VITALS: BP 153/55
[2018-01-29 09:43] LABS: HEMATOCRIT 36.4 % (36.0-47.0); HEMOGLOBIN 11.9 g/dL (12.0-15.5); MEAN CORPUSCULAR HEMOGLOBIN 29.6 pg (27.0-33.4); MEAN CORPUSCULAR HGB CONC 32.5 g/dL (32.0-36.0); MEAN CORPUSCULAR VOLUME 91 fl (80-97); PLATELET COUNT 113 10^3/uL (150-450); RED CELL DISTRIBUTION WIDTH 16.4 % (11.5-14.0); WHITE BLOOD COUNT 7.8 10^3/uL (4.0-10.5)
[2018-01-29 10:02] LABS: ANION GAP 16 (5-19); BLOOD UREA NITROGEN 28 mg/dL (7-20); CALCIUM 9.3 mg/dL (8.4-10.2); CARBON DIOXIDE 28 mmol/L (22-30); CHLORIDE 96 mmol/L (98-107); GLUCOSE 114 mg/dL (75-110); POTASSIUM 3.6 mmol/L (3.6-5.0)
[2018-01-29] MEDS ORDERED: LIDOCAINE 0.5% INJ-PF (5 MG/ML) 50 ML SDV ONE (10:40)
[2018-01-29] MEDS ORDERED: HEPARIN SOD (PORCINE) 5,000 UNIT/ML 1 ML SYRINGE ONE (10:41)
[2018-01-29] MEDS ORDERED: FENTANYL CITRATE INJ/PF 100 MCG/2 ML AMPUL ONE (10:41)
[2018-01-29] MEDS ORDERED: MIDAZOLAM 2 MG/2 ML INJ ONE (10:41)
--- NOTE | 2018-01-29 11:53 | Discharge Summary ---
Discharge Summary (SDC) - Discharge Final Diagnosis: #1 malfunctioning arteriovenous fistula, left brachiocephalic. 2. End-stage renal disease on hemodialysis. 3. Atrial fibrillation. 4. History of Pranav's disease. 5. Hypertension. Date of Surgery: 01/29/18 Discharge Date: 01/29/18 Condition: Fair Treatment or Instructions: Discharge home [after recovery per ASU criteria]. Diet , [renal],as tolerated, when fully awake advance as tolerated. Activities within moderation encouraged. Follow up in my office by appointment in about [1 week]. Call for appointment. Leave wounds [covered], [keep clean and dry, until hemodialysis]. Hold of on school/work [until evaluation in office]. Meds per med rec. May shower [in 48 hrs], [try to keep operated area as dry as possible]. Referrals: DALIA DENNY MD [Primary Care Provider] - Discharge Diet: Other (Comments) - Renal. Respiratory Treatments at Home: Deep Breathing/Coughing Discharge Activity: Activity As Tolerated Report the Following to Your Physician Immediately: Shortness of Breath, Unusual Bleeding
--- NOTE | 2018-01-29 14:06 | RADIOLOGY REPORT (SQ) ---
EXAM DESCRIPTION: FISTULAGRAM COMPLETED DATE/TIME: 01/29/2018 11:43 am REASON FOR STUDY: T82.858A T82.858A STENOSIS OF OTHER VASCULAR PROSTH DEV/GRFT, INIT Z79.899 OTHER ALF (CURRENT) DRUG THERAPY COMPARISON: None. FLUOROSCOPY TIME: 0.6 minutes Spot and cine images saved to PACS. TECHNIQUE: Intra-operative images acquired during surgical procedure to evaluate progress. NUMBER OF IMAGES: 58 LIMITATIONS: None. FINDINGS: Fluoroscopy was provided for intraoperative procedure. Please refer to the operative repo rt for further discussion. IMPRESSION: IMAGE(S) OBTAINED DURING PROCEDURE. COMMENT: Quality ID [id number]: Final reports for procedures using fluoroscopy that document radiation exp osure indices, or exposure time and number of fluorographic images (if radiation exposure indices are not available) Please consult full operative report of the attending physician for description of the procedure. TECHNICAL DOCUMENTATION: JOB ID: [id number] [employer]- All Rights Reserved Reading location - IP/workstation name: [email or web address]
[2018-01-29] MEDS ORDERED: OXYCODONE-ACETAMINOPHEN 5-325 MG TABLET ONE (14:56)
[2018-01-29] MEDS ORDERED: DIAZEPAM 5 MG TABLET ONE (14:56)
--- NOTE | 2018-03-03 11:00 | OPERATIVE REPORT E ---
Operative Report NAME: VARINDER TORRES : 1940 AGE: 77Y DATE OF SURGERY: 01/29/2018 ROOM: PREOPERATIVE DIAGNOSES: 1. Malfunctioning arteriovenous fistula, left arm, brachiocephalic. 2. End-stage renal disease, on hemodialysis. 3. [place] disease. 4. Pacemaker/defibrillator in place. 5. Multiple comorbidities. POSTOPERATIVE DIAGNOSES: 1. Malfunctioning arteriovenous fistula, left arm, brachiocephalic. 2. End-stage renal disease, on hemodialysis. 3. [place] disease. 4. Pacemaker/defibrillator in place. 5. Multiple comorbidities. OPERATION: 1. Needle-assisted arteriovenous fistula. 2. Angiogram and interpretation. SURGEON: DON HELM M.D. STOCK SHAPER: None. ANESTHESIA: Monitored sedation. TISSUE REMOVED OR ALTERED: Not applicable. COMPLICATIONS: None. ESTIMATED BLOOD LOSS: 2 mL. OPERATIVE FINDINGS: Consisted of a normally pulsatile ectatic and aneurysmal, well-founded left brachiocephalic fistula. Angiographic findings consisted of no significant stenosis. In particular, the stenosis addressed on the 30 of December remained completely eradicated. PROCEDURE: After verifying the procedure and after obtaining informed consent, the patient's left arm was prepared with chlorhexidine and draped out in sterile linen. Local anesthesia infiltrated. Percutaneous access into the fistula, antegrade, was obtained about 6 cm from the arteriovenous anastomosis using a micropuncture needle followed by micropuncture wire followed by a 7-Kinyarwanda short introducer. An angiogram was done with the findings as dictated. Based on these findings it was decided that no angioplasty was needed. The instrumentation was thus removed and handheld pressure held for 10 minutes. DICTATING PHYSICIAN: DON HELM M.D. [id number] PHY#: [id number] ID: [id number] JOB#: [id number] ACCT: [id number] cc:DON HELM M.D. >
== END 2018-01-29 14:58 | disposition home or self-care (01) ==
LOC: CCL 08:34
PROVIDERS: ATTEND Surgery
DX: T82.858A Stenosis of other vascular prosthetic devices, implants and grafts, initial encounter (principal); Y83.2 Surgical operation with anastomosis, bypass or graft as the cause of abnormal reaction of the patient, or of later complication, without mention of misadventure at the time of the procedure; I13.2 Hypertensive heart and chronic kidney disease with heart failure and with stage 5 chronic kidney disease, or end stage renal disease; I50.22 Chronic systolic (congestive) heart failure; N18.6 End stage renal disease; Z99.2 Dependence on renal dialysis; I48.91 Unspecified atrial fibrillation; E27.1 Primary adrenocortical insufficiency; Z95.810 Presence of automatic (implantable) cardiac defibrillator; Z79.899 Other long term (current) drug therapy; Z79.82 Long term (current) use of aspirin; Z79.01 Long term (current) use of anticoagulants; Z88.2 Allergy status to sulfonamides; Z88.8 Allergy status to other drugs, medicaments and biological substances; E87.6 Hypokalemia; E83.51 Hypocalcemia; D50.9 Iron deficiency anemia, unspecified; D63.1 Anemia in chronic kidney disease; E03.9 Hypothyroidism, unspecified; Z86.718 Personal history of other venous thrombosis and embolism; I47.2 Ventricular tachycardia
CPT/HCPCS: 36415; 85027; 80048; 36901; C1752; C1887; C1894; C1769; J1644 ×2; A9270 ×2; J3490; J2250; J3010

== ENCOUNTER 2018-02-14 10:10 | Emergency (ER) | payer MEDICARE, MEDICAID ==
--- NOTE | 2018-02-14 10:19 | ER Document Report ---
ED Fall - General Stated Complaint: FALL/RIGHT LEG INJURY Time Seen by Provider: 02/14/18 10:18 Notes: This is a 77-year-old female who was found on the floor in the bathroom in her residential with a deformity noted to the right lower extremity. EMS was unable to respond. This physician as well as nurse and a special police made our way to the residential. Patient was in moderate distress due to pain. She was having significant amount of pain to the right leg. Denies any loss of consciousness. Numbness to her foot. TRAVEL OUTSIDE OF THE [place] IN LAST 30 DAYS: No COUNTRY TRAVELED TO/FROM: [facility] - HPI Occurred: This morning Where: Group Home Context: Tripped - Related data Allergies/Adverse Reactions: iodine Allergy (Severe, Verified 11/17/17 10:18) itching, facial swelling, difficulty breathing doxycycline [Doxycycline] Allergy (Verified 11/17/17 10:18) dizzy Iodinated Contrast- Oral and IV Dye [IV Dye, Iodine Containing] Allergy ( Verified 11/17/17 10:18) Sulfa (Sulfonamide Antibiotics) Allergy (Verified 11/17/17 10:18) dizzy amlodipine besylate [From Norvasc] Adverse Reaction (Unknown, Verified 11/17/17 10:18) anxious, jittery feeling Past Medical History - General Information source: Patient - Social History Smoking Status: Unknown if Ever Smoked Frequency of alcohol use: None Drug Abuse: None Lives with: Group Home Family History: CAD, Hypertension - Past Medical History Cardiac Medical History: Reports: Hx Congestive Heart Failure, Hx Coronary Artery Disease, Hx DVT, Hx Heart Attack, Hx Hypertension, Hx Pulmonary Embolism , Hx Heart Murmur Pulmonary Medical History: Reports: Hx COPD, Hx Pneumonia Denies: Hx Asthma, Hx Bronchitis, Hx Tuberculosis Neurological Medical History: Reports: Hx Cerebrovascular Accident. Denies: Hx Seizures Renal/ Medical History: Reports: Hx End Stage Renal Disease - On dialysis, Hx Hemodialysis, Hx Kidney Stones. Denies: Hx Peritoneal Dialysis GI Medical History: Reports: Hx Gastroesophageal Reflux Disease, Hx Ulcer Musculoskeletal Medical History: Reports Hx Arthritis Psychiatric Medical History: Reports: Hx Depression Past Surgical History: Reports: Hx Abdominal Surgery - gastric bypass, Hx Cardiac Surgery - Pacer, bypass, Hx Cholecystectomy, Hx Gastric Bypass Surgery, Hx Orthopedic Surgery, Hx Tonsillectomy, Hx Tubal Ligation. Denies: Hx Hysterectomy - Immunizations Hx Diphtheria, Pertussis, Tetanus Vaccination: Yes Hx Pneumococcal Vaccination: 01/31/14 Review of Systems - Review of Systems Notes: Constitutional: denies: Chills, Diaphoresis, Fever, Malaise, Weakness EENT: denies: Eye discharge, Blurred vision, Tearing, Double vision, Nose congestion, Nose discharge, Throat swelling, Mouth pain Cardiovascular: denies: Palpitations, Heart racing, Orthopnea, Dyspnea, Chest pain Respiratory: denies: Cough, Hurts to breathe, Wheezing, Shortness of breath Gastrointestinal: denies: Abdominal pain, Diarrhea, Nausea, Vomiting, Black stools, bright red blood in stool Genitourinary: denies: Burning, Dysuria, Discharge, Frequency, Flank pain, Hematuria. History of renal failure and on dialysis. Patient dialyzes Friday. Last dialysis was on Friday. Has been taking Kayexalate daily. Musculoskeletal: Complaining of pain in the right knee with deformity of the right knee/right lower extremity Hematologic/Lymphatic: denies: Anemia, Easy bleeding, Easy bruising, Blood clots Neurological/Psychological: denies: Confusion, Dementia, Depression, Loss of consciousness Skin: No lesions, no masses, no skin breakdown, no abscesses Physical Exam - Vital signs Vitals: Temp Pulse Resp BP Pulse Ox 98.7 F 76 16 181/66 H 100 02/14/18 10:15 02/14/18 10:15 02/14/18 10:15 02/14/18 10:15 02/14/18 10:15 Interpretation: Normal - General General appearance: Appears well, Alert - HEENT Head: Normocephalic, Atraumatic Eyes: Normal Pupils: PERRL - Respiratory Respiratory status: No respiratory distress Chest status: Nontender Breath sounds: Normal Chest palpation: Normal - Cardiovascular Rhythm: Regular Heart sounds: Normal auscultation Murmur: No - Abdominal Inspection: Normal Distension: No distension Bowel sounds: Normal Tenderness: Nontender Organomegaly: No organomegaly - Back Back: Normal, Nontender - Extremities General upper extremity: Normal inspection, Nontender, Normal color, Normal ROM , Normal temperature, Other - Left upper extremity with AV malformation consistent with dialysis access site. General lower extremity: Normal color, Normal weight bearing, Other - Patient was found with the right lower extremity and a valgus deformity at the knee. Pulses were intact distally at the posterior tibialis and dorsalis pedis. Sensation was intact. Patient was able to move her toes. Unable to bear weight. Significant amount of pain at the knee.. No: Giovanni's sign - Neurological Neuro grossly intact: Yes Cognition: Normal Orientation: AAOx4 Milind Coma Scale Eye Opening: Spontaneous Milind Coma Scale Verbal: Oriented Milind Coma Scale Motor: Obeys Commands Milind Coma Scale Total: 15 Speech: Normal Motor strength normal: LUE, RUE, LLE, RLE Sensory: Normal - Psychological Associated symptoms: Normal affect, Normal mood - Skin Skin Temperature: Warm Skin Moisture: Dry Skin Color: Normal Course - Re-evaluation Re-evalutation: 02/14/18 11:48 Patient was given a shot of fentanyl in the arm while at the residential. A emergent reduction/close reduction was performed in the field. Patient's leg was stabilized. Patient was then man lifted into a wheelchair and moved to police car where we placed her on a mesh letter and transferred her to the backseat of police car because no ambulance was available. Nurse and this physician as well as special police acting as good Judaism's at this time. Patient arrived to the ambulance bay. Patient was then transferred by medical staff onto a gurney and wheeled into room 9. X-rays were obtained. Orthopedic surgery was consulted. Patient will need surgery however no dialysis is available at this facility. At this time there is considerable whether causing difficulty with transport. We will attempt to get patient out of here as soon as possible as she will only get worse not better. We do not anticipate being able to dialyze patient until Friday and this will likely be too late. Orthopedic surgery has been consulted and they have seen patient and do recommend transfer. 02/14/18 13:50 Patient has been accepted at [facility], Dr. Tinajero is accepted. Awaiting transport at this time. Pain medication given. Patient remained stable. 02/14/18 18:08 Still awaiting transport to [facility]. Patient still remained stable. Repeat pain meds ordered. - Vital Signs Vital signs: Temp Pulse Resp BP Pulse Ox 98.2 F 74 15 165/80 H 94 02/14/18 16:09 02/14/18 11:54 02/14/18 16:59 02/14/18 17:00 02/14/18 16:59 - Laboratory Result Diagrams: 02/14/18 11:10 02/14/18 11:10 Laboratory results interpreted by me: 02/14/18 02/14/18 11:10 11:10 WBC 11.0 H Hgb 11.5 L Hct 34.4 L RDW 17.0 H Plt Count 122 L Potassium 3.0 L* Chloride 97 L BUN 55 H Creatinine 10.34 H Est GFR ( Amer) 4 L Est GFR (Non-Af Amer) 4 L Direct Bilirubin 0.8 H Alkaline Phosphatase 158 H Total Protein 5.8 L Albumin 3.3 L Discharge - Discharge Clinical Impression: Acute renal failure on dialysis Closed comminuted supracondylar fracture of right femur Qualifiers: Encounter type: initial encounter Qualified Code(s): S72.451A - Displaced supracondylar fracture without intracondylar extension of lower end of right femur, initial encounter for closed fracture Condition: Good Disposition: [place] Referrals: DALIA DENNY MD [Primary Care Provider] - Follow up as needed
[2018-02-14] MEDS ORDERED: FENTANYL CITRATE INJ/PF 100 MCG/2 ML AMPUL IV ONE ×3 (10:26→19:07)
--- NOTE | 2018-02-14 10:59 | RADIOLOGY REPORT (SQ) ---
EXAM DESCRIPTION: KNEE RIGHT 2 VIEWS COMPLETED DATE/TIME: 02/14/2018 10:51 am REASON FOR STUDY: pain, deformity COMPARISON: 5 9 NUMBER OF VIEWS: Two views. TECHNIQUE: AP and lateral radiographic images acquired of the right knee. LIMITATIONS: None. FINDINGS: MINERALIZATION: Osteopenia. BONES: Comminuted supracondylar fracture. Knee replacement hardware. JOINT: No effusion. SOFT TISSUES: No soft tissue swelling. No radio-opaque foreign body. OTHER: No other significant finding. IMPRESSION: Comminuted supracondylar fracture. Intact knee replacement hardware. TECHNICAL DOCUMENTATION: JOB ID: [id number] [employer]- All Rights Reserved Reading location - IP/workstation name: [email or web address]
--- NOTE | 2018-02-14 11:00 | RADIOLOGY REPORT (SQ) ---
EXAM DESCRIPTION: CHEST SINGLE VIEW COMPLETED DATE/TIME: 02/14/2018 10:51 am REASON FOR STUDY: sob COMPARISON: 11/22/2017 EXAM PARAMETERS: NUMBER OF VIEWS: One view. TECHNIQUE: Single frontal radiographic view of the chest acquired. RADIATION DOSE: NA LIMITATIONS: None. FINDINGS: LUNGS AND PLEURA: No opacities, masses or pneumothorax. No pleural effusion. MEDIASTINUM AND HILAR STRUCTURES: Chronic elevation of the right hemidiaphragm. HEART AND VASCULAR STRUCTURES: Heart normal in size. Normal vasculature. BONES: No acute findings. HARDWARE: Cardiac hardware unchanged. OTHER: No other significant finding. IMPRESSION: NO ACUTE RADIOGRAPHIC FINDING IN THE CHEST. TECHNICAL DOCUMENTATION: JOB ID: [id number] [employer]- All Rights Reserved Reading location - IP/workstation name: [email or web address]
[2018-02-14 11:25] LABS: ABSOLUTE BASOPHILS # (AUTO) 0.1 10^3/uL (0.0-0.2); ABSOLUTE EOSINOPHILS # (AUTO) 0.2 10^3/uL (0.0-0.6); ABSOLUTE LYMPHOCYTES (AUTO) 1.6 10^3/uL (0.5-4.7); ABSOLUTE MONOCYTES (AUTO) 0.9 10^3/uL (0.1-1.4); ABSOLUTE NEUT (AUTO) 8.2 10^3/uL (1.7-8.2); BASOPHILS % (AUTO) 0.6 % (0-2); EOSINOPHILS % (AUTO) 1.6 % (0-6); HEMATOCRIT 34.4 % (36.0-47.0); HEMOGLOBIN 11.5 g/dL (12.0-15.5); LYMPHOCYTES % (AUTO) 14.7 % (13-45); MEAN CORPUSCULAR HEMOGLOBIN 30.2 pg (27.0-33.4); MEAN CORPUSCULAR HGB CONC 33.4 g/dL (32.0-36.0); MEAN CORPUSCULAR VOLUME 90 fl (80-97); MONOCYTES % (AUTO) 8.1 % (3-13); PLATELET COUNT 122 10^3/uL (150-450); TOTAL CELLS COUNTED % (AUTO) 100 %
[2018-02-14 11:34] LABS: INTERNATIONAL RATION (INR) 1.14; PROTHROMBIN TIME 15.2 SEC (11.4-15.4)
[2018-02-14 11:35] LABS: PARTIAL THROMBOPLASTIN TIME 33.7 SEC (23.5-35.8)
[2018-02-14 11:48] LABS: ALANINE AMINOTRANSFERASE 24 U/L (9-52); ALBUMIN 3.3 g/dL (3.5-5.0); ALKALINE PHOSPHATASE 158 U/L (38-126); ANION GAP 19 (5-19); ASPARTATE AMINO TRANSFERASE 26 U/L (14-36); BILIRUBIN,DIRECT 0.8 mg/dL (0.0-0.4); BILIRUBIN,TOTAL 0.9 mg/dL (0.2-1.3); BLOOD UREA NITROGEN 55 mg/dL (7-20); CALCIUM 8.4 mg/dL (8.4-10.2); CARBON DIOXIDE 26 mmol/L (22-30); CHLORIDE 97 mmol/L (98-107); GLUCOSE 76 mg/dL (75-110); SODIUM 141.6 mmol/L (137-145); TOTAL PROTEIN 5.8 g/dL (6.3-8.2)
[2018-02-14] MEDS ORDERED: HYDROMORPHONE HCL INJ/PF 2 MG/ML AMPULE IV ONE ×2 (12:57→16:28)
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
[2018-02-14] MEDS ORDERED: KETOROLAC TROMETHAMINE INJ/PF 30 MG/1 ML SDV IV ONE (19:08)
[2018-02-15 06:34] LABS: ANION GAP 17 (5-19); BLOOD UREA NITROGEN 64 mg/dL (7-20); CARBON DIOXIDE 28 mmol/L (22-30); CHLORIDE 97 mmol/L (98-107); GLUCOSE 62 mg/dL (75-110); POTASSIUM 3.6 mmol/L (3.6-5.0); SODIUM 141.6 mmol/L (137-145)
[2018-02-15] MEDS ORDERED: FENTANYL CITRATE INJ/PF 100 MCG/2 ML AMPUL IV ONE (06:37)
[2018-02-15 10:39] VITALS: BP 134/69
== END 2018-02-15 11:05 | disposition short-term general hospital (02) ==
LOC: ER 10:10
DX: S72.451A Displaced supracondylar fracture without intracondylar extension of lower end of right femur, initial encounter for closed fracture (principal); N17.9 Acute kidney failure, unspecified; Z99.2 Dependence on renal dialysis; M79.604 Pain in right leg; W18.30XA Fall on same level, unspecified, initial encounter; Y93.9 Activity, unspecified; Y92.121 Bathroom in nursing home as the place of occurrence of the external cause; R20.0 Anesthesia of skin; J44.9 Chronic obstructive pulmonary disease, unspecified; I25.10 Atherosclerotic heart disease of native coronary artery without angina pectoris; I10 Essential (primary) hypertension
CPT/HCPCS: 96376; 99285; 96372; 96374; 96375; 36415; 82962; 85025; 85610; 85730; 80048; 80053; 71045; 73560; L1830; J3010 ×2; J1885; J1170

== ENCOUNTER 2018-03-18 09:48 | Emergency (ER) | payer MEDICARE, MEDICAID ==
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
[2018-03-18 10:02] VITALS: BP 98/54
[2018-03-18] MEDS ORDERED: NORMAL SALINE 1000 ML 1,000 ML IV ONE (10:17)
[2018-03-18 10:29] LABS: ABSOLUTE BASOPHILS # (AUTO) 0.2 10^3/uL (0.0-0.2); ABSOLUTE EOSINOPHILS # (AUTO) 0.2 10^3/uL (0.0-0.6); ABSOLUTE LYMPHOCYTES (AUTO) 1.6 10^3/uL (0.5-4.7); ABSOLUTE MONOCYTES (AUTO) 1.3 10^3/uL (0.1-1.4); ABSOLUTE NEUT (AUTO) 9.1 10^3/uL (1.7-8.2); BASOPHILS % (AUTO) 1.5 % (0-2); EOSINOPHILS % (AUTO) 1.4 % (0-6); HEMATOCRIT 35.3 % (36.0-47.0); HEMOGLOBIN 11.3 g/dL (12.0-15.5); MEAN CORPUSCULAR HEMOGLOBIN 31.3 pg (27.0-33.4); MEAN CORPUSCULAR HGB CONC 32.1 g/dL (32.0-36.0); MEAN CORPUSCULAR VOLUME 98 fl (80-97); MONOCYTES % (AUTO) 10.5 % (3-13); PLATELET COUNT 218 10^3/uL (150-450); RED BLOOD COUNT 3.62 10^6/uL (3.72-5.28); RED CELL DISTRIBUTION WIDTH 20.1 % (11.5-14.0); SEGMENTED NEUTROPHILS % (AUTO) 73.6 % (42-78); TOTAL CELLS COUNTED % (AUTO) 100 %; WHITE BLOOD COUNT 12.4 10^3/uL (4.0-10.5)
[2018-03-18 10:50] LABS: ALANINE AMINOTRANSFERASE 13 U/L (9-52); ALBUMIN 2.7 g/dL (3.5-5.0); ALKALINE PHOSPHATASE 151 U/L (38-126); ANION GAP 8 (5-19); ASPARTATE AMINO TRANSFERASE 21 U/L (14-36); BILIRUBIN,DIRECT 0.4 mg/dL (0.0-0.4); BILIRUBIN,TOTAL 0.6 mg/dL (0.2-1.3); BLOOD UREA NITROGEN 22 mg/dL (7-20); CALCIUM 8.6 mg/dL (8.4-10.2); CARBON DIOXIDE 32 mmol/L (22-30); CHLORIDE 97 mmol/L (98-107); GLUCOSE 76 mg/dL (75-110); POTASSIUM 4.4 mmol/L (3.6-5.0); SODIUM 137.1 mmol/L (137-145); TOTAL PROTEIN 5.7 g/dL (6.3-8.2)
--- NOTE | 2018-03-18 13:02 | EKG REPORT ---
SEVERITY:- ABNORMAL ECG - ATRIAL-SENSED VENTRICULAR-PACED RHYTHM : Confirmed by: Isaac Contreras MD 18-Mar-2018 13:02:07
== END 2018-03-18 12:21 | disposition home or self-care (01) ==
LOC: ER 09:48
DX: E86.0 Dehydration (principal); R19.7 Diarrhea, unspecified; R41.82 Altered mental status, unspecified; R53.83 Other fatigue; R11.2 Nausea with vomiting, unspecified; I13.2 Hypertensive heart and chronic kidney disease with heart failure and with stage 5 chronic kidney disease, or end stage renal disease; N18.6 End stage renal disease; I50.9 Heart failure, unspecified; Z99.2 Dependence on renal dialysis; Z98.84 Bariatric surgery status
CPT/HCPCS: 93005; 99285; 96360; 36415; 85025; 80053; 93010; J7030

== ENCOUNTER 2018-03-31 02:57 | Inpatient (IN) | payer MEDICARE, MEDICAID ==
[2018-03-31] MEDS ORDERED: NORMAL SALINE 500 ML IV ONE ×2 (03:23→04:46)
--- NOTE | 2018-03-31 03:35 | ER Document Report ---
ED General - General Chief Complaint: Blood Pressure Problem Stated Complaint: BLOOD PRESSURE ISSUES Time Seen by Provider: 03/31/18 03:06 Notes: Patient is a 77-year-old female end-stage renal disease on dialysis that presents to the emergency department for chief complaint of altered mental status and low blood pressure. Patient currently resides at a group home, they were doing their evening rounds, and she was less alert than she usually is , and they took her blood pressure and is in the 90 systolic, they are concerned about this so they transferred her to the emergency department. The patient did receive dialysis on 03/30/2018. Patient at this time is alert and answering questions appropriately, but she is somnolent, but easily to arouse and answer questions. She is on antihypertensive medications, and did receive dialysis today, she does look dehydrated, she also reports she has chronic diarrhea. Past Medical History: End-stage renal disease on dialysis, hypertension, hyperlipidemia, CHF Past Surgical History: Gastric bypass surgery, many years ago, ORIF of the femur , AV fistula of the left upper extremity Social History: Currently resides at a nursing facility, denies tobacco, alcohol or drug use Family History: Reviewed and noncontributory for presenting illness Allergies: Reviewed, see documented allergy list. REVIEW OF SYSTEMS: Unless otherwise stated in this report the patient's positive and negative responses for review of systems for constitutional, eyes, ENT, cardiovascular, respiratory, gastrointestinal, neurological, genitourinary, musculoskeletal, and integumentary systems and related systems to the presenting problem are either as stated in the HPI or were not pertinent or were negative for the symptoms and/or complaints related to the presenting medical problem. PHYSICAL EXAMINATION: Vital signs reviewed, nursing noted reviewed. GENERAL: Elderly female frail appearing female, no acute distress HEAD: Atraumatic, normocephalic. EYES: Eyes appear normal, extraocular movements intact, sclera anicteric, conjunctiva are normal. ENT: nares patent, oropharynx clear without exudates. Dry mucous membranes NECK: Normal range of motion, supple without lymphadenopathy LUNGS: Breath sounds clear to auscultation bilaterally and equal. No wheezes rales or rhonchi. HEART: Regular rate and rhythm without murmurs ABDOMEN: Soft, nontender, normoactive bowel sounds. No rebound, guarding, or rigidity. No masses appreciated. EXTREMITIES: left upper extremity AV fistula noted, positive thrill, positive bruit, pulses equal, good strength distally in all extremities. NEUROLOGICAL: No focal neurological deficits. Moves all extremities spontaneously Motor and sensory grossly intact on exam. PSYCH: Mildly somnolent, but will easily arouse to answer questions and is appropriate when she does SKIN: Warm, Dry, poor skin turgor TRAVEL OUTSIDE OF THE [place] IN LAST 30 DAYS: No COUNTRY TRAVELED TO/FROM: [facility] - Related Data Allergies/Adverse Reactions: iodine Allergy (Severe, Verified 03/18/18 10:33) itching, facial swelling, difficulty breathing doxycycline [Doxycycline] Allergy (Verified 03/18/18 10:33) dizzy Iodinated Contrast- Oral and IV Dye [IV Dye, Iodine Containing] Allergy ( Verified 03/18/18 10:33) Sulfa (Sulfonamide Antibiotics) Allergy (Verified 03/18/18 10:33) dizzy amlodipine besylate [From Norvasc] Adverse Reaction (Unknown, Verified 03/18/18 10:33) anxious, jittery feeling Past Medical History - Social History Smoking Status: Never Smoker Family History: CAD, Hypertension Patient has suicidal ideation: No Patient has homicidal ideation: No - Past Medical History Cardiac Medical History: Reports: Hx Congestive Heart Failure, Hx Coronary Artery Disease, Hx DVT, Hx Heart Attack, Hx Hypercholesterolemia, Hx Hypertension, Hx Pulmonary Embolism, Hx Heart Murmur Pulmonary Medical History: Reports: Hx COPD, Hx Pneumonia Denies: Hx Asthma, Hx Bronchitis, Hx Tuberculosis Neurological Medical History: Reports: Hx Cerebrovascular Accident. Denies: Hx Seizures Renal/ Medical History: Reports: Hx End Stage Renal Disease - On dialysis, Hx Hemodialysis, Hx Kidney Stones. Denies: Hx Peritoneal Dialysis GI Medical History: Reports: Hx Gastroesophageal Reflux Disease, Hx Ulcer Musculoskeletal Medical History: Reports Hx Arthritis Psychiatric Medical History: Reports: Hx Depression Past Surgical History: Reports: Hx Abdominal Surgery - gastric bypass, Hx Cardiac Surgery - Pacer, bypass, Hx Cholecystectomy, Hx Gastric Bypass Surgery, Hx Orthopedic Surgery, Hx Tonsillectomy, Hx Tubal Ligation. Denies: Hx Hysterectomy - Immunizations Hx Diphtheria, Pertussis, Tetanus Vaccination: Yes Hx Pneumococcal Vaccination: 01/31/14 Physical Exam - Vital signs Vitals: Temp Resp 99.5 F 16 03/31/18 03:01 03/31/18 03:01 Course - Re-evaluation Re-evalutation: Patient seen and examined vital signs reviewed. Laboratory data and imaging were ordered as appropriate for the patient's presenting symptoms and complaint, with consideration of any critical or life threatening conditions that may be associated with their obtained history and exam as noted above. Patient was treated with IV fluid bolusing Results were reviewed when available and demonstrated mild hypokalemia, hypercalcemia, elevated BUN and creatinine as expected in a patient that is on dialysis and recently received dialysis The patient was re-evaluated and was arousable, still hypotensive, given additional fluid bolusing, she was noted to be hypoglycemic, given an amp of D50 , I discussed this case with the hospitalist, he recommended obtaining a lactic acid, which was normal, he reviewed the chart further, and relate to me that the patient has a history of adrenal insufficiency, may have missed doses of her corticosteroids or Florinef, therefore I ordered a dose of Solu-Cortef [address] Smith graciously accepted the patient under his service, for further evaluation and manage. Evaluation was most consistent with persistent hypotension, altered mental status *Note is created using voice recognition software and may contain spelling, syntax or grammatical errors. Laboratory 03/31/18 03/31/18 03/31/18 03:34 03:34 03:34 WBC 7.4 RBC 3.94 Hgb 12.0 Hct 37.6 MCV 95 MCH 30.5 MCHC 31.9 L RDW 18.3 H Plt Count 135 L Seg Neutrophils % 62.8 Lymphocytes % 23.6 Monocytes % 10.5 Eosinophils % 1.6 Basophils % 1.5 Absolute Neutrophils 4.6 Absolute Lymphocytes 1.7 Absolute Monocytes 0.8 Absolute Eosinophils 0.1 Absolute Basophils 0.1 VBG pH VBG pCO2 VBG HCO3 VBG Base Excess Sodium 139.3 Potassium 3.3 L Chloride 100 Carbon Dioxide 31 H Anion Gap 8 BUN 11 Creatinine 3.78 H Est GFR ( Amer) 14 L Est GFR (Non-Af Amer) 12 L Glucose 56 L POC Glucose Lactic Acid Calcium 7.7 L Magnesium 2.0 Total Bilirubin 0.6 Direct Bilirubin 0.4 Neonat Total Bilirubin 0.2 Neonat Direct Bilirubin 0.0 Neonat Indirect Bili 0.2 AST 25 ALT 13 Alkaline Phosphatase 113 Total Protein 4.6 L Albumin 2.1 L Lipase 31.1 03/31/18 03/31/18 03/31/18 05:00 05:00 06:28 WBC RBC Hgb Hct MCV MCH MCHC RDW Plt Count Seg Neutrophils % Lymphocytes % Monocytes % Eosinophils % Basophils % Absolute Neutrophils Absolute Lymphocytes Absolute Monocytes Absolute Eosinophils Absolute Basophils VBG pH 7.32 VBG pCO2 56.0 VBG HCO3 28.2 VBG Base Excess 1.3 Sodium Potassium Chloride Carbon Dioxide Anion Gap BUN Creatinine Est GFR ( Amer) Est GFR (Non-Af Amer) Glucose POC Glucose 51 L Lactic Acid 1.0 Calcium Magnesium Total Bilirubin Direct Bilirubin Neonat Total Bilirubin Neonat Direct Bilirubin Neonat Indirect Bili AST ALT Alkaline Phosphatase Total Protein Albumin Lipase - Vital Signs Vital signs: Temp Pulse Resp BP Pulse Ox 99.5 F 16 87/47 L 99 03/31/18 03:01 03/31/18 06:30 03/31/18 06:30 03/31/18 06:30 - Laboratory Result Diagrams: 03/31/18 03:34 03/31/18 03:34 Laboratory results interpreted by me: 03/31/18 03/31/18 03:34 03:34 MCHC 31.9 L RDW 18.3 H Plt Count 135 L Potassium 3.3 L Carbon Dioxide 31 H Creatinine 3.78 H Est GFR ( Amer) 14 L Est GFR (Non-Af Amer) 12 L Glucose 56 L Calcium 7.7 L Total Protein 4.6 L Albumin 2.1 L - EKG Interpretation by Me Additional EKG results interpreted by me: EKG demonstrates ventricular paced rhythm with a ventricular rate of 88 bpm, left axis deviation, QTC prolonged at 630 ms, T waves inverted in leads II and aVL, this is compared with prior EKG from 03/18/2018, reveals T wave inversions do appear to be new. Critical Care Note - Critical Care Note Total time excluding time spent on procedures (mins): 35 Comments: Critical care time 35 minutes exclusive from separate billable procedures for a patient requiring complex medical decision making, and high potential for clinical deterioration. Time spent obtaining history from patient or surrogate, discussions with consultants, development of treatment plan with patient or surrogate, evaluation of patient's response to treatment, examination of patient , ordering and performing treatments and interventions, ordering and review of laboratory studies, re-evaluation of patient's condition, ordering and review of radiographic studies and review of old charts Discharge - Discharge Clinical Impression: Hypotension Qualifiers: Hypotension type: unspecified hypotension type Qualified Code(s): I95.9 - Hypotension, unspecified Altered mental status Qualifiers: Altered mental status type: unspecified Qualified Code(s): R41.82 - Altered mental status, unspecified Condition: Fair Disposition: ADMITTED OBSERVATION Admitting Provider: Hospitalist - Dr. Smith Unit Admitted: [facility]
[2018-03-31 03:42] LABS: ABSOLUTE BASOPHILS # (AUTO) 0.1 10^3/uL (0.0-0.2); ABSOLUTE EOSINOPHILS # (AUTO) 0.1 10^3/uL (0.0-0.6); ABSOLUTE LYMPHOCYTES (AUTO) 1.7 10^3/uL (0.5-4.7); ABSOLUTE MONOCYTES (AUTO) 0.8 10^3/uL (0.1-1.4); ABSOLUTE NEUT (AUTO) 4.6 10^3/uL (1.7-8.2); BASOPHILS % (AUTO) 1.5 % (0-2); EOSINOPHILS % (AUTO) 1.6 % (0-6); HEMATOCRIT 37.6 % (36.0-47.0); LYMPHOCYTES % (AUTO) 23.6 % (13-45); MEAN CORPUSCULAR HEMOGLOBIN 30.5 pg (27.0-33.4); MEAN CORPUSCULAR HGB CONC 31.9 g/dL (32.0-36.0); MEAN CORPUSCULAR VOLUME 95 fl (80-97); MONOCYTES % (AUTO) 10.5 % (3-13); PLATELET COUNT 135 10^3/uL (150-450); RED BLOOD COUNT 3.94 10^6/uL (3.72-5.28); RED CELL DISTRIBUTION WIDTH 18.3 % (11.5-14.0); SEGMENTED NEUTROPHILS % (AUTO) 62.8 % (42-78); TOTAL CELLS COUNTED % (AUTO) 100 %; WHITE BLOOD COUNT 7.4 10^3/uL (4.0-10.5)
[2018-03-31 03:54] LABS: ALBUMIN 2.1 g/dL (3.5-5.0); ANION GAP 8 (5-19); CARBON DIOXIDE 31 mmol/L (22-30); CHLORIDE 100 mmol/L (98-107); GLUCOSE 56 mg/dL (75-110); POTASSIUM 3.3 mmol/L (3.6-5.0); SODIUM 139.3 mmol/L (137-145); TOTAL PROTEIN 4.6 g/dL (6.3-8.2)
[2018-03-31 04:04] LABS: BILIRUBIN,DIRECT 0.4 mg/dL (0.0-0.4); BILIRUBIN,TOTAL 0.6 mg/dL (0.2-1.3); NEONATAL BILIRUBIN RESULT 0.2 mg/dL (0.1-1.1)
[2018-03-31 04:10] LABS: ALANINE AMINOTRANSFERASE 13 U/L (9-52); ALKALINE PHOSPHATASE 113 U/L (38-126); ASPARTATE AMINO TRANSFERASE 25 U/L (14-36); BLOOD UREA NITROGEN 11 mg/dL (7-20); CALCIUM 7.7 mg/dL (8.4-10.2)
[2018-03-31] MEDS ORDERED: DEXTROSE 50%-WATER 25 GM/50 ML DISP.SYRIN IV ONE (04:18)
[2018-03-31 05:17] LABS: VENOUS BLOOD BASE EXCESS 1.3 mmol/L; VENOUS BLOOD HCO3 28.2 mmol/L (20-32); VENOUS BLOOD PH 7.32 (7.30-7.42)
[2018-03-31] MEDS ORDERED: HYDROCORTISONE SOD SUCCINATE INJ/PF 100 MG/2 ML SDV IV ONE (05:55)
[2018-03-31] MEDS ORDERED: IPRATROPIUM/ALBUTEROL 0.5-2.5 MG/3 ML AMPUL NEB PRN (06:05)
[2018-03-31] MEDS ORDERED: GLUCAGON,HUMAN RECOMB 1 MG INJ IM PRN (06:10)
[2018-03-31] MEDS ORDERED: DEXTROSE 50%-WATER 25 GM/50 ML DISP.SYRIN IV PRN ×2 (06:10)
[2018-03-31] MEDS ORDERED: DEXTROSE 40% GEL 15 GM TUBE PO PRN ×2 (06:10)
--- NOTE | 2018-03-31 06:21 | PDOC H&P ---
History of Present Illness Admission Date/PCP: CORRINA DENNY DO Patient complains of: Hypotension History of Present Illness: VARINDER TORRES is a 77 year old female with a past medical history of end- stage renal failure on hemodialysis Friday, adrenal insufficiency, chronic diarrhea, hypoglycemia and generalized debility. Patient presents from long-term with hypotension and hypoglycemia. In the emergency room she receives an IV fluid challenge without significant improvement. Patient denies chest pain, shortness of breath, nausea or vomiting and is referred to the hospitalist for admission. Medication reconciliation is unavailable for review at this time. Past Medical History Cardiac Medical History: Reports: Congestive Heart Failure, Coronary Artery Disease, DVT, Myocardial Infarction, Hyperlipidema, Hypertension, Pulmonary Embolism, Heart Murmur Pulmonary Medical History: Reports: Chronic Obstructive Pulmonary Disease (COPD) , Pneumonia Denies: Asthma, Bronchitis, Tuberculosis Neurological Medical History: Denies: Seizures Renal/ Medical History: Reports: End Stage Renal Disease - On dialysis GI Medical History: Reports: Gastroesophageal Reflux Disease Musculoskeltal Medical History: Reports: Arthritis Psychiatric Medical History: Reports: Depression Hematology: Reports: Anemia Past Surgical History Past Surgical History: Reports: Cholecystectomy, Gastric Bypass Surgery, Orthopedic Surgery, Tonsillectomy, Tubal Ligation Denies: Hysterectomy Social History Information Source: Patient, [facility] Records Lives with: [facility] Smoking Status: Never Smoker Frequency of Alcohol Use: None Hx Recreational Drug Use: No Drugs: None Hx Prescription Drug Abuse: No - Advance Directive Resuscitation Status: Full Code Family History Family History: CAD, Hypertension Parental Family History Reviewed: Yes Children Family History Reviewed: Yes Sibling(s) Family History Reviewed.: Yes Medication/Allergy Home Medications: Amiodarone HCl [Cordarone 200 mg Tablet] 200 mg PO DAILY 11/18/17 Atorvastatin Calcium [Lipitor 40 mg Tablet] 40 mg PO QHS 11/18/17 Chlorhexidine Gluconate [Peridex 0.12% Oral Rinse 473 ml] 15 ml MM BID 11/18/17 Cyanocobalamin (Vitamin B-12) [Vitamin B-12] 500 mcg PO DAILY 11/18/17 Diphenoxylate HCl/Atrop Sulf [Lomotil 2.5 mg Tablet] 5 mg PO ACHS 11/18/17 Eyelid Cleanser Combination 5 [Ocusoft Lid Scrub] 1 each TP BID 11/18/17 Famotidine [Pepcid 20 mg Tablet] 20 mg PO Q12 11/18/17 Ferric Citrate [Auryxia] 210 mg PO TID 11/18/17 Fluticasone Propionate [Flonase Nasal Como 50 Mcg/Como 16 gm] 1 spray NASL Q12 11/18/17 Hydrocortisone [Cortef 10 mg Tablet] 5 mg PO QHS 11/18/17 Hydrocortisone [Cortef 10 mg Tablet] 10 mg PO DAILY 11/18/17 Isosorbide Mononitrate [Imdur 30 mg Tablet.er] 30 mg PO DAILY 11/18/17 L. Rhamnosus GG/Inulin [Culturelle Probiotics Capsule] 1 cap PO DAILY 11/18/17 Loperamide HCl [Imodium A-D] 4 mg PO QID 11/18/17 Loratadine [Claritin 10 mg Tablet] 10 mg PO QHS 11/18/17 Metoprolol Tartrate [Lopressor 25 mg Tablet] 12.5 mg PO Q12 11/18/17 Nitroglycerin [Nitrostat 0.4 mg (1/150 Gr) Tabs 25/Bottle] 1 tab SL Q5MP PRN Olopatadine HCl [Pataday] 1 drop OU DAILY@0900 11/18/17 Paroxetine HCl [Paxil] 10 mg PO DAILY 11/18/17 Polyvinyl Alcohol [Liquitears] 1 drop OU QID 11/18/17 Sodium Bicarbonate [Sodium Bicarbonate 650 mg Tablet] 650 mg PO BID 11/18/17 Acetaminophen [Tylenol 325 mg Tablet] 650 mg PO Q4HP PRN tablet 11/24/17 Hydralazine HCl [Apresoline 25 mg Tablet] 25 mg PO Q6 tablet 11/24/17 Levothyroxine Sodium 175 mcg PO Q6AM #30 tablet 11/24/17 Phenol/Sodium Phenolate [Chloraseptic Sore Throat Como 177 ml] 2 spray PO PRN PRN bottle 11/24/17 Diphenhydramine HCl [Benadryl] 50 mg PO PRN PRN 12/30/17 Prednisone 60 mg PO PRN PRN 12/30/17 Allergies/Adverse Reactions: iodine Allergy (Severe, Verified 03/18/18 10:33) itching, facial swelling, difficulty breathing doxycycline [Doxycycline] Allergy (Verified 03/18/18 10:33) dizzy Iodinated Contrast- Oral and IV Dye [IV Dye, Iodine Containing] Allergy ( Verified 03/18/18 10:33) Sulfa (Sulfonamide Antibiotics) Allergy (Verified 03/18/18 10:33) dizzy amlodipine besylate [From [facility]] Adverse Reaction (Unknown, Verified 03/18/18 10:33) anxious, jittery feeling Review of Systems Constitutional: ABSENT: chills, fever(s), headache(s), weight gain, weight loss Eyes: ABSENT: visual disturbances Ears: ABSENT: hearing changes Cardiovascular: ABSENT: chest pain, dyspnea on exertion, edema, orthropnea, palpitations Respiratory: ABSENT: cough, hemoptysis Gastrointestinal: ABSENT: abdominal pain, constipation, diarrhea, hematemesis, hematochezia, nausea, vomiting Genitourinary: ABSENT: dysuria, hematuria Musculoskeletal: ABSENT: joint swelling Integumentary: ABSENT: rash, wounds Neurological: ABSENT: abnormal gait, abnormal speech, confusion, dizziness, focal weakness, syncope Psychiatric: ABSENT: anxiety, depression, homidical ideation, suicidal ideation Endocrine: ABSENT: cold intolerance, heat intolerance, polydipsia, polyuria Hematologic/Lymphatic: ABSENT: easy bleeding, easy bruising Physical Exam Vital Signs: Temp Pulse Resp BP Pulse Ox 99.5 F 15 80/44 L 97 03/31/18 03:01 03/31/18 05:48 03/31/18 05:48 03/31/18 05:01 Intake & Output 03/29/18 03/30/18 03/31/18 11:59 11:59 11:59 Intake Total 1000 Balance 1000 Weight 72.7 kg General appearance: PRESENT: no acute distress, cooperative. ABSENT: disheveled , hard of hearing Head exam: PRESENT: atraumatic, normocephalic Eye exam: PRESENT: conjunctiva pink, EOMI, PERRLA. ABSENT: scleral icterus Ear exam: PRESENT: normal external ear exam Mouth exam: PRESENT: dry mucosa, neck supple, tongue midline Neck exam: ABSENT: carotid bruit, JVD, lymphadenopathy, thyromegaly Respiratory exam: PRESENT: clear to auscultation kannan. ABSENT: rales, rhonchi, wheezes Cardiovascular exam: PRESENT: RRR. ABSENT: diastolic murmur, rubs, systolic murmur Pulses: PRESENT: normal dorsalis pedis pul Vascular exam: PRESENT: normal capillary refill GI/Abdominal exam: PRESENT: normal bowel sounds, soft. ABSENT: distended, guarding, mass, organolmegaly, rebound, tenderness Rectal exam: PRESENT: deferred Extremities exam: PRESENT: full ROM. ABSENT: calf tenderness, clubbing, pedal edema Neurological exam: PRESENT: alert, awake, oriented to person, oriented to place , oriented to time, oriented to situation, CN II-XII grossly intact. ABSENT: motor sensory deficit Psychiatric exam: PRESENT: appropriate affect, normal mood. ABSENT: homicidal ideation, suicidal ideation Skin exam: PRESENT: dry, intact, warm. ABSENT: cyanosis, rash Results Laboratory Results: 03/31/18 03:34 03/31/18 03:34 03/31/18 03/31/18 03/31/18 03:34 03:34 05:00 WBC 7.4 RBC 3.94 Hgb 12.0 Hct 37.6 MCV 95 MCH 30.5 MCHC 31.9 L RDW 18.3 H Plt Count 135 L Seg Neutrophils % 62.8 Lymphocytes % 23.6 Monocytes % 10.5 Eosinophils % 1.6 Basophils % 1.5 Absolute Neutrophils 4.6 Absolute Lymphocytes 1.7 Absolute Monocytes 0.8 Absolute Eosinophils 0.1 Absolute Basophils 0.1 VBG pH VBG pCO2 VBG HCO3 VBG Base Excess Sodium 139.3 Potassium 3.3 L Chloride 100 Carbon Dioxide 31 H Anion Gap 8 BUN 11 Creatinine 3.78 H Est GFR ( Amer) 14 L Est GFR (Non-Af Amer) 12 L Glucose 56 L Lactic Acid 1.0 Calcium 7.7 L Total Bilirubin 0.6 AST 25 ALT 13 Alkaline Phosphatase 113 Total Protein 4.6 L Albumin 2.1 L 03/31/18 05:00 WBC RBC Hgb Hct MCV MCH MCHC RDW Plt Count Seg Neutrophils % Lymphocytes % Monocytes % Eosinophils % Basophils % Absolute Neutrophils Absolute Lymphocytes Absolute Monocytes Absolute Eosinophils Absolute Basophils VBG pH 7.32 VBG pCO2 56.0 VBG HCO3 28.2 VBG Base Excess 1.3 Sodium Potassium Chloride Carbon Dioxide Anion Gap BUN Creatinine Est GFR ( Amer) Est GFR (Non-Af Amer) Glucose Lactic Acid Calcium Total Bilirubin AST ALT Alkaline Phosphatase Total Protein Albumin Assessment & Plan - Diagnosis (1) Hypotension Qualifiers: Hypotension type: unspecified hypotension type Qualified Code(s): I95.9 - Hypotension, unspecified Is this a current diagnosis for this admission?: Yes Plan: Multifactorial secondary to dehydration, complicated by adrenal insufficiency, IV fluid challenge, Solu-Cortef, follow-up vitals and chemistry. (2) Adrenal insufficiency Is this a current diagnosis for this admission?: Yes Plan: Hypotension, hypoglycemia, Solu-Cortef twice daily, hypoglycemic protocol (3) ESRD (end stage renal disease) on dialysis Is this a current diagnosis for this admission?: Yes Plan: Hypovolemic, IV fluid challenge, follow-up nephrology consult. - Time Time Spent: 50 to 70 Minutes
[2018-03-31 06:53] LABS: LIPASE 31.1 U/L (23-300)
--- NOTE | 2018-03-31 07:03 | RADIOLOGY REPORT (SQ) ---
EXAM DESCRIPTION: XR CHEST 1 VIEW COMPLETED DATE/TME: 03/31/2018 05:27 CLINICAL HISTORY: hypotension COMPARISON: None. FINDINGS: Single frontal view of the chest. Right-sided pacemaker. Cardiomegaly. Tortuosity of the thoracic aorta. Elevation of the right hemidiaphragm. Possible small bilateral pleural effusions. Linear bibasilar opacities likely related to atelectasis. No pneumothorax. No acute osseous abnormalities. Upper abdominal soft tissues are unremarkable. IMPRESSION: 1. Linear bibasilar opacities likely related to atelectasis. Possible small bilateral pleural effusions.
[2018-03-31] MEDS: NORMAL SALINE 1000 ML 1,000 ML IV PRN ×2 (07:23→09:09)
[2018-03-31] MEDS ORDERED: DIPHENOXYLATE HCL/ATROP SULF 2.5-0.025 MG TABLET PO SCH (08:00)
[2018-03-31] MEDS: POLYVINYL ALCOHOL 1.4% OPH SOLN 15 ML OU SCH ×4 (10:00→21:30)
[2018-03-31] MEDS ORDERED: SODIUM BICARBONATE 650 MG TABLET PO SCH (10:00)
[2018-03-31] MEDS ORDERED: FAMOTIDINE 20 MG TABLET PO SCH ×2 (10:00→12:00)
[2018-03-31] MEDS ORDERED: HYDROCORTISONE 10 MG TABLET PO SCH ×2 (10:00→22:00)
--- NOTE | 2018-03-31 10:03 | Physician Advisory Note ---
Physician Advisor ProgressNote .: Pursuant to the plan for Jero Galvin, I have reviewed the medical record for this patient. Physician Advisor Statement: Please consider documenting, if you agree: 1. "Chronic CHF w/preserved EF" (ECHO in October showed EF preserved, diast fn unclear, (+)conc LVH mild) 2. "Hypoglycemia, suspect due to " 3. Medical necessity: if this Medicare pt is not clinically safe for d/c on as expected, please document ongoing clinical issues/concerns & what being done about them, & may then be appropriate for change to Inpt status. Thanks! CK Addendum @16:17: Attending has changed to Inpatient status. If attg already feels strongly pt is highly likely to require a 2nd MN, please make it very explicit the reason(s) for this expectation, & any concerns attg has. ("I AM CONCERNED about " - persistent/recurrent severe hypotension & bradypnea , recurrent hypoglycemia, ...?)
--- NOTE | 2018-03-31 10:40 | EKG REPORT ---
SEVERITY:- ABNORMAL ECG - ATRIAL-SENSED VENTRICULAR-PACED RHYTHM : Confirmed by: Jaida Gonzáles MD 31-Mar-2018 10:38:51
[2018-03-31] MEDS: HEPARIN SOD (PORCINE) 5,000 UNIT/ML 1 ML SYRINGE SUBCUT SCH ×2 (15:11→21:28)
[2018-03-31] MEDS: DIPHENOXYLATE HCL/ATROP SULF 2.5-0.025 MG TABLET PO SCH ×3 (15:11→21:28)
[2018-03-31] MEDS: HYDROCORTISONE SOD SUCCINATE INJ/PF 100 MG/2 ML SDV IV SCH (17:58)
[2018-03-31] MEDS: ACETAMINOPHEN 325 MG TABLET PO PRN (20:50)
--- NOTE | 2018-03-31 21:54 | PDOC CONSULTATION ---
Consultation Consult Date: 03/31/18 Consult reason:: esrd History of Present Illness Admission Date/PCP: 03/31/18 11:16 CORRINA DENNY DO History of Present Illness: VARINDER TORRES is a 77 year old female with a past medical history of end- stage renal failure on hemodialysis, adrenal insufficiency, chronic diarrhea, hypoglycemia and generalized debility. Patient was brought into the ER from the SNF that she lived at. She presented with hypotension and hypoglycemia. According to the [facility] dialysis units records her bp leaving dialysis was in the 130s systolic. Patient has recent admissions with adrenal crisis due to her adrenal insufficiency. In the emergency room she received IV fluid challenges without significant improvement. She given 100mg of IV hydrocortisone and started on PO hydrocortisone. She was then transferred to the ICU and remained on normal saline. The patient was examined this morning. According to her she has had persistent diarrhea for the past weeks and also has been having nausea for a week. She scheduled for a GI appointment on April 16. Currently she denies chest pain or SOB. She is currently on oxygen with saturations at 93 to 97%. She does admit to generalized weakness. Past Medical History Cardiac Medical History: Reports: Coronary Artery Disease, DVT, Heart Murmur, Hyperlipidemia, Myocardial Infarction, Pulmonary Embolism Pulmonary Medical History: Reports: Chronic Obstructive Pulmonary Disease (COPD) , Pneumonia Denies: Asthma, Bronchitis, Tuberculosis Neurological Medical History: Denies: Seizures Renal/ Medical History: Reports: End Stage Renal Disease - On dialysis GI Medical History: Reports: Gastroesophageal Reflux Disease Musculoskeltal Medical History: Reports: Arthritis Psychiatric Medical History: Reports: Depression Past Surgical History Past Surgical History: Reports: Cholecystectomy, Gastric Bypass Surgery, Orthopedic Surgery, Tonsillectomy, Tubal Ligation Denies: Hysterectomy Social History Lives with: Longterm Smoking Status: Never Smoker Frequency of Alcohol Use: None Hx Recreational Drug Use: No Drugs: None Hx Prescription Drug Abuse: No - Advance Directive Resuscitation Status: Full Code Family History Parental Family History Reviewed: No Children Family History Reviewed: Unknown Sibling(s) Family History Reviewed.: Unknown Medication/Allergy Home Medications: Amiodarone HCl [Cordarone 200 mg Tablet] 200 mg PO DAILY 03/31/18 Atorvastatin Calcium [Lipitor 40 mg Tablet] 40 mg PO QHS 03/31/18 Cyanocobalamin (Vitamin B-12) [Vitamin B12] 500 mcg PO DAILY 03/31/18 Diphenoxylate HCl/Atrop Sulf [Lomotil 2.5 mg Tablet] 5 mg PO QID 03/31/18 Famotidine [Pepcid 20 mg Tablet] 20 mg PO BID 03/31/18 Fluticasone Propionate [Flonase Nasal [place] 50 Mcg/[place] 16 gm] 2 sprays NASL Q12 03/31/18 Hydrocortisone [Cortef 10 Mg Tablet] 10 mg PO QAM 03/31/18 Hydrocortisone [Cortef] 5 mg PO QPM 03/31/18 Iron Polysaccharide Complex [Ferrex 150] 150 mg PO DAILY 03/31/18 Isosorbide Mononitrate [Imdur 30 mg Tablet.er] 30 mg PO DAILY 03/31/18 L. Rhamnosus GG/Inulin [Culturelle Probiotics Capsule] 1 each PO DAILY 03/31/18 Levothyroxine Sodium [Synthroid] 175 mcg PO Q6AM 03/31/18 Loperamide HCl [Imodium 2 mg Capsule] 4 mg PO QID 03/31/18 Loratadine [Claritin] 10 mg PO DAILY 03/31/18 Magnesium Oxide [Mag-Ox 400 mg Tablet] 400 mg PO BID 03/31/18 Metoprolol Tartrate [Lopressor 25 mg Tablet] 12.5 mg PO Q12 03/31/18 Nitroglycerin [Nitrostat] 0.3 mg SL Q5MP PRN 03/31/18 Olopatadine HCl [Pataday] 1 drop OU DAILY 03/31/18 Paroxetine HCl [Paxil] 10 mg PO DAILY 03/31/18 Polyvinyl Alcohol [Liquitears] 1 drop OU QID 03/31/18 Sodium Bicarbonate [Sodium Bicarbonate 650 mg Tablet] 650 mg PO BID 03/31/18 Allergies/Adverse Reactions: iodine Allergy (Severe, Verified 03/18/18 10:33) itching, facial swelling, difficulty breathing doxycycline [Doxycycline] Allergy (Verified 03/18/18 10:33) dizzy Iodinated Contrast- Oral and IV Dye [IV Dye, Iodine Containing] Allergy ( Verified 03/18/18 10:33) Sulfa (Sulfonamide Antibiotics) Allergy (Verified 03/18/18 10:33) dizzy amlodipine besylate [From Norvasc] Adverse Reaction (Unknown, Verified 03/18/18 10:33) anxious, jittery feeling Review of Systems Constitutional: PRESENT: anorexia, weakness, weight loss. ABSENT: chills, fever (s) Eyes: ABSENT: visual disturbances Nose, Mouth, and Throat: ABSENT: headache(s) Cardiovascular: PRESENT: dyspnea on exertion. ABSENT: chest pain, edema, orthropnea, palpitations Respiratory: PRESENT: cough, dyspnea. ABSENT: sputum Gastrointestinal: PRESENT: diarrhea, nausea, vomiting. ABSENT: constipation Genitourinary: PRESENT: other - does not urinate Musculoskeletal: PRESENT: muscle weakness Neurological: PRESENT: weakness. ABSENT: numbness Physical Exam Vital Signs: Temp Pulse Resp BP Pulse Ox 98.0 F 65 16 90/45 L 96 03/31/18 20:00 03/31/18 20:00 03/31/18 20:00 03/31/18 16:47 03/31/18 14:00 Intake & Output 03/30/18 03/31/18 04/01/18 06:59 06:59 06:59 Intake Total 240 Balance 240 Weight 70.8 kg General appearance: PRESENT: no acute distress, well-developed, well-nourished Mouth exam: PRESENT: moist, neck supple Neck exam: PRESENT: full ROM. ABSENT: JVD, tracheal deviation Respiratory exam: PRESENT: crackles, rales. ABSENT: clear to auscultation kannan, rhonchi, wheezes Cardiovascular exam: PRESENT: RRR, +S1, +S2 GI/Abdominal exam: PRESENT: hyperactive bowel sounds, soft. ABSENT: tenderness Extremities exam: PRESENT: +1 edema. ABSENT: pedal edema, tenderness, +2 edema Musculoskeletal exam: ABSENT: normal inspection, tenderness Neurological exam: PRESENT: alert, awake, oriented to person, oriented to place , oriented to time, oriented to situation Psychiatric exam: ABSENT: anxious, depressed Skin exam: PRESENT: dry, intact, warm. ABSENT: cyanosis Results Impressions: Chest X-Ray 03/31/18 05:27 IMPRESSION: 1. Linear bibasilar opacities likely related to atelectasis. Possible small bilateral pleural effusions. Assessment & Plan - Diagnosis (1) Adrenal insufficiency Is this a current diagnosis for this admission?: Yes Plan: Due to the diarrhea the patient is most likely not receiving full dose of PO hydrocortisone. Will look to find underlining cause of diarrhea and for right now placing her on IV hydrocortisone. (2) ESRD (end stage renal disease) on dialysis Is this a current diagnosis for this admission?: Yes Plan: Will look to dialysis her tomorrow. IV fluids were stopped due to some signs of edema. (3) Hypotension Qualifiers: Hypotension type: unspecified hypotension type Qualified Code(s): I95.9 - Hypotension, unspecified Is this a current diagnosis for this admission?: Yes Plan: Received fluid and now on IV hydrocortisone 80mg Q8 (4) Diarrhea Plan: ordering testing for C-Diff and then will look to start flagyl if positive. (5) Hypokalemia Plan: Will reassess tomorrow to see if she need potassium replacements
[2018-04-01] MEDS: ACETAMINOPHEN 325 MG TABLET PO PRN ×3 (01:12→20:49)
[2018-04-01] MEDS: HYDROCORTISONE SOD SUCCINATE INJ/PF 100 MG/2 ML SDV IV SCH (01:12)
[2018-04-01 04:05] LABS: ABSOLUTE MONOCYTES (AUTO) 0.2 10^3/uL (0.1-1.4); BASOPHILS % (AUTO) 0.5 % (0-2); LYMPHOCYTES % (AUTO) 18.9 % (13-45); MEAN CORPUSCULAR HEMOGLOBIN 30.8 pg (27.0-33.4); MEAN CORPUSCULAR HGB CONC 32.4 g/dL (32.0-36.0); MEAN CORPUSCULAR VOLUME 95 fl (80-97); MONOCYTES % (AUTO) 4.8 % (3-13); PLATELET COUNT 127 10^3/uL (150-450); RED BLOOD COUNT 3.58 10^6/uL (3.72-5.28); RED CELL DISTRIBUTION WIDTH 18.1 % (11.5-14.0); SEGMENTED NEUTROPHILS % (AUTO) 75.8 % (42-78); TOTAL CELLS COUNTED % (AUTO) 100 %; WHITE BLOOD COUNT 5.2 10^3/uL (4.0-10.5)
[2018-04-01 04:34] LABS: ANION GAP 8 (5-19); BLOOD UREA NITROGEN 14 mg/dL (7-20); CALCIUM 8.1 mg/dL (8.4-10.2); CARBON DIOXIDE 29 mmol/L (22-30); CHLORIDE 103 mmol/L (98-107); GLUCOSE 108 mg/dL (75-110); POTASSIUM 4.5 mmol/L (3.6-5.0); SODIUM 139.6 mmol/L (137-145)
[2018-04-01] MEDS: HEPARIN SOD (PORCINE) 5,000 UNIT/ML 1 ML SYRINGE SUBCUT SCH ×3 (05:49→21:31)
[2018-04-01] MEDS ORDERED: (PENDING PHARMACY ID) (Nitroglycerin [Nitrostat] 0.3 MG) SL PRN (07:54)
[2018-04-01] MEDS ORDERED: HYDROCORTISONE 10 MG TABLET PO SCH ×2 (08:00→18:00)
--- NOTE | 2018-04-01 09:06 | PROGRESS NOTE E ---
Progress Note NAME: VARINDER TORRES : 1940 AGE: 77Y DATE: 04/01/2018 ROOM: 608 SUBJECTIVE: The patient is currently lying in bed. She states that she feels better today in comparison than when she came in yesterday. The patient denies any nausea, vomiting, diarrhea overnight. No shortness of breath or dizziness or chest pain. The patient's blood pressure has been in acceptable range. She is currently receiving hemodialysis treatment in the room and the patient does not voice any other concerns at this time. REVIEW OF SYSTEMS: The rest of the review of systems is negative. MEDICATIONS: Reviewed. OBJECTIVE: GENERAL: The patient is a frail, chronically ill-appearing 77-year-old female who is awake, alert, and oriented to person, place, time and situation. She is verbal and conversational. Does not appear to be in acute distress. VITAL SIGNS: Temperature is 97.8, pulse 62, respirations 16, blood pressure is 111/57, oxygen saturation is 98% on room air. SKIN: Skin is quite pale, very thin, dusky appearing, which is chronic for her. She does not appear to have any rashes. HEENT: Pupils are reactive. Conjunctivae is pale. There is no evidence of JVP. CVS: Heart is regular. No rub. CHEST: Clear, symmetrical, unlabored. ABDOMEN: Soft, nontender, nondistended. EXTREMITIES: No clubbing, cyanosis or edema. Right lower extremity is in appropriate case. All 4 extremities are warm appropriately to the touch. PSYCHIATRIC: Appropriate affect. Pleasant mood. DIAGNOSTICS: Lab values are as follows: Hematology obtained on 04/01/2018: WBC is 11.2, hemoglobin is 11.0, hematocrit is 44.0, platelet count is 127,000. Chemistry obtained on 04/01/2018: Sodium is 139, potassium 4.5, chloride is 103, carbon dioxide 29. BUN is 14, creatinine 4.47. Glucose 108. Calcium is 8.1. ASSESSMENT: 1. ADRENAL INSUFFICIENCY. It appears the patient most likely did not receive her dose prior to hemodialysis, therefore resulting in hypotension as well as the patient had most likely some hypovolemia as well. Regardless, the patient has received some volumes, currently tolerating dialysis without issue. We will discontinue the patient's IV steroids and resume her oral supplementation and follow-up in the am to ensure patient remains stable after oral transition. 2. HYPOTENSION SECONDARY TO NUMBER 1, MUCH IMPROVED. Will ensure the patient tolerates HD as she is quite frail. 3. HYPOGLYCEMIA SECONDARY TO NUMBER 1, IMPROVED. 4. ENDSTAGE RENAL DISEASE, STAGE-. The patient is currently requiring hemodialysis. She normally dialyzes on Friday, Friday, Friday. 5. HYPOTHYROIDISM. We will continue the patient's levothyroxine. 6. HISTORY OF PULMONARY EMBOLISM AND DVT. The patient is no longer requiring anticoagulation. 7. PACEMAKER. The patient is currently in pace. 8. CORONARY ARTERY DISEASE. Denies anginal symptoms. 9. THROMBOCYTOPENIA. This is chronic. 10. CHRONIC OBSTRUCTIVE PULMONARY DISEASE. Patient is no longer requiring O2, appears to be at her baseline. 11. GASTROESOPHAGEAL REFLUX DISEASE. Continue proton pump inhibitor. 12. PROTEIN CALORIE MALNOURISHMENT, MODERATE, SECONDARY TO CHRONIC DIARRHEA AND YOLIS-EN-Y BYPASS. 13. CHRONIC SYSTOLIC CONGESTIVE HEART FAILURE WITH AN EF OF 25%. 14. PAROXYSMAL ATRIAL FIBRILLATION. We will continue amiodarone. 15. RIGHT PERIPROSTHETIC FEMUR FRACTURE. The patient was seen and evaluated by orthopedics and was transferred to [place] for surgical repair. The patient remains in an appropriate case. Continue physical therapy. DISPOSITION: The patient is FULL CODE. Pending patient's symptomatology and diagnostic findings, will reevaluate in the a.m. The patient cane be downgraded to an [facility] bed. Time spent on this followup, including assessment, plan, physical examination, patient education and review of records is 35 minutes. DICTATING PHYSICIAN: GERMAN BANDA NP [id number] PHY#: [id number] ID: [id number] JOB#: [id number] ACCT: [id number] cc: > MTDD
[2018-04-01] MEDS ORDERED: FAMOTIDINE 20 MG TABLET PO SCH (10:00)
[2018-04-01] MEDS ORDERED: (PENDING PHARMACY ID) (Loratadine [Claritin] 10 MG) PO SCH (10:00)
[2018-04-01] MEDS ORDERED: CYANOCOBALAMIN 500 MCG PO SCH (10:00)
[2018-04-01] MEDS ORDERED: SODIUM BICARBONATE 650 MG TABLET PO SCH (10:00)
[2018-04-01] MEDS ORDERED: (PENDING PHARMACY ID) (Paroxetine Hcl [Paxil] 10 MG) PO SCH (10:00)
[2018-04-01] MEDS: DIPHENOXYLATE HCL/ATROP SULF 2.5-0.025 MG TABLET PO SCH ×4 (12:36→21:34)
[2018-04-01] MEDS: LORATADINE 10 MG TABLET PO SCH (12:37)
[2018-04-01] MEDS: FAMOTIDINE 20 MG TABLET PO SCH (12:37)
[2018-04-01] MEDS: METOPROLOL TARTRATE 25 MG TABLET PO SCH ×2 (12:38→21:34)
[2018-04-01] MEDS: AMIODARONE HCL 200 MG TABLET PO SCH (12:38)
[2018-04-01] MEDS: MAGNESIUM OXIDE 400 MG TABLET PO SCH ×2 (12:38→17:26)
[2018-04-01] MEDS: FLUTICASONE NASAL SPRAY 50 MCG/SPRY 120 SPRAY/16 GM NASL SCH ×2 (12:55→21:35)
[2018-04-01] MEDS: IRON POLYSACCHARIDES COMPLEX 150 MG CAPSULE PO SCH (13:00)
[2018-04-01] MEDS: PAROXETINE HCL 20 MG TABLET PO SCH (13:01)
[2018-04-01] MEDS: CYANOCOBALAMIN (VITAMIN B-12) 1,000 MCG TABLET PO SCH (13:03)
[2018-04-01] MEDS: POLYVINYL ALCOHOL 1.4% OPH SOLN 15 ML OU SCH ×4 (13:04→21:36)
--- NOTE | 2018-04-01 16:08 | PDOC PROGRESS REPORT ---
Subjective Progress Note for:: 04/01/18 Reason For Visit: Patient seen today in the ICU undergoing dialysis and issues. She feels a whole lot better. Blood pressures normotensive and stable. Diarrhea is resolved with introduction of Lomotil. Patient denies any history of chest pain or shortness of breath or orthostasis. Labs and medications were reviewed with the patient and the treating dialysis nurse. I see that the IV hydrocortisone has been switched to p.o. by the hospitalist. Physical Exam Vital Signs: Temp Pulse Resp BP Pulse Ox 97.5 F 67 20 133/52 H 96 04/01/18 14:25 04/01/18 14:25 04/01/18 14:25 04/01/18 14:25 04/01/18 14:25 Intake & Output 03/31/18 04/01/18 04/02/18 06:59 06:59 06:59 Intake Total 480 Output Total 0 Balance 480 Weight 73.2 kg 70.9 kg General appearance: PRESENT: no acute distress Respiratory exam: PRESENT: clear to auscultation kannan. ABSENT: crackles Cardiovascular exam: PRESENT: RRR, +S1, +S2 GI/Abdominal exam: PRESENT: normal bowel sounds, soft. ABSENT: organomegaly, tenderness Extremities exam: PRESENT: pedal edema Neurological exam: PRESENT: alert, awake, oriented to person, oriented to place Psychiatric exam: PRESENT: appropriate affect Skin exam: PRESENT: dry. ABSENT: erythema, rash Results Laboratory Results: 04/01/18 03:49 04/01/18 03:49 04/01/18 04/01/18 03:49 03:49 WBC 5.2 RBC 3.58 L Hgb 11.0 L Hct 34.0 L MCV 95 MCH 30.8 MCHC 32.4 RDW 18.1 H Plt Count 127 L Seg Neutrophils % 75.8 Lymphocytes % 18.9 Monocytes % 4.8 Eosinophils % 0.0 Basophils % 0.5 Absolute Neutrophils 4.0 Absolute Lymphocytes 1.0 Absolute Monocytes 0.2 Absolute Eosinophils 0.0 Absolute Basophils 0.0 Sodium 139.6 Potassium 4.5 Chloride 103 Carbon Dioxide 29 Anion Gap 8 BUN 14 Creatinine 4.47 H Est GFR ( Amer) 12 L Est GFR (Non-Af Amer) 10 L Glucose 108 Calcium 8.1 L Impressions: Chest X-Ray 03/31/18 05:27 IMPRESSION: 1. Linear bibasilar opacities likely related to atelectasis. Possible small bilateral pleural effusions. Assessment & Plan - Diagnosis (1) Adrenal insufficiency Is this a current diagnosis for this admission?: Yes Plan: Patient has improved quite drastically to the introduction of IV hydrocortisone followed by p.o. Diarrhea has also resolved and she is now back on p.o. hydrocortisone. Discussed with her the fact that if she has any stress situation she should be on IV hydrocortisone in the future. (2) ESRD (end stage renal disease) on dialysis Is this a current diagnosis for this admission?: Yes Plan: Patient currently undergoing dialysis without any issues. Vital signs are stable. Is being supervised to ensure safe and smooth procedure. Plan to remove minimal amount of fluid which would be less than a liter. Dialysis orders were reviewed with the treating dialysis nurse. (3) Diarrhea Plan: We will check for C. difficile which obviously has not been checked before. She seems to responded to as needed Lomotil which we should continue as an outpatient. She has had gastric bypass surgery in the past and could be issues including small bowel bacterial overgrowth syndrome. (4) Hypotension Qualifiers: Hypotension type: unspecified hypotension type Qualified Code(s): I95.9 - Hypotension, unspecified Is this a current diagnosis for this admission?: Yes Plan: Resolved with fluids and replacement of steroids. (5) Generalized weakness Plan: Much improved with changes in the blood pressure and introduction of steroids.
[2018-04-01] MEDS ORDERED: HYDROCORTISONE 5 MG PO SCH (18:00)
[2018-04-01 21:16] LABS: CHOLESTEROL 109.04 mg/dL (0-200); DIRECT LDL 40 mg/dL (<100); TRIGLYCERIDES 66 mg/dL (<150); VLDL CHOLESTEROL 13.2 mg/dL (10-31)
[2018-04-01] MEDS ORDERED: ATORVASTATIN CALCIUM 40 MG TABLET PO SCH (22:00)
[2018-04-01] MEDS ORDERED: OXYCODONE-ACETAMINOPHEN 5-325 MG TABLET PO PRN (22:34)
[2018-04-02] MEDS: HEPARIN SOD (PORCINE) 5,000 UNIT/ML 1 ML SYRINGE SUBCUT SCH ×2 (05:15→13:20)
[2018-04-02] MEDS ORDERED: (PENDING PHARMACY ID) (Levothyroxine Sodium [Synthroid] 175 MCG) PO SCH (06:00)
[2018-04-02] MEDS ORDERED: LEVOTHYROXINE SODIUM 0.075 MG TABLET PO SCH (06:00)
[2018-04-02] MEDS ORDERED: LEVOTHYROXINE SODIUM 0.1 MG TABLET PO SCH (06:00)
[2018-04-02] MEDS ORDERED: HYDROCORTISONE 10 MG TABLET PO SCH (08:00)
--- NOTE | 2018-04-02 09:58 | TRANSFER SUMMARY E ---
Transfer Summary NAME: VARINDER TORRES : 1940 AGE: 77Y ADMITTED: 03/31/2018 TRANSFERRED: 04/02/2018 CODE STATUS FULL CODE. FANCY STITCHER: Dr. Behzad Coleman. PRIMARY CARE PROVIDER: Lina Boggs MD DISCHARGE DIAGNOSES: 1. SYMPTOMATIC HYPOTENSION SECONDARY TO ADRENAL INSUFFICIENCY. 2. HYPOGLYCEMIA SECONDARY TO NUMBER 1. 3. ENDSTAGE RENAL DISEASE, STAGE-. THE PATIENT DIALYZES ON FRIDAY, FRIDAY, FRIDAY. 4. HYPOTHYROIDISM. 5. HISTORY OF PULMONARY EMBOLISM AND DEEP VENOUS THROMBOSIS, NO LONGER ANTICOAGULATED. 6. PACEMAKER. 7. CORONARY ARTERY DISEASE. 8. THROMBOCYTOPENIA. 9. CHRONIC OBSTRUCTIVE PULMONARY DISEASE. 10. GASTROESOPHAGEAL REFLUX DISEASE. 11. PROTEIN CALORIE MALNOURISHMENT SECONDARY TO CHRONIC DIARRHEA FROM YOLIS-EN-Y. 12. CHRONIC SYSTOLIC CONGESTIVE HEART FAILURE WITH AN EJECTION FRACTION OF 25%. 13. PAROXYSMAL ATRIAL FIBRILLATION. 14. RIGHT PERIPROSTHETIC FEMUR FRACTURE STATUS POST OPERATIVE REPAIR AT [facility]. DISCHARGE MEDICATIONS: 1. Cortef 10 mg p.o. q. a.m. This is to be administered prior to hemodialysis on her dialysis days. 2. Cortef 5 mg p.o. q. p.m. 3. Amiodarone 200 mg p.o. daily. 4. Lipitor 40 mg p.o. q. hs. 5. Vitamin B12 500 mcg p.o. daily. 6. Lomotil 5 mg p.o. q.i.d. 7. Pepcid 20 mg p.o. b.i.d. 8. Flonase 2 sprays nasally q. 12 hours 9. Ferrous sulfate 150 mg p.o. daily. 10. Imdur 30 mg p.o. daily. 11. Probiotic 1 capsule p.o. daily. 12. Synthroid 175 mcg p.o. q. a.m. 13. Claritin 10 mg p.o. daily. 14. Magnesium oxide 400 mg p.o. b.i.d. 15. Lopressor 12.5 mg p.o. q. 12 hours. 16. Nitrostat 0.3 mg sublingual q. 5 minutes p.r.n. 17. Pataday 1 drop in both eyes daily. 18. Paxil 10 mg p.o. daily. 19. Liquid tears 1 drop in both eyes q.i.d. 20. Sodium bicarbonate 650 mg p.o. b.i.d. DIET: Renal, as tolerated. ACTIVITY: As per rehab standards. CONDITION: Fair. DIAGNOSTICS: Lab values are as follows: Hematology obtained on 04/01/2018: WBC is 11.2, hemoglobin is 11.0, hematocrit is 34.0, platelet count is 127,000. Venous blood gas obtained on 03/31/2018: PH of 7.32, PCO2 is 56, bicarb is 28.2. Chemistry obtained on 04/01/2018: Sodium is 139, potassium 4.5, chloride is 103, carbon dioxide 29. BUN is 14, creatinine 4.47. Glucose 108. Lactic acid is 1, calcium is 8.1, magnesium 10.0, triglycerides 66, cholesterol of 109, LDL 40, DLDL 13, HDL is 55. Lipase is 31.1, total bili is 0.6, AST 25, ALT is 13, philippe-phos 113. Serology obtained on 04/01/2018: Cytotoxins negative. Chest x-ray obtained on 03/31/2018 reveals bilateral atelectasis, small pleural effusions. EKG obtained on 03/31/2018 reveals a paced rhythm. VITAL SIGNS: Temperature is 97.7, pulse 63, respirations 13, blood pressure is 142/52, oxygen saturation is 98% on room air. HISTORY OF PRESENT ILLNESS: The patient is a 77-year-old female with a past medical history of endstage renal disease with dialysis on Friday, Friday, and Friday that is well-known to the hospital service due to her persistent diarrhea as well as adrenal insufficiency. The patient presented to the Emergency Department from the [facility] facility due to hypotension as well as hypoglycemia. While in the emergency department, the patient received IV fluids without significant improvement in symptoms. The patient denied any chest pain, shortness of breath. No nausea or vomiting. The patient completed a regular dialysis treatment, however, after return to the facility she was found to be this state. The patient has had similar presentations in the past and has been referred to the hospital for admission and management. HOSPITAL COURSE: The patient was admitted to the Intensive Care Unit as the patient did require close observation. The patient was placed on IV corticosteroids as well as stool studies were obtained which were found to be non-suggestive as always. I had a lengthy discussion with the patient in the past regarding the possibility of small bowel bacterial overgrowth given her Yolis-en-Y gastric bypass. However, the patient has been seen by GI and the patient does respond to a high dose of Lomotil, and therefore will be continued at this time as well as probiotic therapy. The patient does not appear to have any symptom change with dietary changes. The patient was seen by her travel clerk while in the hospital and underwent hemodialysis treatment, which she tolerated quite well. The patient was resumed on her steroids which does need to ensure that she receives them prior to her hemodialysis treatment and her blood pressure medications need to be held prior to her dialysis treatment so she may have successful treatment. DISCHARGE PLAN: The patient is to follow up at the hemodialysis unit as already scheduled. Time spent on this discharge is 35 minutes. DICTATING PHYSICIAN: GERMAN BANDA NP [id number] PHY#: [id number] ID: [id number] JOB#: [id number] ACCT: [id number] cc:GERMAN BANDA NP > MTDD
[2018-04-02] MEDS: METOPROLOL TARTRATE 25 MG TABLET PO SCH (10:02)
[2018-04-02] MEDS: AMIODARONE HCL 200 MG TABLET PO SCH (10:03)
[2018-04-02] MEDS: DIPHENOXYLATE HCL/ATROP SULF 2.5-0.025 MG TABLET PO SCH ×2 (10:04→13:21)
[2018-04-02] MEDS: FAMOTIDINE 20 MG TABLET PO SCH (10:05)
[2018-04-02] MEDS: LORATADINE 10 MG TABLET PO SCH (10:05)
[2018-04-02] MEDS: CYANOCOBALAMIN (VITAMIN B-12) 1,000 MCG TABLET PO SCH (10:05)
[2018-04-02] MEDS: MAGNESIUM OXIDE 400 MG TABLET PO SCH (10:06)
[2018-04-02] MEDS: FLUTICASONE NASAL SPRAY 50 MCG/SPRY 120 SPRAY/16 GM NASL SCH (10:07)
[2018-04-02] MEDS: POLYVINYL ALCOHOL 1.4% OPH SOLN 15 ML OU SCH ×2 (10:08→13:21)
[2018-04-02] MEDS: IRON POLYSACCHARIDES COMPLEX 150 MG CAPSULE PO SCH (10:17)
[2018-04-02] MEDS: PAROXETINE HCL 20 MG TABLET PO SCH (10:17)
[2018-04-02 12:13] VITALS: BP 147/51
== END 2018-04-02 15:07 | DRG 314 ==
LOC: ER 02:57 → EH 06:18 → ICU 09:19 → OBSVTOIN 11:16 → 3S 04-01 13:00 → ICU 04-01 13:02 → 3S 04-01 13:45
PROVIDERS: ADMIT Internal Medicine; ATTEND Internal Medicine
PROC: 3E0F73Z Introduction of Anti-inflammatory into Respiratory Tract, Via Natural or Artificial Opening (ICD-10-PCS; 2018-03-31)
PROC: 5A1D70Z Performance of Urinary Filtration, Intermittent, Less than 6 Hours Per Day (ICD-10-PCS; principal; 2018-04-01)
DX: I95.89 Other hypotension (principal); N18.6 End stage renal disease; E27.40 Unspecified adrenocortical insufficiency; I13.2 Hypertensive heart and chronic kidney disease with heart failure and with stage 5 chronic kidney disease, or end stage renal disease; E46 Unspecified protein-calorie malnutrition; I50.42 Chronic combined systolic (congestive) and diastolic (congestive) heart failure; E86.0 Dehydration; E03.9 Hypothyroidism, unspecified; I25.10 Atherosclerotic heart disease of native coronary artery without angina pectoris; D69.6 Thrombocytopenia, unspecified; J44.9 Chronic obstructive pulmonary disease, unspecified; K21.9 Gastro-esophageal reflux disease without esophagitis; K52.9 Noninfective gastroenteritis and colitis, unspecified; E16.2 Hypoglycemia, unspecified; E87.6 Hypokalemia; F32.9 Major depressive disorder, single episode, unspecified; M19.90 Unspecified osteoarthritis, unspecified site; E78.00 Pure hypercholesterolemia, unspecified; E83.51 Hypocalcemia; I25.2 Old myocardial infarction; Z86.711 Personal history of pulmonary embolism; Z86.718 Personal history of other venous thrombosis and embolism; Z95.0 Presence of cardiac pacemaker; Z79.899 Other long term (current) drug therapy; Z90.49 Acquired absence of other specified parts of digestive tract; Z98.84 Bariatric surgery status; Z88.2 Allergy status to sulfonamides; Z88.8 Allergy status to other drugs, medicaments and biological substances; Z88.1 Allergy status to other antibiotic agents; Z91.041 Radiographic dye allergy status; Z79.52 Long term (current) use of systemic steroids; Z82.49 Family history of ischemic heart disease and other diseases of the circulatory system
CPT/HCPCS: 36415; 71045; 80048; 80053; 80061; 82803; 82962; 83605; 83690; 83735; 85025; 87493; 93005; 93010; 96361; 96374; 96375; 99291; G0378; J1644; J1720; J3490; J7030; J7040

== ENCOUNTER 2018-05-04 05:44 | Day surgery (SDC) | payer MEDICAID, MEDICARE ==
[2018-05-04] MEDS ORDERED: OXYCODONE-ACETAMINOPHEN 5-325 MG TABLET ONE (05:57)
[2018-05-04] MEDS ORDERED: DIAZEPAM 5 MG TABLET ONE (05:57)
[2018-05-04 06:09] LABS: HEMATOCRIT 37.6 % (36.0-47.0); HEMOGLOBIN 12.2 g/dL (12.0-15.5); MEAN CORPUSCULAR HEMOGLOBIN 29.3 pg (27.0-33.4); MEAN CORPUSCULAR HGB CONC 32.4 g/dL (32.0-36.0); MEAN CORPUSCULAR VOLUME 90 fl (80-97); RED BLOOD COUNT 4.17 10^6/uL (3.72-5.28); RED CELL DISTRIBUTION WIDTH 15.8 % (11.5-14.0); WHITE BLOOD COUNT 7.9 10^3/uL (4.0-10.5)
[2018-05-04 06:18] LABS: ANION GAP 13 (5-19); BLOOD UREA NITROGEN 23 mg/dL (7-20); CALCIUM 8.3 mg/dL (8.4-10.2); CARBON DIOXIDE 26 mmol/L (22-30); CHLORIDE 104 mmol/L (98-107); GLUCOSE 127 mg/dL (75-110); POTASSIUM 3.9 mmol/L (3.6-5.0); SODIUM 142.6 mmol/L (137-145)
[2018-05-04 06:36] LABS: PLATELET COUNT 94 10^3/uL (150-450)
[2018-05-04] MEDS ORDERED: LIDOCAINE 0.5% INJ-PF (5 MG/ML) 50 ML SDV ONE (07:21)
[2018-05-04] MEDS ORDERED: MIDAZOLAM 2 MG/2 ML INJ ONE (07:43)
[2018-05-04] MEDS ORDERED: HEPARIN SOD (PORCINE) 5,000 UNIT/ML 1 ML SYRINGE ONE (07:44)
[2018-05-04] MEDS ORDERED: FENTANYL CITRATE INJ/PF 100 MCG/2 ML AMPUL ONE (07:44)
--- NOTE | 2018-05-04 09:15 | PDOC H&P ---
General Chief Complaint: This patient has had a 25% decrease in arteriovenous fistula flow volume over the last 1 month. She was therefore referred for angiogram correction of any defects. - Current Medications/Allergies Home Medications: Amiodarone HCl [Cordarone 200 mg Tablet] 200 mg PO DAILY 03/31/18 Atorvastatin Calcium [Lipitor 40 mg Tablet] 40 mg PO QHS 03/31/18 Cyanocobalamin (Vitamin B-12) [Vitamin B12] 500 mcg PO DAILY 03/31/18 Diphenoxylate HCl/Atrop Sulf [Lomotil 2.5 mg Tablet] 5 mg PO QID 03/31/18 Famotidine [Pepcid 20 mg Tablet] 20 mg PO BID 03/31/18 Fluticasone Propionate [Flonase Nasal [place] 50 Mcg/[place] 16 gm] 2 sprays NASL Q12 03/31/18 Hydrocortisone [Cortef] 5 mg PO QPM 03/31/18 Iron Polysaccharide Complex [Ferrex 150] 150 mg PO DAILY 03/31/18 Isosorbide Mononitrate [Imdur 30 mg Tablet.er] 30 mg PO DAILY 03/31/18 L. Rhamnosus GG/Inulin [Culturelle Probiotics Capsule] 1 each PO DAILY 03/31/18 Levothyroxine Sodium [Synthroid] 175 mcg PO Q6AM 03/31/18 Loratadine [Claritin] 10 mg PO DAILY 03/31/18 Magnesium Oxide [Mag-Ox 400 mg Tablet] 400 mg PO BID 03/31/18 Metoprolol Tartrate [Lopressor 25 mg Tablet] 12.5 mg PO Q12 03/31/18 Nitroglycerin [Nitrostat] 0.3 mg SL Q5MP PRN 03/31/18 Olopatadine HCl [Pataday] 1 drop OU DAILY 03/31/18 Paroxetine HCl [Paxil] 10 mg PO DAILY 03/31/18 Polyvinyl Alcohol [Liquitears] 1 drop OU QID 03/31/18 Sodium Bicarbonate [Sodium Bicarbonate 650 mg Tablet] 650 mg PO BID 03/31/18 Allergies/Adverse Reactions: iodine Allergy (Severe, Verified 03/18/18 10:33) itching, facial swelling, difficulty breathing doxycycline [Doxycycline] Allergy (Verified 03/18/18 10:33) dizzy Iodinated Contrast- Oral and IV Dye [IV Dye, Iodine Containing] Allergy ( Verified 03/18/18 10:33) Sulfa (Sulfonamide Antibiotics) Allergy (Verified 03/18/18 10:33) dizzy amlodipine besylate [From [facility]] Adverse Reaction (Unknown, Verified 03/18/18 10:33) anxious, jittery feeling Past Medical History Cardiac Medical History: Reports: Congestive Heart Failure, Coronary Artery Disease, DVT, Myocardial Infarction, Hyperlipidema, Hypertension, Pulmonary Embolism, Heart Murmur Pulmonary Medical History: Reports: Chronic Obstructive Pulmonary Disease (COPD) , Pneumonia Denies: Asthma, Bronchitis, Tuberculosis Neurological Medical History: Denies: Seizures Renal/ Medical History: Reports: End Stage Renal Disease - On dialysis GI Medical History: Reports: Gastroesophageal Reflux Disease Musculoskeltal Medical History: Reports: Arthritis Psychiatric Medical History: Reports: Depression Hematology: Reports: Anemia - ACUTE POST HEMORRHAGIC ANEMIA Past Surgical History Past Surgical History: Reports: Cholecystectomy, Gastric Bypass Surgery, Orthopedic Surgery, Tonsillectomy, Tubal Ligation Denies: Hysterectomy Family History Family History: CAD, Hypertension Parental Family History Reviewed: No Children Family History Reviewed: No Sibling(s) Family History Reviewed.: No Social History Smoking Status: Unknown if Ever Smoked Frequency of Alcohol Use: None Hx Recreational Drug Use: No Drugs: None Hx Prescription Drug Abuse: No Physical Exam Vital Signs: Temp Pulse Resp BP Pulse Ox 98.2 F 61 16 179/70 H 100 05/04/18 06:20 05/04/18 06:20 05/04/18 06:20 05/04/18 06:20 05/04/18 06:20 Intake & Output 05/03/18 05/04/18 05/05/18 06:59 06:59 06:59 Weight 56.699 kg Additional comments: Constitutional: Well-developed well-nourished lady. No apparent acute distress. Eyes: Mucous membranes pink and moist, pupils equal and reactive to light. Conjunctiva normal. Cornea normal. Wears spectacles. ENT: Hearing grossly normal. External pinna normal to inspection. Teeth mostly intact. Tongue normal to inspection. Chest: Right-sided pacemaker defibrillator in place. Cardiac: Heart sounds normal. Respiratory breath sounds are present bilaterally, normal. Normal respiratory effort. Psychiatric: Judgment, memory, insight seem normal. Mood is pleasant and appropriate. Extremities: Upper extremities show normal range of movement. Pulses present noted to the radial arteries. Capillary refill normal. No cyanosis noted. No muscle wasting noted. Left-sided, brachiocephalic fistula, ectatic. Impression/Plan Plan: In this patient who is hemodialysis dependent, optimization of her arteriovenous fistula is well indicated. Angiogram and possible angioplasty is recommended. The procedure, its risks, benefits, expected outcome and alternatives are familiar to the patient.
--- NOTE | 2018-05-04 09:19 | Discharge Summary ---
Discharge Summary (SDC) - Discharge Final Diagnosis: #1 malfunctioning arteriovenous fistula, left brachiocephalic. 2. End-stage renal disease on hemodialysis. 3. 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 4. On anticoagulation. 5. Adrenal dysfunction. 6. Hypertension Date of Surgery: 05/04/18 Discharge Date: 05/04/18 Condition: Fair Treatment or Instructions: Discharge home [after recovery per ASU criteria]. Diet , [renal],as tolerated, when fully awake advance as tolerated. Activities within moderation encouraged. Follow up in my office by appointment in about [1 month. Call for appointment. Leave wounds [covered], [keep clean and dry, until office hemodialysis. Hold of on school/work [until evaluation in office]. Meds per med rec. May shower [in 48 hrs], [try to keep operated area as dry as possible]. Referrals: CORRINA DENNY DO [Primary Care Provider] - Discharge Diet: Other (Comments) - Renal. Respiratory Treatments at Home: Deep Breathing/Coughing Discharge Activity: Activity As Tolerated Report the Following to Your Physician Immediately: Shortness of Breath
--- NOTE | 2018-05-04 09:25 | Operative Report ---
Operative Report DATE OF SURGERY: 05/04/18 PREOPERATIVE DIAGNOSIS: #1 malfunctioning arteriovenous fistula, left brachiocephalic. 2. End-stage renal disease on hemodialysis. 3. 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 4. On anticoagulation. 5. Adrenal dysfunction. 6. Hypertension POSTOPERATIVE DIAGNOSIS: #1 malfunctioning arteriovenous fistula, left brachiocephalic. 2. End-stage renal disease on hemodialysis. 3. 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 4. On anticoagulation. 5. Adrenal dysfunction. 6. Hypertension OPERATION: 1. Needle access into the arteriovenous fistula. 2. Angioplasty, central. 3. Angioplasty with drug-eluting balloon. 4. Angiogram and interpretation. SURGEON: DON HUNTER [employer] SCI[employer] PROFESSOR: None. ANESTHESIA: Moderate Sedation TISSUE REMOVED OR ALTERED: Not applicable. COMPLICATIONS: None. ESTIMATED BLOOD LOSS: 5 mL. INTRAOPERATIVE FINDINGS: Of a well-established left arm brachiocephalic fistula. Somewhat ectatic and firm initially, appropriately softer after angioplasty. Inflow appears excellent by inference. There was strong antegrade flow on access and by angiogram. The actual anastomosis was difficult to evaluate because of the strong antegrade force. The culprit lesion appears to be at the cephalic to left subclavian junction. Estimated to be 70% of the adjacent lumen. Angioplasty with a 9 mm balloon resulted in complete elimination of the stenosis. A 10 mm drug-eluting balloon was deployed at this region. A tiny residual waist was noted less than 5%. This was deemed acceptable. PROCEDURE: PROCEDURE: After verifying the procedure and having obtained informed consent, the patient's left arm was prepared with Chlorhexidine and draped out with sterile linen. Local anesthesia infiltrated. Percutaneous access into the fistula ,[ antegrade], obtained about [4 cm] from the arteriovenous anastomosis using a micro puncture needle followed by micro puncture wire and then a micro puncture catheter. A 0.035 Cypress wire was inserted, and over this, an 8 Bangladeshi short introducer was placed.,Angiogram demonstrated the aforementioned findings. Angioplasty was elected. This was followed by a [9 mm] angioplasty balloon . Angioplasty was Done at the culprit lesion. Inflating using a 3 mils syringe for 2 minutes at a time.]. Completion angiogram demonstrated [satisfactory result]. A 10 mm drug-eluting balloon was now placed over the culprit lesion and inflated up to 11 amanda sustained for 4 minutes. On deflation a completion angiogram was done and this was found to be acceptable. The instrumentation was now withdrawn over hand held pressure for 10 minutes . Dressings applied, procedure concluded. Exposure time: 1.3 minutes Radiation: 26.61 Debora avila. Contrast: 25 mils of Isovue-300, low osmolality. DICTATING PHYSICIAN: DON HELM M.D. cc: DON HELM M.D. ([id number]) >>
[2018-05-04 10:11] VITALS: BP 153/54
--- NOTE | 2018-05-04 15:04 | RADIOLOGY REPORT (SQ) ---
EXAM DESCRIPTION: FISTULAGRAM W/PLASTY COMPLETED DATE/TIME: 05/04/2018 1:52 pm REASON FOR STUDY: T82.858A T82.858A STENOSIS OF OTHER VASCULAR PROSTH DEV/GRFT, INIT FLUOROSCOPY TIME: 1.3 minutes 109 digital radiographic Images saved to PACS TECHNIQUE: Intra-operative images acquired during surgical procedure to evaluate progress. NUMBER OF IMAGES: 109 digital radiographic images LIMITATIONS: None. FINDINGS: Intra procedural imaging and fluoro during evaluation and plasty of left upper extremity d ialysis access by Dr. Joya. Please see the operative report for further details IMPRESSION: IMAGE(S) OBTAINED DURING PROCEDURE. COMMENT: Quality ID [id number]: Final reports for procedures using fluoroscopy that document radiation exp osure indices, or exposure time and number of fluorographic images (if radiation exposure indices are not available) Please consult full operative report of the attending physician for description of the procedure. TECHNICAL DOCUMENTATION: JOB ID: [id number] [employer]- All Rights Reserved COMPARISON: None. 01/29/2018 Reading location - IP/workstation name: [facility]-[email or web address]
== END 2018-05-04 10:35 | disposition home or self-care (01) ==
LOC: CCL 05:44
PROVIDERS: ATTEND Surgery
DX: T82.858A Stenosis of other vascular prosthetic devices, implants and grafts, initial encounter (principal); Y82.8 Other medical devices associated with adverse incidents; I12.0 Hypertensive chronic kidney disease with stage 5 chronic kidney disease or end stage renal disease; N18.6 End stage renal disease; Z99.2 Dependence on renal dialysis; Z79.01 Long term (current) use of anticoagulants; Z95.0 Presence of cardiac pacemaker
CPT/HCPCS: 36415; 85027; 80048; 36902; C1752; C1894; C1769; J2250; J1644 ×2; A9270 ×2; J3010; J3490

== ENCOUNTER 2018-06-23 19:24 | Emergency (ER) | payer MEDICARE, OTHER ==
[2018-06-23 20:11] LABS: ABSOLUTE BASOPHILS # (AUTO) 0.1 10^3/uL (0.0-0.2); ABSOLUTE EOSINOPHILS # (AUTO) 0.3 10^3/uL (0.0-0.6); ABSOLUTE LYMPHOCYTES (AUTO) 3.1 10^3/uL (0.5-4.7); ABSOLUTE MONOCYTES (AUTO) 1.2 10^3/uL (0.1-1.4); BASOPHILS % (AUTO) 0.6 % (0-2); EOSINOPHILS % (AUTO) 2.9 % (0-6); HEMOGLOBIN 13.3 g/dL (12.0-15.5); MEAN CORPUSCULAR HEMOGLOBIN 28.6 pg (27.0-33.4); MEAN CORPUSCULAR HGB CONC 33.1 g/dL (32.0-36.0); MEAN CORPUSCULAR VOLUME 87 fl (80-97); MONOCYTES % (AUTO) 11.6 % (3-13); PLATELET COUNT 149 10^3/uL (150-450); RED BLOOD COUNT 4.63 10^6/uL (3.72-5.28); RED CELL DISTRIBUTION WIDTH 17.1 % (11.5-14.0); SEGMENTED NEUTROPHILS % (AUTO) 55.9 % (42-78); TOTAL CELLS COUNTED % (AUTO) 100 %; WHITE BLOOD COUNT 10.7 10^3/uL (4.0-10.5)
--- NOTE | 2018-06-23 20:27 | RADIOLOGY REPORT (SQ) ---
EXAM DESCRIPTION: XR CHEST 1 VIEW COMPLETED DATE/TME: 06/23/2018 00:00 CLINICAL HISTORY: 78 years, Female, altered/cough COMPARISON: 11/22/2017 chest NUMBER OF VIEWS: 1 TECHNIQUE: Portable chest LIMITATIONS: None. FINDINGS: Heart size is normal. Elevation of the right hemidiaphragm. Surgical clips right upper quadrant. Pacing device noted. Osteopenia. Lungs are clear. No pneumothorax IMPRESSION: No acute cardiopulmonary process copyright 2010 [employer]- All Rights Reserved
[2018-06-23 20:43] LABS: ALANINE AMINOTRANSFERASE 19 U/L (9-52); ALBUMIN 3.6 g/dL (3.5-5.0); ALKALINE PHOSPHATASE 191 U/L (38-126); ANION GAP 7 (5-19); ASPARTATE AMINO TRANSFERASE 49 U/L (14-36); BILIRUBIN,DIRECT 0.7 mg/dL (0.0-0.4); BILIRUBIN,TOTAL 0.9 mg/dL (0.2-1.3); BLOOD UREA NITROGEN 29 mg/dL (7-20); CALCIUM 8.8 mg/dL (8.4-10.2); CARBON DIOXIDE 30 mmol/L (22-30); CHLORIDE 101 mmol/L (98-107); GLUCOSE 86 mg/dL (75-110); POTASSIUM 3.6 mmol/L (3.6-5.0); SODIUM 137.6 mmol/L (137-145); TOTAL PROTEIN 6.7 g/dL (6.3-8.2)
[2018-06-23] MEDS ORDERED: NORMAL SALINE 500 ML IV ONE (20:52)
--- NOTE | 2018-06-23 20:59 | ER Document Report ---
ED General - General Chief Complaint: Other Stated Complaint: ALTERED MENTAL STATUS Time Seen by Provider: 06/23/18 20:50 Primary Care Provider: EDSON GARCIA MD [Primary Care Provider] - Follow up as needed Mode of Arrival: Medic Information source: Patient, Emergency Med Personnel, OM Records, Outside Facility Records Notes: 78-year-old female with congestive heart failure, COPD, hyperlipidemia, atrial fibrillation, depression, end-stage renal disease who undergoes dialysis Friday and Friday presents via EMS from [facility] with report of confusion. EMS states that upon their arrival patient was alert, awake. They report that the nursing facility stated patient required more assistance than usual during transfer today. Upon my exam patient is sleeping comfortably. She is easily aroused. She denies any pain and states that she is not sure why she is here. All she states that she is very tired today. TRAVEL OUTSIDE OF THE [place] IN LAST 30 DAYS: No COUNTRY TRAVELED TO/FROM: [facility] - [facility] Onset: Just prior to arrival Quality of pain: No pain Severity: None Associated symptoms: denies: Chest pain, Diarrhea, Fever, Nausea, Vomiting, Shortness of breath Exacerbated by: Denies Relieved by: Denies Similar symptoms previously: No Recently seen / treated by doctor: No - Related Data Allergies/Adverse Reactions: iodine Allergy (Severe, Verified 03/18/18 10:33) itching, facial swelling, difficulty breathing doxycycline [Doxycycline] Allergy (Verified 03/18/18 10:33) dizzy Iodinated Contrast- Oral and IV Dye [IV Dye, Iodine Containing] Allergy (Verified 03/18/18 10:33) Sulfa (Sulfonamide Antibiotics) Allergy (Verified 03/18/18 10:33) dizzy amlodipine besylate [From Norvasc] Adverse Reaction (Unknown, Verified 03/18/18 10:33) anxious, jittery feeling Past Medical History - General Information source: Patient, Emergency Med Personnel, OM Records, Outside Facility Records - Social History Smoking Status: Unknown if Ever Smoked Frequency of alcohol use: None Drug Abuse: None Lives with: Snf Family History: CAD, Hypertension Patient has suicidal ideation: No Patient has homicidal ideation: No - Past Medical History Cardiac Medical History: Reports: Hx Congestive Heart Failure, Hx Coronary Artery Disease, Hx DVT, Hx Heart Attack, Hx Hypercholesterolemia, Hx Hypertension, Hx Pulmonary Embolism, Hx Heart Murmur Pulmonary Medical History: Reports: Hx COPD, Hx Pneumonia Denies: Hx Asthma, Hx Bronchitis, Hx Tuberculosis Neurological Medical History: Reports: Hx Cerebrovascular Accident. Denies: Hx Seizures Renal/ Medical History: Reports: Hx End Stage Renal Disease - On dialysis, Hx Hemodialysis, Hx Kidney Stones. Denies: Hx Peritoneal Dialysis GI Medical History: Reports: Hx Gastroesophageal Reflux Disease, Hx Ulcer Musculoskeletal Medical History: Reports Hx Arthritis Psychiatric Medical History: Reports: Hx Depression Past Surgical History: Reports: Hx Abdominal Surgery - gastric bypass, Hx Cardiac Surgery - Pacer, bypass, Hx Cholecystectomy, Hx Gastric Bypass Surgery, Hx Orthopedic Surgery, Hx Tonsillectomy, Hx Tubal Ligation. Denies: Hx Hysterectomy - Immunizations Hx Diphtheria, Pertussis, Tetanus Vaccination: Yes Hx Pneumococcal Vaccination: 01/31/14 Review of Systems - Review of Systems Notes: REVIEW OF SYSTEMS: CONSTITUTIONAL : Denies fever, chills, or sweats. Denies recent illness. Denies weight loss, recent hospitalizations. EENT: Denies visual changes, eye pain. Denies sore throat, oral lesions, difficulty swallowing. CARDIOVASCULAR: Denies chest pain. Denies palpitations. Denies lower extremity edema. RESPIRATORY: Denies cough. Denies shortness of breath, wheezing. GASTROINTESTINAL: Denies abdominal pain or distention. Denies nausea, vom iting, or diarrhea. Denies blood in vomitus, stools, or per rectum. Denies black, tarry stools. Denies constipation. GENITOURINARY: Denies difficulty urinating, painful urination, frequency, bl ood in urine, or vaginal discharge. MUSCULOSKELETAL: Denies back or neck pain or stiffness. Denies joint pain or swelling. SKIN: Denies rash, lesions or sores. HEMATOLOGIC : Denies easy bruising or bleeding. LYMPHATIC: Denies swollen glands. NEUROLOGICAL: Denies confusion or altered mental status. Denies loss of consciousness. Denies dizziness or lightheadedness. Denies headache. Denies weakness or paralysis. Denies problems difficulty with ambulation, slurred speech. Denies sensory loss, numbness, or tingling. Denies seizures. PSYCHIATRIC: Denies anxiety or stress. Denies depression, suicidal ideation, or homicidal ideation. Denies visual or auditory hallucinations. Physical Exam - Vital signs Vitals: Temp Pulse Resp BP Pulse Ox 99.7 F 78 16 130/81 H 94 06/23/18 19:36 06/23/18 19:36 06/23/18 19:36 06/23/18 19:36 06/23/18 19:36 - Notes Notes: PHYSICAL EXAMINATION: GENERAL: Thin, in no acute distress, somnolent but arousable HEAD: Atraumatic, normocephalic. EYES: Pupils equal round and reactive to light, extraocular movements intact, conjunctiva are normal. ENT: Nares patent, oropharynx clear without exudates. Moist mucous membranes. NECK: Normal range of motion, supple without lymphadenopathy LUNGS: Breath sounds clear to auscultation bilaterally and equal. No wheezes rales or rhonchi. HEART: Regular rate and rhythm without murmurs ABDOMEN: Soft, nontender, nondistended abdomen. No guarding, no rebound. No masses appreciated. Female : deferred Musculoskeletal: Normal range of motion, no pitting or edema. No cyanosis. NEUROLOGICAL: Cranial nerves grossly intact. Normal speech. Normal sensory, motor exams. AO x2 PSYCH: Normal mood, normal affect. SKIN: Warm, Dry, normal turgor, no rashes or lesions noted. Course - Re-evaluation Re-evalutation: 06/24/18 03:58 Laboratory 06/23/18 06/23/18 06/23/18 20:00 20:00 20:00 WBC 10.7 H RBC 4.63 Hgb 13.3 Hct 40.0 MCV 87 MCH 28.6 MCHC 33.1 RDW 17.1 H Plt Count 149 L Seg Neutrophils % 55.9 Lymphocytes % 29.0 Monocytes % 11.6 Eosinophils % 2.9 Basophils % 0.6 Absolute Neutrophils 6.0 Absolute Lymphocytes 3.1 Absolute Monocytes 1.2 Absolute Eosinophils 0.3 Absolute Basophils 0.1 Sodium 137.6 Potassium 3.6 Chloride 101 Carbon Dioxide 30 Anion Gap 7 BUN 29 H Creatinine 5.65 H Est GFR ( Amer) 9 L Est GFR (Non-Af Amer) 7 L Glucose 86 POC Glucose Calcium 8.8 Magnesium 2.1 Total Bilirubin 0.9 Direct Bilirubin 0.7 H Neonat Total Bilirubin Not Reportable Neonat Direct Bilirubin Not Reportable Neonat Indirect Bili Not Reportable AST 49 H ALT 19 Alkaline Phosphatase 191 H Creatine Kinase 64 CK-MB (CK-2) Troponin I Total Protein 6.7 Albumin 3.6 06/23/18 06/23/18 20:00 20:02 WBC RBC Hgb Hct MCV MCH MCHC RDW Plt Count Seg Neutrophils % Lymphocytes % Monocytes % Eosinophils % Basophils % Absolute Neutrophils Absolute Lymphocytes Absolute Monocytes Absolute Eosinophils Absolute Basophils Sodium Potassium Chloride Carbon Dioxide Anion Gap BUN Creatinine Est GFR ( Amer) Est GFR (Non-Af Amer) Glucose POC Glucose 86 Calcium Magnesium Total Bilirubin Direct Bilirubin Neonat Total Bilirubin Neonat Direct Bilirubin Neonat Indirect Bili AST ALT Alkaline Phosphatase Creatine Kinase CK-MB (CK-2) 1.25 Troponin I 0.013 Total Protein Albumin Chest X-Ray 06/23/18 00:00 IMPRESSION: No acute cardiopulmonary process copyright 2010 [employer]- All Rights Reserved Head CT 06/23/18 20:52 IMPRESSION: Age-appropriate atrophy with small vessel ischemic change TECHNICAL DOCUMENTATION: Quality ID # 436: Final reports with documentation of one or more dose reduction techniques (e.g., Automated exposure control, adjustment of the mA and/or kV according to patient size, use of iterative reconstruction technique) copyright 2010 [employer]- All Rights Reserved Temp Pulse Resp BP Pulse Ox 99.0 F 67 16 141/60 H 100 06/24/18 01:38 06/24/18 01:38 06/24/18 01:38 06/24/18 01:38 06/24/18 01:38 06/24/18 03:59 78-year-old female with congestive heart failure, COPD, hyperlipidemia, atrial fibrillation, depression, end-stage renal disease who undergoes dialysis Friday and Friday presents via EMS from [place] nursing facility with report of confusion. EMS states that upon their arrival patient was alert, awake. They report that the nursing facility stated patient required more assistance than usual during transfer today. Upon my exam patient is sleeping comfortably. She is easily aroused. She denies any pain and states that she is not sure why she is here. All she states that she is very tired today. CBC is without leukocytosis or anemia. CMP consistent with end-stage renal disease. CT of the head shows no acute process. Patient does not make urine. Patient has remained asymptomatic throughout her ED course. She did receive a small fluid bolus of 500 cc because of her dehydration. Patient was evaluated and treated as appropriate for the patient's presenting symptoms and complaint, with consideration of any critical or life threatening conditions that may be ass ociated with their obtained history and exam as noted above. All results were discussed with patient. Patient provided the opportunity to ask questions, and express concerns. Patient was educated on treatments based on their presumed diagnosis as noted above. At this time we will discharge the patient with return precautions and follow-up recommendations. Verbal discharge instructions given a the bedside. Medication warnings reviewed. Patient is in agreement with this plan and has verbalized understanding of return precautions. After careful consideration I feel that that patient can be safely discharged from the emergency department, they were advised to followup with a primary care physician in 2-3 days. Dictation on this chart was performed using voice recognition software and may result in unintended grammatical, spelling, syntax or errors. - Vital Signs Vital signs: Temp Pulse Resp BP Pulse Ox 99.0 F 67 16 141/60 H 100 06/24/18 01:38 06/24/18 01:38 06/24/18 01:38 06/24/18 01:38 06/24/18 01:38 - Laboratory Result Diagrams: 06/23/18 20:00 06/23/18 20:00 Laboratory results interpreted by me: 06/23/18 06/23/18 20:00 20:00 WBC 10.7 H RDW 17.1 H Plt Count 149 L BUN 29 H Creatinine 5.65 H Est GFR ( Amer) 9 L Est GFR (Non-Af Amer) 7 L Direct Bilirubin 0.7 H AST 49 H Alkaline Phosphatase 191 H - Diagnostic Test Radiology reviewed: Image reviewed, Reports reviewed - Atrial paced rhythm - EKG Interpretation by Me When compared to previous EKG there are: No significant change Discharge - Discharge Clinical Impression: Benign essential hypertension, Reported confusion, Dehydration Condition: Good Disposition: SNF-Other Instructions: Dehydration ([facility]), Kidney Failure ([facility]) Additional Instructions: Follow up with your [id number] hours for further care or return to the ED IMMEDIATELY if symptoms worsen or you have any concerns. If you cannot afford to follow up with your primary care physician a list of low cost clinics have been provided at the end of your discharge papers as well. Most prescribed medications have multiple side effects. The safest thing to do is when filling your prescription speak to your pharmacist regarding possible interactions with your normal home medications and over the counter medications such as Ibuprofen, Tylenol, Benadryl. If you experience any symptoms that cause you discomfort or concern you should discontinue the medication immediately and return to the emergency room or call your primary care physician. Forms: Elevated Blood Pressure Referrals: EDSON GARCIA MD [Primary Care Provider] - Follow up as needed
[2018-06-23 21:10] LABS: CREATINE KINASE 64 U/L (30-135)
[2018-06-23 21:26] LABS: CREATINE KINASE MB 1.25 ng/mL (<4.55); TROPONIN I 0.013 ng/mL
--- NOTE | 2018-06-23 21:46 | RADIOLOGY REPORT (SQ) ---
EXAM DESCRIPTION: CT HEAD WITHOUT IV CONTRAST COMPLETED DATE/TME: 06/23/2018 20:52 CLINICAL HISTORY: 78 years, Female, ams COMPARISON: 11/19/2017 CT brain TECHNIQUE: 182 Images stored on PACS. All CT scanners at this facility use dose modulation, iterative reconstruction, and/or weight based dosing when appropriate to reduce radiation dose to as low as reasonably achievable (ALARA). [facility]: Dose Right [facility]: CareDose [facility]: Dose Right [facility]: Teradose 4D [facility]: Tuee LIMITATIONS: None. FINDINGS: The globes are intact. Motion artifact degrades image quality. No displaced or depressed skull fracture. No intra or extra-axial hemorrhage. CT is limited for evaluation of acute infarct. No CT evidence for large or territorial acute infarct. Age-appropriate atrophy with small vessel ischemic change. No mass or midline shift IMPRESSION: Age-appropriate atrophy with small vessel ischemic change TECHNICAL DOCUMENTATION: Quality ID # 436: Final reports with documentation of one or more dose reduction techniques (e.g., Automated exposure control, adjustment of the mA and/or kV according to patient size, use of iterative reconstruction technique) copyright 2011 [employer]- All Rights Reserved
[2018-06-24 01:39] VITALS: BP 141/60
--- NOTE | 2018-06-24 07:27 | EKG REPORT ---
SEVERITY:- ABNORMAL ECG - ATRIAL-SENSED VENTRICULAR-PACED RHYTHM : Confirmed by: Jaida Gonzáles MD 24-Jun-2018 07:27:00
== END 2018-06-24 01:39 ==
LOC: ER 19:24
DX: I13.2 Hypertensive heart and chronic kidney disease with heart failure and with stage 5 chronic kidney disease, or end stage renal disease (principal); N18.6 End stage renal disease; I50.9 Heart failure, unspecified; Z99.2 Dependence on renal dialysis; R41.0 Disorientation, unspecified; E86.0 Dehydration; J44.9 Chronic obstructive pulmonary disease, unspecified; E78.5 Hyperlipidemia, unspecified; I48.91 Unspecified atrial fibrillation; F32.9 Major depressive disorder, single episode, unspecified
CPT/HCPCS: 93005; 99285; 36415; 82553; 82962; 82550; 83735; 85025; 80053; 84484; 71045; 70450; 93010; J7040

== ENCOUNTER 2018-06-24 11:18 | Inpatient (IN) | payer MEDICARE ==
[2018-06-24] MEDS ORDERED: DEXTROSE 50%-WATER 25 GM/50 ML DISP.SYRIN IV ONE ×2 (11:28→11:29)
[2018-06-24] MEDS ORDERED: NALOXONE HCL INJ/PF 0.4 MG/1 ML SDV IV ONE (11:29)
--- NOTE | 2018-06-24 11:38 | ER Document Report ---
ED General - General Stated Complaint: ALTERED MENTAL STATUS Time Seen by Provider: 06/24/18 11:28 Primary Care Provider: EDSON GARCIA MD [Primary Care Provider] - Follow up as needed TRAVEL OUTSIDE OF THE [place] IN LAST 30 DAYS: No COUNTRY TRAVELED TO/FROM: [facility] - [facility] Notes: Patient is a 78-year-old female that presents to the emergency department for chief complaint of altered mental status. Patient came in by EMS from [facility]. She was reportedly found altered this morning. Her last known normal is not known by EMS. EMS does state that they saw her yesterday and she was very much awake and conversational. Patient's only complaint was left-sided neck pain. She denies injury or trauma. She cannot elaborate on any details of her neck pain. EMS reported a glucose in the 80s. Past Medical History: Reviewed in chart Past Surgical History: Reviewed in chart Social History: Reviewed in chart Family History: Reviewed and noncontributory for presenting illness Allergies: Reviewed, see documented allergy list. REVIEW OF SYSTEMS: CONSTITUTIONAL : No fever No chills No diaphoresis No recent illness EENT: No vision changes No congestion No sore throat CARDIOVASCULAR: No chest pain No palpitations RESPIRATORY: No shortness of breath No cough No difficulty breathing GASTROINTESTINAL: No abdominal pain No nausea No vomiting No diarrhea GENITOURINARY: No dysuria No hematuria No difficulty urinating MUSCULOSKELETAL: No back pain No leg pain No arm pain SKIN: No rashes No lesions LYMPHATIC: No swollen, enlarged glands. NEUROLOGICAL: No lightheadedness No headache No weakness No paresthesias PSYCHIATRIC: No anxiety No depression PHYSICAL EXAMINATION: Vital signs reviewed, nursing noted reviewed. GENERAL: Somnolent, well-nourished and in no acute distress. HEAD: Atraumatic, normocephalic. EYES: Eyes appear normal, extraocular movements intact, sclera anicteric, conjunctiva are normal. ENT: nares patent, oropharynx clear without exudates. Moist mucous membranes. NECK: Normal range of motion, supple without lymphadenopathy LUNGS: Breath sounds clear to auscultation bilaterally and equal. No wheezes rales or rhonchi. HEART: Regular rate and rhythm without murmurs ABDOMEN: Soft, nontender, normoactive bowel sounds. No rebound, guarding, or rigidity. No masses appreciated. EXTREMITIES: Nontender, good range of motion, trace pretibial edema NEUROLOGICAL: Oriented to person and place, disoriented to time. Upper and lower extremity +4/5 strength symmetric bilaterally, moves all extremities spontaneously Motor and sensory grossly intact on exam. SKIN: Warm, Dry, normal turgor, no rashes or lesions noted on exposed skin - Related Data Allergies/Adverse Reactions: iodine Allergy (Severe, Verified 03/18/18 10:33) itching, facial swelling, difficulty breathing doxycycline [Doxycycline] Allergy (Verified 03/18/18 10:33) dizzy Iodinated Contrast- Oral and IV Dye [IV Dye, Iodine Containing] Allergy (Verified 03/18/18 10:33) Sulfa (Sulfonamide Antibiotics) Allergy (Verified 03/18/18 10:33) dizzy amlodipine besylate [From Norvasc] Adverse Reaction (Unknown, Verified 03/18/18 10:33) anxious, jittery feeling Past Medical History - Social History Smoking Status: Never Smoker Family History: CAD, Hypertension - Past Medical History Cardiac Medical History: Reports: Hx Congestive Heart Failure, Hx Coronary Artery Disease, Hx DVT, Hx Heart Attack, Hx Hypercholesterolemia, Hx Hypertension, Hx Pulmonary Embolism, Hx Heart Murmur Pulmonary Medical History: Reports: Hx COPD, Hx Pneumonia Denies: Hx Asthma, Hx Bronchitis, Hx Tuberculosis Neurological Medical History: Reports: Hx Cerebrovascular Accident. Denies: Hx Seizures Renal/ Medical History: Reports: Hx End Stage Renal Disease - On dialysis, Hx Hemodialysis, Hx Kidney Stones. Denies: Hx Peritoneal Dialysis GI Medical History: Reports: Hx Gastroesophageal Reflux Disease, Hx Ulcer Musculoskeletal Medical History: Reports Hx Arthritis Psychiatric Medical History: Reports: Hx Depression Past Surgical History: Reports: Hx Abdominal Surgery - gastric bypass, Hx Cardiac Surgery - Pacer, bypass, Hx Cholecystectomy, Hx Gastric Bypass Surgery, Hx Orthopedic Surgery, Hx Tonsillectomy, Hx Tubal Ligation. Denies: Hx Hysterectomy - Immunizations Hx Diphtheria, Pertussis, Tetanus Vaccination: Yes Hx Pneumococcal Vaccination: 01/31/14 Physical Exam - Vital signs Vitals: BP 147/65 H 06/24/18 11:23 Course - Re-evaluation Re-evalutation: 06/24/18 11:36 Vitals reviewed. Nursing notes reviewed. Patient's toewk-[id number] glucose on arrival was 54 and she was given 1 amp of D50. She also has opiates listed on her home med list and was given 0.4 mg of Narcan. The Narcan did not give her any response however she is more alert after the D50. Patient's daughter is now at bedside stating that she was complaining of pain in the back of her head not in her neck. Daughter denies any known trauma. 06/24/18 12:[address] brain is normal. Chest x-ray shows no acute process. She was reevaluated and is becoming more combative with staff. She is refusing to answer orientation questions and is becoming more fidgety in the cot. 06/24/18 14:04 Patient reevaluated again. She has not had any change since 1251. Her workup is unremarkable. She has chronic renal insufficiency with no hyperkalemia. Repeat CT brain is unremarkable. Chest x-ray shows no acute cardiopulmonary process. Repeat glucose has improved, she has not had any repeat hypoglycemia. Patient does not make urine therefore UA is unobtainable. She has no leukocytosis to suggest underlying infection. She is not meeting sepsis criteria. I reviewed her chart from and patient appeared to be more oriented and conversational. She has now had multiple visits to the emergency room and her symptoms seem to be worsening rapidly. She will be admitted to the hospital for further monitoring of her confusion. I did discuss her care with Dr. Coleman who will help arrange dialysis later today or tomorrow. She is not requiring emergent dialysis. Case discussed with Dr. Rosales who accepted admission. Laboratory 06/24/18 06/24/18 06/24/18 12:19 12:19 12:19 WBC 8.1 RBC 4.46 Hgb 12.5 Hct 38.1 MCV 86 MCH 28.0 MCHC 32.8 RDW 16.5 H Plt Count 149 L Seg Neutrophils % 51.4 Lymphocytes % 33.1 Monocytes % 10.9 Eosinophils % 4.1 Basophils % 0.5 Absolute Neutrophils 4.2 Absolute Lymphocytes 2.7 Absolute Monocytes 0.9 Absolute Eosinophils 0.3 Absolute Basophils 0.0 PT 20.4 H INR 1.66 APTT 69.9 H VBG pH VBG pCO2 VBG HCO3 VBG Base Excess Sodium 140.4 Potassium 3.4 L Chloride 102 Carbon Dioxide 28 Anion Gap 10 BUN 33 H Creatinine 6.37 H Est GFR ( Amer) 8 L Est GFR (Non-Af Amer) 6 L Glucose 119 H Lactic Acid Calcium 8.7 Total Bilirubin 0.6 Direct Bilirubin 0.5 H Neonat Total Bilirubin Not Reportable Neonat Direct Bilirubin Not Reportable Neonat Indirect Bili Not Reportable AST 25 ALT 22 Alkaline Phosphatase 213 H Troponin I Total Protein 5.3 L Albumin 2.7 L 06/24/18 06/24/18 06/24/18 12:19 12:19 12:19 WBC RBC Hgb Hct MCV MCH MCHC RDW Plt Count Seg Neutrophils % Lymphocytes % Monocytes % Eosinophils % Basophils % Absolute Neutrophils Absolute Lymphocytes Absolute Monocytes Absolute Eosinophils Absolute Basophils PT INR APTT VBG pH 7.37 VBG pCO2 48.9 VBG HCO3 27.6 VBG Base Excess 1.6 Sodium Potassium Chloride Carbon Dioxide Anion Gap BUN Creatinine Est GFR ( Amer) Est GFR (Non-Af Amer) Glucose Lactic Acid 1.7 Calcium Total Bilirubin Direct Bilirubin Neonat Total Bilirubin Neonat Direct Bilirubin Neonat Indirect Bili AST ALT Alkaline Phosphatase Troponin I 0.025 Total Protein Albumin Chest X-Ray 06/24/18 11:28 IMPRESSION: NO ACUTE RADIOGRAPHIC FINDING IN THE CHEST. Head CT 06/24/18 11:28 IMPRESSION: No acute intracranial pathology. Small vessel white matter disease. EVIDENCE OF ACUTE STROKE: NO. - Vital Signs Vital signs: Temp Pulse Resp BP Pulse Ox 97.9 F 13 155/87 H 100 06/24/18 12:01 06/24/18 13:01 06/24/18 13:01 06/24/18 13:01 - Laboratory Result Diagrams: 06/24/18 12:19 06/24/18 12:19 Laboratory results interpreted by me: 06/24/18 06/24/18 06/24/18 12:19 12:19 12:19 RDW 16.5 H Plt Count 149 L PT 20.4 H APTT 69.9 H Potassium 3.4 L BUN 33 H Creatinine 6.37 H Est GFR ( Amer) 8 L Est GFR (Non-Af Amer) 6 L Glucose 119 H Direct Bilirubin 0.5 H Alkaline Phosphatase 213 H Total Protein 5.3 L Albumin 2.7 L - EKG Interpretation by Me Additional EKG results interpreted by me: 06/24/18 11:39 Interpreted by myself [id number]: Atrial sensed ventricularly paced rhythm, rate 73, left axis, QT 492 Discharge - Discharge Clinical Impression: Hypoglycemia Altered mental state Qualifiers: Altered mental status type: unspecified Qualified Code(s): R41.82 - Altered mental status, unspecified Condition: Stable Disposition: ADMITTED OBSERVATION Admitting Provider: Hospitalist Unit Admitted: Telemetry Referrals: EDSON GARCIA MD [Primary Care Provider] - Follow up as needed ED NIH Stroke Scale - NIH Stroke Scale When completed:: Before Alteplase *: 1. NIH scale should be completed with appropriate accompanying assessment tools. *: 2. The NIH should reflect what the patient is capable of doing and should not be coached by the clinician. 1a. Level of Consciousness: 0=Alert;keenly responsive -: 1=Drowsy -: 2=Obtunded -: 3=Coma/unresponsive or reflex to noxious stimuli. 1a. Responses: 1 1b. Orientation Questions: a. What month is it? -: b. How old are you? -: 0=Answers both questions correctly. -: 1=Answers one question correctly or patient is intubated or has orotracheal trauma. -: 2=Answers neither question correctly. 1b. Responses: 1 1c. Response to commands: a. Open and close eyes? -: b. [employer] and release hand? -: Credit is given despite weakness. Demonstration of task is permitted. Substitute command if hands cannot be used. -: 0=Performs both tasks correctly -: 1=Performs one task correctly -: 2=Performs neither task correctly 1c. Responses: 0 2. Gaze: Establish eye contact and instruct patient to "Follow my finger" -: 0=Normal -: 1=Partial gaze palsy. Gaze is abnormal in one or both eyes, but where forced deviation or total gaze paresis is not present. -: 2=Forced deviation or total gaze paresis. 2. Responses: 0 3. Visual Valdez: Sees fingers in all four quadrants. -: 0=No visual loss. -: 1=Partial hemianopsia. -: 2=Complete hemianopsia. -: 3=Bilateral hemianopsia (including Cortical blindness) 3. Responses: 0 4. Facial Movement: Instruct patient to: -: a. Show me your teeth -: b. Raise your eyebrows -: c. Close your eyes -: d. Smile -: 0=Normal symmetrical movement -: 1=Minor paralysis (flattened nasolabial fold, asymmetry on smiling). -: 2=Partial paralysis (total or near total paralysis of lower face). -: 3=Complete paralysis of upper and lower face 4. Responses: 0 5. Motor functions (left arm): Alternate sides and extend each arm with palms down (90 degrees if sitting or 45 degrees for supine). -: 0=No drift;limb holds for full 10 seconds. -: 1=Drift; limb holds but drifts down before full 10 seconds, but does not hit bed. -: 2=Some effort against gravity; limb cannot get to or maintain position. -: 3=No effort against gravity; limb falls. -: 4=No movement. -: UN=Amputation, joint fusion, explain in comments. 5. Responses (left arm): 0 5. Motor Functions (right arm): Alternate sides and extend each arm with palms down (90 degrees if sitting or 45 degrees for supine). -: 0=No drift;limb holds for full 10 seconds. -: 1=Drift; limb holds but drifts down before full 10 seconds, but does not hit bed. -: 2=Some effort against gravity; limb cannot get to or maintain position. -: 3=No effort against gravity; limb falls. -: 4=No movement. -: UN=Amputation, joint fusion, explain in comments. 5. Responses (right arm): 0 6. Motor Functions (left leg): With patient lying supine, alternate sides and extend each leg (30 degrees always while supine). -: 0=No drift, leg holds position for full 5 seconds -: 1=Drift; leg falls before full 5 seconds but does not hit bed. -: 2=Some effort against gravity, leg falls to bed but some effort against gravity. -: 3=No effort against gravity, leg falls to bed immediately. -: 4=No movement. -: UN=Amputation, joint fusion; explain in comments. 6. Responses (left leg): 2 6. Motor Functions (right leg): With patient lying supine, alternate sides and extend each leg (30 degrees always while supine). -: 0=No drift, leg holds position for full 5 seconds -: 1=Drift; leg falls before full 5 seconds but does not hit bed. -: 2=Some effort against gravity, leg falls to bed but some effort against gravi ty. -: 3=No effort against gravity, leg falls to bed immediately. -: 4=No movement. -: UN=Amputation, joint fusion; explain in comments. 6. Responses (right leg): 2 7. Limb Ataxia: With eyes open instruct patient to: -: a. "Touch your finger to your nose". -: b. "Touch your heel to your velasquez" -: 0=Absent -: 1=Present in one limb. -: 2=Present in two limbs. -: UN=Amputation or joint fusion; explain in comments. 7. Responses: 0 8. Sensory: Test sensation using pinprick or noxious stimuli. Test as many body parts as possible. -: 0=Normal;no sensory loss -: 1=Mile to moderate sensory loss (patient feels pin prick but is less sharp on affected side). -: 2=Severe or total sensory loss. 8. Responses: 0 9. Best Language: Instruct patient to: -: a. "Describe what you see in this picture." -: b. "Name the items in this picture." -: c. "Read these sentences." -: 0=No aphasia, normal -: 1=Mild to moderate aphasia. -: 2=Severe aphasia -: 3=Mute, global aphasia, no usable speech or auditory comprehension. 9. Responses: 0 10. Articulation, Dysarthia: Instruct patient to: -: "Read these words" or "Repeat these words" -: 0=Normal -: 1=Mild to moderate; patient may slur some words but can be understood without difficulty. -: 2=Severe; patients speech so slurred as to be unintelligible in the absence of dysphasia. -: UN=Intubated or other physical barrier, explain in comments. 10. Responses: 0 11. Extinction or inattention: 0=No abnormality -: 1= Visual, tactile, auditory, spatial, or personal inattention or extinction to bilateral simulation in one or the sensory modalities. -: 2=Profound dk-inattention or dk-inattention to more than one modality; does not recognize own hand. 11. Responses: 0 Total Score: 6
--- NOTE | 2018-06-24 12:10 | RADIOLOGY REPORT (SQ) ---
EXAM DESCRIPTION: CT HEAD WITHOUT COMPLETED DATE/TIME: 06/24/2018 11:51 am REASON FOR STUDY: mental status change COMPARISON: None. TECHNIQUE: Axial images acquired through the brain without intravenous contrast. Images reviewed wi th bone, brain and subdural windows. Additional sagittal and coronal reconstructions were generated. Images stored on PACS. All CT scanners at this facility use dose modulation, iterative reconstruction, and/or weight based d osing when appropriate to reduce radiation dose to as low as reasonably achievable (ALARA). [facility]: Dose Right [facility]: CareDose [facility]: Dose Right [facility]: Teradose 4D [facility]: Smart Vormetric RADIATION DOSE: CT Rad equipment meets quality standard of care and radiation dose reduction techniq ues were employed. CTDIvol: 53.2 mGy. DLP: 2300 mGy-cm. mGy. LIMITATIONS: None. FINDINGS: VENTRICLES: Normal size and contour. CEREBRUM: No masses. No hemorrhage. No midline shift. No evidence for acute infarction. Few scatte red areas of low density in the white matter most likely chronic small vessel ischemic changes. CEREBELLUM: No masses. No hemorrhage. No alteration of density. No evidence for acute infarction. EXTRAAXIAL SPACES: No fluid collections. No masses. ORBITS AND GLOBE: No intra- or extraconal masses. Normal contour of globe without masses. CALVARIUM: No fracture. PARANASAL SINUSES: No fluid or mucosal thickening. SOFT TISSUES: No mass or hematoma. OTHER: No other significant finding. IMPRESSION: No acute intracranial pathology. Small vessel white matter disease. EVIDENCE OF ACUTE STROKE: NO. COMMENT: Quality ID # [id number]: Final reports with documentation of one or more dose reduction techniques (e.g., Automated exposure control, adjustment of the mA and/or kV according to patient size, use of iterative reconstruction technique) TECHNICAL DOCUMENTATION: JOB ID: [id number] [employer]- All Rights Reserved Reading location - IP/workstation name: [email or web address]
--- NOTE | 2018-06-24 12:19 | RADIOLOGY REPORT (SQ) ---
EXAM DESCRIPTION: CHEST SINGLE VIEW COMPLETED DATE/TIME: 06/24/2018 11:59 am REASON FOR STUDY: mental status change COMPARISON: Chest films 02/11/2014, 11/22/2017, 02/14/2018, 03/31/2018, 06/23/2018 EXAM PARAMETERS: NUMBER OF VIEWS: One view. TECHNIQUE: Single frontal radiographic view of the chest acquired. RADIATION DOSE: NA LIMITATIONS: None. FINDINGS: LUNGS AND PLEURA: Chronic elevation right hemidiaphragm. No acute infiltrates. No pleural effusion or pneumothorax. MEDIASTINUM AND HILAR STRUCTURES: No masses. Contour normal. HEART AND VASCULAR STRUCTURES: Mild cardiomegaly, stable. BONES: No acute findings. HARDWARE: Right-sided pacemaker/defibrillator. Right upper quadrant surgical clips. OTHER: No other significant finding. IMPRESSION: NO ACUTE RADIOGRAPHIC FINDING IN THE CHEST. TECHNICAL DOCUMENTATION: JOB ID: [id number] [employer]- All Rights Reserved Reading location - IP/workstation name: [email or web address]
[2018-06-24 12:37] LABS: INTERNATIONAL RATION (INR) 1.66
[2018-06-24 12:38] LABS: PARTIAL THROMBOPLASTIN TIME 69.9 SEC (23.5-35.8)
[2018-06-24 12:39] LABS: VENOUS BLOOD BASE EXCESS 1.6 mmol/L; VENOUS BLOOD HCO3 27.6 mmol/L (20-32); VENOUS BLOOD PCO2 48.9 mmHg (35-63); VENOUS BLOOD PH 7.37 (7.30-7.42)
[2018-06-24 12:40] LABS: PROTHROMBIN TIME 20.4 SEC (11.4-15.4)
[2018-06-24 13:00] LABS: ALANINE AMINOTRANSFERASE 22 U/L (9-52); ALBUMIN 2.7 g/dL (3.5-5.0); ALKALINE PHOSPHATASE 213 U/L (38-126); ANION GAP 10 (5-19); ASPARTATE AMINO TRANSFERASE 25 U/L (14-36); BILIRUBIN,DIRECT 0.5 mg/dL (0.0-0.4); BILIRUBIN,TOTAL 0.6 mg/dL (0.2-1.3); BLOOD UREA NITROGEN 33 mg/dL (7-20); CALCIUM 8.7 mg/dL (8.4-10.2); CARBON DIOXIDE 28 mmol/L (22-30); CHLORIDE 102 mmol/L (98-107); GLUCOSE 119 mg/dL (75-110); POTASSIUM 3.4 mmol/L (3.6-5.0); SODIUM 140.4 mmol/L (137-145); TOTAL PROTEIN 5.3 g/dL (6.3-8.2)
[2018-06-24 13:41] LABS: ABSOLUTE EOSINOPHILS # (AUTO) 0.3 10^3/uL (0.0-0.6); ABSOLUTE LYMPHOCYTES (AUTO) 2.7 10^3/uL (0.5-4.7); ABSOLUTE MONOCYTES (AUTO) 0.9 10^3/uL (0.1-1.4); ABSOLUTE NEUT (AUTO) 4.2 10^3/uL (1.7-8.2); BASOPHILS % (AUTO) 0.5 % (0-2); EOSINOPHILS % (AUTO) 4.1 % (0-6); HEMATOCRIT 38.1 % (36.0-47.0); HEMOGLOBIN 12.5 g/dL (12.0-15.5); LYMPHOCYTES % (AUTO) 33.1 % (13-45); MEAN CORPUSCULAR HGB CONC 32.8 g/dL (32.0-36.0); MEAN CORPUSCULAR VOLUME 86 fl (80-97); MONOCYTES % (AUTO) 10.9 % (3-13); PLATELET COUNT 149 10^3/uL (150-450); RED BLOOD COUNT 4.46 10^6/uL (3.72-5.28); RED CELL DISTRIBUTION WIDTH 16.5 % (11.5-14.0); SEGMENTED NEUTROPHILS % (AUTO) 51.4 % (42-78); TOTAL CELLS COUNTED % (AUTO) 100 %; WHITE BLOOD COUNT 8.1 10^3/uL (4.0-10.5)
[2018-06-24] MEDS ORDERED: CYANOCOBALAMIN 500 MCG PO SCH (15:00)
[2018-06-24] MEDS ORDERED: HYDROCORTISONE 10 MG TABLET PO SCH (15:00)
[2018-06-24] MEDS: DEXTROSE 5%-NORMAL SALINE 1,000 ML IV PRN (16:01)
[2018-06-24 16:02] LABS: FREE T3 2.55 pg/mL (2.77-5.27)
[2018-06-24 16:16] LABS: THYROID STIMULATING HORMONE 11.3 uIU/mL (0.47-4.68)
[2018-06-24] MEDS: METHYLPREDNISOLONE INJ 40 MG/1 ML SDV IV SCH (16:32)
[2018-06-24] MEDS: CEFTRIAXONE 1 GM/D5W RTU 1 GM/50 ML RTUPB IV SCH (16:38)
[2018-06-24 16:52] LABS: FOLATE > 20.00 ng/mL (>2.76)
[2018-06-24 17:14] LABS: APPEARANCE,URINE CLOUDY; BILIRUBIN,URINE NEGATIVE (NEGATIVE); COLOR,URINE YELLOW; GLUCOSE, URINE 50 mg/dL (NEGATIVE); KETONES,URINE NEGATIVE (NEGATIVE); LEUKOCYTE ESTERASE,URINE LARGE (NEGATIVE); NITRITE,URINE NEGATIVE (NEGATIVE); PROTEIN,URINE 100 mg/dL (NEGATIVE); URINE SPECIFIC GRAVITY 1.006; UROBILINOGEN,URINE NEGATIVE mg/dL (<2.0)
[2018-06-24] MEDS: HEPARIN SOD (PORCINE) 5,000 UNIT/ML 1 ML SYRINGE SUBCUT SCH (17:28)
[2018-06-24] MEDS: FAMOTIDINE 20 MG TABLET PO SCH ×2 (17:28→22:46)
[2018-06-24] MEDS: DIPHENOXYLATE HCL/ATROP SULF 2.5-0.025 MG TABLET PO SCH ×3 (17:29→22:46)
[2018-06-24 17:32] LABS: URINE AMPHETAMINES SCREEN NEGATIVE; URINE BARBITURATES SCREEN NEGATIVE; URINE BENZODIAZEPINES SCREEN NEGATIVE; URINE COCAINE SCREEN NEGATIVE; URINE MARIJUANA (THC) SCREEN NEGATIVE; URINE METHADONE SCREEN NEGATIVE; URINE PHENCYCLIDINE SCREEN NEGATIVE
[2018-06-24] MEDS ORDERED: HYDROCORTISONE 5 MG PO SCH (18:00)
[2018-06-24] MEDS: SODIUM BICARBONATE 650 MG TABLET PO SCH (18:15)
[2018-06-24] MEDS: MAGNESIUM OXIDE 400 MG TABLET PO SCH (18:15)
--- NOTE | 2018-06-24 19:09 | PDOC H&P ---
History of Present Illness Admission Date/PCP: 06/24/18 14:50 EDSON GARCIA MD History of Present Illness: VARINDER TORRES is a 78 year old female past medical history of CHF, COPD, dyslipidemia, A. fib on chronic anticoagulation, [place]'s disease, hypothyroidism, depression, end-stage renal disease on hemodialysis Friday followed by Dr. Behzad Coleman. Patient is a resident of skilled nursing who was transferred to ED yesterday for altered mental status patient was sent back to ED and her altered mental status was worsening brought back to ED today. Source of history is a daughter who is at the bedside. As per daughter patient she was called to skilled nursing that her mother's mental status was worsening. As per patient daughter patient seems confused "babbling"nonsensical words. As per daughter patient is normally alert and oriented and is living in nursing only due to her end-stage renal disease. Prior to this episode patient was complaining of weight loss low appetite and also she had a right leg fracture last year for which she was hospitalized here at [facility]. Workup in ED showed normal CBC, blood gas within normal limits, CMP normal except for potassium of 3.4, BUN 33, creatinine 6.37, troponin 0 0.025, B12 more than 2000, folic acid more than 20, TSH 11.3, free T3 2.55, random cortisol 6.70. Urinalysis showed large leukocyte esterase. His end-stage renal disease on dialysis however she still makes some urine. CT head was negative for any stroke. On my examination patient is easily arousable, however very inattentive, cannot concentrate and only oriented to person. Her drug abuse treatment specialist Dr. Behzad Coleman was called for possible hemodialysis today and plan is for patient to receive hemodialysis possibly tomorrow. Past Medical History Cardiac Medical History: Reports: Congestive Heart Failure, Coronary Artery Disease, DVT, Myocardial Infarction, Hyperlipidema, Hypertension, Pulmonary E mbolism, Heart Murmur Pulmonary Medical History: Reports: Chronic Obstructive Pulmonary Disease (COPD), Pneumonia Denies: Asthma, Bronchitis, Tuberculosis Neurological Medical History: Denies: Seizures Renal/ Medical History: Reports: End Stage Renal Disease - On dialysis GI Medical History: Reports: Gastroesophageal Reflux Disease Musculoskeltal Medical History: Reports: Arthritis Psychiatric Medical History: Reports: Depression Hematology: Reports: Anemia - ACUTE POST HEMORRHAGIC ANEMIA Past Surgical History Past Surgical History: Reports: Cholecystectomy, Gastric Bypass Surgery, Orthopedic Surgery, Tonsillectomy, Tubal Ligation Denies: Hysterectomy Social History Smoking Status: Never Smoker Frequency of Alcohol Use: None Hx Recreational Drug Use: No Drugs: None Hx Prescription Drug Abuse: No Family History Family History: CAD, Hypertension Parental Family History Reviewed: Yes Children Family History Reviewed: Yes Sibling(s) Family History Reviewed.: Yes Medication/Allergy Home Medications: Amiodarone HCl [Cordarone 200 mg Tablet] 200 mg PO DAILY 03/31/18 Atorvastatin Calcium [Lipitor 40 mg Tablet] 40 mg PO QHS 03/31/18 Diphenoxylate HCl/Atrop Sulf [Lomotil 2.5 mg Tablet] 5 mg PO QID 03/31/18 Famotidine [Pepcid 20 mg Tablet] 20 mg PO BID 03/31/18 Fluticasone Propionate [Flonase Nasal [place] 50 Mcg/[place] 16 gm] 2 sprays NASL Q12 03/31/18 Hydrocortisone [Cortef] 5 mg PO QPM 03/31/18 Iron Polysaccharide Complex [Ferrex 150] 150 mg PO DAILY 03/31/18 Isosorbide Mononitrate [Imdur 30 mg Tablet.er] 30 mg PO DAILY 03/31/18 Levothyroxine Sodium [Synthroid] 175 mcg PO Q6AM 03/31/18 Loratadine [Claritin] 10 mg PO DAILY 03/31/18 Magnesium Oxide [Mag-Ox 400 mg Tablet] 400 mg PO BID 03/31/18 Metoprolol Tartrate [Lopressor 25 mg Tablet] 12.5 mg PO Q12 03/31/18 Nitroglycerin [Nitrostat] 0.3 mg SL Q5MP PRN 03/31/18 Olopatadine HCl [Pataday] 1 drop OU DAILY 03/31/18 Paroxetine HCl [Paxil] 10 mg PO DAILY 03/31/18 Polyvinyl Alcohol [Liquitears] 1 drop OU QID 03/31/18 Sodium Bicarbonate [Sodium Bicarbonate 650 mg Tablet] 650 mg PO BID 03/31/18 Hydrocortisone [Cortef 10 mg Tablet] 10 mg PO QAM #30 tablet 04/02/18 Cholestyramine (with Sugar) [Cholestyramine Packet] 4 gm PO DAILY 06/24/18 Cyanocobalamin (Vitamin B-12) [Vitamin B-12 500 mcg Tablet] 500 mcg PO DAILY 06/24/18 Folic Acid/Vit B Complex and C [[place] Plus Tablet] 5 mg PO DAILY 06/24/18 L. Acidophilus/Strept/LA P-Toney [Risaquad Capsules] 1 each PO DAILY 06/24/18 Neomycin/Bacitracin/Polymyxinb [Triple Antibiotic Ointment] 1 applic TOP QHS 06/24/18 Oxycodone HCl [Oxy-Ir 5 mg Tablet] 5 mg PO Q6HP PRN 06/24/18 Allergies/Adverse Reactions: iodine Allergy (Severe, Verified 03/18/18 10:33) itching, facial swelling, difficulty breathing doxycycline [Doxycycline] Allergy (Verified 03/18/18 10:33) dizzy Iodinated Contrast- Oral and IV Dye [IV Dye, Iodine Containing] Allergy (Verified 03/18/18 10:33) Sulfa (Sulfonamide Antibiotics) Allergy (Verified 03/18/18 10:33) dizzy amlodipine besylate [From Norvas] Adverse Reaction (Unknown, Verified 03/18/18 10:33) anxious, jittery feeling Review of Systems ROS unobtainable: Due to mental status Physical Exam Vital Signs: Temp Pulse Resp BP Pulse Ox 97.9 F 88 17 123/54 L 100 06/24/18 12:01 06/24/18 18:00 06/24/18 18:00 06/24/18 18:00 06/24/18 18:00 Intake & Output 06/23/18 06/24/18 06/25/18 06:59 06:59 06:59 Intake Total 50 Output Total 5 Balance 45 Weight 60.4 kg General appearance: PRESENT: mild distress Head exam: PRESENT: atraumatic, normocephalic Eye exam: PRESENT: conjunctiva pink, EOMI, PERRLA. ABSENT: scleral icterus Mouth exam: PRESENT: moist, tongue midline Neck exam: ABSENT: carotid bruit, JVD, lymphadenopathy, thyromegaly Respiratory exam: PRESENT: clear to auscultation kannan. ABSENT: rales, rhonchi, wheezes Cardiovascular exam: PRESENT: irregular rhythm, RRR. ABSENT: diastolic murmur, rubs, systolic murmur Pulses: PRESENT: normal dorsalis pedis pul GI/Abdominal exam: PRESENT: normal bowel sounds, soft. ABSENT: distended, guarding, mass, organolmegaly, rebound, tenderness Extremities exam: PRESENT: full ROM. ABSENT: calf tenderness, clubbing, pedal edema Musculoskeletal exam: PRESENT: full ROM, normal inspection Neurological exam: PRESENT: alert, altered, awake, oriented to person Psychiatric exam: PRESENT: agitated Skin exam: PRESENT: dry, intact, warm. ABSENT: cyanosis, rash Results Laboratory Results: 06/24/18 12:19 06/24/18 12:19 06/24/18 06/24/18 06/24/18 12:19 12: 12:19 WBC 8.1 RBC 4.46 Hgb 12.5 Hct 38.1 MCV 86 MCH 28.0 MCHC 32.8 RDW 16.5 H Plt Count 149 L Seg Neutrophils % 51.4 Lymphocytes % 33.1 Monocytes % 10.9 Eosinophils % 4.1 Basophils % 0.5 Absolute Neutrophils 4.2 Absolute Lymphocytes 2.7 Absolute Monocytes 0.9 Absolute Eosinophils 0.3 Absolute Basophils 0.0 VBG pH VBG pCO2 VBG HCO3 VBG Base Excess Sodium 140.4 Potassium 3.4 L Chloride 102 Carbon Dioxide 28 Anion Gap 10 BUN 33 H Creatinine 6.37 H Est GFR ( Amer) 8 L Est GFR (Non-Af Amer) 6 L Glucose 119 H Lactic Acid 1.7 Calcium 8.7 Total Bilirubin 0.6 AST 25 ALT 22 Alkaline Phosphatase 213 H Ammonia Total Protein 5.3 L Albumin 2.7 L Vitamin B12 Folate TSH Free T3 pg/mL Urine Color Urine Appearance Urine pH Ur Specific [place] Urine Protein Urine Glucose (UA) Urine Ketones Urine Blood Urine Nitrite Ur Leukocyte Esterase Urine WBC (Auto) Urine RBC (Auto) 06/24/18 06/24/18 06/24/18 12:19 12: 12:19 WBC RBC Hgb Hct MCV MCH MCHC RDW Plt Count Seg Neutrophils % Lymphocytes % Monocytes % Eosinophils % Basophils % Absolute Neutrophils Absolute Lymphocytes Absolute Monocytes Absolute Eosinophils Absolute Basophils VBG pH 7.37 VBG pCO2 48.9 VBG HCO3 27.6 VBG Base Excess 1.6 Sodium Potassium Chloride Carbon Dioxide Anion Gap BUN Creatinine Est GFR ( Amer) Est GFR (Non-Af Amer) Glucose Lactic Acid Calcium Total Bilirubin AST ALT Alkaline Phosphatase Ammonia Total Protein Albumin Vitamin B12 > 1000.0 H Folate > 20.00 TSH 11.30 H Free T3 pg/mL 2.55 L Urine Color Urine Appearance Urine pH Ur Specific [place] Urine Protein Urine Glucose (UA) Urine Ketones Urine Blood Urine Nitrite Ur Leukocyte Esterase Urine WBC (Auto) Urine RBC (Auto) 06/24/18 06/24/18 14:20 16:23 WBC RBC Hgb Hct MCV MCH MCHC RDW Plt Count Seg Neutrophils % Lymphocytes % Monocytes % Eosinophils % Basophils % Absolute Neutrophils Absolute Lymphocytes Absolute Monocytes Absolute Eosinophils Absolute Basophils VBG pH VBG pCO2 VBG HCO3 VBG Base Excess Sodium Potassium Chloride Carbon Dioxide Anion Gap BUN Creatinine Est GFR ( Amer) Est GFR (Non-Af Amer) Glucose Lactic Acid Calcium Total Bilirubin AST ALT Alkaline Phosphatase Ammonia < 8.7 L Total Protein Albumin Vitamin B12 Folate TSH Free T3 pg/mL Urine Color YELLOW Urine Appearance CLOUDY Urine pH 8.0 Ur Specific [place] 1.006 Urine Protein 100 H Urine Glucose (UA) 50 H Urine Ketones NEGATIVE Urine Blood SMALL H Urine Nitrite NEGATIVE Ur Leukocyte Esterase LARGE H Urine WBC (Auto) 144 Urine RBC (Auto) 9 06/24/18 12:19 Troponin I 0.025 Impressions: Chest X-Ray 06/24/18 11:28 IMPRESSION: NO ACUTE RADIOGRAPHIC FINDING IN THE CHEST. Head CT 06/24/18 11:28 IMPRESSION: No acute intracranial pathology. Small vessel white matter disea se. EVIDENCE OF ACUTE STROKE: NO. Assessment & Plan - Diagnosis (1) Acute metabolic encephalopathy Is this a current diagnosis for this admission?: Yes Plan: Uremic encephalopathy versus UTI. Nephrology on board. Hemodialysis scheduled for tomorrow. (2) UTI (urinary tract infection) Is this a current diagnosis for this admission?: Yes Plan: Likely due to E. coli. UA positive for leukocyte esterase. Will start on empiric IV antibiotics. (4) CHF (congestive heart failure) Qualifiers: Heart failure type: diastolic Heart failure chronicity: acute on chronic Qualified Code(s): I50.33 - Acute on chronic diastolic (congestive) heart failure (8) Hypothyroidism Qualifiers: Hypothyroidism type: unspecified Qualified Code(s): E03.9 - Hypothyroidism, unspecified
[2018-06-24] MEDS ORDERED: POTASSI CL 20 MEQ/50 ML RIDER 20 MEQ/50 ML RTUPB IV ONE (20:00)
[2018-06-24] MEDS ORDERED: LABETALOL HCL INJ 20 MG/4 ML DISP.SYRIN IV PRN (22:33)
[2018-06-24] MEDS ORDERED: HYDRALAZINE HCL INJ/PF 20 MG/1 ML SDV IV PRN (22:33)
[2018-06-24] MEDS ORDERED: LORAZEPAM INJ 2 MG/1 ML VIAL IV PRN (22:35)
[2018-06-24] MEDS ORDERED: CHLORPROMAZINE HCL INJ 25 MG/1 ML AMPULE IV PRN (22:35)
[2018-06-24] MEDS: ATORVASTATIN CALCIUM 40 MG TABLET PO SCH (22:45)
[2018-06-24] MEDS: METOPROLOL TARTRATE 25 MG TABLET PO SCH (22:46)
[2018-06-24 23:27] LABS: ANION GAP 11 (5-19); BLOOD UREA NITROGEN 38 mg/dL (7-20); CALCIUM 8.8 mg/dL (8.4-10.2); CARBON DIOXIDE 25 mmol/L (22-30); CHLORIDE 103 mmol/L (98-107); GLUCOSE 108 mg/dL (75-110); SODIUM 138.8 mmol/L (137-145)
[2018-06-24 23:38] LABS: POTASSIUM 4.5 mmol/L (3.6-5.0)
[2018-06-25] MEDS: HEPARIN SOD (PORCINE) 5,000 UNIT/ML 1 ML SYRINGE SUBCUT SCH ×4 (00:01→21:56)
[2018-06-25] MEDS: METHYLPREDNISOLONE INJ 40 MG/1 ML SDV IV SCH ×4 (05:26→21:54)
[2018-06-25] MEDS ORDERED: (PENDING PHARMACY ID) (Levothyroxine Sodium [Synthroid] 175 MCG) PO SCH (06:00)
[2018-06-25] MEDS: LEVOTHYROXINE SODIUM 0.075 MG TABLET PO SCH (06:40)
[2018-06-25] MEDS: LEVOTHYROXINE SODIUM 0.1 MG TABLET PO SCH (06:40)
[2018-06-25 06:51] LABS: ALANINE AMINOTRANSFERASE 20 U/L (9-52); ALBUMIN 2.9 g/dL (3.5-5.0); ALKALINE PHOSPHATASE 216 U/L (38-126); ANION GAP 11 (5-19); ASPARTATE AMINO TRANSFERASE 35 U/L (14-36); BILIRUBIN,DIRECT 0.5 mg/dL (0.0-0.4); BILIRUBIN,TOTAL 0.5 mg/dL (0.2-1.3); BLOOD UREA NITROGEN 39 mg/dL (7-20); CALCIUM 8.4 mg/dL (8.4-10.2); CARBON DIOXIDE 25 mmol/L (22-30); CHLORIDE 105 mmol/L (98-107); GLUCOSE 117 mg/dL (75-110); POTASSIUM 5.1 mmol/L (3.6-5.0); SODIUM 140.8 mmol/L (137-145); TOTAL PROTEIN 5.6 g/dL (6.3-8.2)
[2018-06-25 07:15] LABS: ABSOLUTE EOSINOPHILS # (AUTO) 0.1 10^3/uL (0.0-0.6); ABSOLUTE MONOCYTES (AUTO) 0.2 10^3/uL (0.1-1.4); ABSOLUTE NEUT (AUTO) 3.9 10^3/uL (1.7-8.2); BASOPHILS % (AUTO) 0.3 % (0-2); EOSINOPHILS % (AUTO) 0.8 % (0-6); HEMATOCRIT 37.3 % (36.0-47.0); HEMOGLOBIN 12.2 g/dL (12.0-15.5); LYMPHOCYTES % (AUTO) 32.8 % (13-45); MEAN CORPUSCULAR HEMOGLOBIN 27.6 pg (27.0-33.4); MEAN CORPUSCULAR HGB CONC 32.6 g/dL (32.0-36.0); MEAN CORPUSCULAR VOLUME 85 fl (80-97); MONOCYTES % (AUTO) 2.5 % (3-13); PLATELET COUNT 144 10^3/uL (150-450); RED CELL DISTRIBUTION WIDTH 16.4 % (11.5-14.0); SEGMENTED NEUTROPHILS % (AUTO) 63.6 % (42-78); TOTAL CELLS COUNTED % (AUTO) 100 %; WHITE BLOOD COUNT 6.1 10^3/uL (4.0-10.5)
--- NOTE | 2018-06-25 08:01 | EKG REPORT ---
SEVERITY:- ABNORMAL ECG - ATRIAL-SENSED VENTRICULAR-PACED RHYTHM : Confirmed by: Jaida Gonzáles MD 25-Jun-2018 08:00:49
--- NOTE | 2018-06-25 10:55 | PDOC CONSULTATION ---
Consultation Consult Date: 06/25/18 Consult reason:: ESRD for hemodialysis. History of Present Illness Admission Date/PCP: 06/24/18 14:50 EDSON GARCIA MD History of Present Illness: VARINDER TORRES is a 78 year old female past medical history of CHF, COPD, dyslipidemia, A. fib on chronic anticoagulation, [place]'s disease, hypothyroidism, depression, end-stage renal disease on hemodialysis who is a resident of [facility] was transferred to ED yesterday for altered mental status. No apparent h/o trauma, falls, fever ,chills skin rashes, headaches or focal deficits. She is currently undergoing dialysis without any issues. She is hemodynamically stable. When you talk to her with focused attention she is able to reply back in sentences that make sense. When she loses attention, then she is speaking nonsense and wriggling around. She has restraints and a sitter while she is undergoing dialysis. She denies any history of severe headaches, chest pain or shortness of breath. She denies any abdominal pains, fever or chills. Labs and medications were reviewed. Chest x-ray and CT scan of her brain was unremarkable for any acute changes. Dialysis orders were reviewed with the treating dialysis nurse. Past Medical History Cardiac Medical History: Reports: Coronary Artery Disease, DVT, Heart Murmur, Hyperlipidemia, Myocardial Infarction, Pulmonary Embolism Pulmonary Medical History: Reports: Chronic Obstructive Pulmonary Disease ([place]), Pneumonia Denies: Asthma, Bronchitis, Tuberculosis Neurological Medical History: Denies: Seizures Renal/ Medical History: Reports: End Stage Renal Disease - On dialysis, Secondary Hyperparathyroidism GI Medical History: Reports: Gastroesophageal Reflux Disease Musculoskeltal Medical History: Reports: Arthritis Psychiatric Medical History: Reports: Depression Hematology Medical History: Reports Anemia of Chronic Kidney Disease Past Surgical History Past Surgical History: Reports: Cholecystectomy, Gastric Bypass Surgery, Orthopedic Surgery, Tonsillectomy, Tubal Ligation Denies: Hysterectomy Social History Smoking Status: Never Smoker Frequency of Alcohol Use: None Hx Recreational Drug Use: No Drugs: None Hx Prescription Drug Abuse: No - Advance Directive Resuscitation Status: Full Code Family History Parental Family History Reviewed: No Children Family History Reviewed: No Sibling(s) Family History Reviewed.: No Medication/Allergy Home Medications: RX: Amiodarone HCl [Cordarone 200 mg Tablet] 200 mg PO DAILY 03/31/18 RX: Atorvastatin Calcium [Lipitor 40 mg Tablet] 40 mg PO QHS 03/31/18 RX: Diphenoxylate HCl/Atrop Sulf [Lomotil 2.5 mg Tablet] 5 mg PO QID 03/31/18 RX: Famotidine [Pepcid 20 mg Tablet] 20 mg PO BID 03/31/18 RX: Fluticasone Propionate [Flonase Nasal [place] 50 Mcg/[place] 16 gm] 2 sprays NASL Q12 03/31/18 RX: Hydrocortisone [Cortef] 5 mg PO QPM 03/31/18 RX: Iron Polysaccharide Complex [Ferrex 150] 150 mg PO DAILY 03/31/18 RX: Isosorbide Mononitrate [Imdur 30 mg Tablet.er] 30 mg PO DAILY 03/31/18 RX: Levothyroxine Sodium [Synthroid] 175 mcg PO Q6AM 03/31/18 RX: Loratadine [Claritin] 10 mg PO DAILY 03/31/18 RX: Magnesium Oxide [Mag-Ox 400 mg Tablet] 400 mg PO BID 03/31/18 RX: Metoprolol Tartrate [Lopressor 25 mg Tablet] 12.5 mg PO Q12 03/31/18 RX: Nitroglycerin [Nitrostat] 0.3 mg SL Q5MP PRN 03/31/18 RX: Olopatadine HCl [Pataday] 1 drop OU DAILY 03/31/18 RX: Paroxetine HCl [Paxil] 10 mg PO DAILY 03/31/18 RX: Polyvinyl Alcohol [Liquitears] 1 drop OU QID 03/31/18 RX: Sodium Bicarbonate [Sodium Bicarbonate 650 mg Tablet] 650 mg PO BID 03/31/18 RX: Hydrocortisone [Cortef 10 mg Tablet] 10 mg PO QAM #30 tablet 04/02/18 Cholestyramine (with Sugar) [Cholestyramine Packet] 4 gm PO DAILY 06/24/18 Cyanocobalamin (Vitamin B-12) [Vitamin B-12 500 mcg Tablet] 500 mcg PO DAILY 06/24/18 Folic Acid/Vit B Complex and C [[place] Plus Tablet] 5 mg PO DAILY 06/24/18 L. Acidophilus/Strept/LA P-Toney [Risaquad Capsules] 1 each PO DAILY 06/24/18 Neomycin/Bacitracin/Polymyxinb [Triple Antibiotic Ointment] 1 applic TOP QHS 06/24/18 Oxycodone HCl [Oxy-Ir 5 mg Tablet] 5 mg PO Q6HP PRN 06/24/18 Allergies/Adverse Reactions: iodine Allergy (Severe, Verified 03/18/18 10:33) itching, facial swelling, difficulty breathing doxycycline [Doxycycline] Allergy (Verified 03/18/18 10:33) dizzy Iodinated Contrast- Oral and IV Dye [IV Dye, Iodine Containing] Allergy (Verified 03/18/18 10:33) Sulfa (Sulfonamide Antibiotics) Allergy (Verified 03/18/18 10:33) dizzy amlodipine besylate [From Norvasc] Adverse Reaction (Unknown, Verified 03/18/18 10:33) anxious, jittery feeling Review of Systems ROS unobtainable: Due to mental status Constitutional: ABSENT: anorexia, chills, headache(s) Cardiovascular: ABSENT: chest pain, dyspnea on exertion Respiratory: ABSENT: dyspnea, hemoptysis Gastrointestinal: ABSENT: abdominal pain, hematemesis, hematochezia, nausea, vomiting Integumentary: ABSENT: diaphoresis, erythema, lesions, pruritus, rash Neurological: PRESENT: confusion. ABSENT: abnormal gait, abnormal movements, abnormal speech, convulsions, focal weakness Psychiatric: PRESENT: anxiety Hematologic/Lymphatic: ABSENT: easy bruising, lymphadenopathy Physical Exam Vital Signs: Temp Pulse Resp BP Pulse Ox 97.3 F 78 18 164/68 H 100 06/25/18 07:26 06/25/18 07:26 06/25/18 07:26 06/25/18 07:26 06/25/18 07:26 Intake & Output 06/24/18 06/25/18 06/26/18 06:59 06:59 06:59 Intake Total 50 Output Total 5 Balance 45 Weight 56.6 kg General appearance: PRESENT: mild distress Eye exam: PRESENT: conjunctiva pink, EOMI, PERRLA Ear exam: PRESENT: normal external ear exam Mouth exam: PRESENT: neck supple Neck exam: ABSENT: lymphadenopathy, meningismus, tenderness, thyromegaly, tracheal deviation Respiratory exam: PRESENT: clear to auscultation kannan, symmetrical. ABSENT: crackles, decreased breath sounds Cardiovascular exam: PRESENT: +S1, +S2 GI/Abdominal exam: PRESENT: normal bowel sounds, soft. ABSENT: organomegaly, tenderness Extremities exam: ABSENT: pedal edema Neurological exam: PRESENT: altered Skin exam: ABSENT: erythema, mottled, rash Results Laboratory Results: 06/25/18 05:26 06/25/18 05:26 06/24/18 06/24/18 06/24/18 12:19 12:19 12:19 WBC 8.1 RBC 4.46 Hgb 12.5 Hct 38.1 MCV 86 MCH 28.0 MCHC 32.8 RDW 16.5 H Plt Count 149 L Seg Neutrophils % 51.4 Lymphocytes % 33.1 Monocytes % 10.9 Eosinophils % 4.1 Basophils % 0.5 Absolute Neutrophils 4.2 Absolute Lymphocytes 2.7 Absolute Monocytes 0.9 Absolute Eosinophils 0.3 Absolute Basophils 0.0 VBG pH VBG pCO2 VBG HCO3 VBG Base Excess Sodium 140.4 Potassium 3.4 L Chloride 102 Carbon Dioxide 28 Anion Gap 10 BUN 33 H Creatinine 6.37 H Est GFR ( Amer) 8 L Est GFR (Non-Af Amer) 6 L Glucose 119 H Lactic Acid 1.7 Calcium 8.7 Phosphorus Magnesium Total Bilirubin 0.6 AST 25 ALT 22 Alkaline Phosphatase 213 H Ammonia Total Protein 5.3 L Albumin 2.7 L Vitamin B12 Folate TSH Free T3 pg/mL Urine Color Urine Appearance Urine pH Ur Specific [place] Urine Protein Urine Glucose (UA) Urine Ketones Urine Blood Urine Nitrite Ur Leukocyte Esterase Urine WBC (Auto) Urine RBC (Auto) 06/24/18 06/24/18 06/24/18 12:19 12:19 12:19 WBC RBC Hgb Hct MCV MCH MCHC RDW Plt Count Seg Neutrophils % Lymphocytes % Monocytes % Eosinophils % Basophils % Absolute Neutrophils Absolute Lymphocytes Absolute Monocytes Absolute Eosinophils Absolute Basophils VBG pH 7.37 VBG pCO2 48.9 VBG HCO3 27.6 VBG Base Excess 1.6 Sodium Potassium Chloride Carbon Dioxide Anion Gap BUN Creatinine Est GFR ( Amer) Est GFR (Non-Af Amer) Glucose Lactic Acid Calcium Phosphorus Magnesium Total Bilirubin AST ALT Alkaline Phosphatase Ammonia Total Protein Albumin Vitamin B12 > 1000.0 H Folate > 20.00 TSH 11.30 H Free T3 pg/mL 2.55 L Urine Color Urine Appearance Urine pH Ur Specific [place] Urine Protein Urine Glucose (UA) Urine Ketones Urine Blood Urine Nitrite Ur Leukocyte Esterase Urine WBC (Auto) Urine RBC (Auto) 06/24/18 06/24/18 06/24/18 14:20 16:23 23:00 WBC RBC Hgb Hct MCV MCH MCHC RDW Plt Count Seg Neutrophils % Lymphocytes % Monocytes % Eosinophils % Basophils % Absolute Neutrophils Absolute Lymphocytes Absolute Monocytes Absolute Eosinophils Absolute Basophils VBG pH VBG pCO2 VBG HCO3 VBG Base Excess Sodium 138.8 Potassium 4.5 D Chloride 103 Carbon Dioxide 25 Anion Gap 11 BUN 38 H Creatinine 6.56 H Est GFR ( Amer) 7 L Est GFR (Non-Af Amer) 6 L Glucose 108 Lactic Acid Calcium 8.8 Phosphorus Magnesium Total Bilirubin AST ALT Alkaline Phosphatase Ammonia < 8.7 L Total Protein Albumin Vitamin B12 Folate TSH Free T3 pg/mL Urine Color YELLOW Urine Appearance CLOUDY Urine pH 8.0 Ur Specific [place] 1.006 Urine Protein 100 H Urine Glucose (UA) 50 H Urine Ketones NEGATIVE Urine Blood SMALL H Urine Nitrite NEGATIVE Ur Leukocyte Esterase LARGE H Urine WBC (Auto) 144 Urine RBC (Auto) 9 06/25/18 06/25/18 05:26 05:26 WBC 6.1 RBC 4.40 Hgb 12.2 Hct 37.3 MCV 85 MCH 27.6 MCHC 32.6 RDW 16.4 H Plt Count 144 L Seg Neutrophils % 63.6 Lymphocytes % 32.8 Monocytes % 2.5 L Eosinophils % 0.8 Basophils % 0.3 Absolute Neutrophils 3.9 Absolute Lymphocytes 2.0 Absolute Monocytes 0.2 Absolute Eosinophils 0.1 Absolute Basophils 0.0 VBG pH VBG pCO2 VBG HCO3 VBG Base Excess Sodium 140.8 Potassium 5.1 H Chloride 105 Carbon Dioxide 25 Anion Gap 11 BUN 39 H Creatinine 7.21 H Est GFR ( Amer) 7 L Est GFR (Non-Af Amer) 5 L Glucose 117 H Lactic Acid Calcium 8.4 Phosphorus 6.0 H Magnesium 2.2 Total Bilirubin 0.5 AST 35 ALT 20 Alkaline Phosphatase 216 H Ammonia Total Protein 5.6 L Albumin 2.9 L Vitamin B12 Folate TSH Free T3 pg/mL Urine Color Urine Appearance Urine pH Ur Specific [place] Urine Protein Urine Glucose (UA) Urine Ketones Urine Blood Urine Nitrite Ur Leukocyte Esterase Urine WBC (Auto) Urine RBC (Auto) 06/24/18 12:19 Troponin I 0.025 Impressions: Chest X-Ray 06/24/18 11:28 IMPRESSION: NO ACUTE RADIOGRAPHIC FINDING IN THE CHEST. Head CT 06/24/18 11:28 IMPRESSION: No acute intracranial pathology. Small vessel white matter disease. EVIDENCE OF ACUTE STROKE: NO. Assessment & Plan - Diagnosis (1) ESRD (end stage renal disease) on dialysis Plan: Patient undergoing dialysis without any issues. She is speaking jibberish when not spoken to. Very poor attention span. Vital signs are stable. Is being supervised to ensure safe and smooth procedure. Will remove about 1-1.5 L as tolerated. Dialysis orders were reviewed with the treating dialysis nurse. (2) Altered mental status Qualifiers: Altered mental status type: unspecified Qualified Code(s): R41.82 - Altered mental status, unspecified Plan: She is delirious. Unsure of the current etiology. Would suggest supportive/symptomatic treatment at the moment.Management as per hospitalist (3) Adrenal insufficiency Plan: She is on IV steroids for compensation.
[2018-06-25] MEDS: METOPROLOL TARTRATE 25 MG TABLET PO SCH ×2 (13:13→21:56)
[2018-06-25] MEDS: ISOSORBIDE MONONITRATE 30 MG TAB.ER.24H PO SCH (13:13)
[2018-06-25] MEDS: DIPHENOXYLATE HCL/ATROP SULF 2.5-0.025 MG TABLET PO SCH ×4 (13:13→21:58)
[2018-06-25] MEDS: AMIODARONE HCL 200 MG TABLET PO SCH (13:13)
[2018-06-25] MEDS: MAGNESIUM OXIDE 400 MG TABLET PO SCH ×2 (13:13→18:08)
[2018-06-25] MEDS: CYANOCOBALAMIN (VITAMIN B-12) 1,000 MCG TABLET PO SCH (13:14)
[2018-06-25] MEDS: FAMOTIDINE 20 MG TABLET PO SCH ×2 (13:14→21:59)
[2018-06-25] MEDS: IRON POLYSACCHARIDES COMPLEX 150 MG CAPSULE PO SCH (13:14)
[2018-06-25] MEDS: SODIUM BICARBONATE 650 MG TABLET PO SCH ×2 (13:14→18:08)
[2018-06-25] MEDS: CEFTRIAXONE 1 GM/D5W RTU 1 GM/50 ML RTUPB IV SCH (13:40)
--- NOTE | 2018-06-25 18:36 | PDOC PROGRESS REPORT ---
Subjective Progress Note for:: 06/25/18 Subjective:: 06/25/2018. 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 Much improved mental status after hemodialysis. Her encephalopathy is may have been due to combined uremic encephalopathy and UTI. On my encounter patient was comfortably sitting in bed alert and oriented x3. P.o. tolerant. Patient denying any fever, chills, nausea, vomiting, diarrhea, or urinary symptoms. Reason For Visit: ALTERED MENTAL STATUS Physical Exam Vital Signs: Temp Pulse Resp BP Pulse Ox 98.1 F 89 20 114/63 94 06/25/18 14:55 06/25/18 14:55 06/25/18 14:55 06/25/18 14:55 06/25/18 14:55 Intake & Output 06/24/18 06/25/18 06/26/18 06:59 06:59 06:59 Intake Total 50 50 Output Total 5 1420 Balance 45 -1370 Weight 56.6 kg Results Laboratory Results: 06/25/18 05:26 06/25/18 05:26 06/24/18 06/25/18 06/25/18 23:00 05:26 05:26 WBC 6.1 RBC 4.40 Hgb 12.2 Hct 37.3 MCV 85 MCH 27.6 MCHC 32.6 RDW 16.4 H Plt Count 144 L Seg Neutrophils % 63.6 Lymphocytes % 32.8 Monocytes % 2.5 L Eosinophils % 0.8 Basophils % 0.3 Absolute Neutrophils 3.9 Absolute Lymphocytes 2.0 Absolute Monocytes 0.2 Absolute Eosinophils 0.1 Absolute Basophils 0.0 Sodium 138.8 140.8 Potassium 4.5 D 5.1 H Chloride 103 105 Carbon Dioxide 25 25 Anion Gap 11 11 BUN 38 H 39 H Creatinine 6.56 H 7.21 H Est GFR ( Amer) 7 L 7 L Est GFR (Non-Af Amer) 6 L 5 L Glucose 108 117 H Calcium 8.8 8.4 Phosphorus 6.0 H Magnesium 2.2 Total Bilirubin 0.5 AST 35 ALT 20 Alkaline Phosphatase 216 H Total Protein 5.6 L Albumin 2.9 L 06/24/18 12:19 Troponin I 0.025 Impressions: Chest X-Ray 06/24/18 11:28 IMPRESSION: NO ACUTE RADIOGRAPHIC FINDING IN THE CHEST. Head CT 06/24/18 11:28 IMPRESSION: No acute intracranial pathology. Small vessel white matter disease. EVIDENCE OF ACUTE STROKE: NO. Assessment & Plan - Diagnosis (1) Acute metabolic encephalopathy Is this a current diagnosis for this admission?: Yes Plan: Uremic encephalopathy versus UTI. Much improved after hemodialysis. Nephrology on board. Continue hemodialysis schedule. We will continue treatment for UTI. (2) UTI (urinary tract infection) Is this a current diagnosis for this admission?: Yes Plan: Likely due to E. coli. UA positive for leukocyte esterase. Blood culture from 06/24/2018 is negative 06/03 for gram-positive cocci possibly contamination. Urine culture from 06/24/2018 no growth times 1 day. Day 1 of IV ceftriaxone. (3) Adrenal insufficiency Is this a current diagnosis for this admission?: No Plan: Start on a stress dose IV steroids. Will switch back to home meds once patient is back to baseline. Monitor vitals and electrolytes. (4) CHF (congestive heart failure) Qualifiers: Heart failure type: diastolic Heart failure chronicity: acute on chronic Qualified Code(s): I50.33 - Acute on chronic diastolic (congestive) heart f ailure Is this a current diagnosis for this admission?: No Plan: Heart failure with preserved ejection fraction. Does not seem to be on exacer bation on this admission. 11/07/2017 2D echo with left ventricular ejection fraction preserved. Left ventricular hypertrophy. Continue amiodarone, metoprolol, atorvastatin, (5) ESRD (end stage renal disease) on dialysis Is this a current diagnosis for this admission?: Yes Plan: Currently on hemodialysis Friday. Status post hemodialysis today. Nephrology on board. Monitor volume status and electrolytes. [facility] tomorrow. (6) Hypertension Is this a current diagnosis for this admission?: No Plan: Normotensive euvolemic. Continue current medication adjust meds as needed. (7) Hypokalemia Is this a current diagnosis for this admission?: Yes Plan: Persistent hypokalemia and hypomagnesemia likely due to GI losses. Patient had a gastric bypass in the and suffering from chronic persistent diarrhea. We will replace today and start on low-dose daily potassium and magnesium replacement. (8) Hypothyroidism Qualifiers: Hypothyroidism type: unspecified Qualified Code(s): E03.9 - Hypothyroidism, unspecified Is this a current diagnosis for this admission?: No Plan: Restart home meds. (9) Paroxysmal atrial fibrillation Is this a current diagnosis for this admission?: No Plan: Rate controlled, continue amiodarone and metoprolol. Patient currently not anticoagulated. Patient does have a history of thrombocytopenia. (10) Bacteremia due to coagulase-negative Staphylococcus Is this a current diagnosis for this admission?: Yes Plan: Blood cultures from 06/24/2018 came back positive for 2/2 staph capitis pansensitive possibly normal skin jennifer contamination. Received total 4 days of IV ceftriaxone. No leukocytosis.
[2018-06-25] MEDS: ATORVASTATIN CALCIUM 40 MG TABLET PO SCH (21:59)
[2018-06-25] MEDS: DEXTROSE 5%-NORMAL SALINE 1,000 ML IV PRN (22:18)
[2018-06-26] MEDS: METHYLPREDNISOLONE INJ 40 MG/1 ML SDV IV SCH (06:04)
[2018-06-26] MEDS: LEVOTHYROXINE SODIUM 0.1 MG TABLET PO SCH (06:06)
[2018-06-26] MEDS: LEVOTHYROXINE SODIUM 0.075 MG TABLET PO SCH (06:06)
[2018-06-26] MEDS: HEPARIN SOD (PORCINE) 5,000 UNIT/ML 1 ML SYRINGE SUBCUT SCH ×3 (06:07→21:13)
[2018-06-26 06:13] LABS: ALANINE AMINOTRANSFERASE 28 U/L (9-52); ALBUMIN 2.9 g/dL (3.5-5.0); ALKALINE PHOSPHATASE 223 U/L (38-126); ANION GAP 6 (5-19); ASPARTATE AMINO TRANSFERASE 30 U/L (14-36); BILIRUBIN,DIRECT 0.4 mg/dL (0.0-0.4); BILIRUBIN,TOTAL 0.5 mg/dL (0.2-1.3); BLOOD UREA NITROGEN 21 mg/dL (7-20); CALCIUM 8.1 mg/dL (8.4-10.2); CARBON DIOXIDE 33 mmol/L (22-30); CHLORIDE 104 mmol/L (98-107); GLUCOSE 166 mg/dL (75-110); SODIUM 143.3 mmol/L (137-145); TOTAL PROTEIN 5.6 g/dL (6.3-8.2)
[2018-06-26 06:33] LABS: POTASSIUM 3.6 mmol/L (3.6-5.0)
--- NOTE | 2018-06-26 12:06 | PDOC PROGRESS REPORT ---
Subjective Progress Note for:: 06/26/18 Reason For Visit: Patient is much improved today. She is currently undergoing dialysis without any issues. She is not confused or disoriented like she was yesterday.She denies any history of headaches or apparent history of seizures. No history of any chest pain, shortness of breath or palpitations. Complains of losing weight. Most of an abdominal pains. Labs and medications were reviewed with the patient. Physical Exam Vital Signs: Temp Pulse Resp BP Pulse Ox 97.5 F 34 L 20 121/60 99 06/26/18 07:31 06/26/18 07:31 06/26/18 07:31 06/26/18 07:31 06/26/18 07:31 Intake & Output 06/25/18 06/26/18 06/27/18 06:59 06:59 06:59 Intake Total 50 1050 Output Total 5 1450 Balance 45 -400 Weight 56.6 kg 59.9 kg General appearance: PRESENT: no acute distress Respiratory exam: PRESENT: clear to auscultation kannan, decreased breath sounds. ABSENT: crackles Cardiovascular exam: PRESENT: +S1, +S2 GI/Abdominal exam: PRESENT: normal bowel sounds, soft. ABSENT: organomegaly, tenderness Neurological exam: PRESENT: alert, awake, oriented to person, oriented to place Psychiatric exam: PRESENT: appropriate affect Skin exam: ABSENT: erythema, mottled, rash Results Laboratory Results: 06/25/18 05:26 06/26/18 05:25 06/26/18 05:25 Sodium 143.3 Potassium 3.6 D Chloride 104 Carbon Dioxide 33 H Anion Gap 6 BUN 21 H Creatinine 3.92 H Est GFR ( Amer) 13 L Est GFR (Non-Af Amer) 11 L Glucose 166 H Calcium 8.1 L Magnesium 2.1 Total Bilirubin 0.5 AST 30 ALT 28 Alkaline Phosphatase 223 H Total Protein 5.6 L Albumin 2.9 L 06/24/18 16:23 Catheterized Urine Urine Culture - Final NO GROWTH 2 DAYS 06/24/18 12:19 Troponin I 0.025 Impressions: Chest X-Ray 06/24/18 11:28 IMPRESSION: NO ACUTE RADIOGRAPHIC FINDING IN THE CHEST. Head CT 06/24/18 11:28 IMPRESSION: No acute intracranial pathology. Small vessel white matter disease. EVIDENCE OF ACUTE STROKE: NO. Assessment & Plan - Diagnosis (1) ESRD (end stage renal disease) on dialysis Is this a current diagnosis for this admission?: Yes Plan: Patient currently undergoing dialysis without any issues. Is being supervised to ensure safe and smooth procedure. Vital signs are stable. Plan to remove 500 cc of fluid as she was also dialyzed yesterday. Will increase her time to 2 hours and 45 minutes. Orders were reviewed and discussed with the treating dialysis nurse. (2) Altered mental status Qualifiers: Altered mental status type: unspecified Qualified Code(s): R41.82 - Altered mental status, unspecified Plan: Markedly improved today. (3) Adrenal insufficiency Is this a current diagnosis for this admission?: No Plan: Currently on stress doses of steroids.
[2018-06-26] MEDS: CYANOCOBALAMIN (VITAMIN B-12) 1,000 MCG TABLET PO SCH (13:03)
[2018-06-26] MEDS: METOPROLOL TARTRATE 25 MG TABLET PO SCH ×2 (13:05→21:12)
[2018-06-26] MEDS: SODIUM BICARBONATE 650 MG TABLET PO SCH ×2 (13:08→17:12)
[2018-06-26] MEDS: ISOSORBIDE MONONITRATE 30 MG TAB.ER.24H PO SCH (13:08)
[2018-06-26] MEDS: IRON POLYSACCHARIDES COMPLEX 150 MG CAPSULE PO SCH (13:09)
[2018-06-26] MEDS: DIPHENOXYLATE HCL/ATROP SULF 2.5-0.025 MG TABLET PO SCH ×4 (13:09→21:12)
[2018-06-26] MEDS: AMIODARONE HCL 200 MG TABLET PO SCH (13:10)
[2018-06-26] MEDS: MAGNESIUM OXIDE 400 MG TABLET PO SCH ×2 (13:10→17:12)
[2018-06-26] MEDS: FAMOTIDINE 20 MG TABLET PO SCH ×2 (13:11→21:13)
[2018-06-26] MEDS: CEFTRIAXONE 1 GM/D5W RTU 1 GM/50 ML RTUPB IV SCH (13:11)
[2018-06-26] MEDS ORDERED: METHYLPREDNISOLONE INJ 125 MG/2 ML SDV IV SCH (14:00)
[2018-06-26] MEDS ORDERED: PATIROMER 8.4 GM SUSP PACKET PO ONE (17:30)
--- NOTE | 2018-06-26 17:54 | PDOC PROGRESS REPORT ---
Subjective Progress Note for:: 06/26/18 Subjective:: 06/25/2018. 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 Much improved mental status after hemodialysis. Her encephalopathy is may have been due to combined uremic encephalopathy and UTI. On my encounter patient was comfortably sitting in bed alert and oriented x3. P.o. tolerant. Patient denying any fever, chills, nausea, vomiting, diarrhea, or urinary symptoms. 06/26/2018. No acute events overnight. Patient was taken to get another dialysis today however as per the nurses report patient was confused during dialysis. Upon my encounter post hemodialysis patient was comfortably resting in her bed in no apparent distress alert and oriented x3. When she was reminded of her confusion during dialysis she stated that she does not recall. She denies any fever, chills, nausea, vomiting, constipation. She is p.o. tolerant. Still having chronic diarrhea due to gastric bypass in the which could explain her persistent electrolyte abnormalities. C. difficile toxin negative. Reason For Visit: ACUTE METABOLIC ENCEPHALOPATHY,UTI,ADRENAL Physical Exam Vital Signs: Temp Pulse Resp BP Pulse Ox 98.2 F 81 18 126/54 H 97 06/26/18 16:11 06/26/18 16:11 06/26/18 16:11 06/26/18 16:11 06/26/18 16:11 Intake & Output 06/25/18 06/26/18 06/27/18 06:59 06:59 06:59 Intake Total 50 1050 562 Output Total 5 1450 30 Balance 45 -400 532 Weight 56.6 kg 59.9 kg General appearance: PRESENT: no acute distress, well-developed, well-nourished Head exam: PRESENT: atraumatic, normocephalic Respiratory exam: PRESENT: clear to auscultation kannan. ABSENT: rales, rhonchi, wheezes Cardiovascular exam: PRESENT: RRR. ABSENT: diastolic murmur, rubs, systolic murmur GI/Abdominal exam: PRESENT: normal bowel sounds, soft. ABSENT: distended, guarding, mass, organolmegaly, rebound, tenderness Extremities exam: PRESENT: full ROM. ABSENT: calf tenderness, clubbing, pedal edema Neurological exam: PRESENT: alert, awake, oriented to person, oriented to place, oriented to time, oriented to situation, CN II-XII grossly intact. ABSENT: motor sensory deficit Skin exam: PRESENT: dry, intact, warm. ABSENT: cyanosis, rash Results Laboratory Results: 06/25/18 05:26 06/26/18 05:25 06/26/18 05:25 Sodium 143.3 Potassium 3.6 D Chloride 104 Carbon Dioxide 33 H Anion Gap 6 BUN 21 H Creatinine 3.92 H Est GFR ( Amer) 13 L Est GFR (Non-Af Amer) 11 L Glucose 166 H Calcium 8.1 L Magnesium 2.1 Total Bilirubin 0.5 AST 30 ALT 28 Alkaline Phosphatase 223 H Total Protein 5.6 L Albumin 2.9 L 06/24/18 16:23 Catheterized Urine Urine Culture - Final NO GROWTH 2 DAYS 06/24/18 12:19 Troponin I 0.025 Impressions: Chest X-Ray 06/24/18 11:28 IMPRESSION: NO ACUTE RADIOGRAPHIC FINDING IN THE CHEST. Head CT 06/24/18 11:28 IMPRESSION: No acute intracranial pathology. Small vessel white matter disease. EVIDENCE OF ACUTE STROKE: NO. Assessment & Plan - Diagnosis (1) Acute metabolic encephalopathy Is this a current diagnosis for this admission?: Yes Plan: Uremic encephalopathy versus UTI. Much improved after hemodialysis. Nephrology on board. Continue hemodialysis schedule. We will continue treatmen t for UTI. (2) UTI (urinary tract infection) Is this a current diagnosis for this admission?: Yes Plan: Likely due to E. coli. UA positive for leukocyte esterase. Blood culture from 06/24/2018 is negative 06/03 for gram-positive cocci possibly contamination. Urine culture from 06/24/2018 no growth times 1 day. Day 3 of IV ceftriaxone. (3) Adrenal insufficiency Is this a current diagnosis for this admission?: No Plan: Will switch back to hydrocortisone home dosage. Monitor vitals and electrolytes. (4) CHF (congestive heart failure) Qualifiers: Heart failure type: diastolic Heart failure chronicity: acute on chronic Qualified Code(s): I50.33 - Acute on chronic diastolic (congestive) heart failure Is this a current diagnosis for this admission?: No Plan: Heart failure with preserved ejection fraction. Does not seem to be on exacerbation on this admission. 11/07/2017 2D echo with left ventricular ejection fraction preserved. Left ventricular hypertrophy. Continue amiodarone, metoprolol, atorvastatin, (5) ESRD (end stage renal disease) on dialysis Is this a current diagnosis for this admission?: Yes Plan: Currently on hemodialysis Friday. Status post hemodialysis today. Nephrology on board. Monitor volume status and electrolytes. BMP tomorrow. (6) Hypertension Is this a current diagnosis for this admission?: No Plan: Normotensive euvolemic. Continue current medication adjust meds as needed. (7) Hypokalemia Is this a current diagnosis for this admission?: Yes Plan: Resolved. (8) Hypothyroidism Qualifiers: Hypothyroidism type: unspecified Qualified Code(s): E03.9 - Hypothyroidism, unspecified Is this a current diagnosis for this admission?: No Plan: Restart home meds. (9) Paroxysmal atrial fibrillation Is this a current diagnosis for this admission?: No Plan: Rate controlled, continue amiodarone and metoprolol. Patient currently not anticoagulated. Patient does have a history of thrombocytopenia.
[2018-06-26] MEDS: ATORVASTATIN CALCIUM 40 MG TABLET PO SCH (21:12)
[2018-06-26] MEDS: HYDROCORTISONE 10 MG TABLET PO SCH (21:18)
[2018-06-27] MEDS: LEVOTHYROXINE SODIUM 0.075 MG TABLET PO SCH (05:31)
[2018-06-27] MEDS: LEVOTHYROXINE SODIUM 0.1 MG TABLET PO SCH (05:31)
[2018-06-27] MEDS: HEPARIN SOD (PORCINE) 5,000 UNIT/ML 1 ML SYRINGE SUBCUT SCH ×3 (05:31→23:09)
[2018-06-27] MEDS: DEXTROSE 5%-NORMAL SALINE 1,000 ML IV PRN (05:36)
[2018-06-27 08:31] LABS: ABSOLUTE LYMPHOCYTES (AUTO) 0.9 10^3/uL (0.5-4.7); ABSOLUTE MONOCYTES (AUTO) 0.4 10^3/uL (0.1-1.4); ABSOLUTE NEUT (AUTO) 5.1 10^3/uL (1.7-8.2); HEMATOCRIT 31.9 % (36.0-47.0); HEMOGLOBIN 10.3 g/dL (12.0-15.5); LYMPHOCYTES % (AUTO) 14.8 % (13-45); MEAN CORPUSCULAR HEMOGLOBIN 27.6 pg (27.0-33.4); MEAN CORPUSCULAR HGB CONC 32.3 g/dL (32.0-36.0); MEAN CORPUSCULAR VOLUME 86 fl (80-97); MONOCYTES % (AUTO) 6.1 % (3-13); PLATELET COUNT 112 10^3/uL (150-450); RED BLOOD COUNT 3.73 10^6/uL (3.72-5.28); RED CELL DISTRIBUTION WIDTH 16.3 % (11.5-14.0); SEGMENTED NEUTROPHILS % (AUTO) 79.1 % (42-78); TOTAL CELLS COUNTED % (AUTO) 100 %; WHITE BLOOD COUNT 6.4 10^3/uL (4.0-10.5)
[2018-06-27] MEDS: HYDROCORTISONE 10 MG TABLET PO SCH ×2 (08:40→23:08)
[2018-06-27 09:05] LABS: ALANINE AMINOTRANSFERASE 34 U/L (9-52); ALBUMIN 2.5 g/dL (3.5-5.0); ALKALINE PHOSPHATASE 191 U/L (38-126); ANION GAP 5 (5-19); ASPARTATE AMINO TRANSFERASE 31 U/L (14-36); BILIRUBIN,DIRECT 0.4 mg/dL (0.0-0.4); BILIRUBIN,TOTAL 0.5 mg/dL (0.2-1.3); BLOOD UREA NITROGEN 17 mg/dL (7-20); CALCIUM 7.7 mg/dL (8.4-10.2); CARBON DIOXIDE 32 mmol/L (22-30); CHLORIDE 104 mmol/L (98-107); GLUCOSE 171 mg/dL (75-110); SODIUM 141.2 mmol/L (137-145); TOTAL PROTEIN 4.9 g/dL (6.3-8.2)
[2018-06-27 09:12] LABS: POTASSIUM 2.9 mmol/L (3.6-5.0)
[2018-06-27] MEDS ORDERED: POTASSI CL 20 MEQ/50 ML RIDER 20 MEQ/50 ML RTUPB IV ONE (09:26)
[2018-06-27] MEDS ORDERED: POTASSIUM CHLORIDE 20 MEQ/15 ML UDCUP PO ONE ×2 (09:35→14:35)
[2018-06-27] MEDS: CEFTRIAXONE 1 GM/D5W RTU 1 GM/50 ML RTUPB IV SCH (10:00)
[2018-06-27] MEDS: SODIUM BICARBONATE 650 MG TABLET PO SCH ×2 (10:03→17:18)
[2018-06-27] MEDS: METOPROLOL TARTRATE 25 MG TABLET PO SCH ×2 (10:03→23:01)
[2018-06-27] MEDS: CYANOCOBALAMIN (VITAMIN B-12) 1,000 MCG TABLET PO SCH (10:03)
[2018-06-27] MEDS: ISOSORBIDE MONONITRATE 30 MG TAB.ER.24H PO SCH (10:03)
[2018-06-27] MEDS: FAMOTIDINE 20 MG TABLET PO SCH ×2 (10:03→23:01)
[2018-06-27] MEDS: AMIODARONE HCL 200 MG TABLET PO SCH (10:03)
[2018-06-27] MEDS: DIPHENOXYLATE HCL/ATROP SULF 2.5-0.025 MG TABLET PO SCH ×4 (10:03→23:00)
[2018-06-27] MEDS: MAGNESIUM OXIDE 400 MG TABLET PO SCH ×2 (10:03→17:18)
[2018-06-27] MEDS: IRON POLYSACCHARIDES COMPLEX 150 MG CAPSULE PO SCH (13:21)
[2018-06-27 14:19] LABS: ANION GAP 7 (5-19); BLOOD UREA NITROGEN 18 mg/dL (7-20); CALCIUM 7.8 mg/dL (8.4-10.2); CARBON DIOXIDE 28 mmol/L (22-30); CHLORIDE 106 mmol/L (98-107); GLUCOSE 129 mg/dL (75-110); POTASSIUM 3.5 mmol/L (3.6-5.0); SODIUM 141.4 mmol/L (137-145)
--- NOTE | 2018-06-27 15:16 | PDOC PROGRESS REPORT ---
Subjective Progress Note for:: 06/27/18 Subjective:: 06/25/2018. 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 Much improved mental status after hemodialysis. Her encephalopathy is may have been due to combined uremic encephalopathy and UTI. On my encounter patient was comfortably sitting in bed alert and oriented x3. P.o. tolerant. Patient denying any fever, chills, nausea, vomiting, diarrhea, or urinary symptoms. 06/26/2018. No acute events overnight. Patient was taken to get another dialysis today however as per the nurses report patient was confused during dialysis. Upon my encounter post hemodialysis patient was comfortably resting in her bed in no apparent distress alert and oriented x3. When she was reminded of her confusion during dialysis she stated that she does not recall. She denies any fever, chills, nausea, vomiting, constipation. She is p.o. tolerant. Still having chronic diarrhea due to gastric bypass in the s which could explain her persistent electrolyte abnormalities. C. difficile toxin negative. 06/27/2018. No acute events overnight. Patient still been confused on and off overnight. On my encounter patient thinks she is at the [facility], however she is alert and oriented x2. She does not seem to be in any apparent distress she is very pleasant and cooperative with physical examination. She denies having any fever, chills, nausea, vomiting, constipation or any urinary symptoms. She is p.o. tolerant Still having chronic diarrhea due to gastric bypass in the s which could explain her persistent electrolyte abnormalities. C. difficile toxin negative. Reason For Visit: ACUTE METABOLIC ENCEPHALOPATHY,UTI,ADRENAL Physical Exam Vital Signs: Temp Pulse Resp BP Pulse Ox 97.9 F 88 18 135/69 H 100 06/27/18 11:11 06/27/18 14:00 06/27/18 11:11 06/27/18 11:11 06/27/18 11:11 Intake & Output 06/26/18 06/27/18 06/28/18 06:59 06:59 06:59 Intake Total 1050 2102 325 Output Total 1450 30 50 Balance -400 2072 275 Weight 59.9 kg 58.5 kg General appearance: PRESENT: no acute distress, well-developed, well-nourished Head exam: PRESENT: atraumatic, normocephalic Respiratory exam: PRESENT: clear to auscultation kannan. ABSENT: rales, rhonchi, wheezes Cardiovascular exam: PRESENT: RRR. ABSENT: diastolic murmur, rubs, systolic mur mur GI/Abdominal exam: PRESENT: normal bowel sounds, soft. ABSENT: distended, guarding, mass, organolmegaly, rebound, tenderness Neurological exam: PRESENT: alert, altered, awake, oriented to person, oriented to time, oriented to situation, CN II-XII grossly intact, motor sensory deficit Results Laboratory Results: 06/27/18 07:32 06/27/18 13:21 06/27/18 06/27/18 06/27/18 07:32 07:32 13:21 WBC 6.4 RBC 3.73 Hgb 10.3 L Hct 31.9 L MCV 86 MCH 27.6 MCHC 32.3 RDW 16.3 H Plt Count 112 L Seg Neutrophils % 79.1 H Lymphocytes % 14.8 Monocytes % 6.1 Eosinophils % 0.0 Basophils % 0.0 Absolute Neutrophils 5.1 Absolute Lymphocytes 0.9 Absolute Monocytes 0.4 Absolute Eosinophils 0.0 Absolute Basophils 0.0 Sodium 141.2 141.4 Potassium 2.9 L* 3.5 L Chloride 104 106 Carbon Dioxide 32 H 28 Anion Gap 5 7 BUN 17 18 Creatinine 2.60 H 2.84 H Est GFR ( Amer) 22 L 19 L Est GFR (Non-Af Amer) 18 L 16 L Glucose 171 H 129 H Calcium 7.7 L 7.8 L Magnesium 2.0 Total Bilirubin 0.5 AST 31 ALT 34 Alkaline Phosphatase 191 H Total Protein 4.9 L Albumin 2.5 L 06/24/18 12:19 Troponin I 0.025 Impressions: Chest X-Ray 06/24/18 11:28 IMPRESSION: NO ACUTE RADIOGRAPHIC FINDING IN THE CHEST. Head CT 06/24/18 11:28 IMPRESSION: No acute intracranial pathology. Small vessel white matter disease. EVIDENCE OF ACUTE STROKE: NO. Assessment & Plan - Diagnosis (1) Acute metabolic encephalopathy Is this a current diagnosis for this admission?: Yes Plan: Uremic encephalopathy/UTI/early onset dementia. Patient is alert and oriented x2 however she has on and off confusion especially during the night. Likely experiencing early onset dementia. Nephrology on board. Continue hemodialysis schedule. Received 4 days of IV antibiotic treatment for her UTI. Urine cultures still negative. (2) UTI (urinary tract infection) Is this a current diagnosis for this admission?: Yes Plan: Likely due to E. coli. UA positive for leukocyte esterase. Blood culture from 06/24/2018 is negative 06/03 for gram-positive cocci possibly contamination. Urine culture from 06/24/2018 no growth times 1 day. Day 4 of IV ceftriaxone. DC antibiotics. (3) Adrenal insufficiency Is this a current diagnosis for this admission?: No Plan: Will switch back to hydrocortisone home dosage. Monitor vitals and electrolytes. (4) CHF (congestive heart failure) Qualifiers: Heart failure type: diastolic Heart failure chronicity: acute on chronic Qualified Code(s): I50.33 - Acute on chronic diastolic (congestive) heart failure Is this a current diagnosis for this admission?: No Plan: Heart failure with preserved ejection fraction. Does not seem to be on exace rbation on this admission. 11/07/2017 2D echo with left ventricular ejection fraction preserved. Left ventricular hypertrophy. Continue amiodarone, metoprolol, atorvastatin, (5) ESRD (end stage renal disease) on dialysis Is this a current diagnosis for this admission?: Yes Plan: Currently on hemodialysis Friday. Status post hemodialysis 06/24/2018 and 06/26/2018. Monitor volume status and electrolytes. BMP tomorrow. (6) Hypertension Is this a current diagnosis for this admission?: No Plan: Normotensive euvolemic. Continue current medication adjust meds as needed. (7) Hypokalemia Is this a current diagnosis for this admission?: Yes Plan: Replaced. BMP tomorrow (8) Hypothyroidism Qualifiers: Hypothyroidism type: unspecified Qualified Code(s): E03.9 - Hypothyroidism, unspecified Is this a current diagnosis for this admission?: No Plan: Restart home meds. (9) Paroxysmal atrial fibrillation Is this a current diagnosis for this admission?: No Plan: Rate controlled, continue amiodarone and metoprolol. Patient currently not anticoagulated. Patient does have a history of thrombocytopenia.
[2018-06-27] MEDS ORDERED: CALCIUM CARBONATE 500 MG TABLET PO SCH (18:00)
[2018-06-27] MEDS: ATORVASTATIN CALCIUM 40 MG TABLET PO SCH (23:01)
[2018-06-28] MEDS: HEPARIN SOD (PORCINE) 5,000 UNIT/ML 1 ML SYRINGE SUBCUT SCH ×3 (05:03→21:12)
[2018-06-28] MEDS: LEVOTHYROXINE SODIUM 0.1 MG TABLET PO SCH (05:03)
[2018-06-28] MEDS: LEVOTHYROXINE SODIUM 0.075 MG TABLET PO SCH (05:03)
[2018-06-28 07:10] LABS: ALANINE AMINOTRANSFERASE 33 U/L (9-52); ALBUMIN 2.3 g/dL (3.5-5.0); ALKALINE PHOSPHATASE 152 U/L (38-126); ANION GAP 6 (5-19); ASPARTATE AMINO TRANSFERASE 25 U/L (14-36); BILIRUBIN,DIRECT 0.3 mg/dL (0.0-0.4); BILIRUBIN,TOTAL 0.5 mg/dL (0.2-1.3); BLOOD UREA NITROGEN 25 mg/dL (7-20); CALCIUM 7.4 mg/dL (8.4-10.2); CARBON DIOXIDE 27 mmol/L (22-30); CHLORIDE 106 mmol/L (98-107); GLUCOSE 97 mg/dL (75-110); POTASSIUM 3.3 mmol/L (3.6-5.0); SODIUM 138.6 mmol/L (137-145); TOTAL PROTEIN 4.5 g/dL (6.3-8.2)
[2018-06-28] MEDS: HYDROCORTISONE 10 MG TABLET PO SCH ×2 (07:42→21:18)
[2018-06-28] MEDS: CALCIUM CARBONATE 500 MG TABLET PO SCH ×2 (09:23→17:04)
[2018-06-28] MEDS: ISOSORBIDE MONONITRATE 30 MG TAB.ER.24H PO SCH (09:23)
[2018-06-28] MEDS: IRON POLYSACCHARIDES COMPLEX 150 MG CAPSULE PO SCH (09:23)
[2018-06-28] MEDS: MAGNESIUM OXIDE 400 MG TABLET PO SCH ×2 (09:23→17:04)
[2018-06-28] MEDS: SODIUM BICARBONATE 650 MG TABLET PO SCH ×2 (09:23→17:04)
[2018-06-28] MEDS: FAMOTIDINE 20 MG TABLET PO SCH ×2 (09:23→21:19)
[2018-06-28] MEDS: DIPHENOXYLATE HCL/ATROP SULF 2.5-0.025 MG TABLET PO SCH ×4 (09:24→21:19)
[2018-06-28] MEDS: AMIODARONE HCL 200 MG TABLET PO SCH (09:24)
[2018-06-28] MEDS: METOPROLOL TARTRATE 25 MG TABLET PO SCH ×2 (09:24→21:19)
[2018-06-28] MEDS: CYANOCOBALAMIN (VITAMIN B-12) 1,000 MCG TABLET PO SCH (09:24)
[2018-06-28] MEDS ORDERED: POTASSIUM CHLORIDE 20 MEQ/15 ML UDCUP PO SCH ×2 (10:00)
--- NOTE | 2018-06-28 13:55 | PDOC PROGRESS REPORT ---
Subjective Progress Note for:: 06/28/18 Subjective:: 06/25/2018. 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 Much improved mental status after hemodialysis. Her encephalopathy is may have been due to combined uremic encephalopathy and UTI. On my encounter patient was comfortably sitting in bed alert and oriented x3. P.o. tolerant. Patient denying any fever, chills, nausea, vomiting, diarrhea, or urinary symptoms. 06/26/2018. No acute events overnight. Patient was taken to get another dialysis today however as per the nurses report patient was confused during dialysis. Upon my encounter post hemodialysis patient was comfortably resting in her bed in no apparent distress alert and oriented x3. When she was reminded of her confusion during dialysis she stated that she does not recall. She denies any fever, chills, nausea, vomiting, constipation. She is p.o. tolerant. Still having chronic diarrhea due to gastric bypass in the s which could explain her persistent electrolyte abnormalities. C. difficile toxin negative. 06/27/2018. No acute events overnight. Patient still been confused on and off overnight. On my encounter patient thinks she is at the [facility], however she is alert and oriented x2. She does not seem to be in any apparent distress she is very pleasant and cooperative with physical examination. She denies having any fever, chills, nausea, vomiting, constipation or any urinary symptoms. She is p.o. tolerant Still having chronic diarrhea due to gastric bypass in the which could explain her persistent electrolyte abnormalities. C. difficile toxin negative. 06/28/2018. No acute events overnight. On my encounter patient is alert and oriented x3. Does not seem to be in any acute distress. She denies any fever, chills, nausea, vomiting, constipation or any urinary symptoms. Still having chronic diarrhea due to gastric bypass in the which could explain her persistent electrolyte abnormalities. C. difficile toxin negative. Reason For Visit: ACUTE METABOLIC ENCEPHALOPATHY,UTI,ADRENAL Physical Exam Vital Signs: Temp Pulse Resp BP Pulse Ox 98.3 F 91 18 131/53 H 97 06/28/18 10:38 06/28/18 10:38 06/28/18 10:38 06/28/18 10:38 06/28/18 10:38 Intake & Output 06/27/18 06/28/18 06/29/18 06:59 06:59 06:59 Intake Total 6598 625 Output Total 30 50 Balance 2071 575 Weight 58.5 kg 62.6 kg Results Laboratory Results: 06/27/18 07:32 06/28/18 06:10 06/27/18 06/28/18 13:21 06:10 Sodium 141.4 138.6 Potassium 3.5 L 3.3 L Chloride 106 106 Carbon Dioxide 28 27 Anion Gap 7 6 BUN 18 25 H Creatinine 2.84 H 3.69 H Est GFR ( Amer) 19 L 14 L Est GFR (Non-Af Amer) 16 L 12 L Glucose 129 H 97 Calcium 7.8 L 7.4 L Magnesium 2.0 Total Bilirubin 0.5 AST 25 ALT 33 Alkaline Phosphatase 152 H Total Protein 4.5 L Albumin 2.3 L 06/24/18 14:20 Blood Blood Culture - Final Staphylococcus Capitis 06/24/18 12:19 Troponin I 0.025 Impressions: Chest X-Ray 06/24/18 11:28 IMPRESSION: NO ACUTE RADIOGRAPHIC FINDING IN THE CHEST. Head CT 06/24/18 11:28 IMPRESSION: No acute intracranial pathology. Small vessel white matter disease. EVIDENCE OF ACUTE STROKE: NO. Assessment & Plan - Diagnosis (1) Acute metabolic encephalopathy Is this a current diagnosis for this admission?: Yes Plan: Resolved. Likely uremic encephalopathy versus UTI. Received 4 days of IV antibiotics for UTI. Electrolytes replaced daily (2) UTI (urinary tract infection) Is this a current diagnosis for this admission?: Yes Plan: Likely due to E. coli. UA positive for leukocyte esterase. Blood culture from 06/24/2018 is +2/2 staph capitis. Likely contamination. Urine culture from 06/24/2018 negative. Completed 4 days of IV ceftriaxone. (3) Adrenal insufficiency Is this a current diagnosis for this admission?: No Plan: Start on a stress dose IV steroids. Will switch back to home meds once patient is back to baseline. Monitor vitals and electrolytes. (4) CHF (congestive heart failure) Qualifiers: Heart failure type: diastolic Heart failure chronicity: acute on chronic Qualified Code(s): I50.33 - Acute on chronic diastolic (congestive) heart failure Is this a current diagnosis for this admission?: No Plan: Heart failure with preserved ejection fraction. Does not seem to be on exacerbation on this admission. 11/07/2017 2D echo with left ventricular ejection fraction preserved. Left ventricular hypertrophy. Continue amiodarone, metoprolol, atorvastatin, (5) ESRD (end stage renal disease) on dialysis Is this a current diagnosis for this admission?: Yes Plan: Currently on hemodialysis Friday. Status post hemodialysis today. Nephrology on board. Monitor volume status and electrolytes. BMP tomorrow. (6) Hypertension Is this a current diagnosis for this admission?: No Plan: Normotensive euvolemic. Continue current medication adjust meds as needed. (7) Hypokalemia Is this a current diagnosis for this admission?: Yes Plan: Persistent hypokalemia and hypomagnesemia likely due to GI losses. Patient had a gastric bypass in the and suffering from chronic persistent diarrhea. We will replace today and start on low-dose daily potassium and magnesium replacement. (8) Hypothyroidism Qualifiers: Hypothyroidism type: unspecified Qualified Code(s): E03.9 - Hypothyroidism, unspecified Is this a current diagnosis for this admission?: No Plan: Restart home meds. (9) Paroxysmal atrial fibrillation Is this a current diagnosis for this admission?: No Plan: Rate controlled, continue amiodarone and metoprolol. Patient currently not anticoagulated. Patient does have a history of thrombocytopenia.
[2018-06-28] MEDS: ATORVASTATIN CALCIUM 40 MG TABLET PO SCH (21:19)
[2018-06-29] MEDS: HEPARIN SOD (PORCINE) 5,000 UNIT/ML 1 ML SYRINGE SUBCUT SCH ×2 (05:09→14:43)
[2018-06-29] MEDS: LEVOTHYROXINE SODIUM 0.1 MG TABLET PO SCH (06:29)
[2018-06-29] MEDS: LEVOTHYROXINE SODIUM 0.075 MG TABLET PO SCH (06:29)
[2018-06-29 07:08] LABS: ALANINE AMINOTRANSFERASE 25 U/L (9-52); ALBUMIN 2.3 g/dL (3.5-5.0); ALKALINE PHOSPHATASE 137 U/L (38-126); ANION GAP 8 (5-19); ASPARTATE AMINO TRANSFERASE 22 U/L (14-36); BILIRUBIN,DIRECT 0.4 mg/dL (0.0-0.4); BILIRUBIN,TOTAL 0.6 mg/dL (0.2-1.3); BLOOD UREA NITROGEN 32 mg/dL (7-20); CALCIUM 7.5 mg/dL (8.4-10.2); CARBON DIOXIDE 25 mmol/L (22-30); CHLORIDE 107 mmol/L (98-107); GLUCOSE 80 mg/dL (75-110); POTASSIUM 3.5 mmol/L (3.6-5.0); SODIUM 140.3 mmol/L (137-145); TOTAL PROTEIN 4.5 g/dL (6.3-8.2)
[2018-06-29 09:06] LABS: ABSOLUTE BASOPHILS # (AUTO) 0.1 10^3/uL (0.0-0.2); ABSOLUTE EOSINOPHILS # (AUTO) 0.5 10^3/uL (0.0-0.6); ABSOLUTE LYMPHOCYTES (AUTO) 1.5 10^3/uL (0.5-4.7); ABSOLUTE MONOCYTES (AUTO) 0.4 10^3/uL (0.1-1.4); ABSOLUTE NEUT (AUTO) 4.3 10^3/uL (1.7-8.2); EOSINOPHILS % (AUTO) 6.7 % (0-6); HEMATOCRIT 33.4 % (36.0-47.0); HEMOGLOBIN 10.8 g/dL (12.0-15.5); LYMPHOCYTES % (AUTO) 22.5 % (13-45); MEAN CORPUSCULAR HEMOGLOBIN 27.7 pg (27.0-33.4); MEAN CORPUSCULAR HGB CONC 32.2 g/dL (32.0-36.0); MEAN CORPUSCULAR VOLUME 86 fl (80-97); MONOCYTES % (AUTO) 5.2 % (3-13); RED BLOOD COUNT 3.89 10^6/uL (3.72-5.28); SEGMENTED NEUTROPHILS % (AUTO) 64.6 % (42-78); TOTAL CELLS COUNTED % (AUTO) 100 %; WHITE BLOOD COUNT 6.7 10^3/uL (4.0-10.5)
[2018-06-29 09:38] LABS: PLATELET COUNT 99 10^3/uL (150-450)
[2018-06-29] MEDS ORDERED: POTASSIUM CHLORIDE 20 MEQ/15 ML UDCUP PO SCH (10:00)
[2018-06-29] MEDS ORDERED: NORMAL SALINE 1000 ML 1,000 ML IV PRN (10:32)
--- NOTE | 2018-06-29 10:47 | PDOC PROGRESS REPORT ---
Subjective Progress Note for:: 06/29/18 Subjective:: I am seeing the patient during dialysis this morning. Her mental status seems to be within her baseline. She is communicative. She just complains of some dry cough and she continues to have some diarrhea. So far she is tolerating dialysis this morning without any problems or issues. I was told to the patient will be sent back to custodial after dialysis today. Reason For Visit: ACUTE METABOLIC ENCEPHALOPATHY,UTI,ADRENAL Physical Exam Vital Signs: Temp Pulse Resp BP Pulse Ox 98.1 F 72 18 153/55 H 100 06/29/18 07:27 06/29/18 07:27 06/29/18 07:27 06/29/18 07:27 06/29/18 07:27 Intake & Output 06/28/18 06/29/18 06/30/18 06:59 06:59 06:59 Intake Total 625 1137 Output Total 50 3 Balance 575 1134 Weight 62.6 kg 60.6 kg Vitals during dialysis: Blood pressure 138/62, heart rate of 77, blood flow rate of 300 mL/min, dialysate flow rate of 800 mL/min. Exam: General appearance: PRESENT: no acute distress, cooperative, well-developed, well-nourished Head exam: PRESENT: atraumatic, normocephalic Eye exam: PRESENT: conjunctiva pink, PERRLA. ABSENT: scleral icterus Neck exam: ABSENT: JVD Respiratory exam: PRESENT: Normal breath sounds. ABSENT: crackles, rales, rhonchi, unlabored, wheezes Cardiovascular exam: PRESENT: Regular rate rhythm -+S1, +S2. ABSENT: diastolic murmur, systolic murmur GI/Abdominal exam: PRESENT: normal bowel sounds, soft. ABSENT: guarding, mass, tenderness Extremities exam: ABSENT: No edema Neurological exam: PRESENT: alert, awake, oriented to person, place and time. Skin exam: PRESENT: dry, warm, Results Laboratory Results: 06/29/18 08:52 06/29/18 06:19 06/29/18 06/29/18 06/29/18 06:06 06:19 08:52 WBC Cancelled 6.7 RBC Cancelled 3.89 Hgb Cancelled 10.8 L Hct Cancelled 33.4 L MCV Cancelled 86 MCH Cancelled 27.7 MCHC Cancelled 32.2 RDW Cancelled 16.0 H Plt Count Cancelled 99 L Seg Neutrophils % Cancelled 64.6 Lymphocytes % Cancelled 22.5 Monocytes % Cancelled 5.2 Eosinophils % Cancelled 6.7 H Basophils % Cancelled 1.0 Absolute Neutrophils Cancelled 4.3 Absolute Lymphocytes Cancelled 1.5 Absolute Monocytes Cancelled 0.4 Absolute Eosinophils Cancelled 0.5 Absolute Basophils Cancelled 0.1 Sodium 140.3 Potassium 3.5 L Chloride 107 Carbon Dioxide 25 Anion Gap 8 BUN 32 H Creatinine 5.02 H Est GFR ( Amer) 10 L Est GFR (Non-Af Amer) 8 L Glucose 80 Calcium 7.5 L Magnesium 2.0 Total Bilirubin 0.6 AST 22 ALT 25 Alkaline Phosphatase 137 H Total Protein 4.5 L Albumin 2.3 L 06/24/18 14:20 Blood Blood Culture - Final Staphylococcus Capitis 06/24/18 12:19 Troponin I 0.025 Impressions: Chest X-Ray 06/24/18 11:28 IMPRESSION: NO ACUTE RADIOGRAPHIC FINDING IN THE CHEST. Head CT 06/24/18 11:28 IMPRESSION: No acute intracranial pathology. Small vessel white matter disease. EVIDENCE OF ACUTE STROKE: NO. Assessment & Plan - Diagnosis (1) ESRD (end stage renal disease) on dialysis Is this a current diagnosis for this admission?: Yes Plan: We will do dialysis today for 3 hours, using the patient's left upper arm AV fistula, with 3 potassium bath, blood flow rate of 300 mL per minute, dialysate flow rate of 800 mL per minute, ultrafiltration none, no heparin and no Procrit. Patient will be monitored during dialysis treatment. (2) UTI (urinary tract infection) Is this a current diagnosis for this admission?: Yes (3) Anemia in chronic kidney disease (CKD) Is this a current diagnosis for this admission?: Yes (4) Hypokalemia Is this a current diagnosis for this admission?: Yes Plan: He will use 2 potassium bath during dialysis. Continue oral potassium supplements. I also discontinued sodium bicarbonate as she does not really need it and that could lower down potassium as well. (5) Adrenal insufficiency Is this a current diagnosis for this admission?: No Plan: On stress steroids. (6) Diarrhea Is this a current diagnosis for this admission?: Yes Plan: Chronic. (7) Acute metabolic encephalopathy Is this a current diagnosis for this admission?: Yes Plan: Resolved. (8) Hypertension Is this a current diagnosis for this admission?: Yes Plan: Controlled. - Notes Notes: From nephrology standpoint, patient can be discharged after dialysis today. - Time Time with patient: 15-25 minutes
[2018-06-29 14:02] LABS: CALCIUM 7.9 mg/dL (8.4-10.2); GLUCOSE 83 mg/dL (75-110); POTASSIUM 3.4 mmol/L (3.6-5.0)
[2018-06-29 14:08] LABS: CARBON DIOXIDE 34 mmol/L (22-30); CHLORIDE 102 mmol/L (98-107); SODIUM 137.8 mmol/L (137-145)
[2018-06-29 14:15] LABS: ANION GAP 2 (5-19); BLOOD UREA NITROGEN 6 mg/dL (7-20)
[2018-06-29] MEDS: CALCIUM CARBONATE 500 MG TABLET PO SCH ×2 (14:40→17:13)
[2018-06-29] MEDS: FAMOTIDINE 20 MG TABLET PO SCH (14:40)
[2018-06-29] MEDS: CYANOCOBALAMIN (VITAMIN B-12) 1,000 MCG TABLET PO SCH (14:40)
[2018-06-29] MEDS: MAGNESIUM OXIDE 400 MG TABLET PO SCH ×2 (14:42→17:13)
[2018-06-29] MEDS: IRON POLYSACCHARIDES COMPLEX 150 MG CAPSULE PO SCH (14:42)
[2018-06-29] MEDS: DIPHENOXYLATE HCL/ATROP SULF 2.5-0.025 MG TABLET PO SCH ×3 (14:42→17:13)
[2018-06-29] MEDS: METOPROLOL TARTRATE 25 MG TABLET PO SCH (14:42)
[2018-06-29] MEDS: AMIODARONE HCL 200 MG TABLET PO SCH (14:43)
[2018-06-29] MEDS: HYDROCORTISONE 10 MG TABLET PO SCH (14:43)
[2018-06-29] MEDS: ISOSORBIDE MONONITRATE 30 MG TAB.ER.24H PO SCH (14:43)
[2018-06-29] MEDS ORDERED: POTASSIUM CHLORIDE 20 MEQ/15 ML UDCUP PO ONE (16:00)
--- NOTE | 2018-06-29 17:07 | PDOC DISCHARGE SUMMARY ---
General - Admit/Disc Date/PCP Admission Date/Primary Care Provider: 06/24/18 14:50 EDSON GARCIA MD Discharge Date: 06/29/18 - Discharge Diagnosis (1) Acute metabolic encephalopathy Is this a current diagnosis for this admission?: Yes (2) UTI (urinary tract infection) Is this a current diagnosis for this admission?: Yes (3) Adrenal insufficiency Is this a current diagnosis for this admission?: No (4) CHF (congestive heart failure) Is this a current diagnosis for this admission?: No (5) ESRD (end stage renal disease) on dialysis Is this a current diagnosis for this admission?: Yes (6) Hypertension Is this a current diagnosis for this admission?: Yes (7) Hypokalemia Is this a current diagnosis for this admission?: Yes (8) Hypothyroidism Is this a current diagnosis for this admission?: No (9) Paroxysmal atrial fibrillation Is this a current diagnosis for this admission?: No - Additional Information Resuscitation Status: Full Code Prescriptions: Calcium Carbonate [Os-Osman 500 mg Tablet (Oyster-Shell)] 500 mg PO BID 30 Days #60 tablet Cyanocobalamin (Vitamin B-12) [Vitamin B-12 1000 mcg Tablet] 500 mcg PO DAILY 30 Days #30 tablet Magnesium Oxide [Mag-Ox 400 mg Tablet] 400 mg PO BID 30 Days #60 tablet Potassium Chloride [Kaon-Cl 20 Meq/15 ml Udcup] 40 meq PO DAILY 30 Days #30 udc Home Medications: Amiodarone HCl [Cordarone 200 mg Tablet] 200 mg PO DAILY 03/31/18 Atorvastatin Calcium [Lipitor 40 mg Tablet] 40 mg PO QHS 03/31/18 Diphenoxylate HCl/Atrop Sulf [Lomotil 2.5 mg Tablet] 5 mg PO QID 03/31/18 Famotidine [Pepcid 20 mg Tablet] 20 mg PO BID 03/31/18 Fluticasone Propionate [Flonase Nasal Klemme 50 Mcg/Klemme 16 gm] 2 sprays NASL Q12 03/31/18 Hydrocortisone [Cortef] 5 mg PO QPM 03/31/18 Iron Polysaccharide Complex [Ferrex 150] 150 mg PO DAILY 03/31/18 Isosorbide Mononitrate [Imdur 30 mg Tablet.er] 30 mg PO DAILY 03/31/18 Levothyroxine Sodium [Synthroid] 175 mcg PO Q6AM 03/31/18 Loratadine [Claritin] 10 mg PO DAILY 03/31/18 Magnesium Oxide [Mag-Ox 400 mg Tablet] 400 mg PO BID 03/31/18 Metoprolol Tartrate [Lopressor 25 mg Tablet] 12.5 mg PO Q12 03/31/18 Nitroglycerin [Nitrostat] 0.3 mg SL Q5MP PRN 03/31/18 Olopatadine HCl [Pataday] 1 drop OU DAILY 03/31/18 Paroxetine HCl [Paxil] 10 mg PO DAILY 03/31/18 Polyvinyl Alcohol [Liquitears] 1 drop OU QID 03/31/18 Sodium Bicarbonate [Sodium Bicarbonate 650 mg Tablet] 650 mg PO BID 03/31/18 Hydrocortisone [Cortef 10 mg Tablet] 10 mg PO QAM #30 tablet 04/02/18 Cholestyramine (with Sugar) [Cholestyramine Packet] 4 gm PO DAILY 06/24/18 Cyanocobalamin (Vitamin B-12) [Vitamin B-12 500 mcg Tablet] 500 mcg PO DAILY 06/24/18 Folic Acid/Vit B Complex and C [Folbee Plus Tablet] 5 mg PO DAILY 06/24/18 L. Acidophilus/Strept/LA P-Toney [Risaquad Capsules] 1 each PO DAILY 06/24/18 Neomycin/Bacitracin/Polymyxinb [Triple Antibiotic Ointment] 1 applic TOP QHS 06/24/18 Oxycodone HCl [Oxy-Ir 5 mg Tablet] 5 mg PO Q6HP PRN 06/24/18 Calcium Carbonate [Os-Osman 500 mg Tablet (Oyster-Shell)] 500 mg PO BID 30 Days #60 tablet 06/29/18 Cyanocobalamin (Vitamin B-12) [Vitamin B-12 1000 mcg Tablet] 500 mcg PO DAILY 30 Days #30 tablet 06/29/18 Hydrocortisone [Cortef 10 mg Tablet] 10 mg PO QAM tablet 06/29/18 Magnesium Oxide [Mag-Ox 400 mg Tablet] 400 mg PO BID 30 Days #60 tablet 06/29/18 Potassium Chloride [Kaon-Cl 20 Meq/15 ml Udcup] 40 meq PO DAILY 30 Days #30 udc 06/29/18 History of Present Illness History of Present Illness: VARINDER TORRES is a 78 year old female past medical history of CHF, COPD, dyslipidemia, A. fib on chronic anticoagulation, Metcalfe's disease, hypothyroidism, depression, end-stage renal disease on hemodialysis Friday followed by Dr. Behzad Coleman. [facility] a [facility] who was transferred to ED yesterday for altered mental status patient was sent back to ED and her altered mental status was worsening brought back to ED today. Source of history is a daughter who is at the bedside. As per daughter patient she was called to [facility] that her mother's mental status was worsening. As per patient daughter patient seems confused "babbling"nonsensical words. As per daughter patient is normally alert and oriented and is living in nursing only due to her end-stage renal disease. Prior to this episode patient was complaining of weight loss low appetite and also she had a right leg fracture last year for which she was hospitalized here at [facility]. Workup in ED showed normal CBC, blood gas within normal limits, CMP normal except for potassium of 3.4, BUN 33, creatinine 6.37, troponin 0 0.025, B12 more than 2000, folic acid more than 20, TSH 11.3, free T3 2.55, random cortisol 6.70. Urinalysis showed large leukocyte esterase. His end-stage renal disease on dialysis however she still makes some urine. CT head was negative for any stroke. On my examination patient is easily arousable, however very inattentive, cannot concentrate and only oriented to person. 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 Behzad Coleman was called for possible hemodialysis today and plan is for patient to receive hemodialysis possibly tomorrow. 06/25/2018. Status post hemodialysis by refinery operator helper cracking unit. Much improved mental status after hemodialysis. Her encephalopathy is may have been due to combined uremic encephalopathy and UTI. On my encounter patient was comfortably sitting in bed alert and oriented x3. P.o. tolerant. Patient denying any fever, chills, nausea, vomiting, diarrhea, or urinary symptoms. 06/26/2018. No acute events overnight. Patient was taken to get another dialysis today however as per the nurses report patient was confused during dialysis. Upon my encounter post hemodialysis patient was comfortably resting in her bed in no apparent distress alert and oriented x3. When she was reminded of her confusion during dialysis she stated that she does not recall. She denies any fever, chills, nausea, vomiting, constipation. She is p.o. tolerant. Still having chronic diarrhea due to gastric bypass in the which could explain her persistent electrolyte abnormalities. C. difficile toxin negative. 06/27/2018. No acute events overnight. Patient still been confused on and off overnight. On my encounter patient thinks she is at the [facility], however she is alert and oriented x2. She does not seem to be in any apparent distress she is very pleasant and cooperative with physical examination. She denies having any fever, chills, nausea, vomiting, constipation or any urinary symptoms. She is p.o. tolerant Still having chronic diarrhea due to gastric bypass in the which could explain her persistent electrolyte abnormalities. C. difficile toxin negative. 06/28/2018. No acute events overnight. On my encounter patient is alert and oriented x3. Does not seem to be in any acute distress. She denies any fever, chills, nausea, vomiting, constipation or any urinary symptoms. Still having chronic diarrhea due to gastric bypass in the which could explain her persistent electrolyte abnormalities. C. difficile toxin negative. Hospital Course Hospital Course: (1) Acute metabolic encephalopathy Resolved. Likely uremic encephalopathy versus UTI. Received 4 days of IV antibiotics for UTI. Electrolytes replaced daily (2) UTI (urinary tract infection) Likely due to E. coli. UA positive for leukocyte esterase. Blood culture from 06/24/2018 is +2/2 staph capitis. Likely contamination. Urine culture from 06/24/2018 negative. Completed 4 days of IV ceftriaxone. (3) Adrenal insufficiency Initially start on a stress dose IV steroids. Switch back to home dose of hydrocortisone. Cortef 10 mg every morning, 5 mg nightly. Electrolytes within normal limits. (4) CHF (congestive heart failure) Heart failure with preserved ejection fraction. Does not seem to be on exacerbation on this admission. 11/07/2017 2D echo with left ventricular ejection fraction preserved. Left ventricular hypertrophy. Continue amiodarone, metoprolol, atorvastatin, (5) ESRD (end stage renal disease) on dialysis Received dialysis during hospitalization. Volume status and electrolytes m onitored. BMP daily. Outpatient nephrology follow-up. (6) Hypertension Normotensive euvolemic. Restarted on home meds. (7) Hypokalemia Persistent hypokalemia and hypomagnesemia likely due to GI losses. Patient had a gastric bypass in the and suffering from chronic persistent diarrhea. Replace daily electrolytes. Placed on daily p.o. potassium, magnesium, calcium and multivitamins. (8) Hypothyroidism Restarted home meds. (9) Paroxysmal atrial fibrillation Rate controlled, continue amiodarone and metoprolol. Patient currently not anticoagulated. Patient does have a history of thrombocytopenia. Physical Exam Vital Signs: Temp Pulse Resp BP Pulse Ox 98.2 F 85 16 128/55 H 96 06/29/18 14:40 06/29/18 14:40 06/29/18 14:40 06/29/18 14:40 06/29/18 14:40 Intake & Output 06/28/18 06/29/18 06/30/18 06:59 06:59 06:59 Intake Total 625 1137 375 Output Total 50 3 2 Balance 575 1134 373 Weight 62.6 kg 60.6 kg General appearance: PRESENT: no acute distress, well-developed, well-nourished Eye exam: ABSENT: scleral icterus Mouth exam: PRESENT: moist, tongue midline Teeth exam: PRESENT: dental caries, dental tenderness, edentulous, poor dentation, other Throat exam: PRESENT: post pharyngeal erythema, tonsillar erythema, tonsillar exudate, tonsillogmegaly, other Neck exam: ABSENT: carotid bruit, JVD, lymphadenopathy, thyromegaly Respiratory exam: PRESENT: clear to auscultation kannan. ABSENT: rales, rhonchi, wheezes Cardiovascular exam: PRESENT: RRR. ABSENT: diastolic murmur, rubs, systolic murmur Pulses: PRESENT: normal dorsalis pedis pul Vascular exam: PRESENT: normal capillary refill GI/Abdominal exam: PRESENT: normal bowel sounds, soft. ABSENT: distended, guarding, mass, organolmegaly, rebound, tenderness Gentrourinary exam: PRESENT: ecchymosis, erythema, lacerations, lesions, scrotal swelling, testicular tenderness, urethral discharge, indwelling catheter, other Extremities exam: PRESENT: full ROM. ABSENT: calf tenderness, clubbing, pedal edema Neurological exam: PRESENT: alert, awake, oriented to person, oriented to place, oriented to time, oriented to situation, CN II-XII grossly intact. ABSENT: motor sensory deficit Psychiatric exam: PRESENT: appropriate affect, normal mood. ABSENT: homicidal ideation, suicidal ideation Skin exam: PRESENT: dry, intact, warm. ABSENT: cyanosis, rash Results Laboratory Results: 06/29/18 08:52 06/29/18 13:27 06/29/18 06/29/18 06/29/18 06:06 06:19 08:52 WBC Cancelled 6.7 RBC Cancelled 3.89 Hgb Cancelled 10.8 L Hct Cancelled 33.4 L MCV Cancelled 86 MCH Cancelled 27.7 MCHC Cancelled 32.2 RDW Cancelled 16.0 H Plt Count Cancelled 99 L Seg Neutrophils % Cancelled 64.6 Lymphocytes % Cancelled 22.5 Monocytes % Cancelled 5.2 Eosinophils % Cancelled 6.7 H Basophils % Cancelled 1.0 Absolute Neutrophils Cancelled 4.3 Absolute Lymphocytes Cancelled 1.5 Absolute Monocytes Cancelled 0.4 Absolute Eosinophils Cancelled 0.5 Absolute Basophils Cancelled 0.1 Sodium 140.3 Potassium 3.5 L Chloride 107 Carbon Dioxide 25 Anion Gap 8 BUN 32 H Creatinine 5.02 H Est GFR ( Amer) 10 L Est GFR (Non-Af Amer) 8 L Glucose 80 Calcium 7.5 L Magnesium 2.0 Total Bilirubin 0.6 AST 22 ALT 25 Alkaline Phosphatase 137 H Total Protein 4.5 L Albumin 2.3 L 06/29/18 13:27 WBC RBC Hgb Hct MCV MCH MCHC RDW Plt Count Seg Neutrophils % Lymphocytes % Monocytes % Eosinophils % Basophils % Absolute Neutrophils Absolute Lymphocytes Absolute Monocytes Absolute Eosinophils Absolute Basophils Sodium 137.8 Potassium 3.4 L Chloride 102 Carbon Dioxide 34 H Anion Gap 2 L BUN 6 L D Creatinine 1.33 H Est GFR ( Amer) 47 L Est GFR (Non-Af Amer) 39 L Glucose 83 Calcium 7.9 L Magnesium Total Bilirubin AST ALT Alkaline Phosphatase Total Protein Albumin 06/24/18 12:19 Blood Blood Culture - Final NO GROWTH IN 5 DAYS 06/24/18 12:19 Troponin I 0.025 Impressions: Chest X-Ray 06/24/18 11:28 IMPRESSION: NO ACUTE RADIOGRAPHIC FINDING IN THE CHEST. Head CT 06/24/18 11:28 IMPRESSION: No acute intracranial pathology. Small vessel white matter disease. EVIDENCE OF ACUTE STROKE: NO. Qualifiers - * PATIENT BEING DISCHARGED WITH ANY OF THE FOLLOWING DIAGNOSIS: No
[2018-06-29 18:37] LABS: ANION GAP 7 (5-19); BLOOD UREA NITROGEN 12 mg/dL (7-20); CALCIUM 7.7 mg/dL (8.4-10.2); CARBON DIOXIDE 32 mmol/L (22-30); CHLORIDE 100 mmol/L (98-107); GLUCOSE 87 mg/dL (75-110); POTASSIUM 3.6 mmol/L (3.6-5.0); SODIUM 138.9 mmol/L (137-145)
[2018-06-29 20:31] VITALS: BP 132/56
== END 2018-06-29 20:38 | DRG 70 ==
LOC: ER 11:18 → EH 14:50 → OBSVTOIN 14:50 → 3S 21:30
PROVIDERS: ADMIT Internal Medicine; ATTEND Internal Medicine
PROC: 5A1D70Z Performance of Urinary Filtration, Intermittent, Less than 6 Hours Per Day (ICD-10-PCS; principal; 2018-06-25)
PROC: 5A1D70Z Performance of Urinary Filtration, Intermittent, Less than 6 Hours Per Day (ICD-10-PCS; 2018-06-26)
PROC: 5A1D70Z Performance of Urinary Filtration, Intermittent, Less than 6 Hours Per Day (ICD-10-PCS; 2018-06-29)
DX: G93.41 Metabolic encephalopathy (principal); N18.6 End stage renal disease; I50.33 Acute on chronic diastolic (congestive) heart failure; N39.0 Urinary tract infection, site not specified; E27.40 Unspecified adrenocortical insufficiency; E27.1 Primary adrenocortical insufficiency; I13.2 Hypertensive heart and chronic kidney disease with heart failure and with stage 5 chronic kidney disease, or end stage renal disease; E87.6 Hypokalemia; D63.1 Anemia in chronic kidney disease; E03.9 Hypothyroidism, unspecified; I48.0 Paroxysmal atrial fibrillation; F32.9 Major depressive disorder, single episode, unspecified; I25.10 Atherosclerotic heart disease of native coronary artery without angina pectoris; J44.9 Chronic obstructive pulmonary disease, unspecified; K21.9 Gastro-esophageal reflux disease without esophagitis; M19.90 Unspecified osteoarthritis, unspecified site; Z78.1 Physical restraint status; R19.7 Diarrhea, unspecified; E78.5 Hyperlipidemia, unspecified; Z79.01 Long term (current) use of anticoagulants; Z79.899 Other long term (current) drug therapy; Z99.2 Dependence on renal dialysis; Z86.718 Personal history of other venous thrombosis and embolism; I25.2 Old myocardial infarction; Z90.49 Acquired absence of other specified parts of digestive tract; Z98.84 Bariatric surgery status; Z88.2 Allergy status to sulfonamides; Z88.8 Allergy status to other drugs, medicaments and biological substances
CPT/HCPCS: 36415; 51702; 70450; 71045; 80048; 80053; 80307; 81001; 82140; 82533; 82607; 82746; 82803; 82962; 83605; 83735; 84100; 84443; 84481; 84484; 85025; 85610; 85730; 87040; 87045; 87077; 87086; 87186; 87205; 87493; 93005; 93010; 96374; 96375; 99285; G0378; J0696; J1644; J2060; J2310; J2920; J2930; J3480; J3490

== ENCOUNTER 2018-08-15 03:06 | Emergency (ER) | payer MEDICARE ==
--- NOTE | 2018-08-15 03:25 | ER Document Report ---
ED General - General Stated Complaint: AMS Time Seen by Provider: 08/15/18 03:14 Primary Care Provider: EDSON GARCIA MD [Primary Care Provider] - Follow up as needed Notes: Patient is a 78-year-old female sent in from [facility] due to episode of altered mental status. Patient currently is awake alert and says that she is unsure why she is here. She says she feels fine. She had dialysis on Friday and said it went normal. She says she otherwise feels well. She denies any fevers. She does still make some urine. She denies any pain. No chest pain. No abdominal pain. No headache. No other complaints at this time. TRAVEL OUTSIDE OF THE [place] IN LAST 30 DAYS: No COUNTRY TRAVELED TO/FROM: [facility] - Related Data Allergies/Adverse Reactions: iodine Allergy (Severe, Verified 03/18/18 10:33) itching, facial swelling, difficulty breathing doxycycline [Doxycycline] Allergy (Verified 03/18/18 10:33) dizzy Iodinated Contrast- Oral and IV Dye [IV Dye, Iodine Containing] Allergy (Verified 03/18/18 10:33) Sulfa (Sulfonamide Antibiotics) Allergy (Verified 03/18/18 10:33) dizzy amlodipine besylate [From Norvasc] Adverse Reaction (Unknown, Verified 03/18/18 10:33) anxious, jittery feeling Past Medical History - Social History Smoking Status: Unknown if Ever Smoked Frequency of alcohol use: None Drug Abuse: None Family History: CAD, Hypertension - Past Medical History Cardiac Medical History: Reports: Hx Congestive Heart Failure, Hx Coronary [place] Disease, Hx DVT, Hx Heart Attack, Hx Hypercholesterolemia, Hx Hypertension, Hx Pulmonary Embolism, Hx Heart Murmur Pulmonary Medical History: Reports: Hx COPD, Hx Pneumonia Denies: Hx Asthma, Hx Bronchitis, Hx Tuberculosis Neurological Medical History: Reports: Hx Cerebrovascular Accident. Denies: Hx Seizures Renal/ Medical History: Reports: Hx End Stage Renal Disease - On dialysis, Hx Hemodialysis, Hx Kidney Stones. Denies: Hx Peritoneal Dialysis GI Medical History: Reports: Hx Gastroesophageal Reflux Disease, Hx Ulcer Musculoskeletal Medical History: Reports Hx Arthritis Psychiatric Medical History: Reports: Hx Depression Past Surgical History: Reports: Hx Abdominal Surgery - gastric bypass, Hx Cardiac Surgery - Pacer, bypass, Hx Cholecystectomy, Hx Gastric Bypass Surgery, Hx Orthopedic Surgery, Hx Tonsillectomy, Hx Tubal Ligation. Denies: Hx Hysterectomy - Immunizations Hx Diphtheria, Pertussis, Tetanus Vaccination: Yes Hx Pneumococcal Vaccination: 01/31/14 Review of Systems - Review of Systems Notes: My Normal Review Basic REVIEW OF SYSTEMS: CONSTITUTIONAL : Denies fever, chills, or sweats. Denies recent illness. EENT: Denies eye, ear, throat, or mouth pain or symptoms. Denies nasal or sinus congestion. CARDIOVASCULAR: Denies chest pain. RESPIRATORY: Denies cough, cold, or chest congestion. Denies shortness of breath, difficulty breathing, or wheezing. GASTROINTESTINAL: Denies abdominal pain. Denies nausea, vomiting, or diarrhea. Denies constipation. Last BM: GENITOURINARY: No dysuria MUSCULOSKELETAL: Denies neck or back pain or joint pain or swelling. SKIN: Denies rash or skin lesions. NEUROLOGICAL: Had reported episode of altered mental status. Patient herself says she feels fine. No focal weakness or numbness. ALL OTHER SYSTEMS REVIEWED AND NEGATIVE. Physical Exam - Vital signs Vitals: Resp Pulse Ox 18 97 08/15/18 03:18 08/15/18 03:18 - Notes Notes: General Appearance: Well nourished, alert, cooperative, no acute distress, no obvious discomfort. Well-appearing. Vitals: reviewed, See vital signs table. Head: no swelling or tenderness to the head Eyes: PERRL, EOMI, Conjuctiva clear Mouth: Slight decreased moisture in the mouth. Lungs: No wheezing, No rales, No rhonci, No accessory muscle use, good air exchange bilaterally. Heart: Normal rate, Regular rythm, No murmur, no rub Abdomen: Normal BS, soft, No rigidity, No abdominal tenderness, No guarding, no rebound, no abdominal masses, no organomegaly Extremities: strength 5/5 in all extremities, good pulses in all extremities, no swelling or tenderness in the extremities, no edema. Skin: warm, dry, appropriate color, no rash Neuro: speech clear, oriented x 3, normal affect, responds appropriately to questions. Cranial nerves II through XII are intact. Distal sensation intact. Patient moves all extremities without difficulty. Course - Re-evaluation Re-evalutation: 08/15/18 05:24 Patient does have urinary tract infection which is likely what is causing some intermittent altered mental status. We will give a dose of Rocephin. Problem I am facing is that the patient does have a potassium of 6.6 and she is not due for dialysis for another 2 days. I feel that she will need dialysis before Friday. I did review her previous potassiums and they are usually around 3.5. I put in a call to [facility]. I am waiting to hear back for potential transfer. Our facility does not do dialysis on the weekends and therefore I cannot keep her here. 08/15/18 05:[address] Corrigan [facility]. They do not have any immediate bed availability but they will put her on the list. I will also contact [facility] to see if they have any bed availability. 08/15/18 05:[address] Cornelius Hernandez at [facility]. He also agrees to accept the patient. They placed patient on a waiting list as well. I will treat the patient with insulin glucose in the meantime to help manage her hyperkalemia. 08/15/18 05:56 Informed patient of her elevated potassium and the need for dialysis this weekend. I informed her that she will have to be transferred to have this performed. Patient is agreeable with this. - Vital Signs Vital signs: Temp Pulse Resp BP Pulse Ox 28 H 122/57 L 95 08/15/18 04:01 08/15/18 04:01 08/15/18 04:01 - Laboratory Result Diagrams: 08/15/18 03:15 08/15/18 04:27 Laboratory results interpreted by me: 08/15/18 08/15/18 08/15/18 03:15 03:15 04:15 WBC 12.1 H RDW 19.0 H Plt Count 121 L Absolute Monocytes 1.5 H Sodium 136.4 L Potassium 6.6 H* Creatinine 3.78 H Est GFR ( Amer) 14 L Est GFR (Non-Af Amer) 12 L Urine Protein 30 H Urine Glucose (UA) 50 H Urine Blood SMALL H Ur Leukocyte Esterase LARGE H 08/15/18 04:27 WBC RDW Plt Count Absolute Monocytes Sodium Potassium 6.6 H* Creatinine Est GFR ( Amer) Est GFR (Non-Af Amer) Urine Protein Urine Glucose (UA) Urine Blood Ur Leukocyte Esterase Discharge - Discharge Clinical Impression: Hyperkalemia UTI (urinary tract infection) Qualifiers: Urinary tract infection type: site unspecified Hematuria presence: without hematuria Qualified Code(s): N39.0 - Urinary tract infection, site not specified Condition: Stable Referrals: EDSON GARCIA MD [Primary Care Provider] - Follow up as needed
[2018-08-15 03:32] LABS: ABSOLUTE BASOPHILS # (AUTO) 0.1 10^3/uL (0.0-0.2); ABSOLUTE EOSINOPHILS # (AUTO) 0.3 10^3/uL (0.0-0.6); ABSOLUTE LYMPHOCYTES (AUTO) 2.7 10^3/uL (0.5-4.7); ABSOLUTE MONOCYTES (AUTO) 1.5 10^3/uL (0.1-1.4); ABSOLUTE NEUT (AUTO) 7.5 10^3/uL (1.7-8.2); BASOPHILS % (AUTO) 0.5 % (0-2); EOSINOPHILS % (AUTO) 2.8 % (0-6); HEMATOCRIT 37.2 % (36.0-47.0); LYMPHOCYTES % (AUTO) 22.2 % (13-45); MEAN CORPUSCULAR HEMOGLOBIN 28.9 pg (27.0-33.4); MEAN CORPUSCULAR HGB CONC 32.3 g/dL (32.0-36.0); MEAN CORPUSCULAR VOLUME 90 fl (80-97); MONOCYTES % (AUTO) 12.1 % (3-13); PLATELET COUNT 121 10^3/uL (150-450); RED BLOOD COUNT 4.16 10^6/uL (3.72-5.28); SEGMENTED NEUTROPHILS % (AUTO) 62.4 % (42-78); TOTAL CELLS COUNTED % (AUTO) 100 %; WHITE BLOOD COUNT 12.1 10^3/uL (4.0-10.5)
[2018-08-15 03:49] LABS: ANION GAP 8 (5-19); BLOOD UREA NITROGEN 13 mg/dL (7-20); CALCIUM 8.8 mg/dL (8.4-10.2); CARBON DIOXIDE 30 mmol/L (22-30); CHLORIDE 98 mmol/L (98-107); GLUCOSE 79 mg/dL (75-110); SODIUM 136.4 mmol/L (137-145)
[2018-08-15 03:53] LABS: POTASSIUM 6.6 mmol/L (3.6-5.0)
[2018-08-15 04:35] LABS: APPEARANCE,URINE SLIGHTLY-CLOUDY; BILIRUBIN,URINE NEGATIVE (NEGATIVE); COLOR,URINE STRAW; GLUCOSE, URINE 50 mg/dL (NEGATIVE); KETONES,URINE NEGATIVE (NEGATIVE); LEUKOCYTE ESTERASE,URINE LARGE (NEGATIVE); NITRITE,URINE NEGATIVE (NEGATIVE); PROTEIN,URINE 30 mg/dL (NEGATIVE); URINE SPECIFIC GRAVITY 1.005; UROBILINOGEN,URINE NEGATIVE mg/dL (<2.0)
[2018-08-15] MEDS ORDERED: CEFTRIAXONE 1 GM/D5W RTU 1 GM/50 ML RTUPB IV ONE (05:22)
[2018-08-15] MEDS ORDERED: INSULIN REG, HUMAN 100 UNIT/ML 3 ML VIAL (PYX) IV ONE (05:53)
[2018-08-15] MEDS ORDERED: DEXTROSE 50%-WATER 25 GM/50 ML DISP.SYRIN IV ONE ×2 (05:53→10:06)
--- NOTE | 2018-08-15 05:56 | RADIOLOGY REPORT (SQ) ---
EXAM DESCRIPTION: XR CHEST 1 VIEW COMPLETED DATE/TME: 08/15/2018 03:22 CLINICAL HISTORY: 78 years, Female, brief altered mental status Comparison: June 24, 2018 FINDINGS: The right hemidiaphragm remains elevated. No focal pulmonary opacities. No pleural abnormalities. Cardiac silhouette is stable in size. There is a pacemaker from a right subclavian. IMPRESSION: No acute cardiopulmonary disease.
--- NOTE | 2018-08-15 05:58 | RADIOLOGY REPORT (SQ) ---
EXAM DESCRIPTION: CT HEAD WITHOUT IV CONTRAST COMPLETED DATE/TME: 08/15/2018 03:25 CLINICAL HISTORY: 78 years, Female, episode of altered mental status COMPARISON: None Available. Technique: Contiguous axial images of the brain were obtained without the administration of intravenous contrast. Coronal and sagittal reformats obtained and reviewed. This exam was performed according to our departmental dose-optimization program which includes use of Automated Exposure Control, adjustment of the mA and/or kV according to patient size and/or use of iterative reconstruction technique. Findings: Brain: Periventricular and deep white matter hypodensities, most commonly due to nonspecific white matter chronic microvascular ischemia.No hemorrhage. No territorial infarct. No mass effect. No herniation. Ventricles: Within normal limits for patient's age. Bones: No acute osseous abnormality. Paranasal sinuses: Unremarkable. Mastoid air cells: Unremarkable. Soft tissues: No acute abnormality. IMPRESSION: No acute intracranial abnormalities.
--- NOTE | 2018-08-15 07:41 | EKG REPORT ---
SEVERITY:- ABNORMAL ECG - ATRIAL-SENSED VENTRICULAR-PACED RHYTHM : Confirmed by: Isaac Contreras MD 15-Aug-2018 07:40:20
[2018-08-15 09:46] LABS: ANION GAP 8 (5-19); BLOOD UREA NITROGEN 14 mg/dL (7-20); CALCIUM 8.9 mg/dL (8.4-10.2); CARBON DIOXIDE 29 mmol/L (22-30); CHLORIDE 100 mmol/L (98-107); SODIUM 136.8 mmol/L (137-145)
[2018-08-15 09:59] LABS: POTASSIUM 5.6 mmol/L (3.6-5.0)
[2018-08-15 10:00] LABS: GLUCOSE 49 mg/dL (75-110)
[2018-08-15] MEDS ORDERED: CYANOCOBALAMIN (VITAMIN B-12) 1,000 MCG TABLET PO SCH (10:00)
[2018-08-15] MEDS ORDERED: HYDROCORTISONE 10 MG TABLET PO SCH (10:00)
[2018-08-15] MEDS ORDERED: LEVOTHYROXINE SODIUM 0.1 MG TABLET PO SCH (10:00)
[2018-08-15] MEDS ORDERED: OLOPATADINE HCL 0.1% OPH SOLN 5 ML OU SCH (10:00)
[2018-08-15] MEDS ORDERED: PAROXETINE HCL 20 MG TABLET PO SCH (10:00)
[2018-08-15] MEDS ORDERED: METOPROLOL TARTRATE 25 MG TABLET PO SCH (10:00)
[2018-08-15] MEDS ORDERED: SODIUM BICARBONATE 650 MG TABLET PO SCH (10:00)
[2018-08-15] MEDS ORDERED: ISOSORBIDE MONONITRATE 60 MG TAB.ER.24H PO SCH (10:00)
[2018-08-15] MEDS ORDERED: AMIODARONE HCL 200 MG TABLET PO SCH (10:00)
[2018-08-15 10:36] VITALS: BP 127/53
[2018-08-15] MEDS ORDERED: ATORVASTATIN CALCIUM 40 MG TABLET PO SCH (18:00)
== END 2018-08-15 10:48 | disposition short-term general hospital (02) ==
LOC: ER 03:06
DX: N39.0 Urinary tract infection, site not specified (principal); I12.0 Hypertensive chronic kidney disease with stage 5 chronic kidney disease or end stage renal disease; N18.6 End stage renal disease; Z99.2 Dependence on renal dialysis; E87.5 Hyperkalemia; R41.82 Altered mental status, unspecified; I25.10 Atherosclerotic heart disease of native coronary artery without angina pectoris; J44.9 Chronic obstructive pulmonary disease, unspecified; Z86.73 Personal history of transient ischemic attack (TIA), and cerebral infarction without residual deficits; Z98.84 Bariatric surgery status; Z88.1 Allergy status to other antibiotic agents; Z91.041 Radiographic dye allergy status; Z88.2 Allergy status to sulfonamides
CPT/HCPCS: 93005; 99285; 51701; 96375; 96365; 96366; 36415; 82962; 84132; 85025; 80048; 81001; 71045; 70450; 93010; A9270 ×6; J3490; J0696; J1815

== ENCOUNTER → 2018-09-03 | Outpatient (CLI) | payer MEDICARE, MEDICAID ==
--- NOTE | 2018-09-03 15:01 | RADIOLOGY REPORT (SQ) ---
EXAM DESCRIPTION: CT RT LOWER EXTREMITY WITHOUT COMPLETED DATE/TIME: 09/03/2018 2:21 pm REASON FOR STUDY: M97.11XD PERIPROSTH FRACTURE AROUND INTERNAL PROSTH R KNEE JT, SUBS M97.11XD MIGUEL A PROSTH FRACTURE AROUND INTERNAL PROSTH R KNEE J COMPARISON: None. TECHNIQUE: Axial imaging performed through the right knee with reformatted coronal and sagittal imag ing windowed for bone and soft tissues. Images saved to PACS. 3D IMAGING: Were 3D images as MIP, SSD, or volume rendering performed at the work station? Yes. All CT scanners at this facility use dose modulation, iterative reconstruction, and/or weight based d osing when appropriate to reduce radiation dose to as low as reasonably achievable (ALARA). [facility]: Dose Right [facility]: CareDose [facility]: Dose Right [facility]: Teradose 4D [facility]: Second & Fourth LIMITATIONS: Metal artifact RADIATION DOSE: mGy. FINDINGS: SOFT TISSUES: No obvious swelling or foreign body. BONES: Total knee arthroplasty. Comminuted fracture of the distal femur status post plate and screw fixation from a lateral approach. MINERALIZATION: Osteopenia. OTHER: No other significant finding. IMPRESSION: Comminuted distal femur fracture adjacent to knee prosthesis status post plate and screw fixation. TECHNICAL DOCUMENTATION: JOB ID: [id number] Quality ID # [id number]: Final reports with documentation of one or more dose reduction techniques (e.g., Au tomated exposure control, adjustment of the mA and/or kV according to patient size, use of iterative reconstruction technique) 2010 [employer]- All Rights Reserved Reading location - IP/workstation name: [email or web address]
== END ==
LOC: RAD 14:42
PROVIDERS: ATTEND Physician Assistant
DX: M97.11XD Periprosthetic fracture around internal prosthetic right knee joint, subsequent encounter (principal)

== ENCOUNTER 2018-09-24 09:18 | Day surgery (SDC) | payer MEDICARE, MEDICAID ==
[2018-09-24] MEDS ORDERED: OXYCODONE-ACETAMINOPHEN 5-325 MG TABLET ONE (09:32)
[2018-09-24] MEDS ORDERED: DIAZEPAM 5 MG TABLET ONE (09:32)
[2018-09-24] MEDS ORDERED: FAMOTIDINE 20 MG TABLET ONE (09:32)
[2018-09-24] MEDS ORDERED: DIPHENHYDRAMINE HCL 25 MG CAPSULE ONE (09:32)
[2018-09-24 11:10] LABS: HEMATOCRIT 36.3 % (36.0-47.0); MEAN CORPUSCULAR HEMOGLOBIN 29.8 pg (27.0-33.4); MEAN CORPUSCULAR HGB CONC 33.1 g/dL (32.0-36.0); MEAN CORPUSCULAR VOLUME 90 fl (80-97); RED BLOOD COUNT 4.02 10^6/uL (3.72-5.28); RED CELL DISTRIBUTION WIDTH 18.7 % (11.5-14.0); WHITE BLOOD COUNT 9.1 10^3/uL (4.0-10.5)
[2018-09-24] MEDS ORDERED: HEPARIN SODIUM,PORCINE/NS/PF 0 UNIT/0 ML RTUINJ IV ONE (11:34)
[2018-09-24] MEDS ORDERED: LIDOCAINE 0.5% INJ-PF (5 MG/ML) 50 ML SDV ONE ×2 (11:34→11:48)
[2018-09-24] MEDS ORDERED: MIDAZOLAM 2 MG/2 ML INJ ONE (11:36)
[2018-09-24] MEDS ORDERED: HEPARIN SOD (PORCINE) 5,000 UNIT/ML 1 ML SYRINGE ONE (11:37)
[2018-09-24] MEDS ORDERED: FENTANYL CITRATE INJ/PF 100 MCG/2 ML AMPUL ONE (11:37)
[2018-09-24 11:43] LABS: ANION GAP 10 (5-19); BLOOD UREA NITROGEN 22 mg/dL (7-20); CALCIUM 8.9 mg/dL (8.4-10.2); CARBON DIOXIDE 23 mmol/L (22-30); CHLORIDE 105 mmol/L (98-107); GLUCOSE 124 mg/dL (75-110); POTASSIUM 4.6 mmol/L (3.6-5.0); SODIUM 137.9 mmol/L (137-145)
[2018-09-24 11:56] LABS: PLATELET COUNT 99 10^3/uL (150-450)
--- NOTE | 2018-09-24 12:49 | PDOC H&P ---
General Chief Complaint: The patient was referred in for evaluation and management of left arm AV fistula, malfunctioning. - Diagnosis (1) Dialysis AV fistula malfunction Is this a Current Diagnosis?: Yes (2) Hypertensive CKD, ESRD on dialysis Is this a Current Diagnosis?: Yes (3) Coronary atherosclerosis Is this a Current Diagnosis?: Yes - Current Medications/Allergies Home Medications: Amiodarone HCl [Cordarone 200 mg Tablet] 200 mg PO DAILY 03/31/18 Atorvastatin Calcium [Lipitor 40 mg Tablet] 40 mg PO QHS 03/31/18 Famotidine [Pepcid 20 mg Tablet] 20 mg PO BID 03/31/18 Fluticasone Propionate [Flonase Nasal [place] 50 Mcg/[place] 16 gm] 2 sprays NASL Q12 03/31/18 Hydrocortisone [Cortef] 5 mg PO QPM 03/31/18 Iron Polysaccharide Complex [Ferrex 150] 150 mg PO DAILY 03/31/18 Isosorbide Mononitrate [Imdur 30 mg Tablet.er] 30 mg PO DAILY 03/31/18 Levothyroxine Sodium [Synthroid] 175 mcg PO Q6AM 03/31/18 Loratadine [Claritin] 10 mg PO DAILY 03/31/18 Magnesium Oxide [Mag-Ox 400 mg Tablet] 400 mg PO BID 03/31/18 Metoprolol Tartrate [Lopressor 25 mg Tablet] 12.5 mg PO Q12 03/31/18 Nitroglycerin [Nitrostat] 0.3 mg SL Q5MP PRN 03/31/18 Olopatadine HCl [Pataday] 1 drop OU DAILY 03/31/18 Paroxetine HCl [Paxil] 10 mg PO DAILY 03/31/18 Polyvinyl Alcohol [Liquitears] 1 drop OU QID 03/31/18 Sodium Bicarbonate [Sodium Bicarbonate 650 mg Tablet] 650 mg PO BID 03/31/18 Cholestyramine (with Sugar) [Cholestyramine Packet] 4 gm PO DAILY 06/24/18 Cyanocobalamin (Vitamin B-12) [Vitamin B-12 500 mcg Tablet] 500 mcg PO DAILY 06/24/18 Folic Acid/Vit B Complex and C [Folbee Plus Tablet] 5 mg PO DAILY 06/24/18 L. Acidophilus/Strept/LA P-Toney [Risaquad Capsules] 1 each PO DAILY 06/24/18 Neomycin/Bacitracin/Polymyxinb [Triple Antibiotic Ointment] 1 applic TOP QHS 06/24/18 Allergies/Adverse Reactions: iodine Allergy (Severe, Verified 03/18/18 10:33) itching, facial swelling, difficulty breathing doxycycline [Doxycycline] Allergy (Verified 03/18/18 10:33) dizzy Iodinated Contrast- Oral and IV Dye [IV Dye, Iodine Containing] Allergy (Verified 03/18/18 10:33) Sulfa (Sulfonamide Antibiotics) Allergy (Verified 03/18/18 10:33) dizzy amlodipine besylate [From Norvasc] Adverse Reaction (Unknown, Verified 03/18/18 10:33) anxious, jittery feeling Past Medical History Cardiac Medical History: Reports: Congestive Heart Failure, Coronary Artery Disease, DVT, Myocardial Infarction, Hyperlipidema, Hypertension, Pulmonary Embolism, Heart Murmur Pulmonary Medical History: Reports: Chronic Obstructive Pulmonary Disease (COPD), Pneumonia Denies: Asthma, Bronchitis, Tuberculosis Neurological Medical History: Denies: Seizures Renal/ Medical History: Reports: End Stage Renal Disease - On dialysis GI Medical History: Reports: Gastroesophageal Reflux Disease Musculoskeltal Medical History: Reports: Arthritis Psychiatric Medical History: Reports: Depression Hematology: Reports: Anemia - ACUTE POST HEMORRHAGIC ANEMIA Past Surgical History Past Surgical History: Reports: Cholecystectomy, Gastric Bypass Surgery, Orthopedic Surgery, Tonsillectomy, Tubal Ligation Denies: Hysterectomy Family History Family History: CAD, Hypertension Parental Family History Reviewed: No Children Family History Reviewed: No Sibling(s) Family History Reviewed.: No Social History Smoking Status: Unknown if Ever Smoked Frequency of Alcohol Use: None Hx Recreational Drug Use: No Drugs: None Hx Prescription Drug Abuse: No Physical Exam Vital Signs: Temp Pulse Resp BP Pulse Ox 98.3 F 77 16 156/89 H 97 09/24/18 10:05 09/24/18 10:05 09/24/18 10:05 09/24/18 10:05 09/24/18 10:05 Additional comments: Constitutional: Well-developed well-nourished lady. No apparent acute distress. Eyes: Mucous membranes pink and moist, pupils equal and reactive to light. Conjunctiva normal. Cornea normal. Wears spectacles ENT: Hearing grossly normal. External pinna normal to inspection. Teeth mostly intact. Tongue normal to inspection. Respiratory: Normal respiratory effort. Skin: Normal to inspection. No ulcers, normal turgor. Psychiatric: Judgment, memory, insight seem normal. Mood is pleasant and appropriate. Extremities: Upper extremities show normal range of movement. Pulses present noted to the radial arteries. Capillary refill normal. No cyanosis noted. No muscle wasting noted. Left arm negative fistula, brachiocephalic, firm, consistent with cephalad stenosis. Impression/Plan Plan: In this patient with a firm, bill fistula of the left arm, angiogram possible angioplasty as well indicated. The procedure, its risks, benefits, expected outcomes alternatives are familiar to the patient and she wished to proceed.
--- NOTE | 2018-09-24 12:51 | Discharge Summary ---
Discharge Summary (SDC) - Discharge Final Diagnosis: #1 malfunctioning AV fistula left brachiocephalic. 2. End-stage renal disease on hemodialysis. 3. 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 4. History of coronary artery disease. 5. Hypertension Date of Surgery: 09/24/18 Discharge Date: 09/24/18 Condition: Poor Treatment or Instructions: Discharge home [after recovery per ASU criteria]. Diet , [renal],as tolerated, when fully awake advance as tolerated. Activities within moderation encouraged. Follow up in my office by appointment in about [1 week]. Call for appointment. Leave wounds [covered], [keep clean and dry, until suture removal tomorrow]. Meds per med rec. May shower [in 48 hrs], [try to keep operated area as dry as possible]. Referrals: VANDANA MARQUES MD [Primary Care Provider] - Discharge Diet: Other (Comments) - Luis M. Respiratory Treatments at Home: Deep Breathing/Coughing Discharge Activity: Activity As Tolerated Report the Following to Your Physician Immediately: Shortness of Breath, Unusual Bleeding
--- NOTE | 2018-09-24 12:54 | Operative Report ---
Operative Report DATE OF SURGERY: 09/24/18 PREOPERATIVE DIAGNOSIS: #1 malfunctioning AV fistula left brachiocephalic. 2. End-stage renal disease on hemodialysis. 3. 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 4. History of coronary artery disease. 5. Hypertension POSTOPERATIVE DIAGNOSIS: #1 malfunctioning AV fistula left brachiocephalic. 2. End-stage renal disease on hemodialysis. 3. 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 4. History of coronary artery disease. 5. Hypertension OPERATION: 1. Needle entry into the fistula. 2. Central angioplasty of subclavian cephalic junction. Angioplasty with drug eluting balloon. 3. Angiogram and interpretation. SURGEON: DON HUNTER BUTTERMAKER HELPER: None. ANESTHESIA: Moderate Sedation TISSUE REMOVED OR ALTERED: Not applicable. COMPLICATIONS: None. ESTIMATED BLOOD LOSS: 5 mL. INTRAOPERATIVE FINDINGS: Of a firm left arm brachiocephalic fistula. Consistent with cephalad stenosis. Angiogram demonstrates tight stenosis, short length at the subclavian, cephalic junction. About 80% of the adjacent lumen. Resolved with a residual 5% stenosis. Appears not to be hemodynamically significant, the fistula is much softer and normal after angioplasty. PROCEDURE: PROCEDURE: After verifying the procedure and having obtained informed consent, the patient's left arm was prepared with Chlorhexidine and draped out with sterile linen. Local anesthesia infiltrated. Percutaneous access into the fistula ,[ antegrade], obtained about [6 cm] from the arteriovenous anastomosis using a micro puncture needle followed by micro puncture wire and then a micro puncture catheter. A 0.035 [place] wire was inserted, and over this, a 9 [place] short introducer was placed, this was followed by a [9 - mm] high-pressure angioplasty balloon . Angioplasty was Done carefully with a 9 mm angioplasty balloon inflated up to 10 amanda sustained for 2 minutes. Completion angiogram demonstrated mild residual stenosis. A drug-eluting balloon, 10 mm diameter with no inserted across the culprit area and inflated up to 10 amanda for 4 minutes. It was deflated and then angiogram demonstrated no residual stenosis. The 10 mm balloon was not inflated up to 10 amanda for an additional 36 seconds and deflated. Completion angiogram demonstrated [satisfactory result]. The instrumentation was now withdrawn over a short piece of catheter and a 5-0 Prolene suture. Dressings applied, procedure concluded. Exposure time: 0.2 minutes. Radiation: 15.37 Debora avila. Contrast: 25 minutes of Omnipaque 300, low osmolality. DICTATING PHYSICIAN: DON HELM M.D. cc: DON HELM M.D. ([id number]) >>
--- NOTE | 2018-09-24 13:29 | RADIOLOGY REPORT (SQ) ---
EXAM DESCRIPTION: FISTULAGRAM W/PLASTY COMPLETED DATE/TIME: 09/24/2018 12:46 pm REASON FOR STUDY: T82.858A T82.858A STENOSIS OF OTHER VASCULAR PROSTH DEV/GRFT, INIT COMPARISON: 05/14/2018 FLUOROSCOPY TIME: 0.2 minutes 22 series of digital radiographic imagessaved to PACS. TECHNIQUE: Intra-operative images acquired during surgical procedure to evaluate progress. NUMBER OF IMAGES: Cine fluoroscopic images. LIMITATIONS: None. FINDINGS: Intra procedural imaging and fluoro during evaluation and plasty of a left upper extremity dialysis access by Dr. Joya IMPRESSION: Intra procedural imaging and fluoro COMMENT: Quality ID [id number]: Final reports for procedures using fluoroscopy that document radiation exp osure indices, or exposure time and number of fluorographic images (if radiation exposure indices are not available) Please consult full operative report of the attending physician for description of the procedure. TECHNICAL DOCUMENTATION: JOB ID: [id number] [employer]- All Rights Reserved Reading location - IP/workstation name: [email or web address]
[2018-09-24 14:15] VITALS: BP 153/62
== END 2018-09-24 14:20 | disposition home or self-care (01) ==
LOC: CCL 09:18
PROVIDERS: ATTEND Surgery
DX: T82.858A Stenosis of other vascular prosthetic devices, implants and grafts, initial encounter (principal); Y83.2 Surgical operation with anastomosis, bypass or graft as the cause of abnormal reaction of the patient, or of later complication, without mention of misadventure at the time of the procedure; I13.2 Hypertensive heart and chronic kidney disease with heart failure and with stage 5 chronic kidney disease, or end stage renal disease; N18.6 End stage renal disease; I25.10 Atherosclerotic heart disease of native coronary artery without angina pectoris; I50.9 Heart failure, unspecified; Z99.2 Dependence on renal dialysis; E78.5 Hyperlipidemia, unspecified; J44.9 Chronic obstructive pulmonary disease, unspecified; R01.1 Cardiac murmur, unspecified; E03.9 Hypothyroidism, unspecified; I47.2 Ventricular tachycardia; I48.91 Unspecified atrial fibrillation; D50.9 Iron deficiency anemia, unspecified; I50.22 Chronic systolic (congestive) heart failure; K27.9 Peptic ulcer, site unspecified, unspecified as acute or chronic, without hemorrhage or perforation; E87.6 Hypokalemia; E83.51 Hypocalcemia; Z86.718 Personal history of other venous thrombosis and embolism; Z79.899 Other long term (current) drug therapy; Z95.810 Presence of automatic (implantable) cardiac defibrillator
CPT/HCPCS: 36415; 85027; 80048; 36907; 36902; C1894; Q9967; C1769; J2250; J1644 ×2; A9270 ×3; J3010; J3490

== ENCOUNTER 2018-10-28 07:58 | Emergency (ER) | payer MEDICARE, MEDICAID ==
[2018-10-28 08:30] LABS: ABSOLUTE BASOPHILS # (AUTO) 0.1 10^3/uL (0.0-0.2); ABSOLUTE EOSINOPHILS # (AUTO) 0.2 10^3/uL (0.0-0.6); ABSOLUTE LYMPHOCYTES (AUTO) 2.3 10^3/uL (0.5-4.7); ABSOLUTE MONOCYTES (AUTO) 1.2 10^3/uL (0.1-1.4); ABSOLUTE NEUT (AUTO) 6.8 10^3/uL (1.7-8.2); BASOPHILS % (AUTO) 0.8 % (0-2); EOSINOPHILS % (AUTO) 1.8 % (0-6); HEMATOCRIT 36.4 % (36.0-47.0); HEMOGLOBIN 11.6 g/dL (12.0-15.5); LYMPHOCYTES % (AUTO) 21.8 % (13-45); MEAN CORPUSCULAR HEMOGLOBIN 28.9 pg (27.0-33.4); MEAN CORPUSCULAR HGB CONC 31.7 g/dL (32.0-36.0); MEAN CORPUSCULAR VOLUME 91 fl (80-97); MONOCYTES % (AUTO) 11.3 % (3-13); RED CELL DISTRIBUTION WIDTH 16.5 % (11.5-14.0); SEGMENTED NEUTROPHILS % (AUTO) 64.3 % (42-78); TOTAL CELLS COUNTED % (AUTO) 100 %; WHITE BLOOD COUNT 10.5 10^3/uL (4.0-10.5)
[2018-10-28 08:39] LABS: VENOUS BLOOD BASE EXCESS 3.7 mmol/L; VENOUS BLOOD HCO3 31.9 mmol/L (20-32); VENOUS BLOOD PH 7.3 (7.30-7.42)
[2018-10-28 08:43] LABS: VENOUS BLOOD PCO2 66.6 mmHg (35-63)
[2018-10-28 08:49] LABS: ALANINE AMINOTRANSFERASE 27 U/L (9-52); ALKALINE PHOSPHATASE 132 U/L (38-126); ANION GAP 11 (5-19); ASPARTATE AMINO TRANSFERASE 35 U/L (14-36); BILIRUBIN,DIRECT 0.6 mg/dL (0.0-0.4); BILIRUBIN,TOTAL 0.8 mg/dL (0.2-1.3); BLOOD UREA NITROGEN 49 mg/dL (7-20); CALCIUM 8.6 mg/dL (8.4-10.2); CARBON DIOXIDE 28 mmol/L (22-30); CHLORIDE 97 mmol/L (98-107); CREATINE KINASE 36 U/L (30-135); GLUCOSE 81 mg/dL (75-110); POTASSIUM 5.8 mmol/L (3.6-5.0); SODIUM 136.1 mmol/L (137-145); TOTAL PROTEIN 5.6 g/dL (6.3-8.2)
[2018-10-28 08:50] LABS: PLATELET COUNT 97 10^3/uL (150-450)
--- NOTE | 2018-10-28 08:53 | RADIOLOGY REPORT (SQ) ---
EXAM DESCRIPTION: CHEST SINGLE VIEW COMPLETED DATE/TIME: 10/28/2018 8:29 am REASON FOR STUDY: bed 19 sepsis alert COMPARISON: 08/15/2018 EXAM PARAMETERS: NUMBER OF VIEWS: One view. TECHNIQUE: Single frontal radiographic view of the chest acquired. RADIATION DOSE: NA LIMITATIONS: None. FINDINGS: LUNGS AND PLEURA: Unchanged elevation of the right hemidiaphragm. MEDIASTINUM AND HILAR STRUCTURES: No masses. Contour normal. HEART AND VASCULAR STRUCTURES: Cardiomegaly with right chest multi lead pacer defibrillator. BONES: No acute findings. HARDWARE: None in the chest. OTHER: No other significant finding. IMPRESSION: Cardiomegaly without acute abnormality of the lungs. No focal airspace opacity. TECHNICAL DOCUMENTATION: JOB ID: [id number] [employer]- All Rights Reserved Reading location - IP/workstation name: [email or web address]
[2018-10-28 09:04] LABS: INTERNATIONAL RATION (INR) 1.38; PROTHROMBIN TIME 17.7 SEC (11.4-15.4)
[2018-10-28] MEDS ORDERED: HYDROMORPHONE HCL INJ/PF 2 MG/ML AMPULE IV ONE (09:07)
[2018-10-28] MEDS ORDERED: HYDROCORTISONE SOD SUCCINATE INJ/PF 250 MG/2 ML SDV IV ONE (09:08)
--- NOTE | 2018-10-28 09:42 | ER Document Report ---
Entered by CHRISTIANNE SUAREZ SCRIBE 10/28/18 0829 Acting as scribe for:RICO OCHOA MD ED General - General Chief Complaint: Altered Mental Status Stated Complaint: AMS Time Seen by Provider: 10/28/18 08:05 Primary Care Provider: VANDANA MARQUES MD [Primary Care Provider] - Follow up as needed Mode of Arrival: Ambulatory Information source: Patient Notes: Patient is a 78 year old female with HTN, CHF, COPD, HLD, ESRD (MWF dialysis) presents to the emergency department from [facility] due to AMS. EMS states the patient had a temperature of 101.7 around 0200 this morning and received an unknown amount of Tylenol. They state upon their arrival to the scene patient was AxO x1 with a blood sugar of 68. They state they proceeded to administer oral glucose and the patient became more alert and oriented upon arrival to the ED. Patient states she is unsure why she is here. She states she did not eat breakfast this morning or last night because she has not had an appetite. She also complains of bilateral hip and lower back pain secondary a fall yesterday. EMS states the patient received an x-ray of the right side yesterday due to her complaining of right sided pain. Patient states her low back pain is not much different from her chronic back pain. TRAVEL OUTSIDE OF THE [place] IN LAST 30 DAYS: No - Related Data Allergies/Adverse Reactions: iodine Allergy (Severe, Verified 03/18/18 10:33) itching, facial swelling, difficulty breathing doxycycline [Doxycycline] Allergy (Verified 03/18/18 10:33) dizzy Iodinated Contrast- Oral and IV Dye [IV Dye, Iodine Containing] Allergy (Verified 03/18/18 10:33) Sulfa (Sulfonamide Antibiotics) Allergy (Verified 03/18/18 10:33) dizzy amlodipine besylate [From Norvasc] Adverse Reaction (Unknown, Verified 03/18/18 10:33) anxious, jittery feeling Past Medical History - General Information source: Patient - Social History Smoking Status: Never Smoker Cigarette use (# per day): No Chew tobacco use (# tins/day): No Smoking Education Provided: No Frequency of alcohol use: None Family History: CAD, Hypertension - Past Medical History Cardiac Medical History: Reports: Hx Congestive Heart Failure, Hx Coronary Artery Disease, Hx DVT, Hx Heart Attack, Hx Hypercholesterolemia, Hx Hypertension, Hx Pulmonary Embolism, Hx Heart Murmur Pulmonary Medical History: Reports: Hx COPD, Hx Pneumonia Neurological Medical History: Reports: Hx Cerebrovascular Accident Renal/ Medical History: Reports: Hx End Stage Renal Disease - On dialysis, Hx Hemodialysis, Hx Kidney Stones GI Medical History: Reports: Hx Gastroesophageal Reflux Disease, Hx Ulcer Musculoskeletal Medical History: Reports Hx Arthritis Psychiatric Medical History: Reports: Hx Depression Past Surgical History: Reports: Hx Abdominal Surgery - gastric bypass, Hx Cardiac Surgery - Pacer, bypass, Hx Cholecystectomy, Hx Gastric Bypass Surgery, Hx Orthopedic Surgery, Hx Tonsillectomy, Hx Tubal Ligation - Immunizations Hx Diphtheria, Pertussis, Tetanus Vaccination: Yes Hx Pneumococcal Vaccination: 01/31/14 Review of Systems - Review of Systems Constitutional: See HPI, Fever EENT: No symptoms reported Cardiovascular: No symptoms reported Respiratory: No symptoms reported Gastrointestinal: No symptoms reported Genitourinary: No symptoms reported Female Genitourinary: No symptoms reported Musculoskeletal: No symptoms reported Skin: No symptoms reported Hematologic/Lymphatic: No symptoms reported Neurological/Psychological: See HPI -: Yes All other systems reviewed and negative Physical Exam - Vital signs Vitals: Temp 99.5 F 10/28/18 08:00 - Notes Notes: GENERAL: Alert, interacts well. No acute distress. HEAD: Normocephalic, atraumatic. EYES: Pupils equal, round, and reactive to light. Extraocular movements intact. ENT: Oral mucosa dry, tongue midline. NECK: Full range of motion. Supple. Trachea midline. LUNGS: Clear to auscultation bilaterally, no wheezes, rales, or rhonchi. No respiratory distress. HEART: 3/6 systolic murmur. ABDOMEN: Soft, non-tender. Non-distended. Bowel sounds present in all 4 quadrants. No guarding, rigidity, or rebound. EXTREMITIES: Moves all 4 extremities spontaneously. AV fistula in the LUE. RUE and BLE are dusky in appearance. Complains of hip pain with passive internal and external rotation of the BLE, L>R. No edema, radial and dorsalis pedis pulses 2/4 bilaterally. No cyanosis. NEUROLOGICAL: Alert and oriented x3. Normal speech. PSYCH: Normal affect, normal mood. SKIN: Warm, dry, normal turgor. Course - Vital Signs Vital signs: Temp Pulse Resp BP Pulse Ox 99.5 F 19 114/60 10/28/18 08:00 10/28/18 08:05 10/28/18 08:05 - Laboratory Result Diagrams: 10/28/18 08:10 10/28/18 08:10 Laboratory results interpreted by me: 10/28/18 10/28/18 10/28/18 08:10 08:10 08:10 Hgb 11.6 L MCHC 31.7 L RDW 16.5 H Plt Count 97 L PT 17.7 H VBG pCO2 Sodium 136.1 L Potassium 5.8 H Chloride 97 L BUN 49 H Creatinine 7.81 H Est GFR ( Amer) 6 L Est GFR (Non-Af Amer) 5 L Direct Bilirubin 0.6 H Alkaline Phosphatase 132 H Total Protein 5.6 L Albumin 3.0 L Urine Protein Urine Glucose (UA) Urine Blood Ur Leukocyte Esterase 10/28/18 10/28/18 08:10 10:43 Hgb MCHC RDW Plt Count PT VBG pCO2 66.6 H* Sodium Potassium Chloride BUN Creatinine Est GFR ( Amer) Est GFR (Non-Af Amer) Direct Bilirubin Alkaline Phosphatase Total Protein Albumin Urine Protein 30 H Urine Glucose (UA) 50 H Urine Blood SMALL H Ur Leukocyte Esterase LARGE H - Diagnostic Test Radiology reviewed: Image reviewed, Reports reviewed - Chest x-ray shows cardiomegaly without failure or infiltrate. Lumbar spine shows multilevel degenerative changes worse at L3-4, no acute findings. Left hip x-ray shows probable left pelvic ramus fractures. CT scan recommended. CT scan of the pelvis shows superior and inferior pubic rami fractures on the left, and a superior pubic ramus fracture on the right. - EKG Interpretation by Me EKG shows normal: Sinus rhythm, [place], Intervals, QRS Complexes, ST-T Waves Rate: Normal - 98 Rhythm: Other - Atrial sensed ventricular paced rhythm When compared to previous EKG there are: No significant change - Consults Dr. Petit Time consulted: 12:25 Consulted provider: other - Dr. Petit reports that there is limited dialysis available in the hospital and recommends the patient be treated as an outpatient for urinary tract infection, encouraged her to eat, and send her to dialysis t his afternoon. Discharge - Discharge Clinical Impression: Hypoglycemia, Hyperkalemia Bilateral pubic rami fractures Qualifiers: Encounter type: initial encounter Fracture type: closed Qualified Code(s): S32.591A - Other specified fracture of right pubis, initial encounter for closed fracture; S32.592A - Other specified fracture of left pubis, initial encounter for closed fracture Urinary tract infection Qualifiers: Urinary tract infection type: site unspecified Hematuria presence: without hematuria Qualified Code(s): N39.0 - Urinary tract infection, site not specified Altered mental status Qualifiers: Altered mental status type: transient alteration of awareness Qualified Code(s): R40.4 - Transient alteration of awareness Chronic renal failure Qualifiers: Chronic kidney disease stage: stage 5 Qualified Code(s): N18.5 - Chronic kidney disease, stage 5 Fever Qualifiers: Fever type: unspecified Qualified Code(s): R50.9 - Fever, unspecified Condition: Stable Disposition: DAVITA Additional Instructions: Urinary Tract Infection: Your evaluation indicates that you have a urinary tract infection. This is due to germs growing in the bladder. This is a common problem. This infection usually responds quickly to antibiotics. Your antibiotic should be taken exactly as prescribed. Drink plenty of fluids -- three to four quarts a day. Occasionally, a bladder anesthetic will be prescribed to help stop the feeling of urgency until the antibiotic has a chance to clear the infection. This may cause your urine to be dark orange. Certain urine infections require a culture. If the doctor obtained a culture, the results will be back in two days. You should call to see if a change in treatment is needed. A repeat urinalysis after you finish treatment is often recommended. The physician will let you know if further testing is required. Call the doctor if you develop fever, chills, flank pain, inability to urinate, or blood in the urine. Pelvic Fracture: You have a fracture of the pelvis. Some pelvic fractures are extremely serious, others are merely painful. Your physician has assessed the seriousness of your fracture by X-ray and physical exam, and has determined that your fracture can be treated outside the hospital. The usual treatment of a simple pelvic fracture is rest. You may need to stay in bed a few days. Once you can put weight on your feet, you can begin walking with crutches, a walker, or cane. Your activity should be restricted to a level of weight-bearing which does not cause any pain. As the fracture heals, you'll be able to resume light work. Heavy work or sports will have to wait for complete healing, which takes about four to six weeks. Call the doctor or go to the emergency room at once if you become faint or weak, if you develop any symptoms in the legs, or if you have problems with your bladder or bowels. Hypoglycemia: You have suffered an episode of hypoglycemia (low blood sugar). Typical symptoms of hypoglycemia are shaking, sweating, headache, and confusion. When severe, unconsciousness or seizure may occur. Hypoglycemia occurs when a person taking insulin or diabetes pills has a change in the amount of blood sugar available -- due to exercise, decreased food intake, or alcohol. Should you feel symptoms of hypoglycemia again, immediately take some form of sugar such as sweetened juice. As the reaction subsides, eat a complex carbohydrate such as bread. If possible, check your blood sugar using a chemical strip. If episodes are occurring without obvious explanation, contact your physician for further evaluation. Take the medication as prescribed for your urine infection. Be sure not to miss meals. Call your doctor today for medical management of your pelvic fractures. Go to dialysis now to get your treatment for today. RETURN TO THE EMERGENCY ROOM IF ANY NEW OR WORSENING SYMPTOMS. Prescriptions: Cephalexin Monohydrate [Keflex 500 mg Capsule] 500 mg PO TID #15 capsule Scribe Attestation: 10/28/18 11:07 I personally performed the services described in the documentation, reviewed and edited the documentation which was dictated to the scribe in my presence, and it accurately records my words and actions. I personally performed the services described in the documentation, reviewed and edited the documentation which was dictated to the scribe in my presence, and it accurately records my words and actions.
--- NOTE | 2018-10-28 10:17 | RADIOLOGY REPORT (SQ) ---
EXAM DESCRIPTION: HIP LEFT AP/LATERAL COMPLETED DATE/TIME: 10/28/2018 9:56 am REASON FOR STUDY: left hip pain COMPARISON: None. NUMBER OF VIEWS: Two views. TECHNIQUE: AP pelvis and additional frog-leg view of the left hip. LIMITATIONS: None. FINDINGS: MINERALIZATION: Osteopenia. LEFT HIP: No fracture or dislocation. No worrisome bone lesions. Mild degenerative changes. RIGHT HIP: No fracture or dislocation. No worrisome bone lesions. Mild degenerative changes. PUBIS AND ISCHIUM: Likely minimally displaced fracture of the superior left pubic ramus. Questionabl e inferior left pubic ramus fracture. SACRUM: Not well evaluated secondary to osteopenia and overlying bowel gas. LOWER LUMBAR SPINE: Spondylosis. SOFT TISSUES: Surgical chain christophe overlie right hemiabdomen. OTHER: Scattered vascular calcifications. IMPRESSION: Questionable left superior and inferior pubic rami fractures. Consider CT for confirmat ion. TECHNICAL DOCUMENTATION: JOB ID: [id number] [employer]- All Rights Reserved Reading location - IP/workstation name: [email or web address]
--- NOTE | 2018-10-28 10:19 | RADIOLOGY REPORT (SQ) ---
EXAM DESCRIPTION: L SPINE WHOLE COMPLETED DATE/TIME: 10/28/2018 9:56 am REASON FOR STUDY: LBP COMPARISON: None. NUMBER OF VIEWS: Five views including obliques. TECHNIQUE: AP, lateral, oblique, and sacral radiographic images acquired of the lumbar spine. LIMITATIONS: None. FINDINGS: MINERALIZATION: Osteopenia. SEGMENTATION: Normal. No transitional anatomy. ALIGNMENT: Mild levoconvex curvature of the thoracolumbar junction. VERTEBRAE: No definite compression fracture. DISCS: Multilevel degenerative disc disease with disc height loss throughout the lumbar spine, greate st at L3-4. There is associated endplate change with osteophytosis and subchondral sclerosis. POSTERIOR ELEMENTS: No definite pars defect. Multilevel facet arthropathy HARDWARE: IVC filter present. Surgical clips overlie right upper quadrant. Partially visualized pac er hardware. PARASPINAL SOFT TISSUES: Aortic and mesenteric calcifications. PELVIS: Intact as visualized. No fractures or worrisome bone lesions. SI joints intact. OTHER: No other significant finding. IMPRESSION: Multilevel degenerative changes greatest at L3-4 without definite acute bony abnormality . TECHNICAL DOCUMENTATION: JOB ID: [id number] [employer]- All Rights Reserved Reading location - IP/workstation name: [email or web address]
[2018-10-28 11:08] LABS: APPEARANCE,URINE CLEAR; BILIRUBIN,URINE NEGATIVE (NEGATIVE); COLOR,URINE STRAW; GLUCOSE, URINE 50 mg/dL (NEGATIVE); KETONES,URINE NEGATIVE (NEGATIVE); LEUKOCYTE ESTERASE,URINE LARGE (NEGATIVE); NITRITE,URINE NEGATIVE (NEGATIVE); PROTEIN,URINE 30 mg/dL (NEGATIVE); URINE SPECIFIC GRAVITY 1.006; UROBILINOGEN,URINE NEGATIVE mg/dL (<2.0)
--- NOTE | 2018-10-28 12:19 | RADIOLOGY REPORT (SQ) ---
EXAM DESCRIPTION: CT PELVIS WITHOUT COMPLETED DATE/TIME: 10/28/2018 11:52 am REASON FOR STUDY: Left pelvic rami fractures COMPARISON: Left hip radiographs 10/28/2018 TECHNIQUE: CT scan of the pelvis performed without intravenous or oral contrast. Images reviewed wi th soft tissue and bone windows. Reconstructed coronal and sagittal MPR images reviewed. All images stored on PACS. All CT scanners at this facility use dose modulation, iterative reconstruction, and/or weight based d osing when appropriate to reduce radiation dose to as low as reasonably achievable (ALARA). [facility]: Dose Right [facility]: CareDose [facility]: Dose Right [facility]: Teradose 4D [facility]: [employer] RADIATION DOSE: CT Rad equipment meets quality standard of care and radiation dose reduction techniq ues were employed. CTDIvol: 13.5 mGy. DLP: 399 mGy-cm. mGy. LIMITATIONS: None. FINDINGS: PELVIC BONES: There are fractures of the superior and inferior pubic rami on the left. Th ere is a fracture of the superior pubic ramus on the right. VISUALIZED SPINE: Anterolisthesis of L5 on S1. Bilateral pars defects at L5. Degenerative disc dise ase. HIP(S): No acute fracture or dislocation. No worrisome bone lesions. PELVIC SOFT TISSUES: No significant findings. EXTRAPELVIC SOFT TISSUES: No significant findings. OTHER: No other significant finding. IMPRESSION: Pubic ramus fractures as described. Anterolisthesis of L5 on S1 with bilateral pars def ects. Lumbar degenerative disc disease. TECHNICAL DOCUMENTATION: JOB ID: [id number] Quality ID # [id number]: Final reports with documentation of one or more dose reduction techniques (e.g., Au tomated exposure control, adjustment of the mA and/or kV according to patient size, use of iterative reconstruction technique) 2010 [employer]- All Rights Reserved Reading location - IP/workstation name: [email or web address]
[2018-10-28] MEDS ORDERED: CEFTRIAXONE 1 GM/D5W RTU 1 GM/50 ML RTUPB IV ONE (12:22)
[2018-10-28 13:43] VITALS: BP 132/92
--- NOTE | 2018-10-28 22:16 | EKG REPORT ---
SEVERITY:- ABNORMAL ECG - ATRIAL-SENSED VENTRICULAR-PACED RHYTHM : Confirmed by: Jaida Gonzáles MD 28-Oct-2018 22:15:50
== END 2018-10-28 13:43 | disposition home health service (06) ==
LOC: ER 07:58
DX: R41.82 Altered mental status, unspecified (principal); I13.2 Hypertensive heart and chronic kidney disease with heart failure and with stage 5 chronic kidney disease, or end stage renal disease; N18.6 End stage renal disease; I50.9 Heart failure, unspecified; Z99.2 Dependence on renal dialysis; M54.5 Low back pain; M25.552 Pain in left hip; M25.551 Pain in right hip; R50.9 Fever, unspecified; W19.XXXA Unspecified fall, initial encounter; Y92.129 Unspecified place in nursing home as the place of occurrence of the external cause; J44.9 Chronic obstructive pulmonary disease, unspecified; Z88.2 Allergy status to sulfonamides; Z86.718 Personal history of other venous thrombosis and embolism; Z98.84 Bariatric surgery status; Z98.51 Tubal ligation status; Z90.49 Acquired absence of other specified parts of digestive tract
CPT/HCPCS: 93005; 99285; 51701; 96375; 96365; 36415; 87040; 87086; 82962; 82550; 85025; 85610; 87088; 80053; 81001; 84484; 87186; 82803; 83605; 71045; 73502; 72110; 72192; 93010; J1720; J1170; J0696

== ENCOUNTER 2018-10-28 16:38 | Emergency (ER) | payer MEDICARE, MEDICAID ==
[2018-10-28 18:31] LABS: ABSOLUTE LYMPHOCYTES (AUTO) 0.6 10^3/uL (0.5-4.7); ABSOLUTE MONOCYTES (AUTO) 0.4 10^3/uL (0.1-1.4); ABSOLUTE NEUT (AUTO) 7.8 10^3/uL (1.7-8.2); BASOPHILS % (AUTO) 0.4 % (0-2); HEMOGLOBIN 11.7 g/dL (12.0-15.5); LYMPHOCYTES % (AUTO) 7.2 % (13-45); MEAN CORPUSCULAR HEMOGLOBIN 29.3 pg (27.0-33.4); MEAN CORPUSCULAR HGB CONC 32.5 g/dL (32.0-36.0); MEAN CORPUSCULAR VOLUME 90 fl (80-97); MONOCYTES % (AUTO) 4.7 % (3-13); RED CELL DISTRIBUTION WIDTH 16.4 % (11.5-14.0); SEGMENTED NEUTROPHILS % (AUTO) 87.7 % (42-78); TOTAL CELLS COUNTED % (AUTO) 100 %; WHITE BLOOD COUNT 8.9 10^3/uL (4.0-10.5)
[2018-10-28 18:49] LABS: PLATELET COUNT 95 10^3/uL (150-450)
[2018-10-28] MEDS ORDERED: HYDROCODONE/ACETAMINOPHEN 5-325 MG TABLET PO ONE (19:17)
--- NOTE | 2018-10-28 19:24 | ER Document Report ---
ED General - General Chief Complaint: Hip Pain Stated Complaint: HIP PAIN Time Seen by Provider: 10/28/18 16:56 Primary Care Provider: VANDANA MARQUES MD [Primary Care Provider] - Follow up as needed Mode of Arrival: Stretcher Information source: Relative, [facility] Records Cannot obtain history due to: Altered mental status Notes: Patient is a 70-year-old female who was previously seen morning around 8 AM. She was sent originally from [facility] for altered mental status and for hip pain. It was reported by EMS in the morning notes that when they got there she was altered by being hypoglycemic was given glutaste and her altered mental status brought her to awake alert and oriented x4. She was also found to have a urinary tract infection and she has rami fractures of superior and inferior on the left and superior on the right. Patient was also due to get dialysis today and Dr. Lerner had talked to Dr. Petit the sailing master and it was decided by Dr. Petit that we were short on dialysis beds here in the [facility] that she could be dialysis as outpatient at the clinic and sent back to [place]. My understanding at that point was that patient became a little bit more sedated and it is on clear at this point whether she received some Benadryl plus she had gotten pain medications here prior to leaving and she was somewhat obtunded while getting dialysis. It was reported that both [place] and dialysis clinic decided the patient should be come back and reevaluated in the emergency room. Daughter is currently with her and states that this morning she left to go get lunch and when she came back patient is already being transferred over to dialysis. She was unsure as to what she was being treated for this morning. Daughter states that she is still somewhat altered but if her labs come back normal they are willing to take her back to [place] because with her pelvic fracture she does not need to be keep moving around and she does receive physical therapy there. TRAVEL OUTSIDE OF THE [place] IN LAST 30 DAYS: No - HPI Onset: Yesterday Onset/Duration: Gradual, Waxing and waning Quality of pain: Sharp, Throbbing Severity: Moderate Pain Level: 3 Associated symptoms: None, Weakness Exacerbated by: Movement Relieved by: Denies Similar symptoms previously: Yes Recently seen / treated by doctor: Yes - Related Data Allergies/Adverse Reactions: iodine Allergy (Severe, Verified 03/18/18 10:33) itching, facial swelling, difficulty breathing doxycycline [Doxycycline] Allergy (Verified 03/18/18 10:33) dizzy Iodinated Contrast- Oral and IV Dye [IV Dye, Iodine Containing] Allergy (Verified 03/18/18 10:33) Sulfa (Sulfonamide Antibiotics) Allergy (Verified 03/18/18 10:33) dizzy amlodipine besylate [From Norvas] Adverse Reaction (Unknown, Verified 03/18/18 10:33) anxious, jittery feeling Past Medical History - General Information source: Relative, [facility] Records - Social History Smoking Status: Former Smoker Cigarette use (# per day): No Chew tobacco use (# tins/day): No Smoking Education Provided: No Frequency of alcohol use: None Drug Abuse: None Family History: Reviewed & Not Pertinent, CAD, Hypertension - Past Medical History Cardiac Medical History: Reports: Hx Congestive Heart Failure, Hx Coronary Artery Disease, Hx DVT, Hx Heart Attack, Hx Hypercholesterolemia, Hx Hypertension, Hx Pulmonary Embolism, Hx Heart Murmur Pulmonary Medical History: Reports: Hx COPD, Hx Pneumonia Denies: Hx Asthma, Hx Bronchitis, Hx Tuberculosis Neurological Medical History: Reports: Hx Cerebrovascular Accident. Denies: Hx Seizures Renal/ Medical History: Reports: Hx End Stage Renal Disease - On dialysis, Hx Hemodialysis, Hx Kidney Stones. Denies: Hx Peritoneal Dialysis GI Medical History: Reports: Hx Gastroesophageal Reflux Disease, Hx Ulcer Musculoskeletal Medical History: Reports Hx Arthritis Psychiatric Medical History: Reports: Hx Depression Past Surgical History: Reports: Hx Abdominal Surgery - gastric bypass, Hx Cardiac Surgery - Pacer, bypass, Hx Cholecystectomy, Hx Gastric Bypass Surgery, Hx Orthopedic Surgery, Hx Tonsillectomy, Hx Tubal Ligation. Denies: Hx Hysterectomy - Immunizations Hx Diphtheria, Pertussis, Tetanus Vaccination: Yes Hx Pneumococcal Vaccination: 01/31/14 Review of Systems - Review of Systems Constitutional: No symptoms reported EENT: No symptoms reported Cardiovascular: No symptoms reported Respiratory: No symptoms reported Gastrointestinal: No symptoms reported Genitourinary: No symptoms reported, Burning, Dysuria Female Genitourinary: No symptoms reported Musculoskeletal: See HPI, Back pain, Other - Pelvic pain Skin: No symptoms reported Hematologic/Lymphatic: No symptoms reported Neurological/Psychological: No symptoms reported, Confusion -: Yes All other systems reviewed and negative Physical Exam - Vital signs Vitals: Resp 15 10/28/18 16:49 Interpretation: Normal Notes: PHYSICAL EXAMINATION: GENERAL: Well-appearing, well-nourished and in no acute distress. HEAD: Atraumatic, normocephalic. EYES: Pupils equal round and reactive to light, extraocular movements intact, conjunctiva are normal. ENT: Nares patent, oropharynx clear without exudates. Moist mucous membranes. NECK: Normal range of motion, supple without lymphadenopathy LUNGS: Breath sounds clear to auscultation bilaterally and equal. No wheezes rales or rhonchi. HEART: Regular rate and rhythm without murmurs ABDOMEN: Soft, nontender, nondistended abdomen. No guarding, no rebound. No masses appreciated. Female : deferred Musculoskeletal: Normal range of motion, no pitting or edema. No cyanosis. NEUROLOGICAL: Cranial nerves grossly intact. Normal speech, normal gait. Normal sensory, motor exams PSYCH: Normal mood, normal affect. SKIN: Warm, Dry, normal turgor, no rashes or lesions noted. - Notes Notes: PHYSICAL EXAMINATION: GENERAL: Patient is a well-nourished well-developed 78-year-old female who is in no apparent distress on physical exam however she does appear to be somewhat uncomfortable. Also on initial examination patient does appear to be somewhat obtunded she is confused and not able to speak clearly. HEAD: Atraumatic, normocephalic. EYES: Pupils equal round and reactive to light, extraocular movements intact, conjunctiva are normal. ENT: Nares patent, oropharynx clear without exudates. Very dry mucous membranes. NECK: Normal range of motion, supple without lymphadenopathy LUNGS: Breath sounds clear to auscultation bilaterally and equal. No wheezes rales or rhonchi. HEART: Regular rate and rhythm without murmurs ABDOMEN: Soft, nontender, nondistended abdomen. No guarding, no rebound. No masses appreciated. Female : deferred Musculoskeletal: Physical exam patient's area of concern still involves her pelvic area. She is tender moderately with pressure applied to bilateral pelvis one time. She does not while raise bilateral lower extremities either passively or actively. Given the history of the pelvic fractures as described earlier understandable at this time. NEUROLOGICAL: Normal sensory, motor exams PSYCH: Normal mood, normal affect. SKIN: Warm, Dry, normal turgor, no rashes or lesions noted. Course - Re-evaluation Re-evalutation: 10/28/18 19:33 Originally patient on my initial examination was somewhat obtunded still altered. Waited approximately 45 minutes while at the research on her original presentation and talk to the nurse that accepted her. I then went back in the room and family was present at bedside and we discussed both of her findings from this morning. Daughter states that she was still somewhat slow in her mentation although she was much more apropos than she had been when I was in her previously. Patient's glucose was normal at 116 I believe and therefore not hypoglycemic at this point. I informed the daughter that we are going to repeat her labs and if the labs came back normal we could go ahead and send her back to the facility at [place] since continuously moving around with the pelvic fract ures at this time would be causing more harm than good. I also did not want to sedate her until such time as we have the labs ready and she was ready for transfer so that there was no question as to her cognitive since prior to returning there. Daughter seem to be in agreement with this. Patient's labs did come back normal appearing white count was normal at this point given her potassium was down and glucose was normal patient's altered status at the time of departure from dialysis to [place] was caused by sedation. 10/28/18 20:05 Patient's labs have improved and she is awake and alert and talking to me very well tonight. I did give her a hydrocodone and she feels much better on her samson n level and again she is alert now. I feel it is safe to send her back to [place] where she can be back in her own bed and they can continue with her pain medications as directed. 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 I am going to write her for some hydrocodone and she can reestablish with her primary care for continuation after that is gone. There is no doubt that the pelvic rami fractures are very painful - Vital Signs Vital signs: Temp Pulse Resp BP Pulse Ox 98.5 F 11 L 144/64 H 95 10/28/18 17:00 10/28/18 19:01 10/28/18 19:00 10/28/18 17:01 - Laboratory Result Diagrams: 10/28/18 18:22 10/28/18 19:10 Laboratory results interpreted by me: 10/28/18 10/28/18 18:22 19:10 Hgb 11.7 L RDW 16.4 H Plt Count 95 L Seg Neutrophils % 87.7 H Lymphocytes % 7.2 L Sodium 135.9 L Potassium 5.6 H Chloride 97 L BUN 29 H D Creatinine 5.32 H Est GFR ( Amer) 9 L Est GFR (Non-Af Amer) 8 L Glucose 112 H Discharge - Discharge Clinical Impression: Urinary tract infection Closed fracture of single pubic ramus of pelvis Qualifiers: Encounter type: subsequent encounter Laterality: unspecified laterality Fracture healing: with routine healing Qualified Code(s): S32.599D - Other specified fracture of unspecified pubis, subsequent encounter for fracture with routine healing Condition: Stable Disposition: REHAB FACILITY Instructions: Cephalexin ([facility]), Urinary Tract Infection ([facility]) Additional Instructions: Patient can be taken back to [facility] and continue with all her current medications. She should have been written for some prescriptions earlier today for her urinary tract infection and she should continue with that until finished. There is nothing to do for pelvic rami fractures at this point. They are painful and will heal on her own. She will probably need some type of physical therapy but will be need to evaluated by her primary care physician at the facility to determine that type of care. There is no surgical intervention needed in the pelvic rami fractures. However good handling is required. I have also written patient for some pain medication because this is an extremely painful type of an injury and this may make her slightly obtunded this is not an unusual finding. As long as patient is arousable and breathing normally nothing to worry about. However should you have any concerns or problems we are always want to take a look at the patient in the emergency room. Referrals: VANDANA MARQUES MD [Primary Care Provider] - Follow up as needed
[2018-10-28 19:48] LABS: ANION GAP 14 (5-19); CALCIUM 8.5 mg/dL (8.4-10.2); CARBON DIOXIDE 25 mmol/L (22-30); CHLORIDE 97 mmol/L (98-107); GLUCOSE 112 mg/dL (75-110); POTASSIUM 5.6 mmol/L (3.6-5.0); SODIUM 135.9 mmol/L (137-145)
[2018-10-28 20:00] LABS: BLOOD UREA NITROGEN 29 mg/dL (7-20)
[2018-10-28 21:13] VITALS: BP 110/59
== END 2018-10-28 21:14 ==
LOC: ER 16:38
DX: N39.0 Urinary tract infection, site not specified (principal); R10.2 Pelvic and perineal pain; M54.9 Dorsalgia, unspecified; R41.0 Disorientation, unspecified; I12.0 Hypertensive chronic kidney disease with stage 5 chronic kidney disease or end stage renal disease; N18.6 End stage renal disease; Z99.2 Dependence on renal dialysis; I25.10 Atherosclerotic heart disease of native coronary artery without angina pectoris; J44.9 Chronic obstructive pulmonary disease, unspecified; Z88.1 Allergy status to other antibiotic agents; Z91.041 Radiographic dye allergy status; Z88.2 Allergy status to sulfonamides; Z87.891 Personal history of nicotine dependence; Z98.84 Bariatric surgery status
CPT/HCPCS: 99285; 36415; 82962; 80048; A9270